=== PATIENT | female | born 1945 | race Caucasian/White ===

== ENCOUNTER → 2023-05-08 12:50 | Outpatient (REF) | payer MEDICARE, OTHER, SELFPAY | LOC: DHCBC/DCA 12:50 | PROVIDERS: ATTENDING PHYSICIAN Internal Medicine Cardiovascular Disease; FAMILY PHYSICIAN Emergency Medicine | DX: R06.00 Dyspnea, unspecified (principal); R94.31 Abnormal electrocardiogram [ECG] [EKG] | CPT/HCPCS: 78452; 93017; A9500; J2785 ==

== ENCOUNTER 2023-05-17 06:15 | Inpatient (IN) | payer MEDICARE, OTHER, SELFPAY ==
[2023-05-12 09:53] VITALS: BMI 18.2
[2023-05-12 10:11] LABS: Hematocrit 35.5 % (37.0-47.0); Hemoglobin 10.9 g/dL (12.0-16.0); Mean Corp Hgb Conc. 30.7 g/dL (33.0-37.0); Mean Corpuscular Hgb 26.1 pg (27.0-31.0); Mean Corpuscular Volume 84.9 fL (81.0-99.0); Mean Platelet Volume 9.7 fL (7.4-10.4); Platelet Count 446 10^3/uL (130-400); Red Blood Cell Count 4.18 10^6/uL (4.20-5.40); Red Cell Dist. Width 14.8 % (11.5-14.5); White Blood Cell Count 10.2 10^3/uL (4.8-10.8)
[2023-05-12 10:19] LABS: INR 1.05; PT 13.5 Sec (11.4-14.6)
[2023-05-12 10:20] LABS: APTT 39.6 Sec (23.4-35.0)
[2023-05-12 10:26] LABS: ALT (SGPT) < 10 U/L (0-35); AST (SGOT) 22 U/L (14-36); Albumin 3.8 g/dl (3.5-5.0); Alkaline Phosphatase 117 U/L (38-126); Blood Urea Nitrogen 11 mg/dl (7-17); Calcium 9.7 mg/dl (8.4-10.2); Carbon Dioxide 27 mmol/L (22-30); Chloride 98 mmol/L (98-107); Estimated Creatinine Clearance 37 ml/min; Glucose 123 mg/dl (70-99); Potassium 4.9 mmol/L (3.5-5.1); Sodium 135 mmol/L (135-145); Total Bilirubin 0.6 mg/dl (0.2-1.3); Total Protein 6.6 g/dl (6.3-8.2); eGFR > 60.00
[2023-05-12 13:38] LABS: Glycohemoglobin (HgbA1c) 6.6 % (4.0-5.6)
[2023-05-17] VITALS (61 sets, daily range): BP systolic 83–147; BP diastolic 37–79; BMI 18.2; BMI 19.5
[2023-05-17] MEDS: ENTEREG 12 MG PO (06:57)
[2023-05-17] MEDS: HEPARIN 5000 UNITS SC (06:57)
[2023-05-17] MEDS: Pyridium 200 MG PO (06:58)
[2023-05-17] MEDS: NORMOSOL-R 1000 IV (06:58)
--- NOTE | 2023-05-17 11:36 | W.IMMPOSTOP ---
Surgical Immed Post Op Note
-
Primary Surgeon: David Guardado MD
Urogynecologist: Norberto Bojorquez MD
Assistants: LUKAS Prieto and ROSEMARY Brown
Pre-op Diagnosis: Pelvic floor prolapse
Post-op Diagnosis: Same, with probable left ureteral stone
Procedure Performed: Robotic suture rectopexy, sacroculpopexy, posterior repair and cystoscopy with left double-J stent (Dr. Medina)
Anesthesia Type: GET
Specimen / Cultures: None
Estimated Blood Loss: 15cc
Complications: None
Operative Findings: Full-thickness rectal prolapse
Vaginal vault prolapse
Rectocele
Left ureteral obstruction
Patient's updated.
[2023-05-17] MEDS: NEO-SYNEPHRINE 250 IV (12:44)
--- NOTE | 2023-05-17 13:32 | HPS.HSE ---
Family Physician
-
Family Physician: Daysi Holloway MD
Chief Complaint
-
Postoperative hypotension
History of Present Illness
78-year-old female came in for elective repair of rectal prolapse, complicated by IntraOp and postop hypotension.
Has received over 4 L of fluids intravenously so far. Currently on Emir-Synephrine infusion in the recovery room. Still intubated.
Discussed case with colorectal surgeon. Required intraoperative urology consultation for left ureteral stenting due to lack of urine output from the left ureter, ureteral stone also noted. Chao catheter placed.
Medical History
Past Medical History
Past Medical History: Reports HTN and Other
Additional Past Medical History:
Rectocele, cystocele
Vaginal vault prolapse
Intermittent asthma
Chronic low back pain
Scoliosis
Depression
GERD
Urinary frequency
PAD
Past Surgical History: Reports Other
Additional Past Surgical History:
Hysterectomy -1984.
Lumbar laminectomy -2006
Social History
Tobacco: Smoker
Alcohol: None
Drug: None
Family History
Family History: Not pertinent
Allergies / Home Medications
Allergies reflects when Allergies were last updated in [facility].
Home Medications with original date entered in [employer] [facility]
Allergy/Medication List:
Allergies
Allergy/AdvReac Type Severity Reaction Status Date / Time
aspirin Allergy Gastiris Unverified 05/17/23 06:29
ibuprofen Allergy Gastritis Unverified 05/17/23 06:29
latex Allergy Itching Verified 05/17/23 06:29
NSAIDS (Non-Steroidal Allergy Gastritis Unverified 05/17/23 06:29
Anti-Inflamma
Penicillins Allergy Unknown Verified 05/17/23 06:29
Home Medications
amlodipine 10 mg-benazepril 20 mg capsule 1 cap PO DAILY 04/25/09
estradiol 0.1 mg/24 hr weekly transdermal patch (Climara) 0.1 mg transdermal FR 04/25/09
esomeprazole magnesium 40 mg capsule,delayed release (Nexium) 40 mg PO DAILY 02/28/11
alprazolam 0.25 mg tablet (Xanax) 0.125 mg PO PRN PRN anxiety 05/11/23
alprazolam 0.25 mg tablet (Xanax) 0.25 mg PO HS 05/11/23
azelastine 205.5 mcg (0.15 %) nasal spray (Astepro Allergy) 2 spray intranasal DAILY 05/11/23
dextroamphetamine-amphetamine 30 mg tablet (Adderall) 30 - 45 mg PO DAILY 05/11/23
fexofenadine 180 mg tablet 180 mg PO DAILY 05/11/23
gabapentin 300 mg capsule 600 mg PO HS 05/11/23
oxycodone 20 mg tablet 20 mg PO QID pain 05/11/23
pseudoephedrine HCl 30 mg tablet (Sudafed) 15 mg PO DAILY 05/11/23
sodium citrate 230 mg chewable tablet (Nauzene Upset Stomach-Nausea) 230 mg PO PRN PRN nausea 05/11/23
Review of Systems
-
Unable to obtain full review of systems at this time due to: Patient Intubation
Physical Exam
Vital Signs
Vital Signs
Temp Pulse Resp BP Pulse Ox
98.0 F 64 17 96/45 100
05/17/23 12:23 05/17/23 13:20 05/17/23 13:20 05/17/23 13:20 05/17/23 13:20
Physical Exam
General: Well Developed, Well Nourished, No Apparent Distress, Comfortable and Intubated
HEENT: NormoCephalic and Anicteric
Respiratory: Clear
Cardiac: S1/S2 and Regular Rhythm
Breast: Deferred by me
GI: Soft, Non Tender and Non Distended
Genito-urinary: Deferred by me
Musculoskeletal: No Clubbing, No Cyanosis and No Edema
Skin: Warm, Dry and Other (Subcutaneous emphysema over chest)
Neuro: Sedated
Hematologic/Lymphatic: No Lymphadenopathy
Psych: Calm
Laboratory Results
-
Laboratory Results
PT 13.5 Sec (11.4-14.6) 05/12/23 09:52
INR 1.05 05/12/23 09:52
APTT 39.6 Sec (23.4-35.0) H 05/12/23 09:52
Total Bilirubin 0.6 mg/dl (0.2-1.3) 05/12/23 09:52
AST 22 U/L (14-36) 05/12/23 09:52
ALT < 10 U/L (0-35) 05/12/23 09:52
Alkaline Phosphatase 117 U/L (38-126) 05/12/23 09:52
Impression/Plan
-
Postop hypotension - unclear etiology thus far. She did take her antihypertensives preoperatively which may be playing a role.
Received over 4 L of intravenous fluids both intra and postoperatively so far. Currently on intravenous Emir-Synephrine drip.
Admit to ICU. Consult patient monitor. Continue vasopressors. Look for other causes of hypotension. Clinically doubt sepsis.
Currently intubated, plan to extubate in PACU according to staff.
Pelvic floor prolapse -underwent robotic repair 05/17/2023. Required left ureteral double-J stenting by urology. Continue Chao catheter.
DM2 -hemoglobin A1c 6.6% on 05/12/2023. Not on diabetes meds. Monitor for now.
Essential hypertension -hold antihypertensives for hypotension.
Mild intermittent asthma -stable.
PAD -stable.
Chronic low back pain/chronic pain syndrome/chronic opiate dependence -she is on oxycodone 20 mg 4 times a day, gabapentin 600 mg at bedtime.
GERD
Major depression
Tobacco dependence
Full code
[2023-05-17 13:50] LABS: Hematocrit 29.8 % (37.0-47.0); Hemoglobin 9.5 g/dL (12.0-16.0); Mean Corp Hgb Conc. 31.9 g/dL (33.0-37.0); Mean Corpuscular Hgb 26.3 pg (27.0-31.0); Mean Corpuscular Volume 82.5 fL (81.0-99.0); Mean Platelet Volume 9.5 fL (7.4-10.4); Platelet Count 434 10^3/uL (130-400); Red Blood Cell Count 3.61 10^6/uL (4.20-5.40); Red Cell Dist. Width 14.3 % (11.5-14.5); White Blood Cell Count 19.3 10^3/uL (4.8-10.8)
[2023-05-17 14:04] LABS: Blood Urea Nitrogen 12 mg/dl (7-17); Calcium 7.5 mg/dl (8.4-10.2); Carbon Dioxide 21 mmol/L (22-30); Chloride 99 mmol/L (98-107); Estimated Creatinine Clearance 34 ml/min; Glucose 193 mg/dl (70-99); Potassium 4.4 mmol/L (3.5-5.1); Sodium 129 mmol/L (135-145); eGFR 57.31
[2023-05-17] MEDS: NSS 1000 IV ×2 (14:04→22:24)
--- NOTE | 2023-05-17 15:30 | PTCARENOTE ---
Addendum entered by Loretta Pandya RN 05/17/23 18:53:
Pt received w/ packing noted in perineum. No drainage noted. Pt also found to have diffuse SQ emphysema/crepitus at time of arrival to ICU- turnk/chest and bilateral upper extremities, per [employer] this is unchanged and MD is aware.
Original Note:
Pt arrived to ICU at 1440 via bed from PACU. Drowsy/lethargic but arousable to name. Oriented to person, place, month/year. Denies c/o pain at present. Pt asleep when undisturbed. Pt received on O2 at 6l/min w/ POx 99%. O2 decreased to 4l/min w/ POx
97%. No respiratory distress. Pt received w/ Neosynephrine infusing at 100mcg/min and NS at 100ml/hr. Chao catheter patent and draining clear orange urine. Physical assessment completed as documented. Pt's significant other in room to see pt-
updated on pt's present condition, plan of care- all questions answered and emotional support provided. Safe environment maintained.
[2023-05-17] MEDS: LEVOPHED 250 IV (16:08)
[2023-05-17] MEDS: TYLENOL PO ×3 (16:11→20:47)
[2023-05-17] MEDS: TORADOL 15 MG IV ×2 (16:11→21:10)
--- NOTE | 2023-05-17 16:16 | CON.INTV ---
Consultation
Consultation Request
Date/Time Consultation Requested: 05/17/2023
Date/Time Consultation Performed: 05/17/2023
Requesting Provider: Dr. San
Performing Provider: Dr. Wilner Conner
Medical History
-
History of Present Illness:
78-year-old female who was admitted electively for repair of rectal prolapse complicated with intraoperative hypotension.
Despite receiving 4 L of crystalloids remained hypotensive. Now requiring Emir-Synephrine in the recovery room.
Patient required intraoperative urology consultation and a stent was placed due to lack of urinary output on the left ureter.
Currently in the critical care unit. Extubated. Somnolent but arousable.
Denies abdominal pain, nausea or vomiting.
Does not appear toxic
Past Medical History
Past Medical History: Other (See assessment and plan section)
Social History
Tobacco: Smoker
Alcohol: None
Drug: None
Family History
Family History: Unable to Obtain
Allergies / Home Medications
Allergies
Allergy/AdvReac Type Severity Reaction Status Date / Time
aspirin Allergy Gastiris Unverified 05/17/23 06:29
ibuprofen Allergy Gastritis Unverified 05/17/23 06:29
latex Allergy Itching Verified 05/17/23 06:29
NSAIDS (Non-Steroidal Allergy Gastritis Unverified 05/17/23 06:29
Anti-Inflamma
Penicillins Allergy Unknown Verified 05/17/23 06:29
Home Medications
�Medication �Instructions �Recorded �Confirmed �Last Taken �Type
amlodipine 10 mg-benazepril 20 mg 1 cap PO DAILY Blood Pressure 04/25/09 05/17/23 05/17/23 04:00 History
capsule
estradiol 0.1 mg/24 hr weekly 0.1 mg transdermal FR Hormonal 04/25/09 05/17/23 05/16/23 History
transdermal patch (Climara) Agent
esomeprazole magnesium 40 mg 40 mg PO DAILY Gastrointestinal 02/28/11 05/11/2303/24 04:00 History
capsule,delayed release (Nexium) Issue
alprazolam 0.25 mg tablet (Xanax) 0.125 mg PO PRN PRN anxiety 05/11/23 05/11/23 Unknown History
alprazolam 0.25 mg tablet (Xanax) 0.25 mg PO HS Mental Health/Anxiety 05/11/23 05/17/23 05/17/23 00:30 History
azelastine 205.5 mcg (0.15 %) 2 spray intranasal DAILY Allergies 05/11/23 05/17/23 05/17/23 06:30 History
nasal spray (Astepro Allergy)
dextroamphetamine-amphetamine 30 30 - 45 mg PO DAILY Neurological 05/11/23 05/11/23 Unknown History
mg tablet (Adderall) Condition
fexofenadine 180 mg tablet 180 mg PO DAILY Allergies 05/11/23 05/17/23 05/16/23 10:00 History
gabapentin 300 mg capsule 600 mg PO HS Pain 05/11/23 05/17/23 05/17/23 00:30 History
oxycodone 20 mg tablet 20 mg PO QID pain 05/11/23 05/11/23 05/17/23 04:00 History
pseudoephedrine HCl 30 mg tablet 15 mg PO DAILY Allergies 05/11/23 05/17/23 05/16/23 10:00 History
(Sudafed)
sodium citrate 230 mg chewable 230 mg PO PRN PRN nausea 05/11/23 05/17/23 05/16/23 10:00 History
tablet (Nauzene Upset
Stomach-Nausea)
Review of Systems
-
Unable to Obtain full review of systems at this time due to: Acuity
Vitals / Labs / Diagnostic Testing
Vital Signs
Temp Pulse Resp BP Pulse Ox
96.4 F L 70 13 105/53 99
05/17/23 15:18 05/17/23 15:00 05/17/23 15:00 05/17/23 15:00 05/17/23 15:29
Lab Data
05/17/23 13:41
05/17/23 13:41
Diagnostic Testing:
Physical Exam
-
HEENT: Normocephalic
Cardiovascular: S1/S2
Respiratory: Clear and Non-Labored Respirations
GI: Soft and Non Distended
Neurology: Other (Somnolent but arousable. Following commands.)
Skin: Warm
General: Respiratory Distress (n)
Assessment
-
78-year-old woman electively admitted for repair of rectocele. Respiratory urology had to get involved to place a double-J stent due to lack of urinary output. Patient was extubated in PACU. Developed hypotension unresponsive to IV fluids.
Currently on vasopressors. Transferred to the ICU for further care.
Postoperative hypotension
Status post Robotic suture rectopexy, sacroculpopexy, posterior repair and cystoscopy with left double-J stent (Dr. Medina) 05/17/2023
Leukocytosis
Postoperative anemia-? Dilutional
Hyponatremia
Conditions present prior admission:
Rectocele, cystocele
Chronic back pain
Scoliosis
Depression
GERD
Peripheral arterial disease
Prior hysterectomy 1984
Lumbar laminectomy 2006
Smoker
Assessment and plan:
Unclear etiology for hypotension, currently no evidence for infection but patient has leukocytosis.
Leukocytosis may be reactive, monitor for fevers
Patient did receive prophylactic antibiotics prior to her procedure. Levaquin/metronidazole
-
Hypotension may be from prolonged anesthesia as well as systemic inflammatory response after nephrolithiasis removal.
-
Monitor renal function and urinary output
Agree with transition to norepinephrine-maintain mean arterial blood pressure 65 mmHg or higher.
Hopefully can wean off Emir-Synephrine
Continue maintenance IV fluids
Patient received at least 4 L of crystalloids. No further IV fluids necessary
Hold antihypertensive-, patient took prior surgery.
-
Smoker: Recent evaluation in my office showed normal pulmonary function testing.
-
Wean off oxygen as able.
-
updated by Dr. Conner 05/17/2023.
-
Critical care statement: A total of 31 minutes of critical care time was provided for this patient today. This includes management of unstable vital signs, evaluation of the patient at bedside, reviewing the patient's pertinent medical records
including radiographs, microbiology, laboratory evaluations and discussion with primary team, critical care nursing, and respiratory therapy.
--- NOTE | 2023-05-17 18:30 | PTCARENOTE ---
Pt remains drowsy but responds more readily to questions. Stating 'I'm hungry' Pt and her informed of currently ordered NPO status. O2 remains at 2l/min via NC- attempted to place pt on RA w/ POx down to 88%. Neosynephrine gtt off- Levophed
gtt as documented. gone home for evening.
--- NOTE | 2023-05-17 21:00 | PTCARENOTE ---
Resumed care of pt this evening. Abdominal Surgical sites C/D/I, approximated and surgical glue present ELIZABETH. Pt currently on levo gtt infusing at 10mcg/min. Pt barr in place draining orange colored urine. VSS.
[2023-05-17] MEDS: DILAUDID 0.5 MG IV (21:11)
[2023-05-18] VITALS (40 sets, daily range): BP systolic 121–164; BP diastolic 51–87; PULSE 101; O2SAT 95; BMI 19.6
[2023-05-18] MEDS: TYLENOL PO ×6 (00:26→19:54)
[2023-05-18 00:36] LABS: Glucose - Point of Care 199 mg/dl (70-99)
[2023-05-18] MEDS: NOVOLOG FLEXPEN-LOW RESISTANCE 1 UNITS SC (01:20)
[2023-05-18] MEDS: DILAUDID 0.5 MG IV ×5 (01:29→19:51)
--- NOTE | 2023-05-18 03:30 | PTCARENOTE ---
Levo gtt turned off per protocol. VSS.
[2023-05-18] MEDS: TORADOL 15 MG IV ×4 (04:26→22:25)
[2023-05-18] MEDS: ZOFRAN 4 MG IV (04:52)
[2023-05-18 04:57] LABS: % Basophils 0.1 % (0-2); % Immature Granulocytes 0.5 % (0-0.5); % Lymphocytes 5.5 % (20.5-51.1); % Monocytes 5.8 % (1.7-9.3); % Neutrophils 88.1 % (42.2-75.2); Absolute Immature Granulocytes 0.1 10^3/uL (0-0.05); Absolute Neutrophils 15.5 10^3/uL (1.4-6.5); Hematocrit 32.9 % (37.0-47.0); Hemoglobin 10.5 g/dL (12.0-16.0); Mean Corp Hgb Conc. 31.9 g/dL (33.0-37.0); Mean Corpuscular Hgb 26.3 pg (27.0-31.0); Mean Corpuscular Volume 82.5 fL (81.0-99.0); Mean Platelet Volume 9.6 fL (7.4-10.4); Nucleated Red Blood Cells % 0 %; Platelet Count 391 10^3/uL (130-400); Red Blood Cell Count 3.99 10^6/uL (4.20-5.40); Red Cell Dist. Width 14.4 % (11.5-14.5); White Blood Cell Count 17.6 10^3/uL (4.8-10.8)
[2023-05-18 05:20] LABS: Blood Urea Nitrogen 15 mg/dl (7-17); Carbon Dioxide 24 mmol/L (22-30); Chloride 102 mmol/L (98-107); Estimated Creatinine Clearance 45 ml/min; Glucose 109 mg/dl (70-99); Potassium 4.1 mmol/L (3.5-5.1); Sodium 131 mmol/L (135-145); eGFR > 60.00
--- NOTE | 2023-05-18 05:30 | PTCARENOTE ---
Pt exhibited N/V. Pt vomited small amount of liquid emesis. IV zofran administered by this RN. IV dilaudid also administered by this RN for pain rated 9 out of 10 by patient.
[2023-05-18] MEDS: NOVOLOG FLEXPEN-LOW RESISTANCE SC ×3 (06:50→18:04)
[2023-05-18] MEDS: PROTONIX IV 40 MG IV (07:54)
[2023-05-18] MEDS: NSS (PRESERVATIVE FREE) 10 ML IV (07:54)
[2023-05-18] MEDS: ENTEREG 12 MG PO ×2 (07:54→19:51)
--- NOTE | 2023-05-18 09:00 | PTCARENOTE ---
Complete assessment done and noted in chart/worklist. Pt seen this am by Dr Guardado and Dr Conner. Pt c/o overall pain, mostily in R uppper abd, and lower back pain. Pain Meds reassessed and orders updated by Dr Conner. Abd tender, 5 inc intact with
surgical glue. Chao cath draining large amts of yellow urine. Pt turned and made comfortable. Chao cath care done. IVF NS d/c'd.
--- NOTE | 2023-05-18 10:37 | W.PN.CRS1 ---
Today's Communication / Plan
-
OOB c PT
remain NPO
lovenox
pain control
Assessment/Plan
-
POD#1 Robotic suture rectopexy, sacroculpopexy, posterior repair and cystoscopy with left double-J stent (Dr. Medina)
1. Vitals normal.
2. WBC 17.6, as expected post op.
3. OOB as tolerated with PT.
4. Start Lovenox, TEDS/SCDS in place for DVT prophylaxis.
5. OR pathology pending.
6. Pressers have been weaned off overnight.
7. Continue barr today, d/c in AM.
8. Double J stent in place, will remain in place for about a month until determined by urology.
9. Remain NPO for now given bloating.
10. Pain control: Tylenol/Toradol standing, Dilaudid PRN.
Subjective Data
Procedure
05/17/2023- Robotic suture rectopexy, sacroculpopexy, posterior repair and cystoscopy with left double-J stent (Dr. Medina)
Subjective Data
Date of Service: May 18, 2023
Patient states she feels bloated. She complains of right sided pain. She vomited overnight.
Objective Data
-
Vital Signs
Temp Pulse Resp BP Pulse Ox
98.2 F 83 17 149/66 92
05/18/23 07:35 05/18/23 07:15 05/18/23 07:15 05/18/23 07:00 05/18/23 07:15
Intake & Output
05/17/23 05/18/23 05/19/23
06:59 06:59 06:59
Intake Total 2794.5 / 2794.5
Output Total 1950 / 1950
Balance 844.5 / 844.5
Intake:
IV fluids (Total) 2794.5 / 2794.5
Levophed 322.5 / 322.5
Neosynephrine 72 / 72
Normosol 800 / 800
Nss 1,000 ml @ 100 mls/hr IV . 1600 / 1600
Q10H EHSAN Rx#:[id number]
Output:
Urine, Barr 1949
Lab Results
05/18/23 04:41
05/18/23 04:41
Physical Exam
-
General: No Acute Distress and AOx3
Abdomen: Soft, Distended (mild) and Tender (by incisions, throughout)
Skin: Warm and Dry
Wound: No Signs of Infection
--- NOTE | 2023-05-18 10:43 | CM ---
CM following re: discharge planning.
Discussed in Rounds, reviewed pt's chart, met with pt and spoke to pt's son Grabiel over the phone [phone].
Pt is a 78 year old female admitted with primary dx of POD #1 Robotic suture rectopexy, sacrocolpopexy, posterior repair and cystoscopy with left double-J stent.
per son Grabiel, pt lives with a boyfriend in a 2[place], 3 steps to enter, has 2 supportive children. Per son, pt uses a walker occasionally, boyfriend help as needed. Pt's son had many questions regarding pt's meds and he was notified that RN and MD
will give him a call. RN and MD are aware.
PT and OT will evaluate the pt to determine a level of care at discharge.
PCP: Daysi Holloway
Pharmacy: [place] [facility]
D/C plan: home with anticipated VN services. Spouse to transport at discharge.
CM will follow with discharge plan updates as hospitalization progresses.
--- NOTE | 2023-05-18 10:47 | W.PN.INTV ---
Today's Communication / Plan
Recommendations
Continue gentle IV fluids
Continue with analgesia: Will need to start low-dose narcotics that she takes at home.
Diet per surgery
Transfer to [facility]
Sign off
Assessment
-
78-year-old woman electively admitted for repair of rectocele. Respiratory urology had to get involved to place a double-J stent due to lack of urinary output. Patient was extubated in PACU. Developed hypotension unresponsive to IV fluids.
Currently on vasopressors. Transferred to the ICU for further care.
Postoperative hypotension
Status post Robotic suture rectopexy, sacroculpopexy, posterior repair and cystoscopy with left double-J stent (Dr. Medina) 05/17/2023
Leukocytosis
Postoperative anemia-? Dilutional
Hyponatremia
Conditions present prior admission:
Rectocele, cystocele
Chronic back pain
Scoliosis
Depression
GERD
Peripheral arterial disease
Prior hysterectomy 1984
Lumbar laminectomy 2006
Smoker
Assessment and plan:
Hypotension have resolved, likely postanesthesia effect. Vasopressors have been discontinued
Patient does not appear toxic.
Hemoglobin is stable
Patient did receive prophylactic antibiotics prior to her procedure. Levaquin/metronidazole
Continue gentle IV fluids while NPO.
-
Hold antihypertensive for now.
-
Main issue is postoperative pain
Patient takes standing narcotics at home.
Discussed with pharmacy, will maintain [id number] low-dose narcotics while NPO.
-
Advance diet per surgery.
Maintain on low rate IV fluids for now.
-
Smoker: Recent evaluation in my office showed normal pulmonary function testing.
-
updated by Dr. Conner 05/17/2023.
-
No additional critical care needs. Will transfer to [facility].
Critical care team will sign off.
Eventual follow-up with Dr. Conner in the outpatient setting as previously scheduled.
Subjective Dataa
Subjective Data
Date of Service:
Date of Service: May 18, 2023
Chief Complaint: Vector Control Assistant Follow Up (Postoperative hypotension)
Subjective:
Continues to report postoperative pain
Denies nausea or vomiting
Denies shortness of breath
Vasopressors have been discontinued
Review of Systems
General: Fever (n)
Cardiopulmonary: Dyspnea (n) and Chest Pain (n)
GI: Abdominal Pain (n) and Nausea (n)
Objective Data
Data Reviewed
Vital Signs / I&O / Oxygen:
Vital Signs
Temp Pulse Resp BP Pulse Ox
98.2 F 83 17 149/66 92
05/18/23 07:35 05/18/23 07:15 05/18/23 07:15 05/18/23 07:00 05/18/23 07:15
Intake and Output
05/17/23 05/18/23 05/19/23
06:59 06:59 06:59
Intake Total 2794.5 / 2794.5
Output Total 1950 / 1950
Balance 844.5 / 844.5
SaO2 92
Nasal Cannula flow liters per 4
minute
Physical Exam
General: Respiratory Distress (n) and Comfortable
HEENT: Normocephalic
Cardiovascular: S1-S2 and Regular Rhythm
Respiratory: Clear and Non-Labored Respirations
GI: Soft and Non Distended
Neurology: Awake and Alert
Skin: Warm
Labs/Micro/Reports
Lab Data
05/18/23 04:41
05/18/23 04:41
[2023-05-18 12:00] LABS: Glucose - Point of Care 104 mg/dl (70-99)
--- NOTE | 2023-05-18 12:55 | W.PN.HOSP.TC ---
Today's Communication/Plan
-
Continue analgesics
Resume antihypertensives
PT/OT
Await bowel function return
Assessment / Plan
Assessment / Plan
Gen-awake, alert, mild distress due to pain
HEENT-NC, AT, anicteric, clear oral mm
Neck-supple
CV-reg, no M, +S1/S2
Lungs-clear B/L
Abd-soft, nondistended, tender
Ext-no edema
Musculoskeletal-no cyanosis, clubbing
Skin-warm and dry
Neuro-grossly non-focal
Psych-calm, cooperative
Postoperative hypotension -resolved. Can transfer out of ICU.
Pelvic floor prolapse -underwent robotic repair 05/17/2023. Required left ureteral double-J stenting by urology. Continue Chao catheter. Resume diet when okay with surgery. Awaiting return of bowel function.
DM2 -hemoglobin A1c 6.6% on 05/12/2023. Not on diabetes meds. Monitor for now. Glucose 109 this morning.
Essential hypertension -blood pressure now elevated. Can resume home meds.
Hyponatremia (POA) - sodium 131 today. Likely due to postoperative pain. Mild fluid restriction.
Normocytic anemia -unknown acuity or etiology. Hemoglobin stable. Will need outpatient follow-up with PCP.
Mild intermittent asthma -stable.
PAD -stable.
Chronic low back pain/chronic pain syndrome/chronic opiate dependence -she is on oxycodone 20 mg 4 times a day, gabapentin 600 mg at bedtime.
GERD
Major depression
Tobacco dependence
Full code
Anticipated Discharge: > 48 hours
Subjective/Interval History
-
Date of Service: May 18, 2023
Patient seen and examined. Complaining of abdominal pain. Working with physical therapy.
Objective Data
-
Labs:
Laboratory Results
05/18/23
04:41
WBC 17.6 H
Hgb 10.5 L
Hct 32.9 L
Plt Count 391
Sodium 131 L
Potassium 4.1
Chloride 102
Carbon Dioxide 24
BUN 15
Creatinine 0.8
Glucose 109 H
Calcium 8.0 L
Vital Signs:
Vital Signs
Temp Pulse Resp BP Pulse Ox
98.7 F 83 17 149/66 92
05/18/23 11:40 05/18/23 07:15 05/18/23 07:15 05/18/23 07:00 05/18/23 07:15
I&O
05/17/23 05/18/23 05/19/23
06:59 06:59 06:59
Intake Total 2794.5 / 2794.5
Output Total 1950 / 1949
Balance 844.5 / 844.5
Review of Systems
-
History Source: Patient
All other systems: Reviewed and negative
--- NOTE | 2023-05-18 13:00 | PTCARENOTE ---
Pt's daughter, Alicja, and son, Grabiel, were called and updated.
[2023-05-18] MEDS: NORVASC 10 MG PO (13:26)
--- NOTE | 2023-05-18 13:42 | PTCARENOTE ---
Pt seen by P/T and now OOB in chair with sl assist and walker. Pt cleared to go to med surg bed when available. O2 weaned down to 2l nc, O2 sast=94%. I/S being done at bedside with encouragement.
--- NOTE | 2023-05-18 16:58 | W.PN.GYN ---
Today's Communication / Plan
-
1. barr to remain in place until pod2
2. Remove vaginal packing
Physician Note
-
Assesment and Plan:
78 yo woman POD 1 s/p robotic rectopexy, sacrocolpopexy, posterior colporrhaphy, perineoplasty, left ureteral stent for presumed kidney stone. Patient admitted overnight to the ICU for hypotension.
1. Postoperative Care
-postoperative recommendtions per Colorectal surgery
2. Vaginal prolapse repair
-remove vaginal packing
-monitor vaginal bleeding
-strict I/Os
Subjective
patient reports back pain and pelvic pain, bloating, passing small amount of flatus, has not ambulated, no significant vaginal bleeding.
Objective:
Intake and Output
05/16/23 05/17/23 05/18/23 05/19/23
06:59 06:59 06:59 06:59
Intake Total 2794.5 / 2894.5 200 / 200
Output Total 1949 / 1949 1500 / 1500
Balance 844.5 / 944.5 -1300 / -1300
Intake:
IV fluids (Total) 2794.5 / 2894.5 200 / 200
Levophed 322.5 / 322.5 0 / 0
Neosynephrine 72 / 72 0 / 0
Normosol 800 / 800
Nss 1,000 ml @ 100 mls/hr IV . 1600 / 1700 200 / 200
Q10H E[facility]AN Rx#:[id number]
Output:
Urine, Barr 1949 / 1949 1500 / 1500
Vital Signs
Temp Pulse Resp BP Pulse Ox
98.3 F 107 23 137/61 94
05/18/23 15:03 05/18/23 16:30 05/18/23 16:30 05/18/23 16:00 05/18/23 16:30
Lab Results
05/18/23 04:41
05/18/23 04:41
exam:
Abdomen: distended, +bowel sounds
Incisions: clean, dry, intact
: minimal spotting on pad
--- NOTE | 2023-05-18 17:03 | PTCARENOTE ---
Pt assisted back to bed to chair with 2 person assist. Pt tolerated OOB to chair well. Pt is passing flatus and just had a small formed brown stool. Dr Guardado updated, and clear liq diet was ordered. I/S done, reaching 750 TV.
[2023-05-18] MEDS: LOVENOX 40 MG SC (17:10)
[2023-05-18 18:12] LABS: Glucose - Point of Care 101 mg/dl (70-99)
[2023-05-18] MEDS: XANAX 0.25 MG PO (22:25)
[2023-05-19] VITALS (17 sets, daily range): BP systolic 118–162; BP diastolic 62–117; PULSE 122; BMI 17.7
[2023-05-19] MEDS: TYLENOL PO ×7 (00:30→23:51)
[2023-05-19] MEDS: DILAUDID 0.5 MG IV ×7 (00:53→23:51)
[2023-05-19] MEDS: NOVOLOG FLEXPEN-LOW RESISTANCE SC ×4 (00:56→23:51)
[2023-05-19 01:04] LABS: Glucose - Point of Care 114 mg/dl (70-99)
[2023-05-19] MEDS: TORADOL 15 MG IV ×4 (04:25→22:15)
[2023-05-19 04:43] LABS: % Basophils 0.2 % (0-2); % Immature Granulocytes 0.6 % (0-0.5); % Lymphocytes 5.6 % (20.5-51.1); % Monocytes 4.9 % (1.7-9.3); % Neutrophils 88.7 % (42.2-75.2); Absolute Basophils 0.1 10^3/uL (0-0.2); Absolute Immature Granulocytes 0.2 10^3/uL (0-0.05); Absolute Lymphocytes 1.4 10^3/uL (1.2-3.4); Absolute Monocytes 1.2 10^3/uL (0.1-0.6); Absolute Neutrophils 21.9 10^3/uL (1.4-6.5); Hematocrit 37.2 % (37.0-47.0); Hemoglobin 12.4 g/dL (12.0-16.0); Mean Corp Hgb Conc. 33.3 g/dL (33.0-37.0); Mean Corpuscular Hgb 26.4 pg (27.0-31.0); Mean Corpuscular Volume 79.1 fL (81.0-99.0); Mean Platelet Volume 9.7 fL (7.4-10.4); Nucleated Red Blood Cells % 0 %; Platelet Count 478 10^3/uL (130-400); Red Cell Dist. Width 14.6 % (11.5-14.5); White Blood Cell Count 24.7 10^3/uL (4.8-10.8)
[2023-05-19 05:28] LABS: ALT (SGPT) 13 U/L (0-35); AST (SGOT) 44 U/L (14-36); Albumin 3.2 g/dl (3.5-5.0); Alkaline Phosphatase 150 U/L (38-126); Blood Urea Nitrogen 18 mg/dl (7-17); Calcium 8.9 mg/dl (8.4-10.2); Carbon Dioxide 25 mmol/L (22-30); Chloride 96 mmol/L (98-107); Estimated Creatinine Clearance 52 ml/min; Glucose 120 mg/dl (70-99); Potassium 3.6 mmol/L (3.5-5.1); Sodium 131 mmol/L (135-145); Total Bilirubin 0.8 mg/dl (0.2-1.3); Total Protein 5.8 g/dl (6.3-8.2); eGFR > 60.00
[2023-05-19] MEDS: KCL 20 MEQ PO (06:34)
--- NOTE | 2023-05-19 07:35 | W.PN.GYN ---
Today's Communication / Plan
-
1. remove barr catheter later today after ambulation
2. send UA
Physician Note
-
Assesment and Plan:
78 yo woman POD 2 s/p robotic rectopexy, sacrocolpopexy, posterior colporrhaphy, perineoplasty, left ureteral stent for presumed kidney stone. Patient currently in ICU, leukocytosis uptrending overnight.
1. Postoperative Care
-postoperative recommendations per Colorectal surgery
2. Vaginal prolapse repair
-removed vaginal packing on POD2
-monitor vaginal bleeding: minimal bleeding
-strict I/Os
-send UA with reflex urine culture
Subjective:
patient reports that her last emesis was yesterday morning, had bowel movement, up to chair yesterday, denies chest pain or shortness of breath, denies fevers/chills.
Objective
Intake and Output
05/17/23 05/18/23 05/19/23 05/20/23
06:59 06:59 06:59 06:59
Intake Total 2794.5 / 2894.5 400 / 400
Output Total 1949 4000 / 4000
Balance 844.5 / 944.5 -3600 / -3600
Intake:
Oral fluids 200 / 200
IV fluids (Total) 2794.5 / 2894.5 200 / 200
Levophed 322.5 / 322.5 0 / 0
Neosynephrine 72 / 72 0 / 0
Normosol 800 / 800
Nss 1,000 ml @ 100 mls/hr IV . 1600 / 1700 200 / 200
Q10H [facility] Rx#:[id number]
Output:
Urine, Barr 1949 4000 / 4000
Vital Signs
Temp Pulse Resp BP Pulse Ox
97.8 F 103 16 156/67 98
05/19/23 07:09 05/19/23 06:00 05/19/23 06:00 05/19/23 06:00 05/19/23 05:45
Lab Results
05/19/23 04:34
05/19/23 04:34
Exam:
Abdomen: soft, nontender
Incisions: intact
: barr catheter in place, packing removed, minimal spotting
[2023-05-19] MEDS: NSS (PRESERVATIVE FREE) 10 ML IV (07:42)
[2023-05-19] MEDS: NORVASC 10 MG PO (07:42)
[2023-05-19] MEDS: PROTONIX IV 40 MG IV (07:42)
[2023-05-19] MEDS: ENTEREG 12 MG PO ×2 (07:44→19:55)
[2023-05-19] MEDS: [UNRECOGNIZED DRUG - OTHER] 0.100000000000000006 MG TRANSDERM (08:06)
[2023-05-19 08:33] LABS: Urine Albumin Trace (Neg - Trace); Urine Bilirubin Negative (Negative); Urine Character Clear (Clear); Urine Color Yellow; Urine Glucose Negative (Negative); Urine Ketone 2+ (Negative); Urine Leukocyte 1+ (Negative); Urine Nitrite Negative (Negative); Urine Occult Blood 4+ (Negative); Urine Urobilinogen Negative (Neg - 1+); Urine pH 6.5 (5.0-9.0)
--- NOTE | 2023-05-19 09:08 | PTCARENOTE ---
assessments per work list. patient reluctant to participate in plan of care. artificial stone setter/urologist in. vaginal packing removed by MD. patient incontinent large soft brown stool. urine specimen sent from barr cath. abdominal stab sites intact. lungs with
crackles scattered throughout. patient tachycardic with frequent pac. tiger text to hospitalist to update. call vick in place
[2023-05-19 09:16] LABS: Urine Mucus Few
[2023-05-19 09:18] LABS: Urine Red Blood Cell >100 /HPF (0-2)
[2023-05-19 09:20] LABS: Urine Bacteria Few (Negative)
--- NOTE | 2023-05-19 11:35 | W.PN.HOSP.TC ---
Addendum entered and electronically signed by Prudencio San DO 05/19/23 13:54:
BMI 17.7, underweight.
Original Note:
Today's Communication/Plan
-
Normal saline IV fluids
Resume benazepril
Assessment / Plan
Assessment / Plan
Gen-awake, alert, mild distress due to pain
HEENT-NC, AT, anicteric, clear oral mm
Neck-supple
CV-reg, no M, +S1/S2
Lungs-clear B/L
Abd-soft, nondistended, tender
Ext-no edema
Musculoskeletal-no cyanosis, clubbing
Skin-warm and dry
Neuro-grossly non-focal
Psych-calm, cooperative
Postoperative hypotension -resolved. Can transfer out of ICU.
Pelvic floor prolapse -underwent robotic repair 05/17/2023. Required left ureteral double-J stenting by urology. Clear liquid diet per surgery.
Chao catheter to come out today.
Leukocytosis -white blood cell count 24.7k today. Afebrile, nontoxic. Clinically doubt infection and I suspect it may be due to hemoconcentration in light of rising hemoglobin as well as negative I's and O's. Her weight is also down. Suspect she
has poor oral intake despite clear liquid diet. Will administer IV normal saline fluids. Recheck CBC in the morning. Discussed with surgical service.
DM2 -hemoglobin A1c 6.6% on 05/12/2023. Not on diabetes meds. Monitor for now. Glucose 109 this morning.
Essential hypertension -stable. Amlodipine resumed. Can resume benazepril as well.
Hyponatremia (POA) - sodium 131 today, stable. Likely due to postoperative pain. Mild fluid restriction.
Normocytic anemia -unknown acuity or etiology. Hemoglobin up to 12.4 today, likely due to hemoconcentration due to poor fluid intake.
Mild intermittent asthma -stable.
PAD -stable.
Chronic low back pain/chronic pain syndrome/chronic opiate dependence -she is on oxycodone 20 mg 4 times a day, gabapentin 600 mg at bedtime.
GERD
Major depression
Tobacco dependence
Full code
PT consult - SNF versus home health, to be determined.
Anticipated Discharge: > 48 hours
Subjective/Interval History
-
Date of Service: May 19, 2023
Patient seen and examined. Sleeping when I walked in but complaining of abdominal pain after I woke her up.
Objective Data
-
Labs:
Laboratory Results
05/19/23
04:34
WBC 24.7 H
Hgb 12.4
Hct 37.2
Plt Count 478 H D
Sodium 131 L
Potassium 3.6
Chloride 96 L
Carbon Dioxide 25
BUN 18 H
Creatinine 0.7
Glucose 120 H
Calcium 8.9
Total Bilirubin 0.8
AST 44 H
ALT 13
Alkaline Phosphatase 150 H
Vital Signs:
Vital Signs
Temp Pulse Resp BP Pulse Ox
97.8 F 105 17 158/89 95
05/19/23 07:09 05/19/23 11:30 05/19/23 11:30 05/19/23 08:00 05/19/23 11:30
I&O
05/18/23 05/19/23 05/20/23
06:59 06:59 06:59
Intake Total 2794.5 / 2894.5 400 / 400 240 / 240
Output Total 1950 / 1950 4000 / 4000 100 / 100
Balance 844.5 / 944.5 -3600 / -3600 140 / 140
Review of Systems
-
History Source: Patient
All other systems: Reviewed and negative
[2023-05-19 11:54] LABS: Glucose - Point of Care 152 mg/dl (70-99)
[2023-05-19] MEDS: NSS 1000 IV (11:55)
[2023-05-19] MEDS: NOVOLOG FLEXPEN-LOW RESISTANCE 1 UNITS SC (11:56)
--- NOTE | 2023-05-19 12:43 | W.PN.CRS1 ---
Today's Communication / Plan
-
wbc workup
continue clears
remove barr when ambulating
Assessment/Plan
-
POD#2 Robotic suture rectopexy, sacroculpopexy, posterior repair and cystoscopy with left double-J stent (Dr. Medina)
1. Tachycardic - in sinus but throwing pvcs ? attempting to go into afib.
2. WBC 24.7, yup from 17.6. CR chest/abdomen, urinalysis, lower extremity dopplers ordered.
3. OOB as tolerated with PT.
4. Lovenox, TEDS/SCDS in place for DVT prophylaxis.
5. OR pathology pending.
6. Plan for barr out later today when ambulation.
7. Vaginal packing removed by urogyn.
8. Double J stent in place, will remain in place for about a month until determined by urology.
9. Continue on clears.
10. Pain control: Tylenol/Toradol standing, Dilaudid PRN.
Subjective Data
Procedure
05/17/2023- Robotic suture rectopexy, sacroculpopexy, posterior repair and cystoscopy with left double-J stent (Dr. Medina)
Subjective Data
Date of Service: May 19, 2023
Patient states she has diarrhea. She denies nausea. She has abdominal pain and feels bloated.
Objective Data
-
Vital Signs
Temp Pulse Resp BP Pulse Ox
97.6 F 105 17 158/89 95
05/19/23 11:35 05/19/23 11:30 05/19/23 11:30 05/19/23 08:00 05/19/23 11:30
Intake & Output
05/18/23 05/19/23 05/20/23
06:59 06:59 06:59
Intake Total 2794.5 / 2894.5 400 / 400 240 / 240
Output Total 1949 4000 / 4000 350 / 350
Balance 844.5 / 944.5 -3600 / -3600 -110 / -110
Intake:
Oral fluids 200 / 200 240 / 240
IV fluids (Total) 2794.5 / 2894.5 200 / 200
Levophed 322.5 / 322.5 0 / 0
Neosynephrine 72 / 72 0 / 0
Normosol 800 / 800
Nss 1,000 ml @ 100 mls/hr IV . 1600 / 1700 200 / 200
Q10H [facility] Rx#:[id number]
Output:
Urine, Barr 1949 4000 / 4000 350 / 350
Lab Results
05/19/23 04:34
05/19/23 04:34
Physical Exam
-
General: No Acute Distress and AOx3
Abdomen: Soft, Distended (slight) and Tender (mild throughout)
Skin: Warm and Dry
Incision: Clear, Dry, Intact
--- NOTE | 2023-05-19 13:26 | PN.CDI ---
CDI
- -
CDI:
Physician Documentation Request
Admit Date: 05/17/23 06:15
Dear Doctor Jaswinder,
Clinical Indicators:
Patient admitted with pelvic floor prolapse; s/p robotic repair 05/16.
On admission:
Height: 102 lbs 15 oz
Weight: 99 lbs
BMI: 18.2
05/18 note/assessment: 'BMI 17.7 underweight range'...Pt unable to clarify what her height is If pt is in fact 5' 1' her BMI would be 18.9 which is in the normal range, though considered underweight for adults >65 years.'
If possible, please provide an associated diagnosis related to the abnormal BMI (< or = to 19.9), such as:
Underweight
BMI is not significant
Other, please specify
Use of terms such as suspected, likely, concern for, or probable (associated with a specific diagnosis that is being evaluated, monitored, or treated as if it exists) are acceptable and can be coded in the inpatient setting, when documented at the
time of discharge.
Thank you,
MAHAD Brunner RN
CDI Specialist
available via tiger text
Please use your independent medical judgment in providing your response.
--- NOTE | 2023-05-19 14:14 | CM ---
CM following re: discharge planning.
Discussed in Rounds, reviewed pt's chart, met with pt. Pt's daughter Alicja and pt's boyfriend Grabiel at bedside.
PT and OT evaluations noted - SNF vs home PT recommended. CM discussed it with pt and her family. home PT preferred and SNF level of care politely declined. A list of [facility] b]vendors provided, [facility] preferred. A referral to VN made.
D/C plan: home with [facility] and family support. Boyfriend to transport at discharge.
CM will follow with discharge plan updates as hospitalization progresses
[2023-05-19] MEDS: DILAUDID 0.25 MG IV (14:41)
--- NOTE | 2023-05-19 15:35 | PTCARENOTE ---
heart rate to 160 when working with PT. back to 90-110 at rest, sinus with pac. hospitalist updated by tiger text. patient for transfer to [address] [place] [address], awaiting call back to give report. family updated
--- NOTE | 2023-05-19 16:22 | PTCARENOTE ---
transfer to [address] [place] [address] with all belongings, report called to Sigrid KAUFMAN
[2023-05-19] MEDS: LOVENOX 30 MG SC (17:38)
[2023-05-19 18:01] LABS: Glucose - Point of Care 146 mg/dl (70-99)
[2023-05-19] MEDS: XANAX 0.25 MG PO (22:15)
[2023-05-19 22:38] LABS: Glucose - Point of Care 126 mg/dl (70-99)
[2023-05-20] MEDS: NSS 1000 IV (00:52)
[2023-05-20] MEDS: DILAUDID 0.5 MG IV ×5 (01:41→15:34)
[2023-05-20 03:00] VITALS: BP 108/80
[2023-05-20] MEDS: TYLENOL PO ×6 (04:00→23:58)
[2023-05-20] MEDS: TORADOL 15 MG IV ×4 (04:03→22:14)
[2023-05-20 06:00] VITALS: BMI 17.0
[2023-05-20 07:10] LABS: % Basophils 0.2 % (0-2); % Eosinophils 0.1 % (0-6); % Immature Granulocytes 0.5 % (0-0.5); % Lymphocytes 9.7 % (20.5-51.1); % Monocytes 6.7 % (1.7-9.3); % Neutrophils 82.8 % (42.2-75.2); Absolute Immature Granulocytes 0.1 10^3/uL (0-0.05); Absolute Lymphocytes 1.8 10^3/uL (1.2-3.4); Absolute Monocytes 1.3 10^3/uL (0.1-0.6); Absolute Neutrophils 15.4 10^3/uL (1.4-6.5); Hematocrit 35.9 % (37.0-47.0); Mean Corp Hgb Conc. 33.4 g/dL (33.0-37.0); Mean Corpuscular Hgb 26.4 pg (27.0-31.0); Mean Corpuscular Volume 79.1 fL (81.0-99.0); Mean Platelet Volume 10.1 fL (7.4-10.4); Nucleated Red Blood Cells % 0 %; Platelet Count 487 10^3/uL (130-400); Red Blood Cell Count 4.54 10^6/uL (4.20-5.40); Red Cell Dist. Width 14.8 % (11.5-14.5); White Blood Cell Count 18.6 10^3/uL (4.8-10.8)
[2023-05-20 07:12] VITALS: BP 148/63
[2023-05-20 07:34] LABS: Glucose - Point of Care 129 mg/dl (70-99)
[2023-05-20 07:36] LABS: ALT (SGPT) 13 U/L (0-35); AST (SGOT) 35 U/L (14-36); Albumin 3.2 g/dl (3.5-5.0); Alkaline Phosphatase 126 U/L (38-126); Blood Urea Nitrogen 18 mg/dl (7-17); Calcium 8.7 mg/dl (8.4-10.2); Carbon Dioxide 26 mmol/L (22-30); Chloride 98 mmol/L (98-107); Estimated Creatinine Clearance 52 ml/min; Glucose 119 mg/dl (70-99); Magnesium 1.7 mg/dl (1.6-2.3); Potassium 3.6 mmol/L (3.5-5.1); Sodium 128 mmol/L (135-145); Total Bilirubin 0.6 mg/dl (0.2-1.3); Total Protein 5.8 g/dl (6.3-8.2); eGFR > 60.00
[2023-05-20 08:31] LABS: TSH 0.65 uIU/ml (0.47-4.68)
[2023-05-20] MEDS: NOVOLOG FLEXPEN-LOW RESISTANCE SC ×4 (08:51→23:56)
[2023-05-20] MEDS: PROTONIX IV 40 MG IV (08:54)
[2023-05-20] MEDS: NSS (PRESERVATIVE FREE) 10 ML IV (08:54)
[2023-05-20] MEDS: ENTEREG 12 MG PO (08:55)
--- NOTE | 2023-05-20 09:29 | W.PN.GS2 ---
Addendum entered and electronically signed by Paco Nicolas MD 05/20/23 10:14:
Patient seen and examined with nurse practitioner. Agree with documented progress note.
Patient's chief complaint is back pain and abdominal discomfort.
Passing flatus, moving bowels. No nausea or vomiting
AF tachycardia 100-120, vital signs otherwise stable
NAD but uncomfortable appearing secondary to her back pain
Abdomen soft nondistended, mild tenderness, no rebound rigidity or guarding
Assessment/plan: POD status post RAL sutured rectopexy, sacrocolpopexy, left ureteral stent for presumed kidney stone
Suspect tachycardia related to pain management
Given GI recovery advance to full liquid diet and resume chronic home narcotics and gabapentin
DC Entereg given GI recovery
Leukocytosis improving
Original Note:
Today's Communication / Plan
-
Advance to FLD
Pain management
Assessment / Plan
-
78 yo female presenting for pelvic floor prolapse
POD #3 Robotic suture rectopexy, sacrocolpopexy, posterior colporrhaphy, perineoplasty and cystoscopy with left ureteral stent for presumed kidney stone
Afebrile, Stable BP. Tachycardia present; likely secondary to uncontrolled pain
No n/v. Passing stools.
Vaginal packing removed by urogyn
Leukocytosis improving. H/H stable.
Hyponatremia present (management as per hospitalist team)
--Advance to FLD
--Resume home oxycodone 20mg QID and 600mg gabapentin at HS. Scheduled tylenol and toradol. PRN IV dilaudid.
--PT eval/OOB increase activity. IS while awake
--D/C barr once ambulatory/ok with urology
--D/C entereg
--C/W lovenox SQ for vte ppx
--Hospitalist team following with us
Subjective Data
-
Date of Service: May 20, 2023
Patient seen and examined at bedside. Denies n/v. Significant back pain overnight, has baseline back pain for which she takes oxycodone chronically which was held immediately post operatively. Abdominal discomfort present but not severe. Passing
semi-formed stools/flatus. Tolerating clears.
Objective Data
-
Intake and Output
05/19/23 05/20/23 05/21/23
06:59 06:59 06:59
Intake Total 400 / 400 2290 / 2290 160 / 160
Output Total 4000 / 4000 1850 / 1850 600 / 600
Balance -3600 / -3600 440 / 440 -440 / -440
Intake:
Oral fluids 200 / 200 1010 / 1010
IV fluids (Total) 200 / 200 1280 / 1280 160 / 160
Levophed 0 / 0
Neosynephrine 0 / 0
Nss 1,000 ml @ 100 mls/hr IV . 200 / 200
Q10H [facility] Rx#:[id number]
Nss 1,000 ml @ 80 mls/hr IV . 320 / 320
[id number] [facility] Rx#:[id number]
Output:
Urine, Barr 4000 / 4000 1850 / 1850 600 / 600
Vital Signs
Temp Pulse Resp BP Pulse Ox
97.7 F 119 16 148/63 95
05/20/23 07:12 05/20/23 07:12 05/20/23 07:12 05/20/23 07:12 05/20/23 07:12
Lab Results
05/20/23 06:28
05/20/23 06:28
Calcium 8.7 mg/dl (8.4-10.2) 05/20/23 06:28
Magnesium 1.7 mg/dl (1.6-2.3) 05/20/23 06:28
Total Bilirubin 0.6 mg/dl (0.2-1.3) 05/20/23 06:28
AST 35 U/L (14-36) 05/20/23 06:28
ALT 13 U/L (0-35) 05/20/23 06:28
Alkaline Phosphatase 126 U/L (38-126) 05/20/23 06:28
Total Protein 5.8 g/dl (6.3-8.2) L 05/20/23 06:28
Albumin 3.2 g/dl (3.5-5.0) L 05/20/23 06:28
Physical Exam
-
Uncomfortable appearing
Ox3
ABD soft, ND, mild incisional tenderness
Incisions well approximated, intact glue, no erythema
Barr with clear, светлана urine
[2023-05-20] MEDS: LOTREL 10 MG/20 MG 1 CAPSULE PO (10:15)
[2023-05-20 11:28] VITALS: BP 140/67
--- NOTE | 2023-05-20 11:32 | W.PN.HOSP.TC ---
Today's Communication/Plan
-
Resume home doses of opiates
DC Chao catheter
Voiding trial
Assessment / Plan
Assessment / Plan
Gen-awake, alert, mild distress due to pain
HEENT-NC, AT, anicteric, clear oral mm
Neck-supple
CV-reg, no M, +S1/S2
Lungs-clear B/L
Abd-soft, nondistended, tender
Ext-no edema
Musculoskeletal-no cyanosis, clubbing
Skin-warm and dry
Neuro-grossly non-focal
Psych-calm, cooperative
Postoperative hypotension -resolved. Can transfer out of ICU.
Pelvic floor prolapse -underwent robotic repair 05/17/2023. Required left ureteral double-J stenting by urology. Advance diet as tolerated. DC Chao catheter, voiding trial. She is ambulating with PT.
Leukocytosis -improving. Afebrile. No signs or symptoms of infection.
Postoperative tachycardia -suspect due to opioid withdrawal syndrome. Will resume home doses of oxycodone 20 mg QID today. Minimize use of IV Dilaudid. Discussed with nursing.
DM2 -hemoglobin A1c 6.6% on 05/12/2023. Not on diabetes meds. Monitor for now. Glucose 109 this morning.
Essential hypertension -stable. Amlodipine resumed. Can resume benazepril as well.
Hyponatremia (POA) - sodium 128 today. Check urine studies. TSH normal. Random cortisol 40. Fluid restriction.
Normocytic anemia -hemoglobin has recovered, 12.0 today.
Mild intermittent asthma -stable.
PAD -stable.
Chronic low back pain/chronic pain syndrome/chronic opiate dependence -she is on oxycodone 20 mg 4 times a day, gabapentin 600 mg at bedtime.
GERD
Major depression
Tobacco dependence
Full code
PT consult - SNF versus home health, to be determined.
Anticipated Discharge: 24 - 48 hours
Subjective/Interval History
-
Date of Service: May 20, 2023
Patient seen and examined. Looks comfortable. No complaints.
Objective Data
-
Labs:
Laboratory Results
05/20/23
06:28
WBC 18.6 H
Hgb 12.0
Hct 35.9 L
Plt Count 487 H
Sodium 128 L
Potassium 3.6
Chloride 98
Carbon Dioxide 26
BUN 18 H
Creatinine 0.6
Glucose 119 H
Calcium 8.7
Total Bilirubin 0.6
AST 35
ALT 13
Alkaline Phosphatase 126
Vital Signs:
Vital Signs
Temp Pulse Resp BP Pulse Ox
97.9 F 89 17 140/67 96
05/20/23 11:28 05/20/23 11:28 05/20/23 11:28 05/20/23 11:28 05/20/23 11:28
I&O
05/19/23 05/20/23 05/21/23
06:59 06:59 06:59
Intake Total 400 / 400 2290 / 2290 160 / 160
Output Total 4000 / 4000 1850 / 1850 600 / 600
Balance -3600 / -3600 440 / 440 -440 / -440
Review of Systems
-
History Source: Patient
All other systems: Reviewed and negative
[2023-05-20] MEDS: ROXICODONE 20 MG PO ×3 (11:53→23:57)
[2023-05-20 12:06] LABS: Glucose - Point of Care 127 mg/dl (70-99)
[2023-05-20 13:38] LABS: Osmolality Urine 431 mOsm/kg (300-900)
[2023-05-20 13:44] LABS: Urine Sodium 163 mmol/L (30-90)
[2023-05-20 15:37] VITALS: BP 138/69
[2023-05-20 17:01] LABS: Glucose - Point of Care 118 mg/dl (70-99)
[2023-05-20] MEDS: LOVENOX 30 MG SC (17:33)
[2023-05-20] MEDS: XANAX 0.125 MG PO (17:34)
--- NOTE | 2023-05-20 18:17 | PTCARENOTE ---
OOB to commode with 1 assist, urinated and had BM. refused PT, refused to walk. eating 30-40% of meals. C/o pain in taiwo in legs
[2023-05-20 19:00] VITALS: BP 136/57
[2023-05-20 21:50] LABS: Glucose - Point of Care 97 mg/dl (70-99)
[2023-05-20] MEDS: NEURONTIN 600 MG PO (22:13)
[2023-05-20] MEDS: XANAX 0.25 MG PO (22:13)
[2023-05-20 23:00] VITALS: BP 130/65
[2023-05-21 03:00] VITALS: BP 169/82
[2023-05-21] MEDS: TORADOL 15 MG IV ×2 (04:17→08:27)
[2023-05-21] MEDS: TYLENOL PO ×2 (04:18→12:23)
[2023-05-21] MEDS: ROXICODONE 20 MG PO ×2 (05:45→12:23)
[2023-05-21 06:00] VITALS: BMI 16.2
[2023-05-21 06:31] LABS: Glucose - Point of Care 109 mg/dl (70-99)
[2023-05-21] MEDS: NOVOLOG FLEXPEN-LOW RESISTANCE SC ×2 (06:33→12:23)
[2023-05-21 07:07] VITALS: BP 108/50
[2023-05-21 07:23] LABS: Glucose - Point of Care 117 mg/dl (70-99)
[2023-05-21 08:15] LABS: % Basophils 0.3 % (0-2); % Eosinophils 1.5 % (0-6); % Immature Granulocytes 0.5 % (0-0.5); % Monocytes 7.5 % (1.7-9.3); % Neutrophils 73.2 % (42.2-75.2); Absolute Eosinophils 0.2 10^3/uL (0-0.7); Absolute Immature Granulocytes 0.1 10^3/uL (0-0.05); Absolute Lymphocytes 2.2 10^3/uL (1.2-3.4); Absolute Neutrophils 9.5 10^3/uL (1.4-6.5); Hematocrit 33.4 % (37.0-47.0); Hemoglobin 10.9 g/dL (12.0-16.0); Mean Corp Hgb Conc. 32.6 g/dL (33.0-37.0); Mean Corpuscular Hgb 26.1 pg (27.0-31.0); Mean Corpuscular Volume 80.1 fL (81.0-99.0); Mean Platelet Volume 9.4 fL (7.4-10.4); Nucleated Red Blood Cells % 0 %; Platelet Count 461 10^3/uL (130-400); Red Blood Cell Count 4.17 10^6/uL (4.20-5.40); Red Cell Dist. Width 14.6 % (11.5-14.5)
[2023-05-21] MEDS: PROTONIX IV 40 MG IV (08:27)
[2023-05-21] MEDS: DILAUDID 0.25 MG IV (08:27)
[2023-05-21] MEDS: NSS (PRESERVATIVE FREE) 10 ML IV (08:27)
[2023-05-21] MEDS: TYLENOL 650 MG PO (08:28)
[2023-05-21 08:31] LABS: Blood Urea Nitrogen 16 mg/dl (7-17); Carbon Dioxide 29 mmol/L (22-30); Chloride 94 mmol/L (98-107); Estimated Creatinine Clearance 33 ml/min; Glucose 108 mg/dl (70-99); Potassium 3.8 mmol/L (3.5-5.1); Sodium 128 mmol/L (135-145); eGFR > 60.00
[2023-05-21] MEDS: LOTREL 10 MG/20 MG PO (08:34)
--- NOTE | 2023-05-21 11:15 | W.PN.GS2 ---
Addendum entered and electronically signed by Paco Nicolas MD 05/21/23 13:15:
Patient seen and examined. She looks and appears much more comfortable today.
Tolerating full liquid diet, passing flatus and had bowel movements.
Postoperative pain and chronic back pain much better controlled.
Patient feeling well enough that she is requesting discharge home.
AF VSS
ABD: Soft, nondistended, minimal incisional tenderness, surgical sites with glue dressings
A/P: 78-year-old female POD #4 status post RAL rectopexy
Regular diet as tolerated
Stable for discharge home with outpatient follow-up with Dr. Guardado and uro-[employer] WORK[employer] service
Original Note:
Today's Communication / Plan
-
Advance diet
Continue to increase mobility
Assessment / Plan
-
78 yo female presenting for pelvic floor prolapse
POD #4 Robotic suture rectopexy, sacrocolpopexy, posterior colporrhaphy, perineoplasty and cystoscopy with left ureteral stent for presumed kidney stone
AFVSS, tachycardia resolved
No n/v. Passing stools.
Vaginal packing removed by urogyn
Leukocytosis improving. H/H stable although mild acute anemia likely secondary to expected operative losses and hemodilution with IVF. No signs of active bleeding.
Hyponatremia present (management as per hospitalist team)
--Advance to LRD
--Continue home opioid regimen with scheduled tylenol/toradol
--PT eval/OOB increase activity. IS while awake
--Barr out, voiding. Will need OP follow up with urology for definitive stone management
--C/W lovenox SQ for vte ppx
--Medical management as per hospitalist team
Subjective Data
-
Date of Service: May 21, 2023
Patient seen and examined at bedside with Dr. Nicolas. Denies n/v. Feeling much better today. Passed several stools with flatus. Voiding well since removal of barr. Pain dramatically improved.
Objective Data
-
Intake and Output
05/20/23 05/21/23 05/22/23
06:59 06:59 06:59
Intake Total 2290 / 2290 1460 / 1460 240 / 240
Output Total 1850 / 1850 1000 / 1000
Balance 440 / 440 460 / 460 240 / 240
Intake:
Oral fluids 1010 / 1010 1140 / 1140 240 / 240
IV fluids (Total) 1280 / 1280 320 / 320
Nss 1,000 ml @ 80 mls/hr IV . 320 / 320
[id number] [facility] Rx#:[id number]
Output:
Urine, Barr 1850 / 1850 1000 / 1000
Other:
Number of approximated SMALL 2 3
amounts of urine
Vital Signs
Temp Pulse Resp BP Pulse Ox
97.6 F 73 16 108/50 100
05/21/23 07:07 05/21/23 07:07 05/21/23 07:07 05/21/23 08:34 05/21/23 07:07
Lab Results
05/21/23 07:47
05/21/23 07:47
Calcium 9.0 mg/dl (8.4-10.2) 05/21/23 07:47
Magnesium 1.7 mg/dl (1.6-2.3) 05/20/23 06:28
Total Bilirubin 0.6 mg/dl (0.2-1.3) 05/20/23 06:28
AST 35 U/L (14-36) 05/20/23 06:28
ALT 13 U/L (0-35) 05/20/23 06:28
Alkaline Phosphatase 126 U/L (38-126) 05/20/23 06:28
Total Protein 5.8 g/dl (6.3-8.2) L 05/20/23 06:28
Albumin 3.2 g/dl (3.5-5.0) L 05/20/23 06:28
Physical Exam
-
NAD, Ox3
ABD soft, ND, mild incisional tenderness
Incisions well approximated, intact glue, no erythema
[2023-05-21 11:23] VITALS: BP 150/66
--- NOTE | 2023-05-21 11:28 | W.PN.HOSP.TC ---
Today's Communication/Plan
-
Advance diet to low residue
Bladder scan
Possible discharge
Assessment / Plan
Assessment / Plan
Gen-awake, alert, mild distress due to pain
HEENT-NC, AT, anicteric, clear oral mm
Neck-supple
CV-reg, no M, +S1/S2
Lungs-clear B/L
Abd-soft, nondistended, tender
Ext-no edema
Musculoskeletal-no cyanosis, clubbing
Skin-warm and dry
Neuro-grossly non-focal
Psych-calm, cooperative
Postoperative hypotension -resolved.
Pelvic floor prolapse -underwent robotic repair 05/17/2023. Required left ureteral double-J stenting by urology. To start low residue diet today. Chao catheter removed yesterday. Check bladder scan today, discussed with nursing. Will need
outpatient follow-up with surgery and urology.
Leukocytosis -improving. Afebrile. No signs or symptoms of infection.
Postoperative tachycardia -suspect due to opioid withdrawal syndrome. Tachycardia resolved with resumption of home dose of oxycodone.
DM2 -hemoglobin A1c 6.6% on 05/12/2023. Not on diabetes meds. Monitor for now. Glucose 109 this morning.
Essential hypertension -stable.
Acute hyponatremia (POA) - sodium 128 today. Urine osmolality 431, urine sodium 163. TSH normal. Random cortisol 40. Fluid restriction.
Normocytic anemia -hemoglobin 10.9 today. Stable compared to admission. Baseline hemoglobin unknown. Outpatient follow-up recommended with PCP.
Mild intermittent asthma -stable.
PAD -stable.
Chronic low back pain/chronic pain syndrome/chronic opiate dependence -she is on oxycodone 20 mg 4 times a day, gabapentin 600 mg at bedtime.
GERD
Major depression
Tobacco dependence
Full code
Dispo -patient not interested in SNF. Will try to discharge home later today with home PT, [facility]. Case management aware. Surgery service okay with discharge if she tolerates low residue diet. Will need outpatient follow-up with colorectal surgery,
urology, PCP.
35 minutes spent in discharge process.
Anticipated Discharge: Today
Subjective/Interval History
-
Date of Service: May 21, 2023
Seen and examined. She wants to go home today. No complaints.
Objective Data
-
Labs:
Laboratory Results
05/21/23
07:47
WBC 13.0 H
Hgb 10.9 L
Hct 33.4 L
Plt Count 461 H
Sodium 128 L
Potassium 3.8
Chloride 94 L
Carbon Dioxide 29
BUN 16
Creatinine 0.9
Glucose 108 H
Calcium 9.0
Vital Signs:
Vital Signs
Temp Pulse Resp BP Pulse Ox
98 F 78 16 150/66 98
05/21/23 11:23 05/21/23 11:23 05/21/23 11:23 05/21/23 11:23 05/21/23 11:23
I&O
05/20/23 05/21/23 05/22/23
06:59 06:59 06:59
Intake Total 2290 / 2290 1460 / 1460 240 / 240
Output Total 1850 / 1850 1000 / 1000
Balance 440 / 440 460 / 460 240 / 240
Review of Systems
-
History Source: Patient
All other systems: Reviewed and negative
--- NOTE | 2023-05-21 11:37 | W.DS.TRANS ---
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
-
Discharge Instructions:
Sleep Apnea Risk Low
Discharge Diagnosis/Procedures Pelvic floor prolapse, robotic suture rectopexy,
sacroculpopexy, posterior repair and cystoscopy
with left double-J stent (Dr. Medina)
Diet Low Residue
Activity No strenuous activity
Additional Activity No lifting over 10lbs (gallon of milk)
Driving Restrictions No driving while using narcotics
Bathing Restrictions OK to Shower
Other Services [facility],PT
Wound Care Allow glue to naturally fall off. Okay to shower
.
Instructions: Low Fiber Diet
Stand-Alone Forms:
Changes to Home Medications: No
Discharge Medications:
DC Medications w/original date entered in [employer]
amlodipine 10 mg-benazepril 20 mg capsule 1 cap PO DAILY Blood Pressure 04/25/09
estradiol 0.1 mg/24 hr weekly transdermal patch (Climara) 0.1 mg transdermal FR Hormonal Agent 04/25/09
esomeprazole magnesium 40 mg capsule,delayed release (Nexium) 40 mg PO DAILY Gastrointestinal Issue 02/28/11
alprazolam 0.25 mg tablet (Xanax) 0.125 mg PO PRN PRN anxiety 05/11/23
alprazolam 0.25 mg tablet (Xanax) 0.25 mg PO HS Mental Health/Anxiety 05/11/23
azelastine 205.5 mcg (0.15 %) nasal spray (Astepro Allergy) 2 spray intranasal DAILY Allergies 05/11/23
dextroamphetamine-amphetamine 30 mg tablet (Adderall) 30 - 45 mg PO DAILY Neurological Condition 05/11/23
fexofenadine 180 mg tablet 180 mg PO DAILY Allergies 05/11/23
gabapentin 300 mg capsule 600 mg PO HS Pain 05/11/23
oxycodone 20 mg tablet 20 mg PO QID pain 05/11/23
sodium citrate 230 mg chewable tablet (Nauzene Upset Stomach-Nausea) 230 mg PO PRN PRN nausea 05/11/23
Home Medication Changes
Pending Results: No
[2023-05-21 11:48] VITALS: BP 135/59; PULSE 65
[2023-05-21 11:55] VITALS: BP 135/59; PULSE 65
[2023-05-21 11:56] LABS: Glucose - Point of Care 107 mg/dl (70-99)
--- NOTE | 2023-05-21 12:10 | CM ---
CM met with pt and Sig other at bedside.
IMM completed. Copy provided and copy placed on chart.
Message sent to [facility] via [facility] pt is discharging home today.
Sig other to transport.
== END 2023-05-21 14:52 | disposition home health service (06) | DRG 330 ==
LOC: 2 SOUTH 06:15
PROVIDERS: Obstetrics & Gynecology; Registered Nurse; Specialist; ADMITTING PHYSICIAN Surgery; ATTENDING PHYSICIAN Hospitalist; FAMILY PHYSICIAN Emergency Medicine; OTHER PHYSICIAN Internal Medicine Critical Care Medicine
PROC: 0DQP4ZZ Repair Rectum, Percutaneous Endoscopic Approach (ICD-10-PCS; 2023-05-17)
PROC: 0T9780Z Drainage of Left Ureter with Drainage Device, Via Natural or Artificial Opening Endoscopic (ICD-10-PCS; 2023-05-17)
PROC: 0JQC0ZZ Repair Pelvic Region Subcutaneous Tissue and Fascia, Open Approach (ICD-10-PCS; 2023-05-17)
PROC: 0HB9XZZ Excision of Perineum Skin, External Approach (ICD-10-PCS; 2023-05-17)
PROC: 8E0W4CZ Robotic Assisted Procedure of Trunk Region, Percutaneous Endoscopic Approach (ICD-10-PCS; 2023-05-17)
PROC: 0USG4ZZ Reposition Vagina, Percutaneous Endoscopic Approach (ICD-10-PCS; 2023-05-17)
DX: K62.3 Rectal prolapse (principal); E87.1 Hypo-osmolality and hyponatremia; F11.20 Opioid dependence, uncomplicated; N20.1 Calculus of ureter; Z68.1 Body mass index [BMI] 19.9 or less, adult; N99.3 Prolapse of vaginal vault after hysterectomy; N13.5 Crossing vessel and stricture of ureter without hydronephrosis; I10 Essential (primary) hypertension; E11.51 Type 2 diabetes mellitus with diabetic peripheral angiopathy without gangrene; J45.20 Mild intermittent asthma, uncomplicated; G89.4 Chronic pain syndrome; N73.6 Female pelvic peritoneal adhesions (postinfective); R63.6 Underweight; M54.50 Low back pain, unspecified; I95.81 Postprocedural hypotension; D64.9 Anemia, unspecified; M41.9 Scoliosis, unspecified; F32.9 Major depressive disorder, single episode, unspecified; D72.829 Elevated white blood cell count, unspecified; K21.9 Gastro-esophageal reflux disease without esophagitis; F17.200 Nicotine dependence, unspecified, uncomplicated; Z88.0 Allergy status to penicillin; Z88.6 Allergy status to analgesic agent; Z91.040 Latex allergy status
CPT/HCPCS: 36415; 71045; 71046; 74019; 80048; 80053; 81003; 81015; 82533; 82962; 83036; 83735; 83935; 84300; 84443; 85025; 85027; 85610; 85730; 86850; 86900; 86901; 87086; 93005; 93970; 97163; 97166; 97530; C1763; C2617

== ENCOUNTER → 2023-05-31 15:07 | Outpatient (REF) | payer MEDICARE, OTHER, SELFPAY | LOC: RAD 15:07 | PROVIDERS: ATTENDING PHYSICIAN Surgery; FAMILY PHYSICIAN Emergency Medicine | DX: M79.89 Other specified soft tissue disorders (principal); R60.0 Localized edema | CPT/HCPCS: 93970 ==

== ENCOUNTER 2023-06-08 15:37 | Inpatient (IN) | payer MEDICARE, OTHER, SELFPAY ==
[2023-06-08] VITALS (14 sets, daily range): BP systolic 88–131; BP diastolic 37–70
--- NOTE | 2023-06-08 12:40 | ED.GENMED ---
History of Present Illness
General
Chief Complaint: Abdominal Pain
Time Seen by Provider: 06/08/23 12:40
History of Present Illness
History of Present Illness:
HPI: Patient came in by ambulance due to abdominal pain. This is described as severe in nature. It is diffuse. She has not had a bowel movement in 3 days. She had a robotic rectopexy done 3 weeks ago. She states she cannot tolerate p.o.
currently.
EXAM:
GENERAL: The patient appears very uncomfortable, borderline hypotensive
HEENT: Very dry oral mucosa
CARDIOVASCULAR: No murmurs, normal heart rate, regular rhythm, No chest wall tenderness
PULMONARY: No respiratory distress, breath sounds are clear and equal
ABDOMEN: Soft with no peritoneal signs, diffuse abdominal tenderness, digital rectal examination shows some clear mucoid discharge but no gross blood
NEUROLOGIC: Excellent strength all extremities, no coordination deficits
PSYCHIATRIC: Appropriate mental status, normal insight and judgement
EXTREMITIES: Nontender, no edema, moves all extremities equally
SKIN: No rash, no lesions
TIME OF INITIAL ENCOUNTER: 12:50 PM
NUMBER AND COMPLEXITY OF PROBLEMS ADDRESSED AT THE ENCOUNTER
� Chronic conditions affecting care: GERD/gastritis, high blood pressure, has had prolapsed rectum/uterus, has had appendectomy, iron deficiency anemia
� Acute Exacerbation and/or Progression of Chronic Illness: This is an acute problem
� Differential Diagnosis includes: Exacerbation of gastritis, bowel obstruction, intra-abdominal abscess, complication
AMOUNT AND/OR COMPLEXITY OF DATA TO BE REVIEWED AND ANALYZED
� I performed an independent evaluation of and my interpretation is:
EKG: Sinus 92, nonspecific ST abnormality, poor R wave progression
CT: CT imaging suggests the possibility of colitis/stercoral colitis
X-rays:
Laboratory Studies: White count 18.4, hemoglobin 10.3, potassium 5.7, bicarb is only 12, creatinine is 3.0, lactic is 6.9, alk phos is 327
Other:
� Review of other/old records: Earlier this month around the time of the procedure, leukocytosis was noted�I reviewed the urine culture which showed no growth
� Clinical information was obtained by an independent historian: EMS gave fentanyl and Zofran prior to arrival
� Prescriptions/Medications Considered but not given:
� Further testing considered but not performed:
RISK OF COMPLICATIONS AND/OR MORBIDITY OR MORTALITY OF PATIENT MANAGEMENT
� Social determinants of health affecting care: Lives at home, came in by ambulance
� Discussion with other providers: Notify Dr. Lockhart of the patient's presentation at 2:35 PM; hospitalist for admission at 2:39 PM.
� Escalation of care including admission/observation vs risk of discharge considered: The patient appears very uncomfortable upon arrival. She appears very dehydrated and was started on IV fluids. Would like to have obtained a
CT with oral and IV contrast however the patient states she cannot tolerate p.o. at this time. Will obtain CT imaging with IV contrast. I initially held off on narcotic analgesia as she was hypotensive upon arrival. Will also check lactic acid
level. The patient remains very uncomfortable on reassessment at 2:30 PM. Will admit to the hospital as she has marked lab abnormalities. Will give empiric antibiotics as well. I have ordered additional fluids given the PAVEL with markedly low
bicarb, elevated lactic, and hyperkalemia for a total of 2 L of fluid
Past History
Past History
ED Past Medical History: HTN and Other (Gastritis)
ED Past Surgical History: Other (Fussion lower back)
Social History
Tobacco: Smoker
Alcohol: None
Personal: Other (Significant other)
Living: with family
Employment: Employed
Phy Exam
Physical Exam
Physical Exam:
See HPI
Course
Orders/Labs/Results
Orders:
Orders
06/08/23 12:38
Electrocardiogram (*1) Urgent
Reason for Study: Abdominal Pain
EKG- Treatment ONCE
06/08/23 12:39
Complete Blood Count/With Diff Urgent
Comprehensive Metabolic Panel Urgent
Lipase Urgent
Comment: ADD ON
06/08/23 12:46
Add On- LAB Urgent
Comments:: lipase
Tests Added?: lipase
06/08/23 12:49
Lactic Acid Urgent
06/08/23 13:32
CT Abd/pel Without Iv Or Oral Urgent
Comment:
Reason For Exam: severe abd pain cannot cee po; high lactic pavel
06/08/23 14:26
Albuterol Nebs [Ventolin Nebules] 2.5 mg INH R NOW STA
Dextrose 50%-Water [Dextrose 50% Syringe] 25 grams IV NOW STA
Insulin Human Regular [Novolin R] 6 units IV NOW STA
Sodium Bicarbonate 50 meq IV NOW STA
Sodium Zirconium Cyclosilicate [Lokelma] 10 gram PO NOW STA
Peak Flow Rate [RESP] Urgent
Quantity: 1
Pre-Bronchodilator: Yes
Post Bronchodilator: Yes
Special Instructions: Pre and Post Peak Flow before and after Bronchodilator
06/08/23 14:30
CefTRIAXone [Rocephin] 1,000 mg IV NOW STA
HYDROmorphone [Dilaudid] 0.5 mg IV NOW STA
MetroNIDAZOLE 500 MG/100 ML [Flagyl 500 mg] 100 ml IV NOW
06/08/23 14:53
0.9% Sodium Chloride 1000 ml [Nss] 1,000 ml IV BOLUS
Abnormal Lab Results
06/08/23 06/08/23 06/08/23
12:39 12:49 14:51
WBC 18.4 H 10^3/uL
(4.8-10.8)
RBC 3.89 L 10^6/uL
(4.20-5.40)
Hgb 10.3 L g/dL
(12.0-16.0)
Hct 33.7 L %
(37.0-47.0)
MCH 26.5 L pg
(27.0-31.0)
MCHC 30.6 L g/dL
(33.0-37.0)
RDW 15.6 H %
(11.5-14.5)
Plt Count 419 H 10^3/uL
(130-400)
MPV 10.5 H fL
(7.4-10.4)
Absolute Neuts (auto) 17.3 H 10^3/uL
(1.4-6.5)
Absolute Lymphs (auto) 0.5 L 10^3/uL
(1.2-3.4)
Neutrophils % 93.5 H %
(42.2-75.2)
Lymphocytes % 2.9 L %
(20.5-51.1)
Sodium 131 L mmol/L
(135-145)
Potassium 5.7 H mmol/L
(3.5-5.1)
Carbon Dioxide 12 L* mmol/L
(22-30)
BUN 50 H mg/dl
(7-17)
Creatinine 3.0 H mg/dL
(0.6-1.0)
Glucose 172 H mg/dl
(70-99)
Lactic Acid 6.9 H* mmol/L
(0.7-2.0)
AST 38 H U/L
(14-36)
Alkaline Phosphatase 327 H U/L
(38-126)
Total Protein 5.6 L g/dl
(6.3-8.2)
Albumin 3.1 L g/dl
(3.5-5.0)
POC Glucose 120 H mg/dl
(70-99)
06/08/23 12:39
06/08/23 12:39
Vital Signs
Initial and Last Documented VS:
Initial Vital Signs
Temp Pulse Resp BP Pulse Ox
96.4 F L 91 20 94/44 96
06/08/23 12:34 06/08/23 12:34 06/08/23 12:34 06/08/23 12:34 06/08/23 12:34
Last Documented Vital Signs
Temp Pulse Resp BP Pulse Ox
96.4 F L 90 19 103/55 94
06/08/23 12:34 06/08/23 14:15 06/08/23 14:03 06/08/23 14:03 06/08/23 14:03
*Critical Care Note
Total Time (30-74mins, 75-104mins- exclusive of procedures): Not Applicable
ED Attending Note
-
Portions of this chart may have been created with voice recognition software.� Occasional wrong word or��sound alike� substitutions may have occurred due to the inherent limitations of voice recognition software.
Discharge Plan
Departure
Patient Disposition: Admit
Date of Disposition: 06/08/23
Time of Disposition: 14:38
Presentation/result/management discussed w/ accepting MD/DO: Hospitalist
Discharge Problem:
Acute kidney injury
Prescriptions:
No Action
estradiol [Climara] 0.1 MG patch weekly
0.1 mg transdermal FR
amlodipine-benazepril 10 MG/20 MG capsule
1 cap PO DAILY
esomeprazole magnesium [Nexium] 40 MG capsule,delayed release(DR/EC)
40 mg PO DAILY
fexofenadine 180 mg Tablet
180 mg PO DAILYPRN PRN (Reason: allergies)
dextroamphetamine-amphetamine [Adderall] 30 mg Tablet
30 mg PO DAILY
alprazolam [Xanax] 0.25 mg Tablet
0.25 mg PO HS
alprazolam [Xanax] 0.25 mg Tablet
0.125 mg PO DAILYPRN PRN (Reason: anxiety)
gabapentin 300 mg Capsule
300 mg PO BID
oxycodone 20 mg Tablet
20 mg PO QID
azelastine [Astepro Allergy] 205.5 mcg (0.15 %) [place],Non-Aerosol
2 spray INTRANASAL DAILY
Referrals:
UNKNOWN - PT DOES,NOT KNOW [Family Provider] -
Interventions
Interventions:
*Risk Screen - Suicide Last Done: 06/08/23 12:34
*General Assessment Last Done: 06/08/23 12:34
*Neglect/Abuse Screening Last Done: 06/08/23 12:34
*ED COVID-19 Vaccine History Last Done: 06/08/23 12:34
KN-Ruitzp-Gmnvmtqoru Assessment Last Done: 06/08/23 12:55
Discharge Date and Time
Print Language: BURKINAN
[2023-06-08 13:01] LABS: % Basophils 0.2 % (0-2); % Eosinophils 0.5 % (0-6); % Immature Granulocytes 0.2 % (0-0.5); % Lymphocytes 2.9 % (20.5-51.1); % Monocytes 2.7 % (1.7-9.3); % Neutrophils 93.5 % (42.2-75.2); Absolute Eosinophils 0.1 10^3/uL (0-0.7); Absolute Lymphocytes 0.5 10^3/uL (1.2-3.4); Absolute Monocytes 0.5 10^3/uL (0.1-0.6); Absolute Neutrophils 17.3 10^3/uL (1.4-6.5); Hematocrit 33.7 % (37.0-47.0); Hemoglobin 10.3 g/dL (12.0-16.0); Mean Corp Hgb Conc. 30.6 g/dL (33.0-37.0); Mean Corpuscular Hgb 26.5 pg (27.0-31.0); Mean Corpuscular Volume 86.6 fL (81.0-99.0); Mean Platelet Volume 10.5 fL (7.4-10.4); Nucleated Red Blood Cells % 0 %; Platelet Count 419 10^3/uL (130-400); Red Blood Cell Count 3.89 10^6/uL (4.20-5.40); Red Cell Dist. Width 15.6 % (11.5-14.5); White Blood Cell Count 18.4 10^3/uL (4.8-10.8)
[2023-06-08 13:31] LABS: ALT (SGPT) 15 U/L (0-35); AST (SGOT) 38 U/L (14-36); Albumin 3.1 g/dl (3.5-5.0); Alkaline Phosphatase 327 U/L (38-126); Blood Urea Nitrogen 50 mg/dl (7-17); Calcium 9.2 mg/dl (8.4-10.2); Carbon Dioxide 12 mmol/L (22-30); Chloride 103 mmol/L (98-107); Glucose 172 mg/dl (70-99); Potassium 5.7 mmol/L (3.5-5.1); Sodium 131 mmol/L (135-145); Total Bilirubin 0.7 mg/dl (0.2-1.3); Total Protein 5.6 g/dl (6.3-8.2); eGFR 15.33
[2023-06-08 13:31] LABS: Lactic Acid 6.9 mmol/L (0.7-2.0)
[2023-06-08 13:44] LABS: Lipase 74 U/L (23-300)
[2023-06-08] MEDS: DILAUDID 0.5 MG IV ×4 (14:41→23:27)
--- NOTE | 2023-06-08 14:42 | CON.CRS ---
Consultation
-
Date/Time Consultation Requested: 06/08/2023, 14:45
Date/Time Consultation Performed: 06/08/2023, 15:15
Requesting Provider: Andrew Hartmann Do
Performing Provider: Grabiel Lockhart MD
Reason for Consultation: stercoral colitis
Medical History
-
Chief Complaint: abdominal pain
History of Present Illness:
78yo female s/p robotic suture rectopexy, sacroculpopexy, posterior repair and cystoscopy with left double-J stent on 05/17/[address] Guardado and Dr. Bojorquez presents and developed opioid withdrawal syndrome during her hospitalization, presents in the
ER via ambulance with 10/10 abdominal pain. She is unable to tolerate any po due to the pain. Her last BM was 3 days ago and was formed. Per her , she has been vomiting bile colored liquid at home for the past two days and has not been
eating. On 06/02/[address] Bojorquez in the office and there was a question of a perineal abscess, and was prescribed Bactrim, which she has been taking. She states she did have a fever earlier this week when she saw Dr. Bojorquez but hasn't had one
since. Prior to these past two days, the patient and her state she had been doing well.
In the ER, her WBC is 18.4. Her temp is 96.5 and she is hypotensive. She is hypokalemic with a potassium of 5.7, hyponatremic with a sodium of 131, lactic acidosis at 6.9, and in PAVEL with a creatinine of 3.0. She has been started on antibiotics. As
I examined her, she began actively vomiting bilious material. CT A/P shows a large amount of stool throughout the colon, with increased amount of stool since examination of June 06, 2023. There is suggestion of colonic wall thickening, particularly
involving the right colon, transverse colon, and splenic flexure. Findings would be suggestive of stercoral colitis. We have been consulted for further surgical opinion.
Past Medical History
Past Medical History: Other (Rectocele, cystocele, Vaginal vault prolapse, Intermittent asthma, Chronic low back pain, Scoliosis, Depressio,n GERD, Urinary frequency, PAD)
Past Surgical History: Other (robotic suture rectopexy, sacroculpopexy, posterior repair and cystoscopy with left double-J stent on 05/17/[address] Guardado and Dr. Bojorquez, Hysterectomy -1984, Lumbar laminectomy -2006)
Social History
Tobacco: Smoker
Alcohol: None
Drug: None
Family History
Family History: Reviewed & Not Pertinent
Allergies / Home Medications
Allergy/AdvReac Type Severity Reaction Status Date / Time
aspirin Allergy Gastiris Unverified 05/17/23 06:29
ibuprofen Allergy Gastritis Unverified 05/17/23 06:29
latex Allergy Itching Verified 05/17/23 06:29
NSAIDS (Non-Steroidal Allergy Gastritis Unverified 05/17/23 06:29
Anti-Inflamma
Penicillins Allergy Unknown Verified 05/17/23 06:29
�Medication �Instructions �Recorded �Confirmed �Type
amlodipine 10 mg-benazepril 20 mg 1 cap PO DAILY Blood Pressure 04/25/09 06/08/23 History
capsule
estradiol 0.1 mg/24 hr weekly 0.1 mg transdermal FR Hormonal 04/25/09 06/08/23 History
transdermal patch (Climara) Agent
esomeprazole magnesium 40 mg 40 mg PO DAILY Gastrointestinal 02/28/11 06/08/23 History
capsule,delayed release (Nexium) Issue
alprazolam 0.25 mg tablet (Xanax) 0.125 mg PO DAILYPRN PRN anxiety 05/11/23 06/08/23 History
alprazolam 0.25 mg tablet (Xanax) 0.25 mg PO HS Mental Health/Anxiety 05/11/23 06/08/23 History
azelastine 205.5 mcg (0.15 %) 2 spray intranasal DAILY Allergies 05/11/23 06/08/23 History
nasal spray (Astepro Allergy)
dextroamphetamine-amphetamine 30 30 mg PO DAILY Neurological 05/11/23 06/08/23 History
mg tablet (Adderall) Condition
fexofenadine 180 mg tablet 180 mg PO DAILYPRN PRN allergies 05/11/23 06/08/23 History
gabapentin 300 mg capsule 300 mg PO BID Pain 05/11/23 06/08/23 History
oxycodone 20 mg tablet 20 mg PO QID pain 05/11/23 06/08/23 History
Review of Systems
-
History Source: Patient
Constitutional: Fever
Abdomen/GI: Abdominal Pain, Vomiting and Constipated
A 10 point review of systems was completed, and was negative except as per HPI.
Physical Exam
Vital Signs
Temp 96.4 F L 06/08/23 12:34
Pulse 90 06/08/23 14:15
Resp Rate 19 06/08/23 14:03
Blood pressure 103/55 06/08/23 14:03
SaO2 94 06/08/23 14:03
06/07/23 06/08/23 06/09/23
06:59 06:59 06:59
Actual Weight 43 kg
Lab Results / Allergies
06/08/23 12:39
06/08/23 12:39
WBC 18.4 10^3/uL (4.8-10.8) H 06/08/23 12:39
Hgb 10.3 g/dL (12.0-16.0) L 06/08/23 12:39
Hct 33.7 % (37.0-47.0) L 06/08/23 12:39
Plt Count 419 10^3/uL (130-400) H 06/08/23 12:39
Abs Immat Gran (auto) 0.0 10^3/uL (0-0.05) 06/08/23 12:39
Neutrophils % 93.5 % (42.2-75.2) H 06/08/23 12:39
Allergy/AdvReac Type Severity Reaction Status Date / Time
aspirin Allergy Gastiris Unverified 05/17/23 06:29
ibuprofen Allergy Gastritis Unverified 05/17/23 06:29
latex Allergy Itching Verified 05/17/23 06:29
NSAIDS (Non-Steroidal Allergy Gastritis Unverified 05/17/23 06:29
Anti-Inflamma
Penicillins Allergy Unknown Verified 05/17/23 06:29
Physical Exam
General: Other (in severe pain)
GI: Tender (diffuse throughout), Distended (severely distended) and Incisions (c/d/i)
Rectal: Other (no stool noted in the rectum, no blood present)
Skin: Warm and Dry
Neuro: AO x 3
Data Reviewed
-
CT Scan: Image Personally Visualized and interpreted, Report Reviewed by me and Discussed with Physician
Medical Tests (Nuc Med, Echo etc): Image Personally Visualized and interpreted, Report Reviewed by me and Discussed with Physician
Old Records: Reviewed
Assessment / Plan
-
Assessment: 78yo female with a recent robotic suture rectopexy, sacroculpopexy, posterior repair and cystoscopy with left double-J stent on 05/17/2023, presents to the ER with diffuse abdominal pain and lack of BM for 3 days. Patient found with
sterocoral colitis on CT and with leukocytosis, lactic acidosis, PAVEL, hyperkalemia and hyponatremia.
Plan:
1. Insertion of NGT now, given vomiting x 2 days and currently in the ER during her exam. Zosyn PRN.
2. Enema 500ml warm tap water x 1 now.
3. Continue IVFs given dehydration.
4. On empiric antibiotics in the ER.
5. Electrolyte correction per primary team.
6. Recommend Lovenox for DVT prophylaxis.
7. Serial lactic acids.
8. Will closely follow.
[2023-06-08] MEDS: ROCEPHIN 1000 MG IV (14:44)
[2023-06-08] MEDS: LOKELMA 10 GRAM PO (14:44)
[2023-06-08] MEDS: FLAGYL 500 MG 100 IV ×2 (14:47→22:30)
[2023-06-08] MEDS: VENTOLIN NEBULES 2.5 MG INH (14:47)
[2023-06-08] MEDS: DEXTROSE 50% SYRINGE 25 GRAMS IV (14:50)
[2023-06-08] MEDS: SODIUM BICARBONATE 50 MEQ IV (14:51)
[2023-06-08 14:52] LABS: Glucose - Point of Care 120 mg/dl (70-99)
[2023-06-08] MEDS: NOVOLIN R 6 UNITS IV (14:52)
[2023-06-08] MEDS: NSS 1000 IV (14:57)
--- NOTE | 2023-06-08 15:38 | HPS.HSE ---
Family Physician
-
Family Physician: NOT KNOW UNKNOWN - PT DOES
Chief Complaint
-
Abdominal Pain
History of Present Illness
Patient is a 78 y/o with a past medical history of hypertension, gastroesophageal reflux disease, tobacco use disorder, chronic obstructive pulmonary disease, chronic pain syndrome, and rectal prolapse/rectocele/vaginal prolapse/urolithiasis with
recent corrective surgery on May 16 who presents for severe, sudden abdominal pain for the past 3-4 days and vomiting since yesterday. She reports that she has been moving her bowels without difficulty since her surgery and her last bowel
movement was yesterday. She admits to sweats and chills but denies fever.
Medical History
Past Medical History
Past Medical History: Reports HTN and Other
Additional Past Medical History:
Pelvic Floor Prolapse s/p Robotic Rectopexy / Sacrocolpopexy
Diabetes Mellitus, Type II
Essential Hypertension
Anxiety / Depression
COPD
GERD
Scolosis
Chronic Pain with Opioid Dependence
Peripheral Arterial Disease
Past Surgical History: Reports Other
Additional Past Surgical History:
Robotic Sacrocolpopexy / Rectopexy / Posterior colporrhaphy with perineoplasty
Hysterectomy
Lumbar Laminectomy
Social History
Tobacco: Smoker
Alcohol: None
Drug: None
Family History
Family History: Not pertinent
Allergies / Home Medications
Allergies reflects when Allergies were last updated in [facility].
Home Medications with original date entered in [facility]
Allergy/Medication List:
Allergies
Allergy/AdvReac Type Severity Reaction Status Date / Time
aspirin Allergy Gastiris Unverified 05/17/23 06:29
ibuprofen Allergy Gastritis Unverified 05/17/23 06:29
latex Allergy Itching Verified 05/17/23 06:29
NSAIDS (Non-Steroidal Allergy Gastritis Unverified 05/17/23 06:29
Anti-Inflamma
Penicillins Allergy Unknown Verified 05/17/23 06:29
Home Medications
amlodipine 10 mg-benazepril 20 mg capsule 1 cap PO DAILY 04/25/09
estradiol 0.1 mg/24 hr weekly transdermal patch (Climara) 0.1 mg transdermal FR 04/25/09
esomeprazole magnesium 40 mg capsule,delayed release (Nexium) 40 mg PO DAILY 02/28/11
alprazolam 0.25 mg tablet (Xanax) 0.125 mg PO PRN PRN anxiety 05/11/23
alprazolam 0.25 mg tablet (Xanax) 0.25 mg PO HS 05/11/23
azelastine 205.5 mcg (0.15 %) nasal spray (Astepro Allergy) 2 spray intranasal DAILY 05/11/23
dextroamphetamine-amphetamine 30 mg tablet (Adderall) 30 - 45 mg PO DAILY 05/11/23
fexofenadine 180 mg tablet 180 mg PO DAILY 05/11/23
gabapentin 300 mg capsule 600 mg PO HS 05/11/23
oxycodone 20 mg tablet 20 mg PO QID pain 05/11/23
pseudoephedrine HCl 30 mg tablet (Sudafed) 15 mg PO DAILY 05/11/23
sodium citrate 230 mg chewable tablet (Nauzene Upset Stomach-Nausea) 230 mg PO PRN PRN nausea 05/11/23
Review of Systems
-
A 12 point ROS was completed and negative except as noted: Yes
Constitutional: Reports Chills; Denies Fever
Respiratory: Denies Cough or Trouble Breathing
Cardiac: Denies Chest Pain or Palpitations
Abdomen/GI: Reports See HPI
Physical Exam
Vital Signs
Vital Signs
Temp Pulse Resp BP Pulse Ox
96.4 F L 94 19 108/37 97
06/08/23 12:34 06/08/23 15:00 06/08/23 14:03 06/08/23 15:00 06/08/23 15:00
Physical Exam
General: Conversant, Appears in Distress and Pain
HEENT: NormoCephalic and Atraumatic
Respiratory: Clear and Non Labored Respirations
Cardiac: S1/S2 and Regular Rhythm
GI: Tender (Moderate throughout), Distended (Particular around lower regions) and Other (Absent bowel sounds)
Musculoskeletal: No Clubbing, No Cyanosis and No Edema
Skin: Warm and Dry
Neuro: Awake, Alert, Oriented and Nonfocal/grossly intact
Laboratory Results
-
06/08/23 12:39
06/08/23 12:39
Laboratory Results
Lactic Acid 6.9 mmol/L (0.7-2.0) H* 06/08/23 12:49
Total Bilirubin 0.7 mg/dl (0.2-1.3) 06/08/23 12:39
AST 38 U/L (14-36) H 06/08/23 12:39
ALT 15 U/L (0-35) 06/08/23 12:39
Alkaline Phosphatase 327 U/L (38-126) H 06/08/23 12:39
Lipase 74 U/L (23-300) 06/08/23 12:39
Data Reviewed
-
Lab Data: Labs Reviewed by me
Impression/Plan
-
Severe Sepsis secondary to Stercoral Colitis
-Consult Colorectal Surgery
-Place NGT and give Enema as per Colorectal
-Continue Rocephin and Flagyl
-Trend Lactic Acid
Acute Kidney Injury with Hyperkalemia and Severe Metabolic Acidosis
-Place Chao from strict Is&Os
-Continue IVFS with bicarb
-Trend Lactic Acid
-Check repeat labs later this evening
Pelvic Floor Prolapse s/p Robotic Rectopexy / Sacrocolpopexy on May 16
-Care as per Colorectal
Diabetes Mellitus, Type II
-HgbA1c 6.6 in April 2023
-Monitor sugars and continue coverage insulin
Essential Hypertension
-Hold meds as BP running on the low side
Anxiety / Depression
-Continue Ativan prn
GERD
-Continue Protonix IV
Chronic Pain with Opioid Dependence
-Continue Dilaudid prn until able to resume oral meds
Peripheral Arterial Disease
-Stable
DVT proph: SC Heparin
Code Status: Full Code
--- NOTE | 2023-06-08 15:56 | W.PN.UPDATE ---
Addendum entered and electronically signed by Rivera Hogue MD 06/08/23 18:25:
Error- pt received approx 2500cc of NS so far on admission.
Pt was blood glucose of 31 on BMP-sample could have delayed in processing. s/p 25g 1amp of D50.
Had more than 750cc of biilary dark green NGT output.
Urine output with dark yellow светлана output.
Original Note:
Update Note
Progress Note Update
I saw and examined the patient.
The SENIOR CLINICAL DATA ANALYST's note was reviewed and I agree with the note.
This is in addition to H&P
Comment:
78-year-old female past medical history of diabetes mellitus, hypertension, anxiety, chronic opioid dependent daily basis, chronic pain syndrome, chronic low back pain who was recently admitted to hospital and underwent robotic assisted sacral
sacrocolpopexy, Posterior colporrhaphy with perineoplasty, cystoscopy and double-J ureteral stent. Patient is coming in with complaint of severe abdominal pain, nausea and vomiting. Patient with recent abscess and also was prescribed Bactrim.
Patient currently in severe amount of pain. Patient was seen by colorectal surgery earlier and will be undergoing NG tube placement.
General in mild acute distress due to pain, cachectic
HEENT neck is supple trach is midline
Cardiac S1-S2 regular rate rhythm
Lungs are clear to auscultation frontal
Abdomen distended, diffuse tenderness
Extremities no edema
Impression
Acute abdominal pain secondary to stercoral colitis
Severe sepsis secondary to stercoral colitis-poa
Acute kidney injury likely secondary to prerenal versus pseudo elevation of creatinine due to recent Bactrim
Lactic acidosis
Mild hyponatremia
Mild hyperkalemia likely secondary to constipation
Severe metabolic acidosis likely secondary nausea and vomiting
Chronic low back pain/chronic opioid dependent daily basis/chronic pain syndrome
Severe anxiety
Primary hypertension
Mood disorder
Suspected ADD
Tobacco abuse
Plan
Patient received 2020 cc of normal saline IV fluid
Start patient on bicarbonate drip
Repeat BMP and lactic acid later today
Status post temporizing measures for mild hyperkalemia
Chao catheter placement and monitor urinary output
Start patient on ceftriaxone and Flagyl
Blood cultures were not checked and patient already received antibiotics. If spikes fever check set of blood cultures
Monitor urinary output
Trend creatinine. Hold AMINAH inhibitor
Avoid hypotension
Ativan as needed
Pain control as needed
Antinausea meds as needed
DVT prophylaxis with heparin
Discussed with spouse at bedside in detail
Total Critical Care Time_ 50 minutes. I was immediately available to the patient and staff. I personally examined, reviewed labs, diagnostic images/reports, interpretations, treatment plans, discussed patient care with other providers and family
or caregivers (if patient is unable to make decisions), entered orders as appropriate and documented the medical record.
[2023-06-08 17:57] LABS: Lactic Acid 3.9 mmol/L (0.7-2.0)
[2023-06-08 18:08] LABS: Blood Urea Nitrogen 57 mg/dl (7-17); Calcium 8.9 mg/dl (8.4-10.2); Carbon Dioxide 15 mmol/L (22-30); Chloride 108 mmol/L (98-107); Glucose 31 mg/dl (70-99); Potassium 4.6 mmol/L (3.5-5.1); Sodium 136 mmol/L (135-145); eGFR 15.97
[2023-06-08] MEDS: DEXTROSE 50% SYRINGE 12.5 GRAMS IV ×5 (18:11→22:05)
[2023-06-08 18:41] LABS: Glucose - Point of Care 130 mg/dl (70-99)
[2023-06-08] MEDS: SODIUM BICARBONATE 1150 MEQ IV ×2 (18:43→22:09)
[2023-06-08 19:21] LABS: Glucose - Point of Care 68 mg/dl (70-99)
[2023-06-08 20:21] LABS: Glucose - Point of Care 87 mg/dl (70-99)
--- NOTE | 2023-06-08 20:31 | TRANSFER ---
Received pt from the ER. On admission her bedside glucose was 87. Placed in her IMU bed and given a CHG bath. Complaining of abd pain upon admission. Pain is rated 8-10/10. Significant Other, Celestino, arrived with her and in the room. Given mouth
care and skin assessment. call vick in reach.
[2023-06-08] MEDS: ZOFRAN 4 MG IV (20:47)
[2023-06-08 21:01] LABS: Glucose - Point of Care 58 mg/dl (70-99)
[2023-06-08 21:29] LABS: Glucose - Point of Care 96 mg/dl (70-99)
[2023-06-08 22:14] LABS: Glucose - Point of Care 62 mg/dl (70-99)
[2023-06-08 22:37] LABS: Glucose - Point of Care 123 mg/dl (70-99)
[2023-06-08 22:57] LABS: Lactic Acid 3.1 mmol/L (0.7-2.0)
--- NOTE | 2023-06-08 23:40 | PTCARENOTE ---
Pt's repeat glucoses were low so she was given 12.5Gms 2 times since her arrival to the floor see MAR and work list. She continues to have pain and GEM TECHNICIAN notified and Dilaudid given with relief but only lasts 90 minutes and then she was complaining of
abd pain 11/22. Medicated with Dilaudid again at 23:47. Her NG tube is draining coffee ground liquid 300cc since her arrival. She vomited around her NG once and irrigated with tap water as ordered. She will moan and lays on her side with her legs
drawn up. Abdomen is flat and tender to touch. Skin is warm and dry. Lactic level was 3.1 and called to PA.
[2023-06-09] VITALS (64 sets, daily range): BP systolic 80–150; BP diastolic 42–80; BMI 18.3
[2023-06-09] MEDS: ATIVAN 0.5 MG IV (00:02)
[2023-06-09 00:16] LABS: Glucose - Point of Care 100 mg/dl (70-99)
[2023-06-09 03:09] LABS: Glucose - Point of Care 114 mg/dl (70-99)
[2023-06-09] MEDS: DILAUDID 0.5 MG IV ×2 (03:14→23:28)
[2023-06-09 03:22] LABS: % Basophils 0.5 % (0-2); % Eosinophils 0.3 % (0-6); % Immature Granulocytes 0.2 % (0-0.5); % Monocytes 5.4 % (1.7-9.3); % Neutrophils 85.6 % (42.2-75.2); Absolute Lymphocytes 0.7 10^3/uL (1.2-3.4); Absolute Monocytes 0.5 10^3/uL (0.1-0.6); Absolute Neutrophils 7.5 10^3/uL (1.4-6.5); Hematocrit 31.1 % (37.0-47.0); Hemoglobin 10.5 g/dL (12.0-16.0); Mean Corp Hgb Conc. 33.8 g/dL (33.0-37.0); Mean Corpuscular Hgb 26.2 pg (27.0-31.0); Mean Corpuscular Volume 77.6 fL (81.0-99.0); Nucleated Red Blood Cells % 0 %; Platelet Count 375 10^3/uL (130-400); Red Blood Cell Count 4.01 10^6/uL (4.20-5.40); Red Cell Dist. Width 15.6 % (11.5-14.5); White Blood Cell Count 8.7 10^3/uL (4.8-10.8)
[2023-06-09 03:45] LABS: Lactic Acid 2.6 mmol/L (0.7-2.0)
--- NOTE | 2023-06-09 04:51 | PTCARENOTE ---
Pt had a large brown/oramge stool, soft and some liquid incontinent and Heme positive. NG drained 55o cc of brown/maroon liquid. Lactic resulted at 2.6, called to CHAR BELT OPERATOR.Hgb 10. Pt is in sinus tachycardia and is tachypneic at times
[2023-06-09 05:41] LABS: Blood Urea Nitrogen 71 mg/dl (7-17); Calcium 8.6 mg/dl (8.4-10.2); Carbon Dioxide 26 mmol/L (22-30); Chloride 97 mmol/L (98-107); Estimated Creatinine Clearance 11 ml/min; Glucose 107 mg/dl (70-99); Magnesium 2.3 mg/dl (1.6-2.3); Potassium 6.6 mmol/L (3.5-5.1); Sodium 134 mmol/L (135-145); eGFR 15.33
[2023-06-09] MEDS: FLAGYL 500 MG 100 IV ×2 (06:14→13:49)
[2023-06-09] MEDS: DEXTROSE 50% SYRINGE 25 GRAMS IV ×2 (06:45→13:43)
[2023-06-09] MEDS: NOVOLIN R 0.0500000000000000028 UNITS IV ×2 (06:45→13:42)
--- NOTE | 2023-06-09 07:00 | PTCARENOTE ---
Cannot verify VS captured from prior shift.
[2023-06-09 07:35] LABS: Glucose - Point of Care 216 mg/dl (70-99)
[2023-06-09] MEDS: SODIUM BICARBONATE 1150 MEQ IV (07:42)
[2023-06-09 08:00] LABS: Lactic Acid 4.6 mmol/L (0.7-2.0)
--- NOTE | 2023-06-09 08:01 | PTCARENOTE ---
Pt received from [facility]. Upon assessment, pt tachycardic in the 140's, RR in the high 20-30's, moaning and restless. NGT draining coffee ground emesis. Incontinent of stool, jenni care and barr care completed. Critical lactic of 4.6, Dr. Hogue
notified via TT. Advised to hold Kayexalate enema at this time.
[2023-06-09] MEDS: NICODERM TRANSDERMAL 14 MG TRANSDERM (08:20)
[2023-06-09] MEDS: PROTONIX IV 40 MG IV (08:21)
--- NOTE | 2023-06-09 08:29 | PTCARENOTE ---
Pt with labile blood sugars at this time. D/w Dr. Hogue via TT, advised to hold Novolog at this time.
[2023-06-09 09:41] LABS: Glucose - Point of Care 163 mg/dl (70-99)
--- NOTE | 2023-06-09 09:57 | VNURNOTE ---
Patient is current with [facility] since 05/22 with SN/PT/OT will monitor progress and plan at discharge.
--- NOTE | 2023-06-09 10:39 | W.PN.CRS1 ---
Today's Communication / Plan
-
continue ngt
electrolyte replacement
eventual gastrogafin enema
medical management
Assessment/Plan
-
Assessment: 78yo female with a recent robotic suture rectopexy, sacroculpopexy, posterior repair and cystoscopy with left double-J stent on 05/17/2023, presents to the ER with diffuse abdominal pain and lack of BM for 3 days. Patient found with
sterocoral colitis on CT and with leukocytosis, lactic acidosis, PAVEL, hyperkalemia and hyponatremia.
Vitals: tachycardic 115's, tmax 1005. Hypotensive to normotensive.
Labs: WBC improved, now 8.7. Creatinine still elevated 3.0 (2.9). Potassium 6.6 from 4.6.
Plan:
1. NGT output 1400ml since insertion, continue.
2. Per RN, had multiple large BMs since the enema, and abdomen much softer and less distended.
3. Continue IVFs per primary team.
4. Nephrology has been consulted.
5. Given amount of stool, ideally would like a Gastrografin enema but given her lethargy, will hold off for now.
4. On empiric antibiotics.
5. Electrolyte correction per primary team.
6. Recommend Lovenox for DVT prophylaxis.
7. Serial lactic acids.
8. She is critically ill. I updated her significant other Grabiel. There is no role for surgery at this time.
9. Of note, since rounding on the patient and writing this progress note, I was informed by nursing that the patient pulled out her NGT. I will replace. Also, she is now requiring levophed.
Subjective Data
Subjective Data
Date of Service: June 09, 2023
Patient is sleepy, when asked if she has less pain today, she nodes her head yes. She is not verbalizing more than that.
Objective Data
-
Vital Signs
Temp Pulse Resp BP Pulse Ox
100.9 F H 116 27 101/56 95
06/09/23 07:23 06/09/23 08:15 06/09/23 08:15 06/09/23 08:00 06/09/23 08:32
Intake & Output
06/08/23 06/09/23 06/10/23
06:59 06:59 06:59
Intake Total 1540 / 1540
Output Total 1775 / 1775
Balance -235 / -235
Intake:
IV fluids (Total) 1250 / 1250
IV piggybacks 200 / 200
Amount instilled into GI Tube ( 90 / 90
Total)
[place] Sump 90 / 90
Output:
Emesis 50 / 50
Gastrointestinal tube output ( 1400 / 1400
Total)
[place] Sump 650 / 650
Urine, Chao 325 / 325
Lab Results
06/09/23 03:10
Physical Exam
-
General: Other (lethargic)
Abdomen: Soft, Distended (mild (improved)) and Tender (mild to moderate (improved))
Skin: Warm and Dry
Incision: Clear, Dry, Intact
--- NOTE | 2023-06-09 10:43 | W.PN.HOSP.TC ---
Addendum entered and electronically signed by Rivera Hogue MD 06/09/23 16:35:
Called son back but no response. Called daughter explained to her hospital course so far.
Addendum entered and electronically signed by Rivera Hogue MD 06/09/23 16:23:
Called son to update per request. No response. Left voicemail.
Addendum entered and electronically signed by Rivera Hogue MD 06/09/23 14:58:
Per RN, Pt max on Levophed in IMU at 8 units and per the protocol will need to be transferred to ICU. Shirt Ironer consulted. Awaiting nephro evaluation. Continue with Levophed and IV antibiotics.
Original Note:
Today's Communication/Plan
-
Levophed
picc line
repaet labs
nephro recs
IV abx
NGT
Assessment / Plan
Assessment / Plan
Severe Sepsis secondary to Stercoral Colitis-poa
Lactic acidosis
Shock likely sepsis vs. hypovolemia
-removed NGT with plan to reinsert. Restraints added. Spouse understands need for restraints.
-Continue Rocephin and Flagyl
-Trend Lactic Acid
-PICC line ordered
-CT abd/pelvis with stomach distention. s/p NGT placement and 1400cc output so far.
-Plan to start levophed. MAP >65.
Acute Kidney Injury likely multifactorial pre-renal volume depletion while on ACEI, recent bactrim usage, ATN?
-Place Barr from strict Is&Os
-Continue IVFS with bicarb
-Trend Lactic Acid
-monitor urinary output
-Will defer further IVF to nephro.
-Repeat Labs
-No hydro seen on CT scan
-Nephro consulted.
Hyperkalemia
-plan for enema pending BP stabilization
-s/p temporization measures
-on bicarb gtt for now
-dose of calcium gluconate now
-repeat labs pending
-EKG with ?peaked T wave in V3. No P wave widening or flattening noted. No MA prolongation.
Severe Metabolic acidosis
-Resolved.
-Bicarb improved.
Pelvic Floor Prolapse s/p Robotic Rectopexy / Sacrocolpopexy on May 16
-Care as per Colorectal
Diabetes Mellitus, Type II
-HgbA1c 6.6 in April 2023
-Monitor sugars and continue coverage insulin
Essential Hypertension
-Hold meds as BP running on the low side
Anxiety / Depression
-Continue Ativan prn
GERD
-Continue Protonix IV
Chronic Pain with Opioid Dependence
-Continue Dilaudid prn until able to resume oral meds
-monitor closely.may require IV standing pain meds. Risk of opioid withdrawal
Peripheral Arterial Disease
-Stable
DVT proph: SC Heparin
Code Status: Full Code
Critiically ill
Total Critical Care Time 60 minutes. I was immediately available to the patient and staff. I personally examined, reviewed labs, diagnostic images/reports, interpretations, treatment plans, discussed patient care with other providers and family
or caregivers (if patient is unable to make decisions), entered orders as appropriate and documented the medical record.
d/w with spouse at bedside in details.
Anticipated Discharge: > 48 hours
Subjective/Interval History
-
Date of Service: June 09, 2023
Removed NGT earlier today
spiked fever
had BM overnight
remains tachycardiac
barr with dark светлана urine color
Objective Data
-
Labs:
Laboratory Results
06/09/23 06/09/23 06/09/23
03:10 04:38 10:35
WBC 8.7
Hgb 10.5 L
Hct 31.1 L
Plt Count 375
Sodium Cancelled 134 L Pending
Potassium Cancelled 6.6 H* D Pending
Chloride Cancelled 97 L Pending
Carbon Dioxide Cancelled 26 Pending
BUN Cancelled 71 H Pending
Creatinine Cancelled 3.0 H Pending
Glucose Cancelled 107 H Pending
Calcium Cancelled 8.6 Pending
Vital Signs:
Vital Signs
Temp Pulse Resp BP Pulse Ox
100.9 F H 116 27 101/56 95
06/09/23 07:23 06/09/23 08:15 06/09/23 08:15 06/09/23 08:00 06/09/23 08:32
I&O
06/08/23 06/09/23 06/10/23
06:59 06:59 06:59
Intake Total 1540 / 1540
Output Total 1775 / 1775
Balance -235 / -235
Physical Exam
-
General: Appears Chronically Ill and Cachectic
HEENT: Normocephalic, Atraumatic and Moist Mucous Membranes
Respiratory: Decreased Breath Sounds
Cardiac: Regular Rhythm, S1/S2 and Tachycardic; Negative Murmur, Rub or Gallop
GI: Soft, Normal Bowel Sounds, Tender and Distended (mild); Negative Organomegaly
Rectal: Deferred by Provider
Genito-urinary: Barr (dark светлана color )
Musculoskeletal: No Clubbing, No Cyanosis and No Edema
Skin: Negative Rash
Neuro: Awake and Nonfocal/Grossly Intact
[2023-06-09] MEDS: LEVOPHED 250 IV ×2 (11:00→19:31)
[2023-06-09 11:03] LABS: Lactic Acid 4.1 mmol/L (0.7-2.0)
[2023-06-09] MEDS: OFIRMEV 100 IV (11:05)
[2023-06-09 11:34] LABS: Glucose - Point of Care 147 mg/dl (70-99)
[2023-06-09] MEDS: CALCIUM GLUCONATE 100 IV (11:38)
[2023-06-09 11:44] LABS: Blood Urea Nitrogen 78 mg/dl (7-17); Carbon Dioxide 24 mmol/L (22-30); Chloride 94 mmol/L (98-107); Estimated Creatinine Clearance 10 ml/min; Glucose 147 mg/dl (70-99); Potassium 6.1 mmol/L (3.5-5.1); Sodium 131 mmol/L (135-145); eGFR 14.74
--- NOTE | 2023-06-09 11:56 | PTCARENOTE ---
Pt found to have pulled NGT out. [place] CRANE and Dr. Hogue notified. Replaced with help from INCIDENT RESPONSE ANALYST's. Verified placement by auscultation. Initial output of approx 100ml. B/L soft wrist restraints placed for safety-see intervention. Blood
cultures drawn and sent. Levo hung to keep MAP over 65. Critical labs resulted, Dr. Hogue notified via TT. Family updated on plan of care.
[2023-06-09] MEDS: STERILE WATER FOR INJECTION 10 ML IV ×2 (13:47→17:45)
[2023-06-09] MEDS: ROCEPHIN 1000 MG IV (13:47)
[2023-06-09 13:52] LABS: Glucose - Point of Care 176 mg/dl (70-99)
--- NOTE | 2023-06-09 14:11 | CON.ID ---
Consultation
-
Date/Time Consultation Requested: June 09, 2023 1141
Date/Time Consultation Performed: June 09, 2023 1410
Requesting Provider: Dr. Rivera Hogue
Performing Provider: Dr. Yumiko South
Reason for Consultation: Sepsis
Chief Complaint / Past History
Chief Complaint
Abdominal pain
History of Present Illness
History obtained from review of medical records as well as from her daughter at bedside since patient is currently extremely lethargic. She is a 78-year-old female with diabetes mellitus, COPD, chronic pain, pelvic organ/rectal prolapse status post
robotic rectopexy, sacrocolpopexy with finding of left obstructive uropathy requiring cystoscopy with left stent placement and stone manipulation on May 17, 2023. Postop she had hypotension and opiate withdrawal syndrome. Patient was discharged
to home on May 20. She was doing well. She had follow-up with colorectal and urogynecologist. On June 01, she was started on Bactrim for possible perineal infection. She then develop nausea and vomiting for 4 days followed by acute onset of
severe abdominal pain. She came to the ER right away on June 07. Her temperature was 96.4. White count 18.4. Patient noted to be in PAVEL, hyperkalemic, lactic acid 6.9 that is persistently elevated. CT of the abdomen pelvis shows large amount of
stool throughout the colon with colonic wall thickening particularly on the right transverse colon and splenic flexure. NG tube was placed, which she pulled out once. Her BP dropped today and now on Levophed. Sanjay a temperature 100.9 this am. Per
daughter, no fever at home. She had normal bowel movements at home. No ill contacts.
Past History
Additional Past Medical History:
COPD
Diabetes mellitus type 2
Hypertension
GERD
anxiety/depression
PAD
Chronic pain opioid dependence
ADD
Lumbar laminectomy
Pelvic organs/rectal prolapse status post robotic suture rectopexy, sacrocolpopexy, posterior repair and cystoscopy with left double-J stent, stone manipulation 05/17/23
Allergy History:
aspirin Allergy (Verified 06/08/23 17:58)
Gastiris
ibuprofen Allergy (Verified 06/08/23 17:58)
Gastritis
latex Allergy (Verified 05/17/23 06:29)
Itching
NSAIDS (Non-Steroidal Anti-Inflamma Allergy (Verified 06/08/23 17:58)
Gastritis
Penicillins Allergy (Verified 05/17/23 06:29)
Unknown
Medications Reviewed: Yes
Current Antibiotics:
ceftriaxone
metronidazole
Social History
Tobacco: Smoker
Alcohol: None
Drug: None
Personal:
Family History
Family History: Not Pertinent
Review of Systems
Review of Systems
Unable to obtain due to extreme lethargy.
Vital Signs
Temp Pulse Resp BP Pulse Ox
98.9 F 108 25 121/55 97
06/09/23 11:55 06/09/23 13:45 06/09/23 13:45 06/09/23 13:45 06/09/23 13:45
Selected Entries
06/09/23
07:23
Temp 100.9 F H
Physical Exam
Physical Exam
Constitutional: Acutely Ill and Cachetic
Head: Other (NGT dark brown bile)
Eyes: Sclera Anicteric
Cardiovascular: Regular Rate and S1/S2
Pulmonary: Clear
Gastrointestinal: Tender (Patient grimaced/finched with palpation of abdomen) and Decreased Bowel Sounds
Genito-Urinary: Chao (dark urine); Negative CVA Tenderness
Extremities: Negative Edema
Neurological: Other (lethargic)
Lines: PICC
Lab / Diagnostic Study Results
06/09/23 03:10
06/09/23 10:35
Abs Immat Gran (auto) 0.0 10^3/uL (0-0.05) 06/09/23 03:10
Absolute Neuts (auto) 7.5 10^3/uL (1.4-6.5) H 06/09/23 03:10
Absolute Lymphs (auto) 0.7 10^3/uL (1.2-3.4) L 06/09/23 03:10
Absolute Monos (auto) 0.5 10^3/uL (0.1-0.6) 06/09/23 03:10
Absolute Basos (auto) 0.0 10^3/uL (0-0.2) 06/09/23 03:10
Immature Gran % 0.2 % (0-0.5) 06/09/23 03:10
Neutrophils % 85.6 % (42.2-75.2) H 06/09/23 03:10
Lymphocytes % 8.0 % (20.5-51.1) L 06/09/23 03:10
Monocytes % 5.4 % (1.7-9.3) 06/09/23 03:10
Eosinophils % 0.3 % (0-6) 06/09/23 03:10
Basophils % 0.5 % (0-2) 06/09/23 03:10
Lactic Acid 4.1 mmol/L (0.7-2.0) H* 06/09/23 10:35
Microbiology Results
Micro:
06/09/23 11:48 Blood Culture - Pending
Blood/Venous
06/09/23 10:35 Blood Culture - Pending
Blood/Venous
06/08/23 CT a/P: Large amount of stool throughout the colon, with increased amount of stool since examination of June 06, 2023. There is suggestion of colonic wall thickening, particularly involving the right colon, transverse colon, and splenic
flexure. Findings would be suggestive of stercoral colitis. No evidence for free intraperitoneal air. Distention of the stomach with fluid. Left ureteral stent is present
Assessment / Plan
# Severe sepsis/shock.
# Probable Intraabdominal source of sepsis
# PAVEL
# metabolic acidosis, lactic acidosis continues to trend up
# Recent status post robotic suture rectopexy, sacrocolpopexy, posterior repair and cystoscopy with left double-J stent, stone manipulation 05/17/23
# PCN allergy - unknown reaction
-?bacterial gut translocation from severe constipation/stercoral colitis
- Await blood cultures
- Broaden antibiotics to meropenem and Vancomycin for now.
- DC ceftriaxone and metronidazole.
- Follow temps/vitals.
--- NOTE | 2023-06-09 14:14 | VATNOTE ---
Report from CXR shows tip of PICC line at the [place]. Called IMU and notified UC that the PICC is OK to use--will communicate same to PCN.
[2023-06-09 15:15] LABS: Lactic Acid 5.4 mmol/L (0.7-2.0)
--- NOTE | 2023-06-09 15:23 | W.PN.GYN ---
Today's Communication / Plan
-
urine culture
Physician Note
-
Assessment and Plan:
78 year old woman admitted for sepsis secondary to stercoral colitis and s/p rectopexy, sacrocolpopexy and left ureteral stent placement on 05/17/2023. Patient is currently being transferred to the MICU.
Genitourinary System
-recommend urine culture
-left ureteral stent in place: no evidence of hydronephrosis on CT scan, stent in correct location
-No surgical intervention recommended at this time
-Continue care per primary team
-Will continue to follow
Subjective:
patient is not verbal, discussion with patient's daughter at bedside, NG tube in place
Objective:
Intake and Output
06/07/23 06/08/23 06/09/23 06/10/23
06:59 06:59 06:59 06:59
Intake Total 1540 / 1540
Output Total 1775 / 1775
Balance -235 / -235
Intake:
IV fluids (Total) 1250 / 1250
IV piggybacks 200 / 200
Amount instilled into GI Tube ( 90 / 90
Total)
[place] Sump 90 / 90
Output:
Emesis 50 / 50
Gastrointestinal tube output ( 1400 / 1400
Total)
[place] Sump 650 / 650
Urine, Chao 325 / 325
Vital Signs
Temp Pulse Resp BP Pulse Ox
99.1 F 109 22 115/54 97
06/09/23 15:26 06/09/23 15:15 06/09/23 15:15 06/09/23 15:15 06/09/23 15:15
Lab Results
06/09/23 03:10
--- NOTE | 2023-06-09 15:26 | CON.INTV ---
Consultation
Consultation Request
Date/Time Consultation Requested: 06/09/2023 - 1453
Date/Time Consultation Performed: 06/09/2023 - 1520
Requesting Provider: Dr. Hogue
Performing Provider: Dr. Villa
Reason for Consultation: Septic shock
Medical History
-
Chief Complaint: Abdominal pain
History of Present Illness:
78-year-old active tobacco smoking female with a past medical history of hypertension, GERD, moderate COPD, reported history of asthma, seasonal allergies and osteoarthritis with a recent hospitalization from 05/1608/2023ue to pelvic floor
prolapse with an obstructive left ureteral stone s/p robotic suture rectopexy, sacrocolpopexy, posterior repair, perineoplasty, cystoscopy with double J-left ureteral stenting on 05/17/[address] Guardado (double-J stent by Dr. Medina).
Postprocedure patient was hypotensive requiring ICU stay and patient was treated for opioid withdrawal. She also had postoperative hyponatremia. Patient improved and was discharged to home with PT and VNA. SNF was refused at that time.
Postoperatively she saw urogynecology in the office on 06/02/[address] Bojorquez. There was concern for perennial cellulitis with perineal soreness and Bactrim DS 1 tab BID x 5days was Rx, and patient also recommended to use sitz bath with warm
compresses.
Patient now comes with abdominal pain that started 3-4 days [employer], it is 10 out of 10 on pain scale and EMS gave the patient fentanyl 50mcg x1, Zofran 4 mg as well as a 0.5L NS 0.9% bolus. She also has nausea/vomiting x 1 day [employer] a/w abd bloating.
In the ER patient was hypothermic to 96.4 �F, hypotensive to 94/44, HR: 91, RR: 20 and saturating 96% on room air. Initial labs showed leukocytosis 18.4, anemia 10.3, thrombocytosis to 419, hyponatremia 131, metabolic acidosis with a serum
bicarbonate of 12, acute kidney injury to 3, lactic acidosis 6.9, and a CT abdomen/pelvis showed large amount of stool in the colon with colonic wall thickening suggestive of stercoral colitis. She was given antibiotics in the ER with ceftriaxone,
Flagyl, as well as sodium bicarb, Lokelma, regular insulin with D50 and albuterol, pain medications with Dilaudid and also given 1 L NS 0.9%. Patient was admitted to the IMU for further management with bicarb gtt, and continued on Abx with
rocephin/IV vanco. On 06/08, unfortunately her blood pressure continued to be low with SBP in 80s requiring vasopressors with Levophed. Due to increasing vasopressor requirements, patient was transferred to the ICU for further care, and critical
care services consulted for additional management/recommendations.
When I saw the patient, she was in bed, on 2 L/min nasal cannula breathing comfortably in no acute distress. , Grabiel, and daughter, Kendal, at bedside -all questions were answered. Patient asking for something to drink. She feels better
currently, and denies chest pain, shortness breath, fevers or chills. cutter machine tender in her abdomen.
Of note, patient had recently seen us at [facility] office with Dr. Conner on 05/04/2023. Patient was seen for preop risk stratification. She has moderate COPD with active tobacco use and was considered low risk from pulmonary perspective. She was
asymptomatic respiratory rodriguez and no long-acting bronchodilators were recommended at the time due to a lack of significant respiratory symptoms. As needed albuterol rest recommended. She continued to smoke 1 cigarette a day. Full PFTs were
performed on 05/04/2023 showing moderate COPD with a positive, nonsignificant bronchodilator response. There was no evidence of hyperinflation or air trapping, and there was a moderately reduced gas exchange capacity with DLco of 53% predicted.
PMHx: Moderate COPD, hypertension, chronic LBP, scoliosis, depression, reported history of asthma, history of rectal prolapse, GERD, gastric ulcer, osteoporosis, osteoarthritis, seasonal allergies
PSHx: Partial hysterectomy (2010), lumbar laminectomy (2006)
Past Medical History
Past Medical History: Other (Above as per HPI)
Past Surgical History: Other (Above as per HPI)
Social History
Tobacco: Smoker (Currently smokes 1 cigarette a day, with a history of 0.5 PPD x 60 years)
Alcohol: None
Drug: None
Family History
Family History: CAD (Mother), Diabetes (Mother), Hypertension (Mother) and Other (Mother & paternal grandmother: CHF)
Allergies / Home Medications
Allergies
Allergy/AdvReac Type Severity Reaction Status Date / Time
aspirin Allergy Gastiris Verified 06/08/23 17:58
ibuprofen Allergy Gastritis Verified 06/08/23 17:58
latex Allergy Itching Verified 05/17/23 06:29
NSAIDS (Non-Steroidal Allergy Gastritis Verified 06/08/23 17:58
Anti-Inflamma
Penicillins Allergy Unknown Verified 05/17/23 06:29
Home Medications
�Medication �Instructions �Recorded �Confirmed �Last Taken �Type
amlodipine 10 mg-benazepril 20 mg 1 cap PO DAILY Blood Pressure 04/25/09 06/08/23 06/07/23 History
capsule
estradiol 0.1 mg/24 hr weekly 0.1 mg transdermal FR Hormonal 04/25/09 06/08/23 06/02/23 History
transdermal patch (Climara) Agent
esomeprazole magnesium 40 mg 40 mg PO DAILY Gastrointestinal 02/28/11 06/08/23 05/17/23 04:00 History
capsule,delayed release (Nexium) Issue
alprazolam 0.25 mg tablet (Xanax) 0.125 mg PO DAILYPRN PRN anxiety 05/11/23 06/08/23 Unknown History
alprazolam 0.25 mg tablet (Xanax) 0.25 mg PO HS Mental Health/Anxiety 05/11/23 06/08/23 06/07/23 History
azelastine 205.5 mcg (0.15 %) 2 spray intranasal DAILY Allergies 05/11/23 06/08/23 05/17/23 06:30 History
nasal spray (Astepro Allergy)
dextroamphetamine-amphetamine 30 30 mg PO DAILY Neurological 05/11/23 06/08/23 Unknown History
mg tablet (Adderall) Condition
fexofenadine 180 mg tablet 180 mg PO DAILYPRN PRN allergies 05/11/23 06/08/23 05/16/23 10:00 History
gabapentin 300 mg capsule 300 mg PO BID Pain 05/11/23 06/08/23 06/07/23 History
oxycodone 20 mg tablet 20 mg PO QID pain 05/11/23 06/08/23 06/08/23 History
Review of Systems
-
History Source: Patient
All other systems: Negative unless noted
Vitals / Labs / Diagnostic Testing
Vital Signs
Temp Pulse Resp BP Pulse Ox
99.2 F 106 21 114/52 98
06/09/23 16:00 06/09/23 16:45 06/09/23 16:45 06/09/23 16:45 06/09/23 16:45
Lab Data
06/09/23 03:10
Laboratory Results
06/09/23
15:59
PT 17.8 H
INR 1.48
APTT 43.9 H
Diagnostic Testing:
Physical Exam
-
HEENT: Normocephalic and Anicteric
Cardiovascular: S1/S2 and Peripheral Edema (negative)
Respiratory: Wheeze (negative), Rales (bibasilar), Rhonchi (negative), Accessory Resp Muscle Use (negative) and Other (Reduced breath sounds bilaterally)
GI: Soft, Tender (periumbillical TTP) and Other (Hypoactive BS)
Neurology: Awake and Alert
Skin: Warm and Dry
General: Comfortable and Chills (negative)
Assessment
-
Assessment: 78-year-old active tobacco smoking female with a PMHx of hypertension, GERD, moderate COPD, reported history of asthma, seasonal allergies and osteoarthritis with a recent hospitalization from 05/1608/2023ue to pelvic floor prolapse
with an obstructive left ureteral stone s/p robotic suture rectopexy, sacrocolpopexy, posterior repair, perineoplasty, cystoscopy with double J-left ureteral stenting on 05/17/[address] Guardado (double-J stent by Dr. Medina). Patient now comes
with abdominal pain x 3-4 days [employer], and nausea/vomiting with abd bloating x1 day. Patient hypothermic and hypotensive in the ER with multiple electrolyte derangements including metabolic acidosis, acute kidney injury, hyponatremia, leukocytosis and
lactic acidosis with CT A/P showing stercoral colitis. Patient started on antibiotics, given sodium bicarb and IV fluids and admitted to the IMU where her blood pressure unfortunately declined requiring vasopressors. Patient now transferred to the
ICU for further care and critical care services consulted for additional management/recommendations.
Chronic conditions [employer]: Moderate COPD, hypertension, chronic LBP, scoliosis, depression, reported history of asthma, history of rectal prolapse, GERD, gastric ulcer, osteoporosis, osteoarthritis, seasonal allergies
Impression:
#Shock - suspect due to sepsis from stercoral colitis with translocation of bacteria in setting of hypovolemia with reduced PO intake and nausea/vomiting
#Lactic acidosis - due to shock state as above
#Acute kidney injury (Cr baseline 0.9) - likely due to shock state as above in setting of outpatient bactrim use
#Acute respiratory failure with hypoxia on supplemental oxygen
#Hypochloremic, hyponatremia
#Hyperglycemia
#Stercoral colitis involving the right colon, transverse colon and splenic flexure
#Active tobacco use disorder
Plan:
- Continue broad spectrum Abx with meropenem + IV vanco; ID on board
- Given her low urine Na and low serum Na and low serum Cl, appears she is still hypovolemic. Will give another 1-2 L bolus of NS 0.9% and cautiously continue with maintenance IVF as well
- Follow up blood Cx and urine Cx (collected 06/09/2023)
- Continue with Levophed and wean as tolerated to maintain MAP>65
- If unable to wean down on levophed with requirements heading above 10, then will start vasopressin and consider stress dose steroids
- Trend lactate level until <2mmol/L
- Titrate supplemental O2 flow rate to maintain SpO2 >88-94%
- prn nebulized bronchodilators
- Nicotine patch
- Incentive spirometer
- Renally dose all meds/Abx
- Trend UOP and sCr, [K]
- Replete electrolytes with K>4, Mg>2
- Maintain euglycemia with goal BG 140-180 with ISS; she may need basal insulin if BG remains >180
- Keep NPO for now with NGT to LIWS
- Transfuse if needed to keep Hb>7g/dL, plt>20k
- DVT ppx
Critical care statement: A total of 40 minutes of critical care time was provided for this patient today. This includes management of unstable vital signs, evaluation of the patient at bedside, reviewing the patient's pertinent medical records
including radiographs, microbiology, laboratory evaluations, and discussion with primary team, consultants, pharmacy, nutrition, physical therapy, case management, charge nurse, critical care nursing, and respiratory therapy.
Data:
CT Abd/Pelvis 06-08-2023:
Large amount of stool throughout the colon, with increased amount of stool since examination of June 06, 2023. There is suggestion of colonic wall thickening, particularly involving the right colon, transverse colon, and splenic flexure. Findings
would be suggestive of stercoral colitis.
No evidence for free intraperitoneal air.
Distention of the stomach with fluid. Limited evaluation of small bowel loops.
Small calcification in the anterior aspect of the right upper quadrant, which is likely related to a calcified gallstone within a contracted gallbladder.
Left ureteral stent is present. Calcifications within both kidneys, likely mainly due to nephroliths, although there may also be dystrophic parenchymal calcifications.
Bony degenerative changes
CXR 06-09-2023:
1. New right upper extremity PICC line in place with the catheter tip projecting over the cavoatrial junction.
2. Nasogastric tube in place terminating in the stomach.
3. Severe calcific atherosclerotic plaque in the thoracic aorta and coronary arteries.
4. Mild subpleural scarring and subsegmental atelectasis in the left lower lobe.
Outpatient [facility] data:
PFT � 05/04/2023
FEV1/FVC: 51, improvement to 52 with BD
FEV1: Post-BD of 1.47L/87%
FVC: Post-BD of 2.84 L / 124%
Bronchodilator was used and there was a positive/nonsignificant response
Levels were normal
Moderate�severe gas exchange capacity defect with DLco 53% predicted (DLco/VA: 55%)
--- NOTE | 2023-06-09 15:39 | W.PN.UPDATE ---
Update Note
Progress Note Update
I saw her a couple of hours ago just after the PICC line was inserted. She is arousable and states her pain is better.
BP stable on levophed, slightly tachycardic. Her urine output is low.
Her abdomen is less distended and soft, with moderate tenderness on the left.
There is a very large amount of stool in the bed prohibiting an exam of her rectum and perineum at present.
WBC now normal but her renal failure is about the same and nephrology is consulted.
Will hold off on the gastrograffin enema as there does not appear to be an obstruction.
Still not entirely sure what is the primary source of her illness. No plans for surgery at this time.
I updated her significant other and her daughter at the bedside, all questions answered.
--- NOTE | 2023-06-09 15:42 | PTCARENOTE ---
Pt now requiring 8mcg of levo to keep map above 65. Orders to transfer to ICU received. Pt's daughter updated on plan of care. Report to receiving RN. Transferred to [id number].
[2023-06-09 16:19] LABS: Blood Urea Nitrogen 74 mg/dl (7-17); Carbon Dioxide 37 mmol/L (22-30); Chloride 85 mmol/L (98-107); Estimated Creatinine Clearance 11 ml/min; Glucose 359 mg/dl (70-99); Potassium 4.7 mmol/L (3.5-5.1); Sodium 128 mmol/L (135-145); eGFR 15.33
[2023-06-09 16:20] LABS: INR 1.48; PT 17.8 Sec (11.4-14.6)
--- NOTE | 2023-06-09 16:20 | PTCARENOTE ---
Pt received via bed into [id number] at 1530 as transfer from IMU after report received. Pt lethargic upon arrival, opens eyes to persistent calling of her name. Followed commands to move all extremities. Oriented to person and that she is in a
hospital. Drifts off to sleep mid-answer to questions. Pt found to have been incontinent of large amount of loose brown foul smelling BM. Extensive jenni--care provided. Chao catheter patent and draining светлана urine w/ sediment. NGT to LCWS with
dark brown drainage w/ coffee ground like material. Pt received on Levophed gtt @ 8mcg/min at time of arrival. Titrating to maintain MAP >65 per order. HCO3 infusing @ ordered 125ml/hr. Pt trialed on RA w/ POx 90-91%. O2 replaced at 2l/min w/ POx
improved to 98%. No respiratory distress noted. Pt's and daughter present- updated on pt's present condition and plan of care, all questions answered. Comfort care provided to pt. Dr Catalan in room at 1615 to see pt and speak w/ family present
in room. New orders received.
--- NOTE | 2023-06-09 16:20 | CM ---
Patient with Hx recent Pelvic Floor Prolapse s/p Robotic Rectopexy / Sacrocolpopexy with Dx Severe Sepsis secondary to Stercoral Colitis, PAVEL. O2 2L. NPO. Receiving IVF w/ Bicarb, IV Abx, Dilaudid IV prn. Patient receiving Levophed 8mcg -
transferred from IMU to ICU due to protocol.
Met with patient and daughter Kendal. Patient sleeping throughout assessment.
The patient resides with her SO Grabiel Burks in a 2 story house with 3 PABLO.
The patient was independent in ADLs and ambulation using her SPC after d/c from last hospital stay.
She became unwell and had been lying on the couch for the past 1 1/2 days.
The SO works in [place] during the week. Patient called him when she became unwell and he came home and sent patient to hospital.
DME - SPC, RW
VN - current with [facility]
No prior SNF
CM following for d/c needs.
Plan TBD.
[2023-06-09 16:21] LABS: APTT 43.9 Sec (23.4-35.0)
--- NOTE | 2023-06-09 16:37 | W.CON.NEPH ---
Consultation
-
Date/Time Consultation Requested: June 09, 2023 10 AM
Date/Time Consultation Performed: June 09, 2023 4 PM
Requesting Provider: Dr. Hogue
Performing Provider: Dr. Catalan
Reason for Consultation: Acute kidney injury, hyperkalemia, hypotension
Medical History
-
Chief Complaint: Acute kidney injury
History of Present Illness:
This is a 78-year-old female who has had recent urogynecologic surgery on May 17, 2023 who underwent rectopexy sacrocolpopexy and posterior repair and cystoscopy with left ureteral stent. Her hospitalization at that time was complicated by opioid
withdrawal. After discharge she was seen by urology on the of this month and there is a concern for perineal abscess and she was given a 5-day course of double strength Bactrim twice daily. She then developed worsening abdominal pain now 10
out of 10 had come to the emergency room for that. She was noted to have an elevated white count and severe hypotension she then developed significant hyperkalemia. She is also noted to have acute kidney injury with a creatinine of 3.0 up from a
baseline of 0.9 she then had some vomiting. Today she was sent to the ICU for pressors given persistent hypotension. She is currently critically ill.
Past Medical History
Rectocele, cystocele, vaginal vault prolapse, asthma, scoliosis, depression, GERD, arterial disease, rectopexy, sacrocolpopexy, posterior repair with cystoscopy, left ureteral stent, hysterectomy, lumbar laminectomy
Social History
Tobacco: Smoker
Alcohol: None
Family History
No CKD
Allergies / Home Medications
Allergy/AdvReac Type Severity Reaction Status Date / Time
aspirin Allergy Gastiris Verified 06/08/23 17:58
ibuprofen Allergy Gastritis Verified 06/08/23 17:58
latex Allergy Itching Verified 05/17/23 06:29
NSAIDS (Non-Steroidal Allergy Gastritis Verified 06/08/23 17:58
Anti-Inflamma
Penicillins Allergy Unknown Verified 05/17/23 06:29
�Medication �Instructions �Recorded �Confirmed �Type
amlodipine 10 mg-benazepril 20 mg 1 cap PO DAILY Blood Pressure 04/25/09 06/08/23 History
capsule
estradiol 0.1 mg/24 hr weekly 0.1 mg transdermal FR Hormonal 04/25/09 06/08/23 History
transdermal patch (Climara) Agent
esomeprazole magnesium 40 mg 40 mg PO DAILY Gastrointestinal 02/28/11 06/08/23 History
capsule,delayed release (Nexium) Issue
alprazolam 0.25 mg tablet (Xanax) 0.125 mg PO DAILYPRN PRN anxiety 05/11/23 06/08/23 History
alprazolam 0.25 mg tablet (Xanax) 0.25 mg PO HS Mental Health/Anxiety 05/11/23 06/08/23 History
azelastine 205.5 mcg (0.15 %) 2 spray intranasal DAILY Allergies 05/11/23 06/08/23 History
nasal spray (Astepro Allergy)
dextroamphetamine-amphetamine 30 30 mg PO DAILY Neurological 05/11/23 06/08/23 History
mg tablet (Adderall) Condition
fexofenadine 180 mg tablet 180 mg PO DAILYPRN PRN allergies 05/11/23 06/08/23 History
gabapentin 300 mg capsule 300 mg PO BID Pain 05/11/23 06/08/23 History
oxycodone 20 mg tablet 20 mg PO QID pain 05/11/23 06/08/23 History
Review of Systems
-
Unable to obtain given the patient's lethargy.
Physical Exam
Vital Signs
Vital Signs
Temp Pulse Resp BP Pulse Ox
99.1 F 109 23 108/55 97
06/09/23 15:26 06/09/23 15:31 06/09/23 15:31 06/09/23 15:30 06/09/23 15:31
Lab Results
WBC 8.7 10^3/uL (4.8-10.8) 06/09/23 03:10
RBC 4.01 10^6/uL (4.20-5.40) L 06/09/23 03:10
Hgb 10.5 g/dL (12.0-16.0) L 06/09/23 03:10
Hct 31.1 % (37.0-47.0) L 06/09/23 03:10
Plt Count 375 10^3/uL (130-400) 06/09/23 03:10
eGFR 15.33 06/09/23 15:59
Albumin 3.1 g/dl (3.5-5.0) L 06/08/23 12:39
Physical Exam
Patient is lethargic and in no distress. Mood and affect could not be assessed, insight and judgment could not be assessed. Pupils are equal round and reactive to light, extraocular movements are intact, sclera were anicteric. Hearing was normal,
ears and nose are intact. Neck was supple with trachea midline and no thyromegaly. Heart was regular rate and rhythm without rubs. Lower extremities without edema. Lungs were clear to auscultation bilaterally and with normal excursion. Abdomen was
soft, nontender, with normal active bowel sounds, and no hepatosplenomegaly. Skin was without rash and with normal turgor.
Data Reviewed
-
Radiology: Image Personally Visualized and interpreted (Chest x-ray on June 09, 2023 shows no acute disease)
CT Scan: Report Reviewed by me (CT abdomen and pelvis without contrast on June 08, 2023 shows stool throughout colon, stercoral colitis, left ureteral stent, left-sided kidney stones)
Medical Tests (Nuc Med, Echo etc): Image Personally Visualized and interpreted (EKG on 06/09/2023 by my reading shows sinus tachycardia)
Labs: Labs Reviewed by me (Sodium 131, potassium 6.1, bicarbonate 24, UN 78, creatinine 3.1, lactic acid 5.4, AST 38, ALT 15, hemoglobin 10.5)
Old Records: Reviewed (Creatinine 0.9, potassium 3.8, sodium 128)
Assessment/Plan
-
Assessment:
Hyperkalemia
Acute kidney injury
Hypotension
Sepsis
Recent urogynecologic surgery
Left ureteral stent
Metabolic alkalosis
Diabetes mellitus type 2
Stercoral colitis
Chronic pain
Plan:
I discussed with the and daughter at length regarding her renal issues.
Acute kidney injury is potentiated by hypotension, sepsis, Bactrim, AMINAH inhibitor
Keep mean arterial pressure greater than 65, closer to 70 if lactic acid continues to rise.
Follow basic metabolic panel
Follow liver function testing for development of shock liver
Check urine studies
Follow lactic acid level
Switch to saline IV fluids
I also discussed with the and daughter at length regarding the possibility of dialysis they understand.
Critical care time spent 40 minutes
[2023-06-09] MEDS: NSS 1000 IV ×3 (17:10→22:49)
[2023-06-09] MEDS: SODIUM BICARBONATE IV (17:27)
[2023-06-09] MEDS: MERREM 500 MG IV (17:45)
[2023-06-09] MEDS: VANCOCIN 275 MG IV (17:49)
--- NOTE | 2023-06-09 18:02 | PHA.VAN.IN ---
Assessment
- Assessment
Renal Function: Appears elevated from baseline (0.7 - 0.9)
Maximum Temperature: 100.9 F oral 06/09/23 0723
Minimum Temperature: 96.4 F rectal 06/08/23 1234
Concomitant Antimicrobials: meropenem
Plan
- Plan
Initial / Loading Dose: vanc 1250mg
Maintenance Regimen: dosing by level
Monitoring: random level 06/09 06
Pharmacokinetics Vancomycin I
- -
Patient Age: 78
Patient Sex: Female
Vancomycin Day #: 1
Indication: Gi / Intra-Abdominal
Requesting Provider: Dr. South
Pertinent Antimicrobial Allergies:
penicillin - unknown
Height / Weight:
Height 5 ft 1 in
Actual Weight 44 kg
- Vital Signs / Lab Results
Temp Pulse Resp BP Pulse Ox
99.2 F 106 21 114/52 98
06/09/23 16:00 06/09/23 16:45 06/09/23 16:45 06/09/23 16:45 06/09/23 16:45
Lab Results - Hematology
06/08/23 06/09/23
12:39 03:10
WBC 18.4 H 8.7
Lab Results - Chemistry
06/08/23 06/08/23 06/09/23
12:39 17:35 03:10
BUN 50 H 57 H Cancelled
Creatinine 3.0 H 2.9 H Cancelled
Estimated Creat Clear Cancelled
Albumin 3.1 L
06/09/23 06/09/23 06/09/23
04:38 10:35 15:59
BUN 71 H 78 H 74 H
Creatinine 3.0 H 3.1 H 3.0 H
Estimated Creat Clear 11 10 11
Albumin
06/08/23 06/08/23 06/08/23
12:49 17:35 22:41
Lactic Acid 6.9 H* 3.9 H 3.1 H
06/09/23 06/09/23 06/09/23
03:10 07:32 10:35
Lactic Acid 2.6 H 4.6 H* 4.1 H*
06/09/23
14:41
Lactic Acid 5.4 H*
[2023-06-09 18:22] LABS: Urine Sodium 17 mmol/L (30-90)
[2023-06-09 19:08] LABS: ALT (SGPT) 52 U/L (0-35); AST (SGOT) 190 U/L (14-36); Albumin 2.3 g/dl (3.5-5.0); Alkaline Phosphatase 698 U/L (38-126); Blood Urea Nitrogen 76 mg/dl (7-17); Calcium 7.3 mg/dl (8.4-10.2); Carbon Dioxide 29 mmol/L (22-30); Chloride 89 mmol/L (98-107); Direct Bilirubin 0.6 mg/dl (0.0-0.4); Estimated Creatinine Clearance 10 ml/min; Glucose 249 mg/dl (70-99); Potassium 5.2 mmol/L (3.5-5.1); Sodium 125 mmol/L (135-145); Total Bilirubin 0.6 mg/dl (0.2-1.3); Total Protein 4.5 g/dl (6.3-8.2); eGFR 14.19
[2023-06-09 19:10] LABS: Lactic Acid 4.1 mmol/L (0.7-2.0)
[2023-06-09 19:30] LABS: Glucose - Point of Care 179 mg/dl (70-99)
[2023-06-09] MEDS: FLEXBUMIN 100 IV ×2 (19:49→22:50)
[2023-06-09] MEDS: LEVOPHED 258 MG IV (19:56)
[2023-06-09] MEDS: NOVOLOG FLEXPEN-LOW RESISTANCE 1 UNITS SC (20:12)
[2023-06-09 20:39] LABS: Cortisol, Random 90.4 ug/dl
[2023-06-09] MEDS: LANTUS 0.0500000000000000028 UNITS SC (21:12)
[2023-06-09] MEDS: PITRESSIN 100 IV (21:13)
--- NOTE | 2023-06-09 21:17 | PTCARENOTE ---
received patient from previous shift. family at bedside, updated on condition. pt opens eyes mumbles but difficult to understand. reviewed lab results. assessed as documented. fluid bolus hung per orderers. albumin infusing. accu check completed
1unit given per sliding scale. NG to low cont. suction, coffee ground output. pt incontinent of loose brown stool.
[2023-06-09 21:45] LABS: Lactic Acid 3.5 mmol/L (0.7-2.0)
[2023-06-09 21:51] LABS: Blood Urea Nitrogen 75 mg/dl (7-17); Calcium 7.3 mg/dl (8.4-10.2); Carbon Dioxide 29 mmol/L (22-30); Chloride 95 mmol/L (98-107); Estimated Creatinine Clearance 10 ml/min; Glucose 126 mg/dl (70-99); Sodium 131 mmol/L (135-145); eGFR 14.19
[2023-06-09 23:06] LABS: Urine Albumin Trace (Neg - Trace); Urine Bilirubin 2+ (Negative); Urine Character Slightly Cloudy (Clear); Urine Color Amber; Urine Glucose Negative (Negative); Urine Ketone Trace (Negative); Urine Leukocyte Trace (Negative); Urine Nitrite Positive (Negative); Urine Occult Blood 2+ (Negative); Urine Urobilinogen 2+ (Neg - 1+)
[2023-06-09] MEDS: NOVOLOG FLEXPEN-LOW RESISTANCE SC (23:09)
[2023-06-09 23:14] LABS: Urine Amorphous Seen
[2023-06-09 23:15] LABS: Urine Bacteria Moderate (Negative); Urine Red Blood Cell 16-20 /HPF (0-2)
[2023-06-09 23:20] LABS: Glucose - Point of Care 121 mg/dl (70-99)
[2023-06-10] VITALS (98 sets, daily range): BP systolic 88–144; BP diastolic 40–89; BMI 19.5
--- NOTE | 2023-06-10 02:20 | PTCARENOTE ---
while in the room with the patient she was attempting to pull her NG tube out while in bilateral wrist restraints. mittens applied. titrating levo, vaso added earlier in the shift.
[2023-06-10] MEDS: CALCIUM CHLORIDE 10% SYRINGE 60 MG IV (02:40)
[2023-06-10 04:38] LABS: Hematocrit 25.5 % (37.0-47.0); Hemoglobin 8.4 g/dL (12.0-16.0); Mean Corp Hgb Conc. 32.9 g/dL (33.0-37.0); Mean Corpuscular Hgb 26.1 pg (27.0-31.0); Mean Corpuscular Volume 79.2 fL (81.0-99.0); Mean Platelet Volume 10.8 fL (7.4-10.4); Platelet Count 229 10^3/uL (130-400); Red Blood Cell Count 3.22 10^6/uL (4.20-5.40); Red Cell Dist. Width 15.7 % (11.5-14.5); White Blood Cell Count 8.1 10^3/uL (4.8-10.8)
[2023-06-10 04:50] LABS: Lactic Acid 1.2 mmol/L (0.7-2.0)
[2023-06-10 04:54] LABS: Vancomycin Random 14.9 ug/ml
[2023-06-10] MEDS: FLEXBUMIN 100 IV (04:54)
[2023-06-10] MEDS: STERILE WATER FOR INJECTION 10 ML IV ×2 (05:05→17:47)
[2023-06-10] MEDS: MERREM 500 MG IV ×2 (05:05→17:47)
[2023-06-10 05:10] LABS: ALT (SGPT) 42 U/L (0-35); AST (SGOT) 135 U/L (14-36); Albumin 2.8 g/dl (3.5-5.0); Alkaline Phosphatase 525 U/L (38-126); Blood Urea Nitrogen 74 mg/dl (7-17); Calcium 8.2 mg/dl (8.4-10.2); Carbon Dioxide 27 mmol/L (22-30); Chloride 100 mmol/L (98-107); Direct Bilirubin 0.6 mg/dl (0.0-0.4); Estimated Creatinine Clearance 12 ml/min; Glucose 141 mg/dl (70-99); Magnesium 2.1 mg/dl (1.6-2.3); Phosphorus 6.7 mg/dl (2.5-4.5); Potassium 4.6 mmol/L (3.5-5.1); Sodium 134 mmol/L (135-145); Total Bilirubin 0.6 mg/dl (0.2-1.3); Total Protein 4.8 g/dl (6.3-8.2); eGFR 15.97
[2023-06-10 05:13] LABS: Absolute Neutrophils -Man Diff 6.1 10^3/uL (1.4-6.5); Band Neutrophils 25 % (0-3); Lymphocytes 21 % (20-51); Monocytes 3 % (2-9); Segmented Neutrophils 51 % (42-75)
[2023-06-10 05:14] LABS: Normal RBC Morphology No; Platelets Checked Yes; Poikilocytosis Moderate; Polychromasia Slight
[2023-06-10 05:15] LABS: Burr Cells Moderate; Ovalocytes Slight; Tear Drop Red Blood Cells Slight; Total Cells Counted 100
[2023-06-10] MEDS: NOVOLOG FLEXPEN-LOW RESISTANCE SC ×2 (05:17→12:08)
[2023-06-10 05:21] LABS: Glucose - Point of Care 145 mg/dl (70-99)
[2023-06-10 05:24] LABS: Procalcitonin 44.75 ng/ml (0.0-0.25)
[2023-06-10] MEDS: PITRESSIN 100 IV ×2 (07:24→17:47)
[2023-06-10] MEDS: NSS (PRESERVATIVE FREE) 10 ML IV (07:27)
[2023-06-10] MEDS: PROTONIX IV 40 MG IV (07:27)
[2023-06-10] MEDS: NICODERM TRANSDERMAL 14 MG TRANSDERM (07:27)
--- NOTE | 2023-06-10 08:13 | W.PN.INTV ---
Today's Communication / Plan
Recommendations
Wean off vasopressin
MAP>65
NGT clamping trial --> if tolerates then will try clear liquids for dinner
SpO2 goal >88-94%
Pain control
PT/OT when safe for her to get up OOB
Assessment
-
Assessment: 78-year-old active tobacco smoking female with a PMHx of hypertension, GERD, moderate COPD, reported history of asthma, seasonal allergies and osteoarthritis with a recent hospitalization from 05/16 � 05/21/2023 due to pelvic floor prolapse
with an obstructive left ureteral stone s/p robotic suture rectopexy, sacrocolpopexy, posterior repair, perineoplasty, cystoscopy with double J-left ureteral stenting on 05/17/[address] Guardado (double-J stent by Dr. Medina). Patient now comes
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 Patient hypothermic and hypotensive in the ER with multiple electrolyte derangements including metabolic acidosis, acute kidney injury, hyponatremia, leukocytosis and
lactic acidosis with CT A/P showing stercoral colitis. Patient started on antibiotics, given sodium bicarb and IV fluids and admitted to the IMU where her blood pressure unfortunately declined requiring vasopressors. Patient now transferred to the
ICU for further care and critical care services consulted for additional management/recommendations.
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
Impression:
#Shock - suspect due to sepsis from stercoral colitis with translocation of bacteria in setting of hypovolemia with reduced PO intake and nausea/vomiting
#Lactic acidosis (resolved) - was due to shock state as above
#Acute kidney injury (Cr baseline 0.9) - likely due to shock state as above in setting of outpatient bactrim use
#Acute respiratory failure with hypoxia on supplemental oxygen
#Hypochloremic, hyponatremia
#Hyperglycemia
#Stercoral colitis involving the right colon, transverse colon and splenic flexure
#Active tobacco use disorder
Plan:
- Continue broad spectrum Abx with meropenem + IV vanco; ID on board
- Given her low urine Na and low serum Na and low serum Cl, appears she is still hypovolemic. Cautiously continue with maintenance IVF with NS 0.9%
- Follow up blood Cx and urine Cx (collected 06/09/2023)
- Continue with vasopressin and wean as tolerated to maintain MAP>65
- Random cortisol level is 90.4 --> no need for stress dose steroidsa at this time
- Titrate supplemental O2 flow rate to maintain SpO2 >88-94%
- prn nebulized bronchodilators
- Nicotine patch
- Incentive spirometer
- Renally dose all meds/Abx
- Trend UOP and sCr, [K]
- Replete electrolytes with K>4, Mg>2
- Maintain euglycemia with goal BG 140-180 with ISS and latnus 5 units HS
- Keep NPO for now while we do clamping trial of NGT --> if patient tolerates clamping trial after 6-8 hours, then will try to give clears for dinner
- Transfuse if needed to keep Hb>7g/dL, plt>20k
- DVT ppx
Critical care statement: A total of 43 minutes of critical care time was provided for this patient today. This includes management of unstable vital signs, evaluation of the patient at bedside, reviewing the patient's pertinent medical records
including radiographs, microbiology, laboratory evaluations, and discussion with primary team, consultants, pharmacy, nutrition, physical therapy, case management, charge nurse, critical care nursing, and respiratory therapy.
Data:
CT Abd/Pelvis 06-08-2023:
Large amount of stool throughout the colon, with increased amount of stool since examination of June 06, 2023. There is suggestion of colonic wall thickening, particularly involving the right colon, transverse colon, and splenic flexure. Findings
would be suggestive of stercoral colitis.
No evidence for free intraperitoneal air.
Distention of the stomach with fluid. Limited evaluation of small bowel loops.
Small calcification in the anterior aspect of the right upper quadrant, which is likely related to a calcified gallstone within a contracted gallbladder.
Left ureteral stent is present. Calcifications within both kidneys, likely mainly due to nephroliths, although there may also be dystrophic parenchymal calcifications.
Bony degenerative changes
CXR 06-09-2023:
1. New right upper extremity PICC line in place with the catheter tip projecting over the cavoatrial junction.
2. Nasogastric tube in place terminating in the stomach.
3. Severe calcific atherosclerotic plaque in the thoracic aorta and coronary arteries.
4. Mild subpleural scarring and subsegmental atelectasis in the left lower lobe.
Outpatient [facility] data:
PFT � 05/04/2023
FEV1/FVC: 51, improvement to 52 with BD
FEV1: Post-BD of 1.47L/87%
FVC: Post-BD of 2.84 L / 124%
Bronchodilator was used and there was a positive/nonsignificant response
Levels were normal
Moderate�severe gas exchange capacity defect with DLco 53% predicted (DLco/VA: 55%)
Subjective Dataa
Subjective Data
Date of Service:
Date of Service: June 10, 2023
Chief Complaint: Supervisor Hardboard Follow Up
Subjective:
Patient seen this morning. and daughter at bedside. All questions were answered. NG tube is clamped and the patient is thirsty and very hungry. Patient looks better today and is more awake/alert. She was weaned off of Levophed overnight
and current remains on vasopressin at 0.03 units/min. Current BP: 110/78, HR: 109, and saturating 96% on 2 L/min nasal cannula. Patient denies shortness of breath, chest pain, nausea, fevers or chills; she still has some abdominal pain.
Review of Systems
General: Other (Negative unless mentioned above)
Objective Data
Data Reviewed
Vital Signs / I&O / Oxygen:
Vital Signs
Temp Pulse Resp BP Pulse Ox
99.4 F 108 17 119/65 99
06/10/23 05:02 06/10/23 10:15 06/10/23 10:15 06/10/23 10:15 06/10/23 08:30
Intake and Output
06/09/23 06/10/23 06/11/23
06:59 06:59 06:59
Intake Total 1540 / 1540 3121.7 / 3230.7 436 / 436
Output Total 1775 / 1775 430 / 430 400 / 400
Balance -235 / -235 2691.7 / 2800.7 36 / 36
SaO2 99
Nasal Cannula flow liters per 2
minute
Physical Exam
General: Respiratory Distress (negative) and Comfortable
HEENT: Normocephalic and Anicteric
Cardiovascular: S1-S2, Peripheral Edema (negative) and Other (Tachycardic)
Respiratory: Wheeze (negative), Crackles (Bibasilar), Rhonchi (negative) and Non-Labored Respirations
GI: Soft, Non Distended, Tender (Mild TTP in jenni-umbillical region) and NG Tube
Neurology: Awake and Alert
Skin: Warm and Dry
Labs/Micro/Reports
Lab Data
06/10/23 04:25
06/10/23 04:25
Laboratory Results
06/09/23
15:59
PT 17.8 H
INR 1.48
APTT 43.9 H
--- NOTE | 2023-06-10 08:14 | W.PN.NEPH.PH ---
Today's Communication / Plan
-
IVF
Assessment/Plan
-
Assessment:
Hyperkalemia
Acute kidney injury
Hypotension
Sepsis
Recent urogynecologic surgery
Left ureteral stent
Metabolic alkalosis
Diabetes mellitus type 2
Stercoral colitis
Chronic pain
Plan:
-maintain MAP > 65, wean pressors as allowed
-continue NSS IVF
-follow LFTs
-await culture results
-continue empiric abx
-follow vanco levels
-d/w
-critical care time 31 minutes
-
-
Date of Service: June 10, 2023
CC / HPI / ROS
-
Chief Complaint:
PAVEL
History of Present Illness:
critically ill in ICU
on pressors for hypotension
on supplemental O2
PAVEL/Cr down to 2.9
K normal now
Review of Systems:
nonoliguric
no CP/SOB
Labs
-
Labs:
WBC 8.1 10^3/uL (4.8-10.8) 06/10/23 04:25
RBC 3.22 10^6/uL (4.20-5.40) L 06/10/23 04:25
Hgb 8.4 g/dL (12.0-16.0) L 06/10/23 04:25
Hct 25.5 % (37.0-47.0) L 06/10/23 04:25
Plt Count 229 10^3/uL (130-400) D 06/10/23 04:25
Sodium 134 mmol/L (135-145) L 06/10/23 04:25
Potassium 4.6 mmol/L (3.5-5.1) 06/10/23 04:25
Chloride 100 mmol/L (98-107) 06/10/23 04:25
Carbon Dioxide 27 mmol/L (22-30) 06/10/23 04:25
BUN 74 mg/dl (7-17) H 06/10/23 04:25
Creatinine 2.9 mg/dL (0.6-1.0) H 06/10/23 04:25
eGFR 15.97 06/10/23 04:25
Glucose 141 mg/dl (70-99) H 06/10/23 04:25
Calcium 8.2 mg/dl (8.4-10.2) L 06/10/23 04:25
Phosphorus 6.7 mg/dl (2.5-4.5) H 06/10/23 04:25
Albumin 2.8 g/dl (3.5-5.0) L 06/10/23 04:25
Physical Exam
-
Vital Signs:
Vital Signs
Temp Pulse Resp BP Pulse Ox
99.4 F 108 17 107/57 98
06/10/23 05:02 06/10/23 06:30 06/10/23 06:30 06/10/23 06:30 06/10/23 06:30
Cardiovascular:: Regular rate and rhythm
Respiratory:: Bilateral: Coarse
Lung Excursion:: Normal
Abdomen:: Nontender and Soft
Bowel Sounds:: Normal
Extremity Edema:: None: Bilateral:
--- NOTE | 2023-06-10 08:30 | PTCARENOTE ---
Received pt @ change of shift. Drowsy, awakens to verbal stimuli, oriented x2; required reorientation to time. C/O severe pain in back, medicated w prn- see MAR and repositioned. SR/ST/afib on monitor. SpO2 96% on 2LNC. Auscultated dim/coarse
breath sounds throughout. Hypoactive BS, and round/tender. L nare NGT to cont wall suction w small amt of brown output. Inc of mx loose brown stools. Nothing per rectum per colorectal orders. Chao in place draining светлана/sediment urine. Full CHG
and jenni care given. R DL PICC w IVF and vaso gtt- see flow sheet. Family @ bedside, updated on plan of care. Pt.'s restraints removed, instructed on not pulling @ lines; verbalized understanding. Instructed on how to report care concerns and
call vick in reach; bed alarm active.
[2023-06-10] MEDS: DILAUDID 0.5 MG IV (08:35)
[2023-06-10] MEDS: NSS 1000 IV (09:09)
--- NOTE | 2023-06-10 10:05 | W.PN.ID1 ---
Date of Service
Date of Service: June 10, 2023
Today's Communication
Continue meropenem/Vancomycin for now.
Assessment / Plan
# Severe sepsis/shock, weaning pressor
# Probable Intraabdominal source of sepsis
# PAVEL improving
# metabolic acidosis, lactic acidosis resolved
# Recent status post robotic suture rectopexy, sacrocolpopexy, posterior repair and cystoscopy with left double-J stent, stone manipulation 05/17/23
-?bacterial gut translocation from severe constipation/stercoral colitis (resolving)
- Await blood cultures
- Continue meropenem and Vancomycin for now.
- Follow temps/vitals.
#Additional Past Medical History:
COPD
Diabetes mellitus type 2
Hypertension
GERD
anxiety/depression
PAD
Chronic pain opioid dependence
ADD
Lumbar laminectomy
Pelvic organs/rectal prolapse status post robotic suture rectopexy, sacrocolpopexy, posterior repair and cystoscopy with left double-J stent, stone manipulation 05/17/23
Chief Complaint
-: Clinical Sepsis
Subjective / Review of Systems
Daughter and at bedside.
Patient now alert. Nausea and Abdominal pain resolving.
Vital Signs / Physical Exam
Vital Signs
Vital Signs
Temp Pulse Resp BP Pulse Ox
99.4 F 108 17 107/57 98
06/10/23 05:02 06/10/23 06:30 06/10/23 06:30 06/10/23 06:30 06/10/23 06:30
Physical Exam
Constitutional: No Acute Distress and Comfortable
Cardiovascular: Regular Rate and S1/S2
Pulmonary: Clear
Gastrointestinal: Soft, Non Tender and Non Distended
Genito-Urinary: Chao and Clear Urine; Negative CVA Tenderness
Extremities: Negative Edema
Neurological: AO x 3
Lines: PICC (RUE intact)
Objective Data
Lab Data
Lab Results
06/10/23 04:25
06/10/23 04:25
PT 17.8 Sec (11.4-14.6) H 06/09/23 15:59
INR 1.48 06/09/23 15:59
APTT 43.9 Sec (23.4-35.0) H 06/09/23 15:59
Estimated Creat Clear 12 ml/min 06/10/23 04:25
Lactic Acid 1.2 mmol/L (0.7-2.0) 06/10/23 04:25
Total Bilirubin 0.6 mg/dl (0.2-1.3) 06/10/23 04:25
AST 135 U/L (14-36) H 06/10/23 04:25
ALT 42 U/L (0-35) H 06/10/23 04:25
Alkaline Phosphatase 525 U/L (38-126) H 06/10/23 04:25
Most recent labs reviewed.
Micro Results:
06/09/23 14:41 Urine Culture - Pending
Urine
06/09/23 11:48 Blood Culture - Pending
Blood/Venous
06/09/23 10:35 Blood Culture - Pending
Blood/Venous
06/08/23 CT a/P: Large amount of stool throughout the colon, with increased amount of stool since examination of June 06, 2023. There is suggestion of colonic wall thickening, particularly involving the right colon, transverse colon, and splenic
flexure. Findings would be suggestive of stercoral colitis. No evidence for free intraperitoneal air. Distention of the stomach with fluid. Left ureteral stent is present
--- NOTE | 2023-06-10 10:23 | PHA.VAN.FU ---
Vancomycin Assessment / Plan
- Assessment
Renal Function: Stable
WBC's are: Stable
In the past 24 hrs, patient has been: Afebrile
Concomitant Antimicrobials: Meropenem
- Assessment - Therapeutic Drug Monitoring
Random Level: R = 14.9 ~ 10.5hrs post Vanc 1250mg dose
- Dosing Plan
Continue: Dose by level
Dosing by Level: Hold off on dosing today
- Monitoring Plan
Random Level: 06/10 AM
- Follow Up
Pharmacy will continue to follow.
Vancomycin Follow UP
- -
Patient Age: 78
Patient Sex: Female
Vancomycin Day #: 2
Indication: Gi / Intra-Abdominal
Requesting Provider: Dr. South
Pertinent Antimicrobial Allergies:
penicillin - unknown
Height / Weight:
Height 5 ft 1 in
Actual Weight 46.8 kg
- Vital Signs / Lab Results
Temp Pulse Resp BP Pulse Ox
99.4 F 108 17 119/65 99
06/10/23 05:02 06/10/23 10:15 06/10/23 10:15 06/10/23 10:15 06/10/23 08:30
Lab Results - Hematology
06/08/23 06/09/23 06/10/23
12:39 03:10 04:25
WBC 18.4 H 8.7 8.1
Band Neutrophils 25 H
Lab Results - Chemistry
06/08/23 06/08/23 06/09/23
12:39 17:35 03:10
BUN 50 H 57 H Cancelled
Creatinine 3.0 H 2.9 H Cancelled
Estimated Creat Clear Cancelled
Albumin 3.1 L
06/09/23 06/09/23 06/09/23
04:38 10:35 15:59
BUN 71 H 78 H 74 H
Creatinine 3.0 H 3.1 H 3.0 H
Estimated Creat Clear 11 10 11
Albumin
06/09/23 06/09/23 06/10/23
18:35 21:26 04:25
BUN 76 H 75 H 74 H
Creatinine 3.2 H 3.2 H 2.9 H
Estimated Creat Clear 10 10 12
Albumin 2.3 L 2.8 L
06/08/23 06/08/23 06/08/23
12:49 17:35 22:41
Lactic Acid 6.9 H* 3.9 H 3.1 H
06/09/23 06/09/23 06/09/23
03:10 07:32 10:35
Lactic Acid 2.6 H 4.6 H* 4.1 H*
06/09/23 06/09/23 06/09/23
14:41 18:35 21:26
Lactic Acid 5.4 H* 4.1 H* 3.5 H
06/10/23
04:25
Lactic Acid 1.2
Lab Results - Urine
06/09/23
23:00
Urine Nitrite Positive A
Ur Leukocyte Esterase Trace A
Urine WBC 11-15 A
Ur Squamous Epith Cells 3-5
Urine Bacteria Moderate A
Therapeutic Drug Monitoring
Random Vancomycin 14.9 ug/ml 06/10/23 04:25
--- NOTE | 2023-06-10 10:26 | CONS.URO ---
Consultation
-
Date/Time Consultation Performed: 06/10/23 110
Requesting Provider: stephanie
Performing Provider: mickie
Medical History
History of Present Illness
78 year old woman admitted for sepsis secondary to stercoral colitis and s/p rectopexy, sacrocolpopexy and left ureteral stent placement on 05/17/2023
Past Medical History
Past Medical History: Other (Pelvic Floor Prolapse s/p Robotic Rectopexy / Sacrocolpopexy Diabetes Mellitus, Type II Essential Hypertension Anxiety / Depression COPD GERD Scolosis Chronic Pain with Opioid Dependence Peripheral Arterial Disease)
Family History
Family History: Reviewed & Not Pertinent
Allergies/Home Medications
Allergies
Allergy/AdvReac Type Severity Reaction Status Date / Time
aspirin Allergy Gastiris Verified 06/08/23 17:58
ibuprofen Allergy Gastritis Verified 06/08/23 17:58
latex Allergy Itching Verified 05/17/23 06:29
NSAIDS (Non-Steroidal Allergy Gastritis Verified 06/08/23 17:58
Anti-Inflamma
Penicillins Allergy Unknown Verified 06/10/23 10:07
(age 11)
Home Medications
�Medication �Instructions �Recorded �Confirmed �Type
amlodipine 10 mg-benazepril 20 mg 1 cap PO DAILY Blood Pressure 04/25/09 06/08/23 History
capsule
estradiol 0.1 mg/24 hr weekly 0.1 mg transdermal FR Hormonal 04/25/09 06/08/23 History
transdermal patch (Climara) Agent
esomeprazole magnesium 40 mg 40 mg PO DAILY Gastrointestinal 02/28/11 06/08/23 History
capsule,delayed release (Nexium) Issue
alprazolam 0.25 mg tablet (Xanax) 0.125 mg PO DAILYPRN PRN anxiety 05/11/23 06/08/23 History
alprazolam 0.25 mg tablet (Xanax) 0.25 mg PO HS Mental Health/Anxiety 05/11/23 06/08/23 History
azelastine 205.5 mcg (0.15 %) 2 spray intranasal DAILY Allergies 05/11/23 06/08/23 History
nasal spray (Astepro Allergy)
dextroamphetamine-amphetamine 30 30 mg PO DAILY Neurological 05/11/23 06/08/23 History
mg tablet (Adderall) Condition
fexofenadine 180 mg tablet 180 mg PO DAILYPRN PRN allergies 05/11/23 06/08/23 History
gabapentin 300 mg capsule 300 mg PO BID Pain 05/11/23 06/08/23 History
oxycodone 20 mg tablet 20 mg PO QID pain 05/11/23 06/08/23 History
Physical Exam
Vital Signs
Vital Signs
Temp Pulse Resp BP Pulse Ox
99.4 F 108 17 119/65 99
06/10/23 05:02 06/10/23 10:15 06/10/23 10:15 06/10/23 10:15 06/10/23 08:30
Lab / Testing Results
Laboratory Results
06/10/23 04:25
06/10/23 04:25
Physical Exam
elderly female
ngt in place
awake
calm
belly -- soft but palpable stool
Assessment / Plan
-
profound constipation with stercoral colitis
left ureteral stent -- properly positioned
left renal stones
UA: abnormal [always the case with ureteral stent in place]; possible UTI, but this would NOT be the primary etiology of her current condition
Rec:
address profound constipation
await urine cx
Data Reviewed
-
CT Scan: Image personally visualized and interpreted
Lab Data: Labs Reviewed
Old Records: Reviewed
--- NOTE | 2023-06-10 10:51 | W.PN.CRS1 ---
Addendum entered and electronically signed by Grabiel Lockhart MD 06/10/23 13:28:
I saw and examined the patient.
The PA's note was reviewed and I agree with the note.
Comment:
Patient improved overnight, weaned off pressors. Pain has improved. Denies N/V, continues to have BMs.
AF, HR 100-110, normotensive, UOP 430, ABD soft/ND/mildly diffusely tender, improved from yesterday, no R/G
WBC 8.1, Hb 8.4 from 10.5, lactate 1.2, Cr 2.9 from 3.2, T. bili 0.6
� Continue n.p.o. with IVF resuscitation
�Will do NGT clamp trial; if less than 150 s/p 6 hours, okay to remove, but maintain on sips only
� Continue pain control
� Continue IV antibiotics; appreciate ID
�Evidence of colon thickening in setting of severe constipation, concerning for stercoral colitis; unusual to have profound sepsis due to stercoral colitis without perforation, but possible
�Continue aggressive bowel regiment, stercoral colitis improves with decompression of stool
�UA positive, F/U urine culture; possible etiology is urosepsis
�Appreciate urology regarding ureteral stent
�Follow-up blood culture
� Okay for DVT PPx from colorectal standpoint
� Continue Chao, strict I/os; appreciate nephro
� Okay for OOB, encourage I-S
� Appreciate sea kayaking guide and hospitalist
Original Note:
Today's Communication / Plan
-
Clamp trial of NGT
Assessment/Plan
-
Assessment: 78yo female with a recent robotic suture rectopexy, sacroculpopexy, posterior repair and cystoscopy with left double-J stent on 05/17/2023, presented to the ER with diffuse abdominal pain and lack of BM for 3 days. Patient found with
stercoral colitis on CT and with leukocytosis, lactic acidosis, PAVEL, hyperkalemia and hyponatremia. UA + with cx pending
Vitals: tachycardic 100's, low grade temps. Pressors being weaned. Off Levophed but on vasopressin
Labs improving overall
Acute anemia present, hemoglobin decreased today without evidence of active bleeding: suspect secondary to volume resuscitation
Cr slowly trending down. Lactic acid elevated on admission but now normal
Plan:
1. NGT outputs minimal with +bm's/flatus. Plan clamp trial today and remove if residual <150. Sips of clears thereafter
2. Multiple BM's overnight. Given recent surgery, avoid rectal tubes/instrumentation
3. IVFs/electrolyte management per Nephrology/primary team.
4. Given returning bowel function, hold on Gastrografin enema
5. ID following on antibiotics, suspect UTI given UA findings, cx pending. Urology following.
6. Lovenox for DVT prophylaxis once h/h stable. SCD's while in bed
7. Multimodal analgesics, resume home med regimen once tolerating PO (opioid dependent)
Subjective Data
Subjective Data
Date of Service: June 10, 2023
Patient seen and examined at bedside with Dr. Lockhart. Significant other present during exam, questions addressed. Patient notes discomfort from NGT. Denies N/V. Passing multiple stools. Denies significant pain to abdomen but with tenderness on exam.
Objective Data
-
Vital Signs
Temp Pulse Resp BP Pulse Ox
99.4 F 108 17 119/65 99
06/10/23 05:02 06/10/23 10:15 06/10/23 10:15 06/10/23 10:15 06/10/23 08:30
Intake & Output
06/09/23 06/10/23 06/11/23
06:59 06:59 06:59
Intake Total 1540 / 1540 3121.7 / 3230.7 436 / 436
Output Total 1775 / 1775 430 / 430 400 / 400
Balance -235 / -235 2691.7 / 2800.7 36 / 36
Intake:
IV fluids (Total) 1250 / 1250 1921.7 / 2030.7 436 / 436
D5w 1,000 ml @ 125 mls/hr IV . 250 / 250
Q9H12M EHSAN with Sodium
Bicarbonate 150 Meq Rx#:
[id number]
Levophed 281.7 / 281.7
Nss 1,000 ml @ 100 mls/hr IV . 1300 / 1400 400 / 400
Q10H EHSAN Rx#:[id number]
Vasopressin 90 / 99 36 / 36
IV piggybacks 200 / 200 1200 / 1200
Amount instilled into GI Tube (
Total)
[place] Sump 90 / 90
Output:
Emesis 50 / 50
Gastrointestinal tube output ( 1400 / 1400
Total)
[place] Sump 650 / 650
Urine, Chao 325 / 325 430 / 430 400 / 400
Lab Results
06/10/23 04:25
06/10/23 04:25
Physical Exam
-
General: No Acute Distress
Abdomen: Soft, Distended (mild (improved)) and Tender (mild to moderate (improved))
Skin: Warm and Dry
Incision: Clear, Dry, Intact
--- NOTE | 2023-06-10 12:05 | W.PN.HOSP.TC ---
Today's Communication/Plan
-
Continue with IV fluids
Monitor stool output
Continue with broad spectrum antibiotics
Once diet restarted can restart home pain meds
Assessment / Plan
Assessment / Plan
Septic shock likely secondary to stercoral colitis/abdominal source
Lactic acidosis
-NG tube weaning trial today.
-Having loose bowel movements. ID consulted.
-Lactic acidosis resolved.
-PICC line ordered
-CT abd/pelvis with stomach distention. s/p NGT placement
-Started on Levophed and vasopressin
-Antibiotics broadened to Vanco and meropenem per ID. Pro-Dylan significantly elevated 44. Creatinine elevated noted.
-Await culture data to finalize
-Appreciate ID, neurology specialist, urology and colorectal surgery recs
Acute Kidney Injury likely multifactorial pre-renal volume depletion while on ACEI, recent bactrim usage, ATN?
-Place Chao from strict Is&Os
-Continue IVFS with bicarb
-Trend Lactic Acid
-monitor urinary output
-Will defer further IVF to nephro.
-Repeat Labs
-No hydro seen on CT scan
-Nephro consulted.
Hyperkalemia
-plan for enema pending BP stabilization
-s/p temporization measures
-Status post bicarb drip. Potassium stabilized.
Severe Metabolic acidosis
-Resolved.
-Bicarb improved.
Pelvic Floor Prolapse s/p Robotic Rectopexy / Sacrocolpopexy on May 16
-Care as per Colorectal
Diabetes Mellitus, Type II
-HgbA1c 6.6 in April 2023
-Monitor sugars and continue coverage insulin
Essential Hypertension
-Hold meds as BP running on the low side
Anxiety / Depression
-Continue Ativan prn
GERD
-Continue Protonix IV
Chronic Pain with Opioid Dependence
-Continue Dilaudid prn until able to resume oral meds
-monitor closely.may require IV standing pain meds. Risk of opioid withdrawal
Tobacco abuse
-Continue with nicotine patch
Peripheral Arterial Disease
-Stable
DVT proph: SC Heparin
Code Status: Full Code
Total Critical Care Time 38 minutes. I was immediately available to the patient and staff. I personally examined, reviewed labs, diagnostic images/reports, interpretations, treatment plans, discussed patient care with other providers and family
or caregivers (if patient is unable to make decisions), entered orders as appropriate and documented the medical record.
Anticipated Discharge: > 48 hours
Subjective/Interval History
-
Date of Service: June 10, 2023
Patient more awake and alert
States of mild abdominal pain
Having loose bowel movements
Remains on pressors
Objective Data
-
Labs:
Laboratory Results
06/10/23
04:25
WBC 8.1
Hgb 8.4 L
Hct 25.5 L
Plt Count 229 D
Sodium 134 L
Potassium 4.6
Chloride 100
Carbon Dioxide 27
BUN 74 H
Creatinine 2.9 H
Glucose 141 H
Calcium 8.2 L
Total Bilirubin 0.6
AST 135 H
ALT 42 H
Alkaline Phosphatase 525 H
Vital Signs:
Vital Signs
Temp Pulse Resp BP Pulse Ox
97.6 F 110 21 110/78 96
06/10/23 11:44 06/10/23 11:00 06/10/23 11:00 06/10/23 11:00 06/10/23 11:08
I&O
06/09/23 06/10/23 06/11/23
06:59 06:59 06:59
Intake Total 1540 / 1540 3121.7 / 3230.7 545 / 545
Output Total 1775 / 1775 430 / 430 400 / 400
Balance -235 / -235 2691.7 / 2800.7 145 / 145
Physical Exam
-
General: Appears Chronically Ill and Cachectic
HEENT: Normocephalic, Atraumatic and Moist Mucous Membranes
Respiratory: Decreased Breath Sounds
Cardiac: Regular Rhythm, S1/S2 and Tachycardic; Negative Murmur, Rub or Gallop
GI: Soft, Normal Bowel Sounds, Tender and Distended (improved from yesterday ); Negative Organomegaly
Rectal: Deferred by Provider
Genito-urinary: Chao (dark светлана color )
Musculoskeletal: No Clubbing, No Cyanosis and No Edema
Skin: Negative Rash
Neuro: Awake and Nonfocal/Grossly Intact
Psych: Calm
--- NOTE | 2023-06-10 12:14 | PTCARENOTE ---
NGT clamping trial initiated @ 0930 per orders. No n/v/abd pain. Continued loose stools, cleaned and repositioned per protocol. Call nava vazquez in reach.
[2023-06-10 12:18] LABS: Glucose - Point of Care 117 mg/dl (70-99)
[2023-06-10] MEDS: DILAUDID 1 MG IV ×3 (13:36→20:03)
--- NOTE | 2023-06-10 16:44 | W.PN.UPDATE ---
Update Note
Progress Note Update
Clamp trial well tolerated with only 75mL out; recommend removing and leaving patient on sips
-If the NGT is not removed, place back to low continuous suction; leaving the NGT clamped and/or starting a diet with the NGT in place will increase the risk of aspiration
[2023-06-10] MEDS: CORDARONE 518 MG IV (16:54)
[2023-06-10] MEDS: NOVOLOG FLEXPEN-LOW RESISTANCE 1 UNITS SC (17:47)
[2023-06-10 17:57] LABS: Glucose - Point of Care 151 mg/dl (70-99)
--- NOTE | 2023-06-10 18:31 | PTCARENOTE ---
S/P 6H initiation of NGT clamping trial, reconnected to suction for 15 min. 75mL output s/p 15 min. Colorectal surg/loss prevention investigator aware. NGT removed per orders. Advanced to NPO ex meds/sips/chips. Tolerating ice chips. No n/v/abd pain noted. Pt. w
frequent bursts of uncontrolled afib w HR up to 150's, self resolving into 100-110's. BP remains stable on pressor. Training And Development Officer made aware of frequency of bursts. Further orders received and amio gtt initiated per orders- see APR. Pt. remains w
freq loose brown BMs; frequent jenni care given; repositioned per protocol. Call vick in reach.
[2023-06-10] MEDS: COLACE 100 MG PO (19:22)
--- NOTE | 2023-06-10 19:46 | PTCARENOTE ---
report received, assessments per work list. patient oriented X3, c/o continued discomfort 'right ribs' post dilaudid administration. reviewed plan of care, ordered q 2hours prn, patient verbalizes understanding. repositioned for comfort. monitor
afib with pvc's. amiodarone and vasopressin infusing via right picc as ordered. lungs with coarse breath sounds bilaterally. no cough. abdomen distended, round and tender. hypoactive bowel sounds. incontinent large amount pasty brown stool. care
provided. refusing oral and denture care. knee high scd applied. call vick in reach
[2023-06-10] MEDS: LANTUS 0.0500000000000000028 UNITS SC (21:58)
[2023-06-10 22:09] LABS: Glucose - Point of Care 141 mg/dl (70-99)
[2023-06-10] MEDS: NSS (PRESERVATIVE FREE) 0.25 ML IV (22:13)
[2023-06-10] MEDS: ATIVAN 0.5 MG IV (22:13)
--- NOTE | 2023-06-10 22:23 | PTCARENOTE ---
patient anxious, crying. 'I want to go home'. requesting Ativan. patient repositioned. pm care given. medicated with Ativan per prn order. patient now in NSR with pac's. rates 90-110
[2023-06-11] VITALS (39 sets, daily range): BP systolic 103–148; BP diastolic 49–86; PULSE 96–100; O2SAT 96–97; BMI 19.0
[2023-06-11 00:01] LABS: Glucose - Point of Care 136 mg/dl (70-99)
--- NOTE | 2023-06-11 00:07 | PTCARENOTE ---
reassessed. map's 90 with current vasopressin. Dietary Supervisor REFINERY OPERATOR HELPER CRUDE UNIT updated, orders received. vasopressin per work list. patient sleeping unless disturbed, repositioned
[2023-06-11] MEDS: NOVOLOG FLEXPEN-LOW RESISTANCE SC ×3 (00:44→11:00)
[2023-06-11] MEDS: NSS IV (00:45)
--- NOTE | 2023-06-11 03:04 | PTCARENOTE ---
vasopressin off@0200 per assessor MATERIAL CARRIER. MAP's >65. labs sent.
[2023-06-11 03:06] LABS: Hematocrit 24.6 % (37.0-47.0); Hemoglobin 8.1 g/dL (12.0-16.0); Mean Corp Hgb Conc. 32.9 g/dL (33.0-37.0); Mean Corpuscular Hgb 25.9 pg (27.0-31.0); Mean Corpuscular Volume 78.6 fL (81.0-99.0); Mean Platelet Volume 10.6 fL (7.4-10.4); Nucleated Red Blood Cells % 0 %; Platelet Count 179 10^3/uL (130-400); Red Blood Cell Count 3.13 10^6/uL (4.20-5.40); Red Cell Dist. Width 15.9 % (11.5-14.5); White Blood Cell Count 8.8 10^3/uL (4.8-10.8)
[2023-06-11 03:32] LABS: ALT (SGPT) 32 U/L (0-35); AST (SGOT) 97 U/L (14-36); Albumin 2.6 g/dl (3.5-5.0); Alkaline Phosphatase 380 U/L (38-126); Blood Urea Nitrogen 65 mg/dl (7-17); Calcium 7.7 mg/dl (8.4-10.2); Carbon Dioxide 25 mmol/L (22-30); Chloride 108 mmol/L (98-107); Direct Bilirubin 0.5 mg/dl (0.0-0.4); Estimated Creatinine Clearance 16 ml/min; Glucose 116 mg/dl (70-99); Magnesium 2.1 mg/dl (1.6-2.3); Phosphorus 4.7 mg/dl (2.5-4.5); Potassium 3.4 mmol/L (3.5-5.1); Sodium 138 mmol/L (135-145); Total Bilirubin 0.5 mg/dl (0.2-1.3); Total Protein 4.5 g/dl (6.3-8.2); eGFR 23.53
[2023-06-11 03:40] LABS: Vancomycin Random 8.8 ug/ml
[2023-06-11 03:48] LABS: Segmented Neutrophils 72 % (42-75)
[2023-06-11 03:49] LABS: Absolute Neutrophils -Man Diff 7.3 10^3/uL (1.4-6.5); Band Neutrophils 12 % (0-3)
[2023-06-11 03:50] LABS: Atypical Lymphocytes 1 %; Lymphocytes 12 % (20-51); Monocytes 3 % (2-9); Normal RBC Morphology No; Platelets Checked Yes
[2023-06-11 03:51] LABS: Anisocytosis 1+
[2023-06-11 03:52] LABS: Target Cells Slight
[2023-06-11 03:53] LABS: Acanthocytes Slight; Burr Cells Slight; Ovalocytes Slight; Total Cells Counted 100
[2023-06-11] MEDS: KCL 50 IV (04:00)
[2023-06-11] MEDS: NSS 1000 IV ×3 (04:02→23:51)
--- NOTE | 2023-06-11 04:06 | PTCARENOTE ---
patient reassessed. confused briefly, able to reorient easily. complete care given. labs resulted, orders received. patient room air pulse oximeter 89. oxygen resumed@1 liter nasal cannula. remains nsr with pac's. short burst afib noted, self
limited. amiodarone @0.5 per orders. bed alarm maintained for patient safety, call vick in hand
[2023-06-11] MEDS: STERILE WATER FOR INJECTION 10 ML IV ×2 (05:59→11:23)
[2023-06-11] MEDS: MERREM 500 MG IV (05:59)
[2023-06-11 06:04] LABS: Glucose - Point of Care 101 mg/dl (70-99)
--- NOTE | 2023-06-11 07:27 | W.PN.URO.CBU ---
Today's Communication / Plan
-
defer to CRS for management of GI tract
Assessment / Plan
-
stable from a standpoint
Diagnosis
-
Date of Service: June 11, 2023
-
Patient Diagnosis:
profound constipation with stercoral colitis
left ureteral stent -- properly positioned
left renal stones
UA: abnormal [always the case with ureteral stent in place]
NO UTI
Subjective
-
'better'
Objective
-
Vital Signs
Temp Pulse Resp BP Pulse Ox
98.2 F 93 16 103/56 96
06/11/23 03:06 06/11/23 06:15 06/11/23 06:15 06/11/23 06:00 06/11/23 06:15
Intake and Output
06/10/23 06/11/23 06/12/23
06:59 06:59 06:59
Intake Total 3121.7 / 3230.7 3147.0 / 3147.0
Output Total 430 / 430 1625 / 1625
Balance 2691.7 / 2800.7 1522.0 / 1522.0
Intake:
Oral fluids 170 / 170
IV fluids (Total) 1921.7 / 2030.7 2897.0 / 2897.0
Amio 350.0 / 350.0
D5w 1,000 ml @ 125 mls/hr IV . 250 / 250
Q9H12M EHSAN with Sodium
Bicarbonate 150 Meq Rx#:
[id number]
Levophed 281.7 / 281.7
Nss 1,000 ml @ 100 mls/hr IV . 1300 / 1400 2400 / 2400
Q10H EHSAN Rx#:[id number]
Vasopressin 90 / 99 147 / 147
IV piggybacks 1200 / 1200 50 / 50
Amount instilled into GI Tube (
Total)
[place] Sump
Output:
Gastrointestinal tube output (
Total)
[place] Sump
Urine, Chao 430 / 430 1550 / 1550
Other:
Number of unmeasured liquid
stools
Rectum 2
Laboratory Results
06/11/23 02:53
06/11/23 02:53
urine cx: no growth
Physical Exam
-
General - no acute distress
thin, cachectic
--- NOTE | 2023-06-11 07:45 | PTCARENOTE ---
Received pt @ change of shift. Pt. drowsy, awakens to verbal stim; oriented x3; anx/forgetful. SR/sinus arrhythmia w PVC on monitor. SpO2 94% on 1LNC. Auscultated coarse breath sounds bilaterally. Hypoactive BS, abd round/distended/tender. NGT
d/c'd yesterday. Tolerating sips/chips/meds; denies n/v/abd pain. Inc of BM; frequency of BMs slowing. Chao in place draining светлана urine. Pt. repositioned per protocol. R DL PICC in place w IVF and amio gtt- see flow sheet. Pt. instructed on
how to report care concerns and call vick in reach.
[2023-06-11] MEDS: NSS (PRESERVATIVE FREE) 10 ML IV (07:49)
[2023-06-11] MEDS: NICODERM TRANSDERMAL 14 MG TRANSDERM (07:49)
[2023-06-11] MEDS: COLACE 100 MG PO ×2 (07:49→19:15)
[2023-06-11] MEDS: PROTONIX IV 40 MG IV (07:50)
[2023-06-11] MEDS: DILAUDID 1 MG IV ×4 (08:08→20:54)
--- NOTE | 2023-06-11 08:09 | PHA.VAN.FU ---
Vancomycin Assessment / Plan
- Assessment
Renal Function: SCR Decreasing (3.2 to 2.9 to 2.1)
WBC's are: Stable
In the past 24 hrs, patient has been: Afebrile
Concomitant Antimicrobials: Meropenem
- Assessment - Therapeutic Drug Monitoring
Random Level: R = 8.8. Last Vanc dose 1250mg 06/08 at 1749
- Dosing Plan
Continue: Dose by level
Dosing by Level: Re-dose today (Vanc 500mg--11mg/kg)
- Monitoring Plan
Random Level: 06/11 AM
- Follow Up
Pharmacy will continue to follow.
Vancomycin Follow UP
- -
Patient Age: 78
Patient Sex: Female
Vancomycin Day #: 3
Indication: Gi / Intra-Abdominal
Requesting Provider: Dr. South
Pertinent Antimicrobial Allergies:
penicillin - unknown
Height / Weight:
Height 5 ft 1 in
Actual Weight 45.6 kg
- Vital Signs / Lab Results
Temp Pulse Resp BP Pulse Ox
98.3 F 93 16 103/56 96
06/11/23 07:42 06/11/23 06:15 06/11/23 06:15 06/11/23 06:00 06/11/23 06:15
Lab Results - Hematology
06/08/23 06/09/23 06/10/23
12:39 03:10 04:25
WBC 18.4 H 8.7 8.1
Band Neutrophils 25 H
06/11/23
02:53
WBC 8.8
Band Neutrophils 12 H D
Lab Results - Chemistry
06/08/23 06/08/23 06/09/23
12:39 17:35 03:10
BUN 50 H 57 H Cancelled
Creatinine 3.0 H 2.9 H Cancelled
Estimated Creat Clear Cancelled
Albumin 3.1 L
06/09/23 06/09/23 06/09/23
04:38 10:35 15:59
BUN 71 H 78 H 74 H
Creatinine 3.0 H 3.1 H 3.0 H
Estimated Creat Clear 11 10 11
Albumin
06/09/23 06/09/23 06/10/23
18:35 21:26 04:25
BUN 76 H 75 H 74 H
Creatinine 3.2 H 3.2 H 2.9 H
Estimated Creat Clear 10 10 12
Albumin 2.3 L 2.8 L
06/11/23
02:53
BUN 65 H
Creatinine 2.1 H
Estimated Creat Clear 16
Albumin 2.6 L
06/08/23 06/08/23 06/08/23
12:49 17:35 22:41
Lactic Acid 6.9 H* 3.9 H 3.1 H
06/09/23 06/09/23 06/09/23
03:10 07:32 10:35
Lactic Acid 2.6 H 4.6 H* 4.1 H*
06/09/23 06/09/23 06/09/23
14:41 18:35 21:26
Lactic Acid 5.4 H* 4.1 H* 3.5 H
06/10/23
04:25
Lactic Acid 1.2
Microbiology Results
06/09/23 14:41 Urine Culture - Preliminary
Urine NO GROWTH
06/09/23 11:48 Blood Culture - Preliminary
Blood/Venous No Growth in 24 hours- Final report to follow
06/09/23 10:35 Blood Culture - Preliminary
Blood/Venous No Growth in 24 hours- Final report to follow
Therapeutic Drug Monitoring
Random Vancomycin 8.8 ug/ml 06/11/23 02:53
--- NOTE | 2023-06-11 08:13 | W.PN.INTV ---
Today's Communication / Plan
Recommendations
MAP>65
Start clear liquid diet --> ADAT
SpO2 goal >88-94%
Pain control
PT/OT
Continue amiodarone (started on 06/09 due to rapid a-fib); recommend cardiology consult
Slowly resume PO anti-hypertensives
Downgrade out of ICU to IMU. Gambling Dealer/Pulmonary service will now sign off. Please reconsult if there are any additional questions/concerns, or if patient's respiratory status deteriorates.
Assessment
-
Assessment: 78-year-old active tobacco smoking female with a PMHx of hypertension, GERD, moderate COPD, reported history of asthma, seasonal allergies and osteoarthritis with a recent hospitalization from 05/1608/2023ue to pelvic floor prolapse
with an obstructive left ureteral stone s/p robotic suture rectopexy, sacrocolpopexy, posterior repair, perineoplasty, cystoscopy with double J-left ureteral stenting on 05/17/[address] Guardado (double-J stent by Dr. Medina). Patient now comes
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 Patient hypothermic and hypotensive in the ER with multiple electrolyte derangements including metabolic acidosis, acute kidney injury, hyponatremia, leukocytosis and
lactic acidosis with CT A/P showing stercoral colitis. Patient started on antibiotics, given sodium bicarb and IV fluids and admitted to the IMU where her blood pressure unfortunately declined requiring vasopressors. Patient now transferred to the
ICU for further care and critical care services consulted for additional management/recommendations.
Chronic conditions STACKER AND SORTER OPERATOR: Moderate COPD, hypertension, chronic LBP, scoliosis, depression, reported history of asthma, history of rectal prolapse, GERD, gastric ulcer, osteoporosis, osteoarthritis, seasonal allergies
Impression:
#Shock (resolved) - suspect due to sepsis from stercoral colitis with translocation of bacteria in setting of hypovolemia with reduced PO intake and nausea/vomiting
#Lactic acidosis (resolved) - was due to shock state as above
#Acute kidney injury (Cr baseline 0.9) - improving - due to shock state as above in setting of outpatient bactrim use
#Acute respiratory failure with hypoxia on supplemental oxygen - improving
#Hypochloremic, hyponatremia - resolved
#Hyperglycemia
#new-Onset A-fib with RVR on 06/09 now on amiodarone gtt
#Stercoral colitis involving the right colon, transverse colon and splenic flexure
#Active tobacco use disorder
Plan:
- Continue Abx - changed from meropenem + IV vanco to rocephin; ID on board
- Given her low urine Na and low serum Na and low serum Cl, appears she is still hypovolemic. Cautiously continue with maintenance IVF with NS 0.9%
- Follow up blood Cx and urine Cx (collected 06/09/2023) - NGTD
- Maintain MAP>65
- Random cortisol level is 90.4 --> no need for stress dose steroids at this time
- Titrate supplemental O2 flow rate to maintain SpO2 >88-94%
- prn nebulized bronchodilators
- Nicotine patch
- Incentive spirometer
- Rate control with goal HR<110bpm; continue amiodarone gtt and consult cardiology
- She appears to be in NSR this AM but with frequent PACs
- Renally dose all meds/Abx
- Trend UOP and sCr, [K]
- Nephrology consulted --> recs appreciated
- Replete electrolytes with K>4, Mg>2
- Maintain euglycemia with goal BG 140-180 with ISS and latnus 5 units HS
- NGT removed as of 06/09 --> start clear liquid diet and ADAT
- Transfuse if needed to keep Hb>7g/dL, plt>20k
- DVT ppx
I updated the patient's and answered all of his questions to his satisfaction.
Dispo: Downgrade out of ICU to IMU. Gambling Dealer/Pulmonary service will now sign off. Thank you for allowing us to be involved in the care of this patient. Please reconsult if there are any additional questions/concerns, or if patient's
respiratory status deteriorates. I will arrange for follow up with [facility] with Dr. Conner given she followed with him with last o/v on 05/04/2023.
Total time spent today was 55 minutes for this encounter. Time includes reviewing laboratory test/imaging results, reviewing pertinent medical records, obtaining and reviewing medical history, performing an appropriate exam, ordering medications,
tests and procedures. Time also includes documentation of this encounter, coordinating patient care and communicating with other healthcare professionals. Total time does not include separately billed tests performed on this date of service.
Data:
CT Abd/Pelvis 06-08-2023:
Large amount of stool throughout the colon, with increased amount of stool since examination of June 06, 2023. There is suggestion of colonic wall thickening, particularly involving the right colon, transverse colon, and splenic flexure. Findings
would be suggestive of stercoral colitis.
No evidence for free intraperitoneal air.
Distention of the stomach with fluid. Limited evaluation of small bowel loops.
Small calcification in the anterior aspect of the right upper quadrant, which is likely related to a calcified gallstone within a contracted gallbladder.
Left ureteral stent is present. Calcifications within both kidneys, likely mainly due to nephroliths, although there may also be dystrophic parenchymal calcifications.
Bony degenerative changes
CXR 06-09-2023:
1. New right upper extremity PICC line in place with the catheter tip projecting over the cavoatrial junction.
2. Nasogastric tube in place terminating in the stomach.
3. Severe calcific atherosclerotic plaque in the thoracic aorta and coronary arteries.
4. Mild subpleural scarring and subsegmental atelectasis in the left lower lobe.
Outpatient [facility] data:
PFT � 05/04/2023
FEV1/FVC: 51, improvement to 52 with BD
FEV1: Post-BD of 1.47L/87%
FVC: Post-BD of 2.84 L / 124%
Bronchodilator was used and there was a positive/nonsignificant response
Levels were normal
Moderate�severe gas exchange capacity defect with DLco 53% predicted (DLco/VA: 55%)
Subjective Dataa
Subjective Data
Date of Service:
Date of Service: June 11, 2023
Chief Complaint: Gambling Dealer Follow Up
Subjective:
Patient seen today. Remains on amiodarone at 0.5mg/min. She is sitting in chair no acute distress. Awake, alert answering questions appropriately. Heart rate 98, saturating 98% on 1 L/min nasal cannula, and BP 138/67. Weaned off of vasopressin
gtt overnight. Patient denies chest pain, shortness of breath, nausea, fevers or chills.
Review of Systems
General: Other (Negative unless mentioned above)
Objective Data
Data Reviewed
Vital Signs / I&O / Oxygen:
Vital Signs
Temp Pulse Resp BP Pulse Ox
97.9 F 94 16 132/72 95
06/11/23 11:01 06/11/23 15:00 06/11/23 15:00 06/11/23 15:00 06/11/23 15:00
Intake and Output
06/10/23 06/11/23 06/12/23
06:59 06:59 06:59
Intake Total 3121.7 / 3230.7 3147.0 / 3263.7 1170.3 / 1170.3
Output Total 430 / 430 1625 / 1675 275 / 275
Balance 2691.7 / 2800.7 1522.0 / 1588.7 895.3 / 895.3
SaO2 95
Nasal Cannula flow liters per 1
minute
Physical Exam
General: Respiratory Distress (negative) and Comfortable
HEENT: Normocephalic and Anicteric
Cardiovascular: S1-S2, Peripheral Edema (negative) and Other (normal rate)
Respiratory: Wheeze (negative), Crackles (Bibasilar), Rhonchi (negative) and Non-Labored Respirations
GI: Soft, Non Distended and Tender (Mild TTP in jenni-umbillical region)
Neurology: Awake and Alert
Skin: Warm and Dry
Labs/Micro/Reports
Lab Data
06/11/23 02:53
06/11/23 02:53
Microbiology
06/09/23 11:48 Blood/Venous Blood Culture - Preliminary
No Growth in 48 hours- Final report to follow
06/09/23 10:35 Blood/Venous Blood Culture - Preliminary
No Growth in 48 hours- Final report to follow
06/09/23 14:41 Urine Urine Culture - Final
NO GROWTH
--- NOTE | 2023-06-11 09:24 | W.PN.NEPH.PH ---
Today's Communication / Plan
-
IVF
Assessment/Plan
-
Assessment:
Hyperkalemia
Acute kidney injury
Hypotension
Sepsis
Recent urogynecologic surgery
Left ureteral stent
Metabolic alkalosis
Diabetes mellitus type 2
Stercoral colitis
Chronic pain
Plan:
-continue NSS IVF today, can likely dc tomorrow
-follow LFTs
-cxs NTD
-continue empiric abx
-d/w
-critical care time 31 minutes
-
-
Date of Service: June 11, 2023
CC / HPI / ROS
-
Chief Complaint:
PAVEL
History of Present Illness:
critically ill in ICU
off pressors overnight
on supplemental O2
PAVEL/Cr down to 2.2
K now low 3.4
LFTs improving
on abx for sepsis
Review of Systems:
nonoliguric, urine passenger agent
no CP/SOB
Labs
-
Labs:
WBC 8.8 10^3/uL (4.8-10.8) 06/11/23 02:53
RBC 3.13 10^6/uL (4.20-5.40) L 06/11/23 02:53
Hgb 8.1 g/dL (12.0-16.0) L 06/11/23 02:53
Hct 24.6 % (37.0-47.0) L 06/11/23 02:53
Plt Count 179 10^3/uL (130-400) D 06/11/23 02:53
Sodium 138 mmol/L (135-145) 06/11/23 02:53
Potassium 3.4 mmol/L (3.5-5.1) L D 06/11/23 02:53
Chloride 108 mmol/L (98-107) H 06/11/23 02:53
Carbon Dioxide 25 mmol/L (22-30) 06/11/23 02:53
BUN 65 mg/dl (7-17) H 06/11/23 02:53
Creatinine 2.1 mg/dL (0.6-1.0) H 06/11/23 02:53
eGFR 23.53 06/11/23 02:53
Glucose 116 mg/dl (70-99) H 06/11/23 02:53
Calcium 7.7 mg/dl (8.4-10.2) L 06/11/23 02:53
Phosphorus 4.7 mg/dl (2.5-4.5) H 06/11/23 02:53
Albumin 2.6 g/dl (3.5-5.0) L 06/11/23 02:53
Physical Exam
-
Vital Signs:
Vital Signs
Temp Pulse Resp BP Pulse Ox
98.3 F 93 16 103/56 94
06/11/23 07:42 06/11/23 06:15 06/11/23 06:15 06/11/23 06:00 06/11/23 08:14
Cardiovascular:: Regular rate and rhythm
Respiratory:: Bilateral: Coarse
Lung Excursion:: Normal
Abdomen:: Nontender and Soft
Bowel Sounds:: Normal
Extremity Edema:: None: Bilateral:
--- NOTE | 2023-06-11 10:10 | W.PN.CRS1 ---
Today's Communication / Plan
-
Ok for clears; if N/V, make NPO
Cont colace BID and miralax PRN
Assessment/Plan
-
78yo female with a recent robotic suture rectopexy, sacroculpopexy, posterior repair and cystoscopy with left double-J stent on 05/17/2023, presented to the ER with diffuse abdominal pain and lack of BM for 3 days. Patient found with stercoral colitis
on CT and with leukocytosis, lactic acidosis, PAVEL, hyperkalemia and hyponatremia. UA +, but culture negative; now off levo and UOP/Cr improving
AF, HR 90-100, normotensive, UOP 1.5L,
WBC 8.8, Hb 8.1 from 8.4, lactate 1.2, Cr 2.1 from 2.9
� Ok to advance to clears, low threshold to back down if N/V
� Continue pain control
� Continue IV antibiotics; appreciate ID
�Evidence of colon thickening in setting of severe constipation, concerning for stercoral colitis; unusual to have profound sepsis due to stercoral colitis without perforation, but possible
�Continue bowel regiment colace BID and miralax PRN; stercoral colitis improves with decompression of stool
�UA positive, urine culture; urosepsis less likely; appreciate urology
�Follow-up blood culture
� Okay for DVT PPx from colorectal standpoint
� Continue Chao per primary, strict I/os; appreciate nephro
� Okay for OOB, encourage I-S
� Appreciate lion hunter and hospitalist
Subjective Data
Subjective Data
Date of Service: June 11, 2023
No overnight events. NGT removed yesterday.
Pain significantly improved, controlled with medication
Denies nausea/vomiting. Tolerating sips.
+flatus +BMs (had multiple BMs since yesterday) + Chao
Pt is not OOB yet.
Objective Data
-
Vital Signs
Temp Pulse Resp BP Pulse Ox
98.3 F 98 20 131/49 96
06/11/23 07:42 06/11/23 09:30 06/11/23 09:30 06/11/23 09:29 06/11/23 09:30
Intake & Output
06/10/23 06/11/23 06/12/23
06:59 06:59 06:59
Intake Total 3121.7 / 3230.7 3147.0 / 3263.7 353.4 / 353.4
Output Total 430 / 430 1625 / 1675 100 / 100
Balance 2691.7 / 2800.7 1522.0 / 1588.7 253.4 / 253.4
Intake:
Oral fluids 170 / 170 120 / 120
IV fluids (Total) 1921.7 / 2030.7 2897.0 / 3013.7 233.4 / 233.4
Amio 350.0 / 366.7 33.4 / 33.4
D5w 1,000 ml @ 125 mls/hr IV . 250 / 250
Q9H12M EHSAN with Sodium
Bicarbonate 150 Meq Rx#:
[id number]
Levophed 281.7 / 281.7
Nss 1,000 ml @ 100 mls/hr IV . 1300 / 1400 2400 / 2500 200 / 200
Q10H EHSAN Rx#:[id number]
Vasopressin 90 / 99 147 / 147
IV piggybacks 1200 / 1200 50 / 50
Amount instilled into GI Tube ( 30 / 30
Total)
[place] Sump 30 / 30
Output:
Gastrointestinal tube output ( 75 / 75
Total)
[place] Sump 75 / 75
Urine, Chao 430 / 430 1550 / 1600 100 / 100
Other:
Number of unmeasured liquid
stools
Rectum 2
Lab Results
06/11/23 02:53
06/11/23 02:53
Physical Exam
-
General: No Acute Distress and AOx3
HEENT: Grossly Normal
Abdomen: Soft, Distended (Mildly distended), Non Tender (Minimally tender, significantly improved), No Guarding and No Rebound
Skin: Warm and Dry
--- NOTE | 2023-06-11 10:11 | W.PN.ID1 ---
Date of Service
Date of Service: June 11, 2023
Today's Communication
Narrow abx's to ceftriaxone.
Assessment / Plan
# Severe sepsis/shock, weaning off pressor
# Severe constipation/stercoral colitis - resolving
# PAVEL improving
#lactic acidosis resolved
# Recent status post robotic suture rectopexy, sacrocolpopexy, posterior repair and cystoscopy with left double-J stent, stone manipulation 05/17/23
- blood cx's neg to date.
- Ucx neg.
-CXR neg
- Narrow Vanco/meropenem to ceftriaxone 1g IV q24h
#Additional Past Medical History:
COPD
Diabetes mellitus type 2
Hypertension
GERD
anxiety/depression
PAD
Chronic pain opioid dependence
ADD
Lumbar laminectomy
Pelvic organs/rectal prolapse status post robotic suture rectopexy, sacrocolpopexy, posterior repair and cystoscopy with left double-J stent, stone manipulation 05/17/23
Chief Complaint
-: Clinical Sepsis
Subjective / Review of Systems
at bedside.
Patient continues to improve.
Vital Signs / Physical Exam
Vital Signs
Vital Signs
Temp Pulse Resp BP Pulse Ox
98.3 F 98 20 131/49 96
06/11/23 07:42 06/11/23 09:30 06/11/23 09:30 06/11/23 09:29 06/11/23 09:30
Physical Exam
Constitutional: Comfortable
Cardiovascular: Regular Rate and S1/S2
Pulmonary: Clear (anteriorly)
Gastrointestinal: Soft, Tender (mild) and Non Distended
Extremities: Negative Edema
Objective Data
Lab Data
Lab Results
06/11/23 02:53
06/11/23 02:53
PT 17.8 Sec (11.4-14.6) H 06/09/23 15:59
INR 1.48 06/09/23 15:59
APTT 43.9 Sec (23.4-35.0) H 06/09/23 15:59
Estimated Creat Clear 16 ml/min 06/11/23 02:53
Lactic Acid 1.2 mmol/L (0.7-2.0) 06/10/23 04:25
Total Bilirubin 0.5 mg/dl (0.2-1.3) 06/11/23 02:53
AST 97 U/L (14-36) H 06/11/23 02:53
ALT 32 U/L (0-35) 06/11/23 02:53
Alkaline Phosphatase 380 U/L (38-126) H 06/11/23 02:53
Most recent labs reviewed.
Micro Results:
06/09/23 14:41 Urine Culture - Preliminary
Urine NO GROWTH
06/09/23 11:48 Blood Culture - Preliminary
Blood/Venous No Growth in 24 hours- Final report to follow
06/09/23 10:35 Blood Culture - Preliminary
Blood/Venous No Growth in 24 hours- Final report to follow
06/08/23 CT a/P: Large amount of stool throughout the colon, with increased amount of stool since examination of June 06, 2023. There is suggestion of colonic wall thickening, particularly involving the right colon, transverse colon, and splenic
flexure. Findings would be suggestive of stercoral colitis. No evidence for free intraperitoneal air. Distention of the stomach with fluid. Left ureteral stent is present
--- NOTE | 2023-06-11 10:56 | W.PN.HOSP.TC ---
Addendum entered and electronically signed by Rivera Hogue MD 06/14/23 11:51:
Metabolic encephalopathy multifactorial
Original Note:
Today's Communication/Plan
-
Clear liquid diet started
Restart Zyrtec
IV antibiotics per ID
Continue with IV amiodarone
Cardiology evaluation
Echo in the morning
Assessment / Plan
Assessment / Plan
Septic shock likely secondary to stercoral colitis/abdominal source
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
Lactic acidosis
-s/p NGT removal.
-Having loose bowel movements.
-Lactic acidosis resolved.
-PICC line ordered
-CT abd/pelvis with stomach distention. s/p NGT placement
-Started on Levophed and vasopressin. Off pressors as of 06/09.
-Antibiotics broadened to Vanco and meropenem per ID. Pro-Dylan significantly elevated 44. Creatinine elevated noted.
-Antibiotic further narrowed down to ceftriaxone. Vanco and meropenem discontinued per ID.
-Started on clear liquid diet per surgery.
-Await culture data to finalize
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
Acute Kidney Injury likely multifactorial pre-renal volume depletion while on ACEI, recent bactrim usage, ATN?
-Place Chao from strict Is&Os
-Continue IVFS
-Trend Lactic Acid
-monitor urinary output
-Will defer further IVF to nephro.
-Repeat Labs
-No hydro seen on CT scan
-Creatinine improved and with increasing urinary output
-Nephro consulted.
New onset of Afib with RVR on 06/09
-started on Amiodarone IV
-Elevated TRR5XG2 Score
-ECHO in am
-Cards eval
Hyperkalemia
-plan for enema pending BP stabilization
-s/p temporization measures
-Status post bicarb drip. Potassium stabilized.
Severe Metabolic acidosis
-Resolved.
-Bicarb improved.
Pelvic Floor Prolapse s/p Robotic Rectopexy / Sacrocolpopexy on May 16
-Care as per Colorectal
Diabetes Mellitus, Type II
-HgbA1c 6.6 in April 2023
-Monitor sugars and continue coverage insulin
Essential Hypertension
-Hold meds as BP running on the low side
Anxiety / Depression
-Continue Ativan prn
GERD
-Continue Protonix IV
Chronic Pain with Opioid Dependence
-Continue Dilaudid prn until able to resume oral meds and tolerating appropriate diet
-monitor closely.may require IV standing pain meds. Risk of opioid withdrawal
-Recommended to patient and spouse to start aggressive bowel regimen at home.
ADHD-hold off on restarting Adderall in the setting of new onset of A-fib
Severe anxiety-restart Xanax
Tobacco abuse
-Continue with nicotine patch
Peripheral Arterial Disease
-Stable
Hypokalemia-replete/monitor
DVT proph: SC Heparin
Code Status: Full Code
d/w with spouse at bedside in details.
Anticipated Discharge: > 48 hours
Subjective/Interval History
-
Date of Service: June 11, 2023
NGT removed
sitting in chair
feeling better
went into afib yesterday
on oxygen
Objective Data
-
Labs:
Laboratory Results
06/11/23
02:53
WBC 8.8
Hgb 8.1 L
Hct 24.6 L
Plt Count 179 D
Sodium 138
Potassium 3.4 L D
Chloride 108 H
Carbon Dioxide 25
BUN 65 H
Creatinine 2.1 H
Glucose 116 H
Calcium 7.7 L
Total Bilirubin 0.5
AST 97 H
ALT 32
Alkaline Phosphatase 380 H
Vital Signs:
Vital Signs
Temp Pulse Resp BP Pulse Ox
98.3 F 98 20 131/49 96
06/11/23 07:42 06/11/23 09:30 06/11/23 09:30 06/11/23 09:29 06/11/23 09:30
I&O
06/10/23 06/11/23 06/12/23
06:59 06:59 06:59
Intake Total 3121.7 / 3230.7 3147.0 / 3263.7 353.4 / 353.4
Output Total 430 / 430 1625 / 1675 100 / 100
Balance 2691.7 / 2800.7 1522.0 / 1588.7 253.4 / 253.4
Physical Exam
-
General: Appears Chronically Ill and Cachectic
HEENT: Normocephalic, Atraumatic and Moist Mucous Membranes
Cardiac: S1/S2 and Tachycardic; Negative Murmur, Rub or Gallop
GI: Soft, Normal Bowel Sounds, Tender and Distended (improved from last 48h); Negative Organomegaly
Rectal: Deferred by Provider
Genito-urinary: Chao (dark светлана color )
Musculoskeletal: No Clubbing, No Cyanosis and No Edema
Skin: Negative Rash
Neuro: Awake, AO x 3, No Motor Deficits and Nonfocal/Grossly Intact
Psych: Calm
Data Reviewed
-
Total Time Spent with Patient (in minutes): 58
[2023-06-11 11:09] LABS: Glucose - Point of Care 103 mg/dl (70-99)
[2023-06-11] MEDS: ROCEPHIN 1000 MG IV (11:23)
--- NOTE | 2023-06-11 15:14 | PTCARENOTE ---
PT/OT assisted pt into chair w RW. Tolerating chair position x 6H, remains in chair. Diet advanced per surgery, tolerating clear liquid diet, poor appetite. Call vick remains w in reach.
[2023-06-11] MEDS: STERILE WATER FOR INJECTION IV (15:24)
[2023-06-11] MEDS: CORDARONE 518 MG IV (15:44)
--- NOTE | 2023-06-11 15:45 | CON.CAR ---
Consultation
Consultation Request
Date/Time Consultation Requested: 06/11/2023
Date/Time Consultation Performed: 06/11/2023
Reason for Consultation: Atrial fibrillation and tachycardia
Medical History
-
Chief Complaint: Septic shock
History of Present Illness:
78-year-old female who has had recent urogynecologic surgery on May 17, 2023 who underwent rectopexy sacrocolpopexy and posterior repair and cystoscopy with left ureteral stent. Her hospitalization at that time was complicated by opioid
withdrawal. After discharge she was seen by urology on the of this month and there is a concern for perineal abscess and she was given a 5-day course of double strength Bactrim twice daily. She then developed worsening abdominal pain - 10 out
of 10 had come to the emergency room for that. She was noted to have an elevated white count and severe hypotension she then developed significant hyperkalemia. She is also noted to have acute kidney injury with a creatinine of 3.0 up from a
baseline of 0.9 she then had some vomiting. Today she was sent to the ICU for pressors given persistent hypotension. She is currently critically ill.
Patient was started on antibiotics for septic shock. Patient's pressures are weaned off. PAVEL is improving. She started responding to the treatment. However, she developed atrial fibrillation with rapid ventricle response. She was started on
amiodarone drip. With amiodarone drip patient did come out of A-fib into normal sinus rhythm. Currently the patient and her , this is the first time she has gone into atrial fibrillation.
Patient's [id number] score is elevated 6(age, gender, hypertension, diabetes, peripheral vascular disease)
Past Medical History
Past Medical History: Arrhythmias (New onset atrial fibrillation. Currently in sinus rhythm with frequent PACs.), COPD and Other (Moderate COPD, hypertension, chronic LBP, scoliosis, depression, reported history of asthma, history of rectal
prolapse, GERD, gastric ulcer, osteoporosis, osteoarthritis, seasonal allergies)
Social History
Tobacco: Smoker (30-40 pack year smoking history-current smoker for 60 years)
Alcohol: None
Drug: None
Personal:
Living: With Family
Family History
Family History: Reviewed & Not Pertinent
Allergies / Home Medications
Allergy/AdvReac Type Severity Reaction Status Date / Time
aspirin Allergy Gastiris Verified 06/08/23 17:58
ibuprofen Allergy Gastritis Verified 06/08/23 17:58
latex Allergy Itching Verified 05/17/23 06:29
NSAIDS (Non-Steroidal Allergy Gastritis Verified 06/08/23 17:58
Anti-Inflamma
Penicillins Allergy Unknown Verified 06/10/23 10:07
(age 11)
�Medication �Instructions �Recorded �Confirmed �Type
amlodipine 10 mg-benazepril 20 mg 1 cap PO DAILY Blood Pressure 04/25/09 06/08/23 History
capsule
estradiol 0.1 mg/24 hr weekly 0.1 mg transdermal FR Hormonal 04/25/09 06/08/23 History
transdermal patch ([place]ara) Agent
esomeprazole magnesium 40 mg 40 mg PO DAILY Gastrointestinal 02/28/11 06/08/23 History
capsule,delayed release (Nexium) Issue
alprazolam 0.25 mg tablet (Xanax) 0.125 mg PO DAILYPRN PRN anxiety 05/11/23 06/08/23 History
alprazolam 0.25 mg tablet (Xanax) 0.25 mg PO HS Mental Health/Anxiety 05/11/23 06/08/23 History
azelastine 205.5 mcg (0.15 %) 2 spray intranasal DAILY Allergies 05/11/23 06/08/23 History
nasal spray (Astepro Allergy)
dextroamphetamine-amphetamine 30 30 mg PO DAILY Neurological 05/11/23 06/08/23 History
mg tablet (Adderall) Condition
fexofenadine 180 mg tablet 180 mg PO DAILYPRN PRN allergies 05/11/23 06/08/23 History
gabapentin 300 mg capsule 300 mg PO BID Pain 05/11/23 06/08/23 History
oxycodone 20 mg tablet 20 mg PO QID pain 05/11/23 06/08/23 History
Review of Systems
-
History Source: Patient and Family
All other systems: Negative unless noted
Physical Exam
Vital Signs
Temp Pulse Resp BP Pulse Ox
97.9 F 94 16 132/72 95
06/11/23 11:01 06/11/23 15:00 06/11/23 15:00 06/11/23 15:00 06/11/23 15:00
Lab Results
06/11/23 02:53
06/11/23 02:53
Physical Exam
General: Well Developed and Well Nourished
HEENT: Normocephalic, Anicteric and Moist Mucous Membranes
Respiratory: Clear and Non Labored Respirations
Cardiac: Irregular Rhythm and Murmur
GI: Soft and Tender
Musculoskeletal: No Clubbing and No Cyanosis
Skin: Warm and Dry
Neuro: Sedated
Impression / Plan
-
78-year-old woman with history of hypertension, COPD, diabetes mellitus, peripheral artery disease, asthma, with recent pelvic floor surgery for obstructive left ureteral stone and robotic s/p robotic suture rectopexy, sacrocolpopexy, posterior
repair, perineoplasty, cystoscopy with double J-left ureteral stenting on 05/17/[address] Guardado (double-J stent by Dr. Medina) who has developed sepsis. And is noted to have atrial fibrillation with rapid ventricle response while recovering
from her sepsis.
Atrial fibrillation
-Patient is A-fib is likely induced secondary to her recent inflammatory response.
-Patient did not have any A-fib while recovering from her surgery last month.
-Current A-fib likely can still be considered as postop A-fib. However, her telemetry clearly shows very frequent PACs making her rhythm almost irregular.
-PACs are likely left atrial in origin may be coming from the pulmonary veins. This is more consistent with high risk precursor of atrial fibrillation.
-She most likely has paroxysmal atrial fibrillation. Informed response just was able to push her out into an A-fib.
-Regardless, we will treat her as possible postop A-fib. Will start her on amiodarone currently on drip.
-Switch IV amiodarone to p.o. 400 mg twice a day after 24 hours of IV loading.
-Given patient is postop and high risk for bleeding, can avoid starting anticoagulation therapy.
-If there is another episode of atrial fibrillation noted, we will consider adding Eliquis 2.5 mg twice a day due to her age, renal function and weight.
-Echo in the morning
Data Reviewed
-
EKG: Tracing Personally Visualized and interpreted
Radiology: Report Reviewed by me
Labs: Labs Reviewed by me, Discussed with Physician and Discussed with Nurse
Old Records: Reviewed
Critical Care Time (in minutes): 45
[2023-06-11 17:32] LABS: Glucose - Point of Care 193 mg/dl (70-99)
[2023-06-11] MEDS: NOVOLOG FLEXPEN-LOW RESISTANCE 1 UNITS SC (17:56)
[2023-06-11] MEDS: PACERONE 400 MG PO (19:15)
--- NOTE | 2023-06-11 19:48 | PTCARENOTE ---
Addendum entered by Dawna Torres RN 06/11/23 20:09:
patient sleeping, pulse [id number]. placed on 1 liter nasal cannula
Original Note:
report received, assessments per work list. patient orientedX2, drowsy but easily arousable. 'you people are making me sick'. monitor sinus tachycardia. amiodarone d/c per orders. po dose administered. difficulty obtaining pulse oximeter reading.
hands cold. warm blankets applied. hand held pox reading 94 on room air. lungs with coarse breath sounds bilaterally. coughing noted with oral intake of liquids, difficulty swallowing oral medications.. abdomen distended. firm. hypoactive bowel
sounds. incontinent small amount soft dark brown stool. barr draining tea colored urine. right picc in place, good blood returns. refusing oral care, refusing hair care. repositioned. call vick in reach
[2023-06-11] MEDS: XANAX 0.25 MG PO (20:50)
[2023-06-11] MEDS: LANTUS 0.0500000000000000028 UNITS SC (21:18)
--- NOTE | 2023-06-11 21:22 | PTCARENOTE ---
patient refusing dose miralax. reviewed rationale and attempted education, patient stated 'these doctors don't know what they are doing'. anxious, c/o pain. medicated with scheduled xanax and prn dilaudid. pm care provided
[2023-06-11 21:28] LABS: Glucose - Point of Care 249 mg/dl (70-99)
[2023-06-12] VITALS (15 sets, daily range): BP systolic 118–163; BP diastolic 54–80; PULSE 99; O2SAT 99
--- NOTE | 2023-06-12 00:17 | PTCARENOTE ---
patient with multiple large liquid stools. fecal incontinence bag applied.
[2023-06-12] MEDS: STERILE WATER FOR INJECTION IV ×2 (00:21→16:54)
[2023-06-12] MEDS: DILAUDID 1 MG IV ×7 (00:22→22:37)
[2023-06-12 03:26] LABS: % Basophils 0.7 % (0-2); % Eosinophils 0.3 % (0-6); % Immature Granulocytes 0.5 % (0-0.5); % Monocytes 7.1 % (1.7-9.3); % Neutrophils 80.4 % (42.2-75.2); Absolute Basophils 0.1 10^3/uL (0-0.2); Absolute Immature Granulocytes 0.1 10^3/uL (0-0.05); Absolute Lymphocytes 1.2 10^3/uL (1.2-3.4); Absolute Monocytes 0.8 10^3/uL (0.1-0.6); Absolute Neutrophils 8.9 10^3/uL (1.4-6.5); Hematocrit 27.3 % (37.0-47.0); Hemoglobin 8.8 g/dL (12.0-16.0); Mean Corp Hgb Conc. 32.2 g/dL (33.0-37.0); Mean Corpuscular Hgb 25.7 pg (27.0-31.0); Mean Corpuscular Volume 79.8 fL (81.0-99.0); Mean Platelet Volume 10.8 fL (7.4-10.4); Nucleated Red Blood Cells % 0.2 %; Platelet Count 158 10^3/uL (130-400); Red Blood Cell Count 3.42 10^6/uL (4.20-5.40); White Blood Cell Count 11.1 10^3/uL (4.8-10.8)
[2023-06-12 03:44] LABS: Blood Urea Nitrogen 58 mg/dl (7-17); Carbon Dioxide 24 mmol/L (22-30); Chloride 110 mmol/L (98-107); Estimated Creatinine Clearance 18 ml/min; Glucose 134 mg/dl (70-99); Iron 38 ug/dl (37-170); Phosphorus 3.1 mg/dl (2.5-4.5); Potassium 3.7 mmol/L (3.5-5.1); Sodium 137 mmol/L (135-145); eGFR 26.53
--- NOTE | 2023-06-12 03:50 | PTCARENOTE ---
patient with increased pac. pvc. am labs sent. fecal incontinence bag with small leakage, reinforced. complete care given. c/o 11/22 pain. medicated with dilaudid per prn order. patient states her pain 'is always a 10 at home'. pulse oximeter 88-90.
increased to 4 liters nasal cannula
[2023-06-12 03:53] LABS: Percent Saturation 18 % (20-50); Total Iron Binding Capacity 202 ug/dl (265-497)
[2023-06-12 04:18] LABS: Ferritin 52.9 ng/ml (11.1-264.0)
[2023-06-12 04:49] LABS: Folate 6.3 ng/ml (2.76-20); Vitamin B12 921 pg/ml (239-931)
--- NOTE | 2023-06-12 05:36 | PTCARENOTE ---
fecal bag leaking in spite of reinforcement. large amounts liquid stool. bag removed, care provided, patient repositioned.
[2023-06-12] MEDS: NOVOLOG FLEXPEN-LOW RESISTANCE SC ×2 (07:48→16:54)
[2023-06-12] MEDS: NICODERM TRANSDERMAL 14 MG TRANSDERM (07:49)
[2023-06-12] MEDS: COLACE 100 MG PO ×2 (07:49→22:35)
[2023-06-12] MEDS: PACERONE 400 MG PO ×2 (07:49→22:35)
[2023-06-12] MEDS: PROTONIX 40 MG PO (07:49)
[2023-06-12 07:56] LABS: Glucose - Point of Care 129 mg/dl (70-99)
--- NOTE | 2023-06-12 08:48 | W.PN.GYN ---
Today's Communication / Plan
-
continue care per primary team
Exam of her perineum was normal: no sign of wound or perineal infection
Physician Note
-
Assessment and Plan:
78 year old woman admitted for sepsis secondary to stercoral colitis and s/p rectopexy, sacrocolpopexy and left ureteral stent placement on 05/17/2023. Patient is currently being managed in the MICU.
Genitourinary System
-Perineal exam: NO evidence of perineal or wound infection
-Urine culture: no growh
-left ureteral stent in place: no evidence of hydronephrosis on CT scan, stent in correct location
-No surgical intervention recommended at this time
-Continue care per primary team
-Will continue to follow
Subjective:
patient reports no acute pain, she continues to pass soft stool
Objective:
Intake and Output
06/10/23 06/11/23 06/12/23 06/13/23
06:59 06:59 06:59 06:59
Intake Total 3121.7 / 3230.7 3147.0 / 3263.7 3077.1 / 3177.1 680 / 680
Output Total 430 / 430 1625 / 1675 775 / 775
Balance 2691.7 / 2800.7 1522.0 / 1588.7 2302.1 / 2402.1 680 / 680
Intake:
Oral fluids 170 / 170 460 / 460 480 / 480
IV fluids (Total) 1921.7 / 2030.7 2897.0 / 3013.7 2617.1 / 2717.1 200 / 200
Amio 350.0 / 366.7 217.1 / 217.1
D5w 1,000 ml @ 125 mls/hr IV . 250 / 250
Q9H12M EHSAN with Sodium
Bicarbonate 150 Meq Rx#:
[id number]
Levophed 281.7 / 281.7
Nss 1,000 ml @ 100 mls/hr IV . 1300 / 1400 2400 / 2500 2400 / 2500 200 / 200
Q10H EHSAN Rx#:[id number]
Vasopressin 90 / 99 147 / 147
IV piggybacks 1200 / 1200 50 / 50
Amount instilled into GI Tube (
Total)
[place] Sump / 30
Output:
Liquid stool amount 200 / 200
Rectum 200 / 200
Gastrointestinal tube output ( 75 / 75
Total)
[place] Sump 75 / 75
Urine, Chao 430 / 430 1550 / 1600 575 / 575
Other:
Number of unmeasured liquid
stools
Rectum 2 2
Vital Signs
Temp Pulse Resp BP Pulse Ox
99.2 F 105 20 129/54 97
06/12/23 07:05 06/12/23 06:30 06/12/23 06:30 06/12/23 06:00 06/12/23 08:00
Lab Results
06/12/23 03:05
06/12/23 03:05
Exam:
: perineum intact, no erythema, nontender, no fluctuance, no discharge, incision well healed
--- NOTE | 2023-06-12 09:00 | PTCARENOTE ---
Received pt awake and alert.Speech is appropriate.+ALBRECHT.c/o 10/10 whole body pain.Medicated with Dilaudid.A Fib noted.Right DL PICC intact with IVF.O2 2l NC.POX 97%Coarse breath sounds throughout with decreased breath sounds bibasilar.Appetite
fair.Incontinent of small amount liquid brown stool.Chao draining светлана urine.Plan of care discussed.Pt is agreeable to get oob to chair at 1000.
--- NOTE | 2023-06-12 09:19 | W.PN.CRS1 ---
Today's Communication / Plan
-
advance diet to regular
continue colace/miralax
Assessment/Plan
-
78yo female with a recent robotic suture rectopexy, sacroculpopexy, posterior repair and cystoscopy with left double-J stent on 05/17/2023, presented to the ER with diffuse abdominal pain and lack of BM for 3 days. Patient found with stercoral colitis
on CT and with leukocytosis, lactic acidosis, PAVEL, hyperkalemia and hyponatremia. UA +, but culture negative; now off levo and UOP/Cr improving
Plan:
1. Advance diet to regular.
2. Continue pain control.
3. Continue IV antibiotics per ID.
4. On colace BID and Miralax PRN (patient refused this morning). Educated patient on need to take Miralax.
5. OOB with PT.
6. Per Dr. Bojorquez, no evidence of perineal wound infection.
7. Okay for DVT prophylaxis from our standpoint.
8. Dispo: skilled rehab.
Subjective Data
Subjective Data
Date of Service: June 12, 2023
Patient states she has 'whole body pain' that she describes as soreness. She states she is hungry. She had 10-12 liquid bowel movements yesterday. She denies nausea or vomiting.
Objective Data
-
Vital Signs
Temp Pulse Resp BP Pulse Ox
99.2 F 107 25 141/56 98
06/12/23 07:05 06/12/23 08:30 06/12/23 08:30 06/12/23 08:00 06/12/23 08:30
Intake & Output
06/11/23 06/12/23 06/13/23
06:59 06:59 06:59
Intake Total 3147.0 / 3263.7 3077.1 / 3177.1 680 / 680
Output Total 1625 / 1675 775 / 775
Balance 1522.0 / 1588.7 2302.1 / 2402.1 680 / 680
Intake:
Oral fluids 170 / 170 460 / 460 480 / 480
IV fluids (Total) 2897.0 / 3013.7 2617.1 / 2717.1 200 / 200
Amio 350.0 / 366.7 217.1 / 217.1
Nss 1,000 ml @ 100 mls/hr IV . 2400 / 2500 2400 / 2500 200 / 200
Q10H EHSAN Rx#:[id number]
Vasopressin 147 / 147
IV piggybacks 50 / 50
Amount instilled into GI Tube ( 30 / 30
Total)
[place] Sump 30 / 30
Output:
Liquid stool amount 200 / 200
Rectum 200 / 200
Gastrointestinal tube output ( 75 / 75
Total)
[place] Sump 75 / 75
Urine, Chao 1550 / 1600 575 / 575
Other:
Number of unmeasured liquid
stools
Rectum 2 2
Lab Results
06/12/23 03:05
06/12/23 03:05
Physical Exam
-
General: No Acute Distress and AOx3
Abdomen: Soft, Non Distended and Non Tender
Skin: Warm and Dry
Incision: Clear, Dry, Intact
--- NOTE | 2023-06-12 09:24 | W.PN.CD ---
Today's Communication / Plan
-
I would recommned Eliquis 2.5mg when ok with surgical and medical teams
amiodarone po bid
Impression / Plan
-
78-year-old woman with history of hypertension, COPD, diabetes mellitus, peripheral artery disease, asthma, with recent pelvic floor surgery for obstructive left ureteral stone and robotic s/p robotic suture rectopexy, sacrocolpopexy, posterior
repair, perineoplasty, cystoscopy with double J-left ureteral stenting on 05/17/[address] Guardado (double-J stent by Dr. Medina) who has developed sepsis. And is noted to have atrial fibrillation with rapid ventricle response while recovering
from her sepsis.
Atrial fibrillation
-currently in sinus, at times some irregular triplets
-Switch IV amiodarone to p.o. 400 mg twice a day --for 2 weeks then daily
C2V is a 6(age,gender,htn, pad, DM) will recommend Eliquis 2.5 mg twice a day due to her renal function and weight.
-CM c/s to rodriguez
-Echo in the morning
Septic shock:
improving
HTN: chronic, typically amlopdipine-benzopril
-resume when able
PAD:
-chronic, ?no statin, revisit as an outpatient
DM
Physical Exam
Vital Signs/Labs
Vital Signs
Temp Pulse Resp BP Pulse Ox
99.2 F 107 25 141/56 98
06/12/23 07:05 06/12/23 08:30 06/12/23 08:30 06/12/23 08:00 06/12/23 08:30
06/11/23 06/12/23 06/13/23
06:59 06:59 06:59
Actual Weight 45.6 kg 48.1 kg
06/12/23 03:05
06/12/23 03:05
PT 17.8 Sec (11.4-14.6) H 06/09/23 15:59
INR 1.48 06/09/23 15:59
APTT 43.9 Sec (23.4-35.0) H 06/09/23 15:59
Magnesium 2.0 mg/dl (1.6-2.3) 06/12/23 03:05
Physical Exam
Constitutional: No acute distress
Cardiovascular: Rhythm & rate is regular, Pedal edema is absent and JVD pressure is normal
Respiratory: Respiratory effort normal, Lungs clear to auscul., Wheeze Absent and Crackles Absent
Neuro/Psych: AO x 3
Data Reviewed
-
Date of Service: June 12, 2023
EKG: Other (tele nsr with pacs, at times irregular couplets)
--- NOTE | 2023-06-12 10:43 | W.PN.NEPH.PH ---
Today's Communication / Plan
-
prn IVF
Assessment/Plan
-
Assessment:
Hyperkalemia
Acute kidney injury
Hypotension
Sepsis
Recent urogynecologic surgery
Left ureteral stent
Metabolic alkalosis
Diabetes mellitus type 2
Stercoral colitis
Chronic pain
Plan:
PAVEL-cr improving to 1.9, barely non oliguric
may consider d/c barr if cr cont to improve
based on intake , prn IVF NS
BP stable with out meds
follow LFTs
abx per primary
afib per cards, echo pending, on Amio
d/w nursing
-
-
Date of Service: June 12, 2023
CC / HPI / ROS
-
Chief Complaint:
PAVEL
History of Present Illness:
BP stable
on supplemental O2
PAVEL/Cr down to 1.9
K now low 3.7
LFTs improving as of 06/10
on abx for sepsis
Review of Systems:
no reported pain, urine is dark
no fever, non oliguric with barr
loose BMs per nursing
Labs
-
Labs:
WBC 11.1 10^3/uL (4.8-10.8) H 06/12/23 03:05
RBC 3.42 10^6/uL (4.20-5.40) L 06/12/23 03:05
Hgb 8.8 g/dL (12.0-16.0) L 06/12/23 03:05
Hct 27.3 % (37.0-47.0) L 06/12/23 03:05
Plt Count 158 10^3/uL (130-400) 06/12/23 03:05
Sodium 137 mmol/L (135-145) 06/12/23 03:05
Potassium 3.7 mmol/L (3.5-5.1) 06/12/23 03:05
Chloride 110 mmol/L (98-107) H 06/12/23 03:05
Carbon Dioxide 24 mmol/L (22-30) 06/12/23 03:05
BUN 58 mg/dl (7-17) H 06/12/23 03:05
Creatinine 1.9 mg/dL (0.6-1.0) H 06/12/23 03:05
eGFR 26.53 06/12/23 03:05
Glucose 134 mg/dl (70-99) H 06/12/23 03:05
Calcium 8.0 mg/dl (8.4-10.2) L 06/12/23 03:05
Phosphorus 3.1 mg/dl (2.5-4.5) 06/12/23 03:05
Albumin 2.6 g/dl (3.5-5.0) L 06/11/23 02:53
Physical Exam
-
Vital Signs:
Vital Signs
Temp Pulse Resp BP Pulse Ox
99.2 F 107 25 141/56 98
06/12/23 07:05 06/12/23 08:30 06/12/23 08:30 06/12/23 08:00 06/12/23 08:30
Cardiovascular:: Regular rate and rhythm
Respiratory:: Bilateral: CTA (anteriorly)
Lung Excursion:: Normal
Abdomen:: Nontender and Soft
Extremity Edema:: None: Bilateral:
Barr Catheter: Yes
--- NOTE | 2023-06-12 10:53 | CM ---
CM following re: discharge planning.
Reviewed pt's chart, met with pt and pt's SO Grabiel at bedside.
CM consult to check the rodriguez for Eliquis 2.5 mg noted. Per [facility] pharmacist, pt has deductible $311.69 and 1st month the cost of Eliquis 2.5 mg BID will cost whole deductible and after that $70.00 per month. CM discussed it with pt and her SO and
they expressed their agreement and stated it will be affordable. Free 30 day supply card provided.
PT and OT evaluations noted - SNF level of care recommended. CM discussed it with pt and her SO and they expressed their agreement. A lsit of SNFs provided to the pt. [facility] preferred. [facility] as a back up plan. A referral to above SNFs made.
Pt's SO stated he will stay home for 2 weeks and will be able to spend time with the pt and after 2 weeks he will star working again and he works in [employer].
D/C plan: [facility] number one choice. [facility] alternative.
CM will follow with discharge plan updates as hospitalization progresses
--- NOTE | 2023-06-12 11:07 | W.PN.ID1 ---
Date of Service
Date of Service: June 12, 2023
Today's Communication
DC abx and observe.
Assessment / Plan
# s/p Severe sepsis/shock, weaning off pressor
# Severe constipation/stercoral colitis - resolving
# PAVEL improving
# Recent status post robotic suture rectopexy, sacrocolpopexy, posterior repair and cystoscopy with left double-J stent, stone manipulation 05/17/23
- blood cx's neg to date.
- Ucx neg.
-CXR neg
- DC ceftriaxone 1g IV q24h (d5 abx) and observe.
#Additional Past Medical History:
COPD
Diabetes mellitus type 2
Hypertension
GERD
anxiety/depression
PAD
Chronic pain opioid dependence
ADD
Lumbar laminectomy
Pelvic organs/rectal prolapse status post robotic suture rectopexy, sacrocolpopexy, posterior repair and cystoscopy with left double-J stent, stone manipulation 05/17/23
Chief Complaint
-: Clinical Sepsis
Subjective / Review of Systems
Sitting up in chair. Tolerating diet.
Vital Signs / Physical Exam
Vital Signs
Vital Signs
Temp Pulse Resp BP Pulse Ox
99.2 F 107 25 141/56 98
06/12/23 07:05 06/12/23 08:30 06/12/23 08:30 06/12/23 08:00 06/12/23 08:30
Physical Exam
Constitutional: No Acute Distress and Comfortable
Cardiovascular: Other (tachycardic)
Pulmonary: Clear
Gastrointestinal: Soft, Non Tender and Non Distended
Genito-Urinary: Chao and Clear Urine
Extremities: Negative Edema
Neurological: AO x 3
Objective Data
Lab Data
Lab Results
06/12/23 03:05
06/12/23 03:05
PT 17.8 Sec (11.4-14.6) H 06/09/23 15:59
INR 1.48 06/09/23 15:59
APTT 43.9 Sec (23.4-35.0) H 06/09/23 15:59
Estimated Creat Clear 18 ml/min 06/12/23 03:05
Lactic Acid 1.2 mmol/L (0.7-2.0) 06/10/23 04:25
Total Bilirubin 0.5 mg/dl (0.2-1.3) 06/11/23 02:53
AST 97 U/L (14-36) H 06/11/23 02:53
ALT 32 U/L (0-35) 06/11/23 02:53
Alkaline Phosphatase 380 U/L (38-126) H 06/11/23 02:53
Most recent labs reviewed.
Micro Results:
06/09/23 10:35 Blood Culture - Preliminary
Blood/Venous No Growth in 72 hours- Final report to follow
06/09/23 11:48 Blood Culture - Preliminary
Blood/Venous No Growth in 48 hours- Final report to follow
06/09/23 14:41 Urine Culture - Final
Urine NO GROWTH
06/08/23 CT a/P: Large amount of stool throughout the colon, with increased amount of stool since examination of June 06, 2023. There is suggestion of colonic wall thickening, particularly involving the right colon, transverse colon, and splenic
flexure. Findings would be suggestive of stercoral colitis. No evidence for free intraperitoneal air. Distention of the stomach with fluid. Left ureteral stent is present
[2023-06-12] MEDS: NOVOLOG FLEXPEN-LOW RESISTANCE 1 UNITS SC (11:35)
--- NOTE | 2023-06-12 11:43 | PTCARENOTE ---
Addendum entered by Loretta Brandon RN 06/12/23 16:18:
Fecal bag applied to contain incontinence of liquid stool.
Original Note:
Pt assessed.No change in assessment noted.Pt assisted oob to chair with 2 person minimal assist.Pt c/o whole body pain,especially low back.Medicated with Dilaudid as requested.Pt's at bedside speaking to Dr Angel.Plan of care discussed.
[2023-06-12 11:46] LABS: Glucose - Point of Care 178 mg/dl (70-99)
--- NOTE | 2023-06-12 15:12 | W.PN.HOSP.TC ---
Today's Communication/Plan
-
start Eliquis 2.5 bid
transfer to tele
Assessment / Plan
Assessment / Plan
Septic shock likely secondary to stercoral colitis/abdominal source
resolved
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
Lactic acidosis
-s/p NGT removal.
-Having loose bowel movements.
-Lactic acidosis resolved.
6.9-->1.2
-PICC line ordered
-CT abd/pelvis with stomach distention. s/p NGT placement
-Started on Levophed and vasopressin. Off pressors as of 06/09.
-Antibiotics broadened to Vanco and meropenem per ID. Pro-Dylan significantly elevated 44. Creatinine elevated noted.
-Antibiotic further narrowed down to ceftriaxone. Vanco and meropenem discontinued per ID.
Abx now stopped
-Started on clear liquid and advanced to Regular diet per surgery.
-Appreciate ID, tool tender, urology and colorectal surgery recs
Acute Kidney Injury likely multifactorial pre-renal volume depletion while on ACEI, recent bactrim usage, ATN?
-Placed Barr from strict Is&Os, nephrology wishes to continue barr for now
-Continue IVFS
-Trend Lactic Acid
-monitor urinary output
-Will defer further IVF to nephro.
-No hydro seen on CT scan
-Creatinine improved and with increasing urinary output
-Nephro consulted, input appreciated
New onset of Paroxysmal Afib with RVR on 06/09
currently in NSR with [facility] PAC's
-started on Amiodarone IV drip, now transitioned to 400 mg po bid
-Elevated [id number] Score
-ECHO in am
-Cards eval
discussed with Dr. Henley, would like to start on Eliquis 2.5 bid
Hyperkalemia
K peaked at 6.6, now 3.7
Severe Metabolic acidosis
-Resolved.
Pelvic Floor Prolapse s/p Robotic Rectopexy / Sacrocolpopexy on May 16
-Care as per Colorectal
Diabetes Mellitus, Type II
-HgbA1c 6.6 in April 2023
-Monitor sugars and continue coverage insulin
Essential Hypertension
-Hold meds as BP running on the low side
Anxiety / Depression
-Continue Ativan prn
GERD
-Continue Protonix IV
Chronic Pain with Opioid Dependence
-Continue Dilaudid prn until able to resume oral meds and tolerating appropriate diet
-monitor closely.may require IV standing pain meds. Risk of opioid withdrawal
-Recommended to patient and spouse to start aggressive bowel regimen at home.
ADHD-hold off on restarting Adderall in the setting of new onset of A-fib
Severe anxiety-restart Xanax
Tobacco abuse
-Continue with nicotine patch
Peripheral Arterial Disease
-Stable
Hypokalemia-replete/monitor
DVT proph: SC Heparin
Code Status: Full Code
d/w with spouse at bedside in details 06/11
will transfer OOICU
complex visit
Anticipated Discharge: > 48 hours
Subjective/Interval History
-
Date of Service: June 12, 2023
passing large amount of stool today
Objective Data
-
Labs:
Laboratory Results
06/12/23
03:05
WBC 11.1 H
Hgb 8.8 L
Hct 27.3 L
Plt Count 158
Sodium 137
Potassium 3.7
Chloride 110 H
Carbon Dioxide 24
BUN 58 H
Creatinine 1.9 H
Glucose 134 H
Calcium 8.0 L
Vital Signs:
Vital Signs
Temp Pulse Resp BP Pulse Ox
98.7 F 97 21 133/66 98
06/12/23 11:27 06/12/23 11:30 06/12/23 11:30 06/12/23 10:00 06/12/23 08:30
I&O
06/11/23 06/12/23 06/13/23
06:59 06:59 06:59
Intake Total 3147.0 / 3263.7 3077.1 / 3177.1 780 / 780
Output Total 1625 / 1675 775 / 775 150 / 150
Balance 1522.0 / 1588.7 2302.1 / 2402.1 630 / 630
Review of Systems
-
History Source: Patient and Family ( at bedside)
Constitutional: Denies Fever
EENT: Reports No Symptoms Reported
Respiratory: Reports No Symptoms
Cardiac: Reports No Symptoms
Abdomen/GI: Reports Abdominal Pain (improved)
Genitourinary: Reports Other (barr in place, as per nephrology)
Physical Exam
-
General: Well Developed, Well Nourished, No Apparent Distress and Appears Chronically Ill
HEENT: Normocephalic, Atraumatic and Moist Mucous Membranes
Respiratory: Clear to Auscultation; Negative Wheezes, Rales or Rhonchi
Cardiac: Regular Rhythm (with freq extra systole) and S1/S2
GI: Soft, Nontender, Nondistended and Normal Bowel Sounds
Musculoskeletal: No Clubbing, No Cyanosis and No Edema
Neuro: Awake, Alert and Oriented
--- NOTE | 2023-06-12 16:18 | PTCARENOTE ---
Pt assessed.No change in assessment noted.Pt tolerated 5 hours oob to chair.Pt for tele transfer as per MD order.Pt worked with PT/OT and assisted back to bed.Pt's son Grabiel/contact called the ICU for update.Plan of care discussed.
--- NOTE | 2023-06-12 16:52 | PN.CDI ---
CDI
- -
CDI:
Physician Documentation Request
Admit Date: 06/08/23 15:37
Dear Doctor
Please review the following and provide your response in the progress notes.
Clinical Indicators:
Pt admitted with Sepsis 2/2 stercoral colitis / ATN/ Septic shock/Hypovolemic shock
Patient care note 06/09 @ 0220,' while in the room with the patient she was attempting to pull her NG tube out while in bilateral wrist restraints. mittens applied. titrating levo, vaso added earlier in the shift. '
Patient care note 06/10 @ 0406,' ... confused briefly...'
Progress note 06/09,'...-removed NGT with plan to reinsert. Restraints added. Spouse understands need for restraints. ...'
Based on the above, could you clarify in the Progress Notes and Discharge Summary which, if any of the following, is the most likely etiology of the confusion/altered mental status.
Metabolic Encephalopathy
Acute Confusion only
Other
Use of terms such as suspected, likely, concern for, or probable (associated with a specific diagnosis that is being evaluated, monitored, or treated as if it exists) are acceptable and can be coded in the inpatient setting, when documented at the
time of discharge.
Thank you,
Umm Hand RN
CDI Specialist
[place] [facility]
Please use your independent medical judgment in providing your response.
[2023-06-12 17:04] LABS: Glucose - Point of Care 148 mg/dl (70-99)
--- NOTE | 2023-06-12 18:38 | PTCARENOTE ---
Report given to 2 South RN.
[2023-06-12] MEDS: XANAX 0.125 MG PO (18:53)
--- NOTE | 2023-06-12 18:55 | PTCARENOTE ---
Pt requested and received Xanax for anxiety.
[2023-06-12 21:39] LABS: Glucose - Point of Care 160 mg/dl (70-99)
[2023-06-12] MEDS: ELIQUIS 2.5 MG PO (22:35)
[2023-06-12] MEDS: XANAX 0.25 MG PO (22:35)
[2023-06-12] MEDS: LANTUS 0.0500000000000000028 UNITS SC (23:12)
--- NOTE | 2023-06-13 00:53 | TRANSFER ---
Received pt in bed from ICU at 1922 dx stercoral colitis/PAVEL. Pt drowsy but responds to verbal. IFC draining светлана urine, stat lock in place. Rectal incontinence mgmt bag w good seal, liquid stool noted. VSS, pt oriented to room and call vick.
Assessment ongoing.
[2023-06-13 03:11] VITALS: BP 138/75
[2023-06-13 05:23] LABS: % Basophils 0.5 % (0-2); % Eosinophils 0.5 % (0-6); % Immature Granulocytes 0.8 % (0-0.5); % Lymphocytes 9.7 % (20.5-51.1); % Monocytes 6.3 % (1.7-9.3); % Neutrophils 82.2 % (42.2-75.2); Absolute Basophils 0.1 10^3/uL (0-0.2); Absolute Eosinophils 0.1 10^3/uL (0-0.7); Absolute Immature Granulocytes 0.1 10^3/uL (0-0.05); Absolute Lymphocytes 1.4 10^3/uL (1.2-3.4); Absolute Monocytes 0.9 10^3/uL (0.1-0.6); Absolute Neutrophils 11.6 10^3/uL (1.4-6.5); Hematocrit 30.2 % (37.0-47.0); Hemoglobin 9.5 g/dL (12.0-16.0); Mean Corp Hgb Conc. 31.5 g/dL (33.0-37.0); Mean Corpuscular Hgb 25.7 pg (27.0-31.0); Mean Corpuscular Volume 81.6 fL (81.0-99.0); Mean Platelet Volume 11.9 fL (7.4-10.4); Nucleated Red Blood Cells % 0.1 %; Platelet Count 112 10^3/uL (130-400); White Blood Cell Count 14.2 10^3/uL (4.8-10.8)
[2023-06-13] MEDS: DILAUDID 1 MG IV ×4 (05:26→20:15)
[2023-06-13] MEDS: STERILE WATER FOR INJECTION IV ×2 (05:34→18:20)
[2023-06-13 05:48] LABS: Glucose 130 mg/dl (70-99)
[2023-06-13 05:49] LABS: ALT (SGPT) 16 U/L (0-35); AST (SGOT) 47 U/L (14-36); Albumin 2.3 g/dl (3.5-5.0); Alkaline Phosphatase 268 U/L (38-126); Blood Urea Nitrogen 52 mg/dl (7-17); Calcium 8.1 mg/dl (8.4-10.2); Carbon Dioxide 20 mmol/L (22-30); Chloride 108 mmol/L (98-107); Estimated Creatinine Clearance 23 ml/min; Potassium 3.8 mmol/L (3.5-5.1); Sodium 130 mmol/L (135-145); Total Bilirubin 0.5 mg/dl (0.2-1.3); Total Protein 4.4 g/dl (6.3-8.2); eGFR 35.23
[2023-06-13 05:52] VITALS: BMI 20.1
--- NOTE | 2023-06-13 06:11 | PTCARENOTE ---
Changed fecal management system (external) d/t leakage.
[2023-06-13 07:35] VITALS: BP 151/74
[2023-06-13 08:41] LABS: Glucose - Point of Care > 600 mg/dl (70-99)
[2023-06-13] MEDS: PACERONE 400 MG PO ×2 (08:55→20:11)
[2023-06-13] MEDS: ELIQUIS 2.5 MG PO ×2 (08:56→20:11)
[2023-06-13] MEDS: COLACE PO ×2 (08:57→20:37)
[2023-06-13] MEDS: NICODERM TRANSDERMAL 14 MG TRANSDERM (08:57)
[2023-06-13] MEDS: PROTONIX 40 MG PO (08:57)
--- NOTE | 2023-06-13 09:19 | W.PN.GYN ---
Today's Communication / Plan
-
continue care per primary team
Physician Note
-
Assessment and Plan:
78 year old woman admitted for sepsis secondary to stercoral colitis and s/p rectopexy, sacrocolpopexy and left ureteral stent placement on 05/17/2023. Patient is currently being managed in the MICU.
Genitourinary System
-Perineal exam: NO evidence of perineal or wound infection
-Urine culture: no growh
-left ureteral stent in place: no evidence of hydronephrosis on CT scan, stent in correct location
-No surgical intervention recommended at this time
-Continue care per primary team
-Will continue to follow
Subjective:
patient reports no acute pain, tolerating diet
Objective:
Intake and Output
06/11/23 06/12/23 06/13/23 06/14/23
06:59 06:59 06:59 06:59
Intake Total 3147.0 / 3263.7 3077.1 / 3177.1 2380 / 2380
Output Total 1625 / 1675 775 / 775 575 / 575
Balance 1522.0 / 1588.7 2302.1 / 2402.1 1805 / 1805
Intake:
Oral fluids 170 / 170 460 / 460 2180 / 2180
IV fluids (Total) 2897.0 / 3013.7 2617.1 / 2717.1 200 / 200
Amio 350.0 / 366.7 217.1 / 217.1
Nss 1,000 ml @ 100 mls/hr IV . 2400 / 2500 2400 / 2500 200 / 200
Q10H EHSAN Rx#:[id number]
Vasopressin 147 / 147
IV piggybacks 50 / 50
Amount instilled into GI Tube ( 30 / 30
Total)
[place] Sump 30 / 30
Output:
Liquid stool amount 200 / 200
Rectum 200 / 200
Gastrointestinal tube output ( 75 / 75
Total)
[place] Sump /
Urine, Chao 1550 / 1600 575 / 575 575 / 575
Other:
Number of unmeasured liquid
stools
Rectum 2 2
Vital Signs
Temp Pulse Resp BP Pulse Ox
97.7 F 96 24 151/74 97
06/13/23 07:35 06/13/23 07:35 06/13/23 07:35 06/13/23 07:35 06/13/23 07:35
Lab Results
06/13/23 04:50
Exam:
: perineal incision well healed
--- NOTE | 2023-06-13 09:20 | W.PN.CRS1 ---
Addendum entered and electronically signed by [place] Nova PA-C 06/13/23 13:59:
I updated the SO, Grabiel Raul, via phone.
Original Note:
Today's Communication / Plan
-
abdominal xrays
c.diff
Assessment/Plan
-
78yo female with a recent robotic suture rectopexy, sacroculpopexy, posterior repair and cystoscopy with left double-J stent on 05/17/2023, presented to the ER with diffuse abdominal pain and lack of BM for 3 days. Patient found with stercoral colitis
on CT and with leukocytosis, lactic acidosis, PAVEL, hyperkalemia and hyponatremia. UA +, but culture negative; now off levo and UOP/Cr improving
Plan:
1. Given increased distention, xray abdomen this morning.
2. C.diff ordered due to loose stools.
3. Off IV antibiotics since yesterday per ID. WBC up to 14.2. today.
4. On colace BID and Miralax PRN (patient refused this morning). Educated patient on need to take Miralax.
5. OOB with PT.
6. Per Dr. Bojorquez, no evidence of perineal wound infection.
7. Okay for DVT prophylaxis from our standpoint.
8. Dispo: skilled rehab.
Subjective Data
Subjective Data
Date of Service: June 13, 2023
Patient states she feels more bloated today. She has the hiccups. She still has liquid diarrhea. She denies nausea or vomiting. She has some left sided abdominal pain.
Objective Data
-
Vital Signs
Temp Pulse Resp BP Pulse Ox
97.7 F 96 24 151/74 97
06/13/23 07:35 06/13/23 07:35 06/13/23 07:35 06/13/23 07:35 06/13/23 07:35
Intake & Output
06/12/23 06/13/23 06/14/23
06:59 06:59 06:59
Intake Total 3077.1 / 3177.1 2380 / 2380
Output Total 775 / 775 575 / 575
Balance 2302.1 / 2402.1 1805 / 1805
Intake:
Oral fluids 460 / 460 2180 / 2180
IV fluids (Total) 2617.1 / 2717.1 200 / 200
Amio 217.1 / 217.1
Nss 1,000 ml @ 100 mls/hr IV . 2400 / 2500 200 / 200
Q10H EHSAN Rx#:[id number]
Output:
Liquid stool amount 200 / 200
Rectum 200 / 200
Urine, Chao 575 / 575 575 / 575
Other:
Number of unmeasured liquid
stools
Rectum 2
Lab Results
06/13/23 04:50
Physical Exam
-
General: No Acute Distress and AOx3
Abdomen: Soft, Distended (moderate) and Non Tender
Skin: Warm and Dry
[2023-06-13 09:21] LABS: Glucose 125 mg/dl (70-99)
[2023-06-13] MEDS: NOVOLOG FLEXPEN-LOW RESISTANCE SC ×2 (09:25→11:39)
[2023-06-13] MEDS: LOPRESSOR 12.5 MG PO ×2 (10:24→20:11)
[2023-06-13] MEDS: XANAX 0.125 MG PO (10:24)
--- NOTE | 2023-06-13 10:30 | W.PN.HOSP.TC ---
Today's Communication/Plan
-
prn Xanax added
reviewed with Dr. Strange, he will order follow up X-Ray
Assessment / Plan
Assessment / Plan
Septic shock likely secondary to stercoral colitis/abdominal source
resolved
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
s/p robotic rectopexy, sacrocolpopexy, posterior colporrhaphy, perineoplasty and cystoscopy with left ureteral stent for presumed kidney stone 05/17/2023
-s/p NGT removal.
-Having loose bowel movements.
06/12 stool just tested, C.Diff-Neg
-Lactic acidosis resolved.
6.9-->1.2
-PICC line ordered
WBC 8.8-->11.1-->14.2
-Started on Levophed and vasopressin. Off pressors as of 06/09.
-Antibiotics broadened to Vanco and meropenem per ID. Pro-Dylan significantly elevated 44. Creatinine elevated noted.
-Antibiotic further narrowed down to ceftriaxone. Vanco and meropenem discontinued per ID.
Abx now stopped
-Started on clear liquid and advanced to Regular diet per surgery.
-Appreciate ID, glaciologist, urology and colorectal surgery recs
Pt transferred from ICU last evening, now on 2S
Acute Kidney Injury likely multifactorial pre-renal volume depletion while on ACEI, recent bactrim usage, ATN?
-Placed Barr from strict Is&Os, nephrology wishes to continue barr for now
-Continue IVFS
-Trend Lactic Acid
-monitor urinary output
-Will defer further IVF to nephro.
-No hydro seen on CT scan
-Slowly improving Creatinine and with increasing urinary output
BUN/Creat 65/2.1-->58/1.9-->52/1.5
-Nephro consulted, input appreciated
New onset of Paroxysmal Afib with RVR on 06/09
currently in NSR with [facility] PAC's
-started on Amiodarone IV drip, now transitioned to 400 mg po bid
-Elevated ASV6OO8 Score
-ECHO in am
-Cards eval
discussed with Dr. Henley, cardio would like pt to start on Eliquis 2.5 bid, ordered
Hyperkalemia
K peaked at 6.6, now 3.7-->3.8
Severe Metabolic acidosis
-Resolved.
Pelvic Floor Prolapse s/p Robotic Rectopexy / Sacrocolpopexy on May 16
-Care as per Colorectal
Diabetes Mellitus, Type II
-HgbA1c 6.6 in April 2023
-Monitor sugars and continue coverage insulin
Essential Hypertension
-Holding meds as BP running on the low side, currently starting to rise as condition improves, now 138-163/62-75
Anxiety / Depression
-Will write for Ativan prn and continue standing dose at night
GERD
-Continue Protonix IV
Chronic Pain with Opioid Dependence
-Continue Dilaudid prn until able to resume oral meds and tolerating appropriate diet
-monitor closely.may require IV standing pain meds. Risk of opioid withdrawal
-Recommended to patient and spouse to start aggressive bowel regimen at home.
ADHD-hold off on restarting Adderall in the setting of new onset of A-fib
Severe anxiety-restart Xanax
Tobacco abuse
-Continue with nicotine patch
Peripheral Arterial Disease
-Stable
Hypokalemia-replete/monitor
DVT proph: SC Heparin
Code Status: Full Code
d/w with spouse at bedside in details 06/11
complex visit
Anticipated Discharge: > 48 hours
Subjective/Interval History
-
Date of Service: June 13, 2023
Apprehensive, multiple concerns. Abdominal pain slightly worse today
Objective Data
-
Labs:
Laboratory Results
06/13/23 06/13/23
04:50 09:01
WBC 14.2 H
Hgb 9.5 L
Hct 30.2 L
Plt Count 112 L D
Sodium 130 L
Potassium 3.8
Chloride 108 H
Carbon Dioxide 20 L
BUN 52 H
Creatinine 1.5 H
Glucose 130 H 125 H
Calcium 8.1 L
Total Bilirubin 0.5
AST 47 H
ALT 16
Alkaline Phosphatase 268 H
Vital Signs:
Vital Signs
Temp Pulse Resp BP Pulse Ox
97.7 F 145 24 151/74 97
06/13/23 07:35 06/13/23 10:24 06/13/23 07:35 06/13/23 07:35 06/13/23 07:35
I&O
06/12/23 06/13/23 06/14/23
06:59 06:59 06:59
Intake Total 3077.1 / 3177.1 2380 / 2380
Output Total 775 / 775 575 / 575
Balance 2302.1 / 2402.1 1805 / 1805
Review of Systems
-
History Source: Patient and Coordinated Provider
Constitutional: Denies Fever
EENT: Reports No Symptoms Reported
Respiratory: Reports No Symptoms
Cardiac: Reports No Symptoms
Abdomen/GI: Reports Abdominal Pain (improved) and Diarrhea
Genitourinary: Reports Other (barr in place, as per nephrology)
Physical Exam
-
General: Well Developed, Well Nourished, No Apparent Distress and Appears Chronically Ill
HEENT: Normocephalic, Atraumatic and Moist Mucous Membranes
Respiratory: Clear to Auscultation; Negative Wheezes, Rales or Rhonchi
Cardiac: Regular Rhythm (with freq extra systole), S1/S2 and Tachycardic (borderline)
GI: Soft, Normal Bowel Sounds, Tender (mildly tender) and Distended (minimal)
Musculoskeletal: No Clubbing, No Cyanosis and No Edema
Neuro: Awake, Alert and Oriented
[2023-06-13 11:20] LABS: Glucose - Point of Care 145 mg/dl (70-99)
--- NOTE | 2023-06-13 11:23 | W.PN.CD ---
Today's Communication / Plan
-
-Continue amiodarone 400 mg PO BID for 2 weeks, then 200 mg daily.
-Will add metoprolol tartrate 12.5 mg BID for now and increase as blood pressure will allow.
-Echocardiogram is ordered for today.
Impression / Plan
-
78-year-old woman with hypertension, COPD, diabetes mellitus, peripheral artery disease, asthma, with recent pelvic floor surgery for obstructive left ureteral stone and robotic s/p robotic suture rectopexy, sacrocolpopexy, posterior repair,
perineoplasty, cystoscopy with double J-left ureteral stenting on 05/17/[address] Guardado (double-J stent by Dr. Medina) who has developed sepsis. And is noted to have atrial fibrillation with rapid ventricle response while recovering from her
sepsis.
Paroxysmal atrial fibrillation
-Patient with RVR to 150s this a.m.
-Continue amiodarone 400 mg PO BID for 2 weeks, then 200 mg daily.
-C2V is a 6(age,gender,htn, pad, DM); continue Eliquis 2.5 mg twice a day due to her renal function and weight.
-Will add metoprolol tartrate 12.5 mg BID for now and increase as blood pressure will allow.
-Echocardiogram is ordered for today.
Septic shock:
-Improving; management as per primary team.
HTN: chronic, typically amlopdipine-benzopril; may not be able to resume as patient is now on metoprolol.
PAD:
-chronic, ?no statin, revisit as an outpatient
DM:
-Management as per primary team.
Physical Exam
Vital Signs/Labs
Vital Signs
Temp Pulse Resp BP Pulse Ox
97.7 F 145 24 151/74 97
06/13/23 07:35 06/13/23 10:24 06/13/23 07:35 06/13/23 07:35 06/13/23 07:35
06/12/23 06/13/23 06/14/23
06:59 06:59 06:59
Actual Weight 48.1 kg 48.308 kg
06/13/23 04:50
06/13/23 09:01
PT 17.8 Sec (11.4-14.6) H 06/09/23 15:59
INR 1.48 06/09/23 15:59
APTT 43.9 Sec (23.4-35.0) H 06/09/23 15:59
Magnesium 2.0 mg/dl (1.6-2.3) 06/12/23 03:05
Physical Exam
Constitutional: No acute distress and Comfortable
EENT: Anicteric
Cardiovascular: Rhythm & rate is regular, Pedal edema is absent, Systolic murmur present (2/6) and S1S2 is normal
Respiratory: Respiratory effort normal and Lungs clear to auscul.
GI: Soft
Neuro/Psych: AO x 3
Other: Skin (Warm, dry, intact)
Data Reviewed
-
Date of Service: June 13, 2023
EKG: Tracing Personally Visualized and interpreted (Telemetry: A-fib with RVR)
Medical Tests (PFT, Pathology etc): Discussed with Nurse
Labs: Labs Reviewed by me
[2023-06-13 11:30] VITALS: BP 122/76
--- NOTE | 2023-06-13 11:52 | PTCARENOTE ---
Patient HR in the 150's per tele. Sinus tach. Patient states she feels anxious. Dr. Pastrana and Dr. Angel made aware. Xanax 0.125 mg PO ordered and given. Lopressor 12.5 mg PO ordered and given. Patient now afib in the 100-120's. Patient remains
on tele. Will continue to monitor.
--- NOTE | 2023-06-13 13:52 | PTCARENOTE ---
Assisted patient to chair after much encouragement. Abdomen is significantly distended though patient denies nausea. No vomiting. Oxygen removed as patient was 97-98% on 2L. O2 on RA 93-95%. Family is concerned about patients condition. [place]
Avtar VOGEL made aware and stated she will call the later and that Dr. Strange is aware. No treatment changes at this time. Around 1330, informed staff that his was hyperventilating and he placed the nasal cannula on his .
Upon assessment, patient stated she was SOB. Patient stated that she was feeling better after the nasal cannula was in. Unknown to the or patient, the oxygen was off at that point. O2 sat at that time was 95% on RA. Patient informed that,
although she was feeling better, the oxygen was not on and she was doing fine on RA. Patient continues to sit in the chair and has been instructed to take slow deep breaths when she has that feeling again. Patient encouraged to stay up in the chair.
Ambulated patient in the room a short distance with assist x 2 and rolling walker with much encouragement. Will continue to monitor.
--- NOTE | 2023-06-13 14:40 | W.PN.NEPH.PH ---
Today's Communication / Plan
-
gentle iVF -isotonic
follow hyponatremia
Assessment/Plan
-
Assessment:
Hyperkalemia
Acute kidney injury
Hypotension
Sepsis
Recent urogynecologic surgery
Left ureteral stent
Metabolic alkalosis
Diabetes mellitus type 2
Stercoral colitis
Chronic pain
Plan:
PAVEL-cr improving to 1.5, barely non oliguric
may consider d/c barr if cr cont to improve in am
pt is on clear liquid dirt and poor intake -will start gentle IVF
Hyponatremia-check U osmo, U na, serum U acid
BP stable low dose BB resumed per cards
abd is more distended today-surg follows
abx per primary
afib per cards, echo pending, on Amio
d/w nursing
-
-
Date of Service: June 13, 2023
CC / HPI / ROS
-
Chief Complaint:
PAVEL
History of Present Illness:
BP stable
PAVEL/Cr down to 1.5
K now low 3.8
LFTs improving
on abx for sepsis
Review of Systems:
non oliguric with barr and urine is dark
no fever,
loose BMs per nursing in rectal pouch
Labs
-
Labs:
WBC 14.2 10^3/uL (4.8-10.8) H 06/13/23 04:50
RBC 3.70 10^6/uL (4.20-5.40) L 06/13/23 04:50
Hgb 9.5 g/dL (12.0-16.0) L 06/13/23 04:50
Hct 30.2 % (37.0-47.0) L 06/13/23 04:50
Plt Count 112 10^3/uL (130-400) L D 06/13/23 04:50
Sodium 130 mmol/L (135-145) L 06/13/23 04:50
Potassium 3.8 mmol/L (3.5-5.1) 06/13/23 04:50
Chloride 108 mmol/L (98-107) H 06/13/23 04:50
Carbon Dioxide 20 mmol/L (22-30) L 06/13/23 04:50
BUN 52 mg/dl (7-17) H 06/13/23 04:50
Creatinine 1.5 mg/dL (0.6-1.0) H 06/13/23 04:50
eGFR 35.23 06/13/23 04:50
Glucose 125 mg/dl (70-99) H 06/13/23 09:01
Calcium 8.1 mg/dl (8.4-10.2) L 06/13/23 04:50
Phosphorus 3.1 mg/dl (2.5-4.5) 06/12/23 03:05
Albumin 2.3 g/dl (3.5-5.0) L 06/13/23 04:50
Physical Exam
-
Vital Signs:
Vital Signs
Temp Pulse Resp BP Pulse Ox
98.3 F 122 21 122/76 95
06/13/23 13:58 06/13/23 11:30 06/13/23 11:30 06/13/23 11:30 06/13/23 13:58
Cardiovascular:: Regular rate and rhythm
Respiratory:: Bilateral: CTA (anteriorly)
Lung Excursion:: Normal
Abdomen:: Distended and Nontender
Extremity Edema:: None: Bilateral:
Barr Catheter: Yes
--- NOTE | 2023-06-13 14:49 | W.PN.ID1 ---
Date of Service
Date of Service: June 13, 2023
Today's Communication
Start po Vancomycin.
Assessment / Plan
# Probable C. diff diarrhea (off bowel regimen)
# Leukocytosis trending up
- recent antibiotics
- C. diff antigen positive, toxin negative
-AXR non-specific bowel pattern
- Treat empirically with Vancomycin 125 mg po q6h x 10 days.
-Follow wbc.
-Follow stool output and clinically.
- Continue enhanced precaution.
# s/p shock
# s/p recent severe constipation/stercoral colitis - still with residual abdominal pain
# PAVEL improving
# Recent status post robotic suture rectopexy, sacrocolpopexy, posterior repair and cystoscopy with left double-J stent, stone manipulation 05/16
- blood cx's neg to date.
- Ucx neg.
-CXR neg
- s/p 5days abx, dc'd 06/12/23.
#Additional Past Medical History:
COPD
Diabetes mellitus type 2
Hypertension
GERD
anxiety/depression
PAD
Chronic pain opioid dependence
ADD
Lumbar laminectomy
Pelvic organs/rectal prolapse status post robotic suture rectopexy, sacrocolpopexy, posterior repair and cystoscopy with left double-J stent, stone manipulation 05/17/23
Chief Complaint
-: Clinical Sepsis
Subjective / Review of Systems
Still with abdominal discomfort, but not as severe as before.
Appetite OK.
Per nurse, bowel regimen held, pt still with diarrhea.
Vital Signs / Physical Exam
Vital Signs
Vital Signs
Temp Pulse Resp BP Pulse Ox
98.3 F 122 21 122/76 95
06/13/23 13:58 06/13/23 11:30 06/13/23 11:30 06/13/23 11:30 06/13/23 13:58
Physical Exam
Constitutional: Acutely Ill
Cardiovascular: S1/S2 and Other (tachycardic)
Pulmonary: Clear
Gastrointestinal: Soft, Tender (mild diffuse), Distended (mild to moderate distendion) and Other (FMS: green-tinged brown liquid stool)
Genito-Urinary: Chao and Clear Urine (dark)
Extremities: Negative Edema
Neurological: Other (drowsy)
Objective Data
Lab Data
Lab Results
06/13/23 04:50
06/13/23 09:01
PT 17.8 Sec (11.4-14.6) H 06/09/23 15:59
INR 1.48 06/09/23 15:59
APTT 43.9 Sec (23.4-35.0) H 06/09/23 15:59
Estimated Creat Clear 23 ml/min 06/13/23 04:50
Lactic Acid 1.2 mmol/L (0.7-2.0) 06/10/23 04:25
Total Bilirubin 0.5 mg/dl (0.2-1.3) 06/13/23 04:50
AST 47 U/L (14-36) H 06/13/23 04:50
ALT 16 U/L (0-35) 06/13/23 04:50
Alkaline Phosphatase 268 U/L (38-126) H 06/13/23 04:50
Most recent labs reviewed.
Micro Results:
06/09/23 11:48 Blood Culture - Preliminary
Blood/Venous No Growth in 4 days- Final report to follow
06/09/23 10:35 Blood Culture - Preliminary
Blood/Venous No Growth in 4 days- Final report to follow
06/13/23 08:50 C. difficile GDH Antigen & Toxins - Final
Feces/Stool C. difficile antigen positive, toxin negative.
Clostridium difficile present, but toxin not detected.
Patient may be a carrier, colonized with nontoxinogenic
strain or the level of toxin in sample is below detection
limits. This information should be used in conjunction with
the patient's clinical history.
06/09/23 14:41 Urine Culture - Final
Urine NO GROWTH
AXR: Grossly nonspecific bowel gas pattern, markedly limited on single supine view only.
06/08/23 CT a/P: Large amount of stool throughout the colon, with increased amount of stool since examination of June 06, 2023. There is suggestion of colonic wall thickening, particularly involving the right colon, transverse colon, and splenic
flexure. Findings would be suggestive of stercoral colitis. No evidence for free intraperitoneal air. Distention of the stomach with fluid. Left ureteral stent is present
Care Review
Plan reviewed with: Other (Information Systems Consultant Shanel Gutierrez)
--- NOTE | 2023-06-13 14:51 | CM ---
Reviewed the chart notes. Diet is now clear liquid. PT PT recommendation is SNF. Referrals previously sent. Medicare is primary insurance. No precert required. [facility] willing to accept. [facility] based on bed availability at time of discharge may
have a bed to offer. CM continues to be available to patient/family and is monitoring medical plan for needs at discharge.
Plan: Discharge to SNF/rehab prior to transitioning home. No precert required.
[2023-06-13] MEDS: SODIUM BICARBONATE 1075 MEQ IV (15:18)
[2023-06-13 15:30] VITALS: BP 124/68
[2023-06-13 16:05] LABS: Uric Acid 7.8 mg/dl (2.5-6.2)
[2023-06-13 16:07] LABS: Osmolality Urine 499 mOsm/kg (300-900)
[2023-06-13 16:13] LABS: Urine Sodium < 5 mmol/L (30-90)
--- NOTE | 2023-06-13 16:44 | PTCARENOTE ---
Patient transferred to Room 332 due to enhanced contact precautions. Report given to Angeli Spain, Significant other made aware.
[2023-06-13 17:40] LABS: Glucose - Point of Care 181 mg/dl (70-99)
[2023-06-13] MEDS: FIRVANQ 125 MG PO (18:24)
[2023-06-13] MEDS: NOVOLOG FLEXPEN-LOW RESISTANCE 1 UNITS SC (18:24)
[2023-06-13 19:10] VITALS: BP 131/72
[2023-06-13 21:35] LABS: Glucose - Point of Care 168 mg/dl (70-99)
[2023-06-13] MEDS: XANAX 0.25 MG PO (22:15)
[2023-06-13] MEDS: LANTUS 0.0500000000000000028 UNITS SC (22:15)
[2023-06-13 23:35] VITALS: BP 132/67
[2023-06-14] MEDS: DILAUDID 1 MG IV ×7 (01:00→19:54)
[2023-06-14] MEDS: FIRVANQ 125 MG PO ×4 (01:06→18:02)
[2023-06-14 03:42] VITALS: BP 158/72
[2023-06-14 04:42] LABS: % Basophils 0.4 % (0-2); % Eosinophils 0.1 % (0-6); % Lymphocytes 7.2 % (20.5-51.1); % Monocytes 4.8 % (1.7-9.3); % Neutrophils 86.5 % (42.2-75.2); Absolute Basophils 0.1 10^3/uL (0-0.2); Absolute Immature Granulocytes 0.2 10^3/uL (0-0.05); Absolute Lymphocytes 1.8 10^3/uL (1.2-3.4); Absolute Monocytes 1.2 10^3/uL (0.1-0.6); Absolute Neutrophils 20.9 10^3/uL (1.4-6.5); Hematocrit 28.8 % (37.0-47.0); Hemoglobin 9.3 g/dL (12.0-16.0); Mean Corp Hgb Conc. 32.3 g/dL (33.0-37.0); Mean Corpuscular Hgb 25.6 pg (27.0-31.0); Mean Corpuscular Volume 79.3 fL (81.0-99.0); Mean Platelet Volume 11.5 fL (7.4-10.4); Nucleated Red Blood Cells % 0.1 %; Platelet Count 165 10^3/uL (130-400); Red Blood Cell Count 3.63 10^6/uL (4.20-5.40); Red Cell Dist. Width 15.7 % (11.5-14.5); White Blood Cell Count 24.2 10^3/uL (4.8-10.8)
[2023-06-14 05:10] LABS: Blood Urea Nitrogen 53 mg/dl (7-17); Calcium 8.2 mg/dl (8.4-10.2); Carbon Dioxide 23 mmol/L (22-30); Chloride 106 mmol/L (98-107); Glucose 129 mg/dl (70-99); Potassium 3.7 mmol/L (3.5-5.1); Sodium 131 mmol/L (135-145)
[2023-06-14 05:20] LABS: Estimated Creatinine Clearance 25 ml/min; eGFR 38.27
[2023-06-14 06:00] VITALS: BMI 19.9
[2023-06-14] MEDS: STERILE WATER FOR INJECTION IV (06:25)
[2023-06-14 07:00] VITALS: BP 146/67
[2023-06-14] MEDS: PACERONE 400 MG PO ×2 (07:45→19:52)
[2023-06-14] MEDS: COLACE PO (07:47)
[2023-06-14] MEDS: PROTONIX 40 MG PO (07:47)
[2023-06-14] MEDS: LOPRESSOR 12.5 MG PO ×2 (07:48→19:52)
[2023-06-14] MEDS: NICODERM TRANSDERMAL 14 MG TRANSDERM (07:49)
[2023-06-14] MEDS: NOVOLOG FLEXPEN-LOW RESISTANCE 1 UNITS SC (07:58)
[2023-06-14 08:09] LABS: Glucose - Point of Care 164 mg/dl (70-99)
--- NOTE | 2023-06-14 09:01 | W.PN.CRS1 ---
Today's Communication / Plan
-
Make NPO with IVF
Hold bowel regiment and Eliquis
Will order CTAP with p.o., no IV
Please remove rectal tube
Assessment/Plan
-
78yo female with a recent robotic suture rectopexy, sacroculpopexy, posterior repair and cystoscopy with left double-J stent on 05/17/2023, presented to the ER with diffuse abdominal pain and lack of BM for 3 days. Patient found with stercoral colitis
on CT and with leukocytosis, lactic acidosis, PAVEL, hyperkalemia and hyponatremia. UA +, but culture negative; now off levo and UOP/Cr improving
AF, HR 90s, normotensive
WBC 24.2 from 14.2, Hb 9.3, Cr 1.4 from 1.5
- Will order CTAP with PO contrast, hold on IV due to severe PAVEL
� Make NPO
� Continue pain control, avoid narcotics if possible
� Continue IV antibiotics; appreciate ID
-cdiff Ag positive, toxin negative; on PO vanc
�UA positive, urine culture; urosepsis less likely; appreciate urology
�Follow-up blood culture
�Hold bowel regimen; please remove rectal tube
�Hold Eliquis
� Continue Chao per primary, strict I/os; appreciate nephro
� Okay for OOB, encourage I-S
� Appreciate hospitalist
Subjective Data
Subjective Data
Date of Service: June 14, 2023
Overnight, more distended.
Complaining of back pain, still having some abdominal pain but mild.
Denies nausea/vomiting.
+ Rectal tube (not putting much out overnight) + Hcao
Objective Data
-
Vital Signs
Temp Pulse Resp BP Pulse Ox
98.0 F 90 16 146/67 96
06/14/23 07:00 06/14/23 07:00 06/14/23 07:00 06/14/23 07:48 06/14/23 07:00
Intake & Output
06/13/23 06/14/23 06/15/23
06:59 06:59 06:59
Intake Total 2380 / 2380 410 / 410 600 / 600
Output Total 575 / 575 540 / 540 300 / 300
Balance 1805 / 1805 -130 / -130 300 / 300
Intake:
Oral fluids 2180 / 2180 360 / 360
IV fluids (Total) 200 / 200 50 / 50 600 / 600
Nss 1,000 ml @ 100 mls/hr IV . 200 / 200
Q10H [facility] Rx#:[id number]
Output:
Liquid stool amount 310 / 310
Rectum 310 / 310
Urine, Chao 575 / 575 230 / 230 300 / 300
Lab Results
06/14/23 04:33
06/14/23 04:33
Physical Exam
-
General: No Acute Distress and AOx3
Abdomen: Soft, Distended (Moderately to severely distended, tympanic), Tender (Minimal to mild diffuse tenderness), No Guarding and No Rebound
Skin: Warm and Dry
--- NOTE | 2023-06-14 09:16 | W.PN.CD ---
Today's Communication / Plan
-
-
Cardiac plans:
amiodarone 400 mg PO BID through 06/22/2023
then Amio 200 mg daily on 06/23/2023
continue low dose metoprolol PO
In office consider stopping Amio in 3-6 months�
continue Eliquis 2.[address] Flores in our office 2 months
Please call with questions
Impression / Plan
-
78-year-old woman with hypertension, COPD, diabetes mellitus, peripheral artery disease, asthma, with recent pelvic floor surgery for obstructive left ureteral stone and robotic s/p robotic suture rectopexy, sacrocolpopexy, posterior repair,
perineoplasty, cystoscopy with double J-left ureteral stenting on 05/17/[address] Guardado (double-J stent by Dr. Medina) who has developed sepsis. And is noted to have atrial fibrillation with rapid ventricle response while recovering from her
sepsis.
Paroxysmal atrial fibrillation
- Rate 120's 06/13/2023 then broke to NSR with PACs and short runs of AT
- Continue amiodarone 400 mg PO BID through 06/22/2023, then 200 mg daily on 06/23/2023
- Continue low dose metoprolol PO
- In office consider stopping Amio in 3-6 months
- [id number](age, gender, htn, pad, DM) => Eliquis 2.5 mg twice a day due to her renal function and weight.
Concern for C Diff or other abdominal process
HTN
PAD
DM
Subjective: No CP, dyspnea, or palps
Echo 06/12/2023: LVEF 70-75%, Mild/mod MR, Mild MS,Mild/mod , Mod TR. PASP 58 mmHg RA 3 mmHg.
Physical Exam
Vital Signs/Labs
Vital Signs
Temp Pulse Resp BP Pulse Ox
98.0 F 90 16 146/67 96
06/14/23 07:00 06/14/23 07:00 06/14/23 07:00 06/14/23 07:48 06/14/23 07:00
06/13/23 06/14/23 06/15/23
06:59 06:59 06:59
Actual Weight 48.308 kg 47.809 kg
06/14/23 04:33
06/14/23 04:33
PT 17.8 Sec (11.4-14.6) H 06/09/23 15:59
INR 1.48 06/09/23 15:59
APTT 43.9 Sec (23.4-35.0) H 06/09/23 15:59
Magnesium 2.0 mg/dl (1.6-2.3) 06/12/23 03:05
Physical Exam
Constitutional: No acute distress
EENT: Anicteric
Cardiovascular: Rhythm & rate is regular and Pedal edema is absent
Respiratory: Respiratory effort normal
GI: Soft
Neuro/Psych: Alert
Data Reviewed
-
Date of Service: June 14, 2023
--- NOTE | 2023-06-14 09:19 | W.PN.UPDATE ---
Update Note
Progress Note Update
I left a voicemail on her significant other's answering machine updating him that we are performing a CT A/P on the patient.
--- NOTE | 2023-06-14 10:13 | W.PN.HOSP.TC ---
Today's Communication/Plan
-
CT scan of abd
Reviewed situation with both in and out of room
reviewed with Dr. Lockhart
Assessment / Plan
Assessment / Plan
Septic shock likely secondary to stercoral colitis/abdominal source
resolved
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
s/p robotic rectopexy, sacrocolpopexy, posterior colporrhaphy, perineoplasty and cystoscopy with left ureteral stent for presumed kidney stone 05/17/2023
-s/p NGT removal.
-Having loose bowel movements.
06/12 stool just tested, C.Diff-Antigen pos, Toxin neg
-Lactic acidosis resolved.
6.9-->1.2
-PICC line ordered
WBC 8.8-->11.1-->14.2-->24.2
Call placed and discussed with Dr. Lockhart. CT scan with oral contrast has been ordered. ID wishes to treat empirically with oral Vanco in pt on recent abx
-Started on Levophed and vasopressin. Off pressors as of 06/09.
-Antibiotics broadened to Vanco and meropenem per ID. Pro-Dylan significantly elevated 44. Creatinine elevated noted.
-Antibiotic further narrowed down to ceftriaxone. Vanco and meropenem discontinued per ID.
Abx now stopped
-Started on clear liquid and advanced to Regular diet per surgery.
-Appreciate ID, safety scientist, urology and colorectal surgery recs
Pt transferred from ICU 06/11, now on 3W
Acute Kidney Injury likely multifactorial pre-renal volume depletion while on ACEI, recent bactrim usage, ATN?
-Placed Barr from strict Is&Os, nephrology wishes to continue barr for now
-Continue IVFS
-Trend Lactic Acid
-monitor urinary output
-With pt now NPO, will continue IVF, defer type of IVF to nephro.
-No hydro seen on CT scan
-Slowly improving Creatinine and with increasing urinary output
BUN/Creat 65/2.1-->58/1.9-->52/1.5-->53/1.4
-Nephro consulted, input appreciated
New onset of Paroxysmal Afib with RVR on 06/09
currently in NSR with freq PAC's
-started on Amiodarone IV drip, now transitioned to 400 mg po bid through 06/21, then start 200 mg bid, as per cardio
pt just made NPO pending CT scan, pending results, may need to transition Amio back to IV
-Elevated [id number] Score
-ECHO in am
-Cards eval
discussed with Dr. Henley, cardio would like pt to start on Eliquis 2.5 bid, ordered, but now on hold pending work up of GI process
Hyperkalemia
K peaked at 6.6, now 3.7-->3.8-->3.7
Severe Metabolic acidosis
-Resolved.
Pelvic Floor Prolapse s/p Robotic Rectopexy / Sacrocolpopexy on May 16
-Care as per Colorectal
Diabetes Mellitus, Type II
-HgbA1c 6.6 in April 2023
-Monitor sugars and continue coverage insulin
Essential Hypertension
-Holding meds as BP running on the low side, currently starting to rise as condition improves, now 138-163/62-75
Anxiety / Depression
-Will write for Ativan prn and continue standing dose at night
GERD
-Continue Protonix IV
Chronic Pain with Opioid Dependence
-Continue Dilaudid prn until able to resume oral meds and tolerating appropriate diet
-monitor closely.may require IV standing pain meds. Risk of opioid withdrawal
-Recommended to patient and spouse to start aggressive bowel regimen at home.
ADHD-hold off on restarting Adderall in the setting of new onset of A-fib
Severe anxiety-restart Xanax
Tobacco abuse
-Continue with nicotine patch
Peripheral Arterial Disease
-Stable
Hypokalemia-replete/monitor
DVT proph: SC Heparin
Code Status: Full Code
d/w with spouse at bedside in details 06/13. Had appropriate many concerns. >15 minutes spent with reviewing situation
complex visit
time 55 minutes
Anticipated Discharge: > 48 hours
Subjective/Interval History
-
Date of Service: June 14, 2023
Still with abdominal pain and distention
Objective Data
-
Labs:
Laboratory Results
06/14/23
04:33
WBC 24.2 H
Hgb 9.3 L
Hct 28.8 L
Plt Count 165 D
Sodium 131 L
Potassium 3.7
Chloride 106
Carbon Dioxide 23
BUN 53 H
Creatinine 1.4 H
Glucose 129 H
Calcium 8.2 L
Vital Signs:
Vital Signs
Temp Pulse Resp BP Pulse Ox
98.0 F 90 16 146/67 96
06/14/23 07:00 06/14/23 07:00 06/14/23 07:00 06/14/23 07:48 06/14/23 07:00
I&O
06/13/23 06/14/23 06/15/23
06:59 06:59 06:59
Intake Total 2380 / 2380 410 / 410 600 / 600
Output Total 575 / 575 540 / 540 300 / 300
Balance 1805 / 1805 -130 / -130 300 / 300
Review of Systems
-
History Source: Patient and Coordinated Provider
Constitutional: Denies Fever
EENT: Reports No Symptoms Reported
Respiratory: Reports No Symptoms
Cardiac: Reports No Symptoms
Abdomen/GI: Reports Abdominal Pain and Diarrhea (passage of stool has slowed, rectal tube in place)
Genitourinary: Reports Other (barr in place, as per nephrology)
Physical Exam
-
General: Well Developed, Well Nourished and No Apparent Distress
HEENT: Normocephalic, Atraumatic and Moist Mucous Membranes
Respiratory: Clear to Auscultation; Negative Wheezes, Rales or Rhonchi
Cardiac: Regular Rhythm and S1/S2
GI: Tender and Distended; Negative Normal Bowel Sounds (hypoactive BS)
Musculoskeletal: No Clubbing, No Cyanosis and No Edema
Neuro: Awake, Alert and Oriented
--- NOTE | 2023-06-14 10:55 | W.PN.NEPH.PH ---
Today's Communication / Plan
-
Isotonic saline
Assessment/Plan
-
Assessment:
Hyperkalemia
Acute kidney injury
Hypotension
Sepsis
Recent urogynecologic surgery
Left ureteral stent
Metabolic alkalosis
Diabetes mellitus type 2
Stercoral colitis
Chronic pain
Plan:
PAVEL-cr improving to 1.4, barely non oliguric ~500
serum sodium up to 131
may consider d/c barr if cr cont to improve in am
Change IV fluids to normal saline
Hyponatremia-check U osmo, U na, serum U acid : Urine osmolality of 499 urine sodium less than 5
BP stable low dose BB resumed per cards
abd is more distended today-surg follows
abx per primary
afib per cards
Cardiac echo reviewed hyperdynamic left ventricular systolic function moderate tricuspid regurg , elevated pulmonary pressures
d/w nursing
-
-
Date of Service: June 14, 2023
CC / HPI / ROS
-
Chief Complaint:
PAVEL
History of Present Illness:
BP stable
PAVEL/Cr down to 1.4
K now low 3.7
LFTs improving
on abx for sepsis
Review of Systems:
non oliguric with barr and urine is dark
no fever,
loose BMs per nursing in rectal pouch
Labs
-
Labs:
WBC 24.2 10^3/uL (4.8-10.8) H 06/14/23 04:33
RBC 3.63 10^6/uL (4.20-5.40) L 06/14/23 04:33
Hgb 9.3 g/dL (12.0-16.0) L 06/14/23 04:33
Hct 28.8 % (37.0-47.0) L 06/14/23 04:33
Plt Count 165 10^3/uL (130-400) D 06/14/23 04:33
Sodium 131 mmol/L (135-145) L 06/14/23 04:33
Potassium 3.7 mmol/L (3.5-5.1) 06/14/23 04:33
Chloride 106 mmol/L (98-107) 06/14/23 04:33
Carbon Dioxide 23 mmol/L (22-30) 06/14/23 04:33
BUN 53 mg/dl (7-17) H 06/14/23 04:33
Creatinine 1.4 mg/dL (0.6-1.0) H 06/14/23 04:33
eGFR 38.27 06/14/23 04:33
Glucose 129 mg/dl (70-99) H 06/14/23 04:33
Calcium 8.2 mg/dl (8.4-10.2) L 06/14/23 04:33
Phosphorus 3.1 mg/dl (2.5-4.5) 06/12/23 03:05
Albumin 2.3 g/dl (3.5-5.0) L 06/13/23 04:50
Physical Exam
-
Vital Signs:
Vital Signs
Temp Pulse Resp BP Pulse Ox
98.0 F 90 16 146/67 96
06/14/23 07:00 06/14/23 07:00 06/14/23 07:00 06/14/23 07:48 06/14/23 07:00
Respiratory:: Bilateral: CTA
Lung Excursion:: Normal
Abdomen:: Nontender and Soft
Bowel Sounds:: Normal
Extremity Edema:: None: Bilateral:
Barr Catheter: Yes
[2023-06-14 11:54] VITALS: BP 124/71
[2023-06-14] MEDS: NSS 1000 IV (12:19)
[2023-06-14] MEDS: OMNIPAQUE 50 ML PO (12:24)
[2023-06-14 12:41] LABS: Glucose - Point of Care 144 mg/dl (70-99)
[2023-06-14] MEDS: NOVOLOG FLEXPEN-LOW RESISTANCE SC ×2 (12:51→17:42)
--- NOTE | 2023-06-14 14:06 | W.PN.ID1 ---
Addendum entered and electronically signed by Zoraida Pete MD 06/14/23 15:51:
CT reviewed - suggests ileus, also note possible cirrhotic morphology of the liver moderate ascites
- recommend paracentesis for cell count and culture
- aerobic and anaerobic
- consulted IR
- continue oral vanc, added ceftrixone, continue IV metronidazole (note penicillin allergy)
Original Note:
Date of Service
Date of Service: June 14, 2023
Today's Communication
await formal read of CT abd
add IV metronidazole for now
Assessment / Plan
# Leukocytosis - progressing
# Probable C. diff diarrhea (off bowel regimen)
- agree with urgent CT abd
- await formal radiology read; my read: small bilateral pleural effusions, ileus?, Im unclear on pigtail positioning
- recent antibiotics noted
- C. diff antigen positive, toxin negative
- continue Treat empirically with Vancomycin 125 mg po q6h x 10 days.
- add metronidazole for now
-Follow wbc.
-Follow stool output and clinically.
- Continue enhanced precautions.
# s/p shock
# s/p recent severe constipation/stercoral colitis - still with residual abdominal pain
# PAVEL improving
# Recent status post robotic suture rectopexy, sacrocolpopexy, posterior repair and cystoscopy with left double-J stent, stone manipulation 05/16
- blood cx's neg to date.
- Ucx neg.
-CXR neg
- s/p 5days abx, dc'd 06/12/23.
#Additional Past Medical History:
COPD
Diabetes mellitus type 2
Hypertension
GERD
anxiety/depression
PAD
Chronic pain opioid dependence
ADD
Lumbar laminectomy
Pelvic organs/rectal prolapse status post robotic suture rectopexy, sacrocolpopexy, posterior repair and cystoscopy with left double-J stent, stone manipulation 05/17/23
Chief Complaint
-: Leukocytosis, Clinical Sepsis and C-diff
Subjective / Review of Systems
afebrile
bp stable
further progression of leukocytosis
thrombocytopenia resovled
progression of L shift
cr stable
elevated procalcitonin on 06/09 not reliable with cr of 2.9
06/08 urine culture no growth
abd quite distended, reporting onging abdominal pain and back pain she relates to scoliosis
Vital Signs / Physical Exam
Vital Signs
Vital Signs
Temp Pulse Resp BP Pulse Ox
97.7 F 85 18 124/71 97
06/14/23 11:54 06/14/23 11:54 06/14/23 11:54 06/14/23 11:54 06/14/23 11:54
Physical Exam
Constitutional: No Acute Distress and Chronically Ill
Cardiovascular: Regular Rate and S1/S2; Negative Murmur or Rub
Pulmonary: Clear and Symmetric; Negative Wheezes or Rales
Gastrointestinal: Soft, Tender, Distended, No Rebound and No Guarding
Skin: Warm and Dry; Negative Rash or Jaundice
Neurological: Awake
Objective Data
Lab Data
Lab Results
06/14/23 04:33
06/14/23 04:33
PT 17.8 Sec (11.4-14.6) H 06/09/23 15:59
INR 1.48 06/09/23 15:59
APTT 43.9 Sec (23.4-35.0) H 06/09/23 15:59
Estimated Creat Clear 25 ml/min 06/14/23 04:33
Lactic Acid 1.2 mmol/L (0.7-2.0) 06/10/23 04:25
Total Bilirubin 0.5 mg/dl (0.2-1.3) 06/13/23 04:50
AST 47 U/L (14-36) H 06/13/23 04:50
ALT 16 U/L (0-35) 06/13/23 04:50
Alkaline Phosphatase 268 U/L (38-126) H 06/13/23 04:50
Most recent labs reviewed.
Micro Results:
06/09/23 11:48 Blood Culture - Final
Blood/Venous No Growth - Final Report
06/09/23 10:35 Blood Culture - Final
Blood/Venous No Growth - Final Report
06/13/23 08:50 C. difficile GDH Antigen & Toxins - Final
Feces/Stool C. difficile antigen positive, toxin negative.
Clostridium difficile present, but toxin not detected.
Patient may be a carrier, colonized with nontoxinogenic
strain or the level of toxin in sample is below detection
limits. This information should be used in conjunction with
the patient's clinical history.
06/09/23 14:41 Urine Culture - Final
Urine NO GROWTH
AXR: Grossly nonspecific bowel gas pattern, markedly limited on single supine view only.
06/08/23 CT a/P: Large amount of stool throughout the colon, with increased amount of stool since examination of June 06, 2023. There is suggestion of colonic wall thickening, particularly involving the right colon, transverse colon, and splenic
flexure. Findings would be suggestive of stercoral colitis. No evidence for free intraperitoneal air. Distention of the stomach with fluid. Left ureteral stent is present
[2023-06-14 15:00] VITALS: BP 145/70
[2023-06-14] MEDS: FLAGYL 500 MG 100 IV (15:01)
[2023-06-14] MEDS: STERILE WATER FOR INJECTION 20 ML IV (16:44)
[2023-06-14] MEDS: ROCEPHIN 2000 MG IV (16:45)
[2023-06-14 17:38] LABS: Glucose - Point of Care 132 mg/dl (70-99)
[2023-06-14] MEDS: XANAX 0.125 MG PO (18:02)
[2023-06-14 19:35] VITALS: BP 143/72
[2023-06-14 21:30] LABS: Glucose - Point of Care 135 mg/dl (70-99)
[2023-06-14] MEDS: LANTUS 0.0500000000000000028 UNITS SC (21:34)
[2023-06-14] MEDS: XANAX 0.25 MG PO (21:34)
[2023-06-14 23:39] VITALS: BP 157/70
[2023-06-15] MEDS: FLAGYL 500 MG 100 IV ×3 (00:46→15:38)
[2023-06-15] MEDS: FIRVANQ 125 MG PO ×4 (00:46→17:03)
[2023-06-15] MEDS: NSS 1000 IV ×2 (00:49→07:27)
[2023-06-15] MEDS: DILAUDID 1 MG IV ×7 (00:50→21:26)
[2023-06-15 05:02] LABS: Blood Urea Nitrogen 54 mg/dl (7-17); Carbon Dioxide 18 mmol/L (22-30); Chloride 108 mmol/L (98-107); Estimated Creatinine Clearance 25 ml/min; Glucose 107 mg/dl (70-99); Potassium 3.6 mmol/L (3.5-5.1); Sodium 133 mmol/L (135-145); eGFR 38.27
[2023-06-15 05:15] LABS: % Basophils 0.6 % (0-2); % Eosinophils 0.1 % (0-6); % Immature Granulocytes 1.1 % (0-0.5); % Lymphocytes 5.4 % (20.5-51.1); % Monocytes 3.6 % (1.7-9.3); % Neutrophils 89.2 % (42.2-75.2); Absolute Basophils 0.2 10^3/uL (0-0.2); Absolute Immature Granulocytes 0.3 10^3/uL (0-0.05); Absolute Lymphocytes 1.6 10^3/uL (1.2-3.4); Absolute Neutrophils 25.5 10^3/uL (1.4-6.5); Hematocrit 25.7 % (37.0-47.0); Hemoglobin 8.6 g/dL (12.0-16.0); Mean Corp Hgb Conc. 33.5 g/dL (33.0-37.0); Mean Corpuscular Hgb 25.9 pg (27.0-31.0); Mean Corpuscular Volume 77.4 fL (81.0-99.0); Nucleated Red Blood Cells % 0 %; Platelet Count 246 10^3/uL (130-400); Red Blood Cell Count 3.32 10^6/uL (4.20-5.40); Red Cell Dist. Width 15.8 % (11.5-14.5); White Blood Cell Count 28.5 10^3/uL (4.8-10.8)
[2023-06-15 05:43] LABS: Glucose - Point of Care 95 mg/dl (70-99)
[2023-06-15 06:00] VITALS: BMI 20.9
[2023-06-15] MEDS: NOVOLOG FLEXPEN-LOW RESISTANCE SC (06:22)
[2023-06-15 07:00] VITALS: BP 160/76
[2023-06-15] MEDS: NICODERM TRANSDERMAL 14 MG TRANSDERM (07:27)
[2023-06-15] MEDS: PACERONE 400 MG PO ×2 (07:28→21:26)
[2023-06-15] MEDS: PROTONIX 40 MG PO (07:30)
[2023-06-15] MEDS: LOPRESSOR 12.5 MG PO ×2 (07:30→21:26)
--- NOTE | 2023-06-15 10:21 | W.PN.NEPH.PH ---
Today's Communication / Plan
-
d5NS while npo
Assessment/Plan
-
Assessment:
Hyperkalemia
Acute kidney injury
Hypotension
Sepsis
Recent urogynecologic surgery
Left ureteral stent
Metabolic alkalosis
Diabetes mellitus type 2
Stercoral colitis
Chronic pain
Ileus
Plan:
PAVEL-cr unchanged at 1.4, barely non oliguric ~550, weights rising
serum sodium up to 133
may consider d/c barr if cr cont to improve in am
change IVFs to D5NS as patient npo
Hyponatremia-check U osmo, U na, serum U acid : Urine osmolality of 499 urine sodium less than 5
BP stable low dose BB resumed per cards
remains NPO for possible Ileus
abx per primary
afib per cards
Cardiac echo reviewed hyperdynamic left ventricular systolic function moderate tricuspid regurg , elevated pulmonary pressures
d/w nursing
-
-
Date of Service: June 15, 2023
CC / HPI / ROS
-
Chief Complaint:
PAVEL
History of Present Illness:
BP stable
PAVEL/Cr down to 1.4
K now low 3.6
LFTs improving
on abx for sepsis
Review of Systems:
non oliguric with barr and urine is dark
weights up
no fever,
loose BMs per nursing in rectal pouch
Labs
-
Labs:
WBC 28.5 10^3/uL (4.8-10.8) H 06/15/23 04:21
RBC 3.32 10^6/uL (4.20-5.40) L 06/15/23 04:21
Hgb 8.6 g/dL (12.0-16.0) L 06/15/23 04:21
Hct 25.7 % (37.0-47.0) L 06/15/23 04:21
Plt Count 246 10^3/uL (130-400) D 06/15/23 04:21
Sodium 133 mmol/L (135-145) L 06/15/23 04:21
Potassium 3.6 mmol/L (3.5-5.1) 06/15/23 04:21
Chloride 108 mmol/L (98-107) H 06/15/23 04:21
Carbon Dioxide 18 mmol/L (22-30) L 06/15/23 04:21
BUN 54 mg/dl (7-17) H 06/15/23 04:21
Creatinine 1.4 mg/dL (0.6-1.0) H 06/15/23 04:21
eGFR 38.27 06/15/23 04:21
Glucose 107 mg/dl (70-99) H 06/15/23 04:21
Calcium 8.0 mg/dl (8.4-10.2) L 06/15/23 04:21
Phosphorus 3.1 mg/dl (2.5-4.5) 06/12/23 03:05
Albumin 2.3 g/dl (3.5-5.0) L 06/13/23 04:50
Physical Exam
-
Vital Signs:
Vital Signs
Temp Pulse Resp BP Pulse Ox
97.5 F 85 16 128/72 97
06/15/23 07:00 06/15/23 07:00 06/15/23 07:00 06/15/23 07:30 06/15/23 07:00
Cardiovascular:: Regular rate and rhythm
Respiratory:: Bilateral: Coarse
Lung Excursion:: Normal
Abdomen:: Distended and Nontender
Bowel Sounds:: Decreased
Extremity Edema:: None: Bilateral:
Barr Catheter: Yes
--- NOTE | 2023-06-15 10:39 | W.PN.CRS1 ---
Today's Communication / Plan
-
abdominal xrays
IR for fluid aspiration
Assessment/Plan
-
78yo female with a recent robotic suture rectopexy, sacroculpopexy, posterior repair and cystoscopy with left double-J stent on 05/17/2023, presented to the ER with diffuse abdominal pain and lack of BM for 3 days. Patient found with stercoral colitis
on CT and with leukocytosis, lactic acidosis, PAVEL, hyperkalemia and hyponatremia. UA +, but culture negative; now off levo and UOP/Cr improving
Plan:
1. Given increased distention, will repeat xray abdomen this morning (given contrast yesterday, will evaluate if still present).
2. C.diff treatment per ID.
3. Given fluid in the pelvic cavity, IR consulted for cultures and cell count.
4. CT results again discussed with patient and son.
5. OOB with PT.
6. Eliquis currently on hold.
7. Okay for DVT prophylaxis from our standpoint.
8. Dispo: skilled rehab.
Subjective Data
Subjective Data
Date of Service: June 15, 2023
Patient states she feels bloated but is slightly improved from yesterday. She has diffuse abdominal pain throughout, mild. She has flatus. She is hungry. She denies nausea or vomiting. She has liquid bowel movements.
Objective Data
-
Vital Signs
Temp Pulse Resp BP Pulse Ox
97.5 F 85 16 128/72 97
06/15/23 07:00 06/15/23 07:00 06/15/23 07:00 06/15/23 07:30 06/15/23 07:00
Intake & Output
06/14/23 06/15/23 06/16/23
06:59 06:59 06:59
Intake Total 410 / 410 1800 / 1800
Output Total 540 / 540 850 / 850
Balance -130 / -130 950 / 950
Intake:
Oral fluids 360 / 360
IV fluids (Total) 50 / 50 1700 / 1700
IV piggybacks 100 / 100
Output:
Liquid stool amount 310 / 310
Rectum 310 / 310
Urine, Chao 230 / 230 850 / 850
Lab Results
06/15/23 04:21
06/15/23 04:21
Physical Exam
-
General: No Acute Distress and AOx3
Abdomen: Soft, Distended (slightly improved) and Tender (mild throughout)
Skin: Warm and Dry
[2023-06-15] MEDS: D5/0.9% with KCL 20 MEQ 1000 IV (12:04)
[2023-06-15 12:20] LABS: Glucose - Point of Care 310 mg/dl (70-99)
[2023-06-15] MEDS: NOVOLOG FLEXPEN-LOW RESISTANCE 4 UNITS SC (12:38)
--- NOTE | 2023-06-15 12:43 | W.PN.HOSP.TC ---
Today's Communication/Plan
-
concern for rising WBC, will need to discuss further with CRS
Assessment / Plan
Assessment / Plan
Septic shock likely secondary to stercoral colitis/abdominal source
resolved
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
s/p robotic rectopexy, sacrocolpopexy, posterior colporrhaphy, perineoplasty and cystoscopy with left ureteral stent for presumed kidney stone 05/17/2023
-s/p NGT removal.
-Having loose bowel movements.
06/12 stool tested, C.Diff-Antigen pos, Toxin neg
-Lactic acidosis resolved.
6.9-->1.2
-PICC line ordered
WBC 8.8-->11.1-->14.2-->24.2-->28.5
Call placed and discussed with Dr. Lockhart 06/13, just placed call today, left message, await return call. CT scan: Small bilateral pleural effusions, left larger than right. Both new.
Mild left lower lobe consolidation. New.
Findings suggesting severe volume overload or third spacing. New.
Mild abdominopelvic ascites. New.
Findings suggesting cirrhosis.
Moderate colonic distention. Stable. Previous fecal material has passed. This probably due to colonic ileus.
Nonobstructing left renal stones. Decreased in size
Left double-J stent. Stable.
Barr catheter. New.
ID wishes to treat empirically with oral Vanco in pt on recent abx
-Had been started on Levophed and vasopressin. Off pressors as of 06/09.
-Antibiotics broadened to Vanco and meropenem per ID. Pro-Dylan significantly elevated 44. Creatinine elevated noted.
-Antibiotic further narrowed down to ceftriaxone. Vanco and meropenem discontinued per ID.
Abx now stopped
-Started on clear liquid and advanced to Regular diet, now NPO
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
Pt transferred from ICU 06/11, now on 3W
Acute Kidney Injury likely multifactorial pre-renal volume depletion while on ACEI, recent bactrim usage, ATN?
-Placed Barr from strict Is&Os, nephrology wishes to continue barr for now
-Continue IVFS
-Trend Lactic Acid
-monitor urinary output
-With pt now NPO, will continue IVF, defer type of IVF to nephro.
-No hydro seen on CT scan
-Slowly improving Creatinine and with increasing urinary output
BUN/Creat 65/2.1-->58/1.9-->52/1.5-->53/1.4
-Nephro consulted, input appreciated
New onset of Paroxysmal Afib with RVR on 06/09
[facility]
-started on Amiodarone IV drip, now transitioned to 400 mg po bid through 06/21, then start 200 mg bid, as per cardio
pt just made NPO pending CT scan, pending results, may need to transition Amio back to IV
-Elevated [id number] Score
-ECHO in am
-Cards eval
discussed with Dr. Henley, cardio would like pt to start on Eliquis 2.5 bid, ordered, but now on hold pending work up of GI process
Hyperkalemia
K peaked at 6.6, now 3.7-->3.8-->3.7
Severe Metabolic acidosis
-Resolved.
Pelvic Floor Prolapse s/p Robotic Rectopexy / Sacrocolpopexy on May 16
-Care as per Colorectal
Diabetes Mellitus, Type II
-HgbA1c 6.6 in April 2023
-Monitor sugars and continue coverage insulin
Essential Hypertension
-Holding meds as BP running on the low side, currently starting to rise as condition improves, now 138-163/62-75
Anxiety / Depression
-Will write for Ativan prn and continue standing dose at night
GERD
-Continue Protonix IV
Chronic Pain with Opioid Dependence
-Continue Dilaudid prn until able to resume oral meds and tolerating appropriate diet
-monitor closely.may require IV standing pain meds. Risk of opioid withdrawal
-Recommended to patient and spouse to start aggressive bowel regimen at home.
ADHD-hold off on restarting Adderall in the setting of new onset of A-fib
Severe anxiety-restart Xanax
Tobacco abuse
-Continue with nicotine patch
Peripheral Arterial Disease
-Stable
Hypokalemia-replete/monitor
DVT proph: SC Heparin
Code Status: Full Code
d/w with spouse at bedside in details 06/14. Had appropriate many concerns. >15 minutes spent with reviewing situation
complex visit
time 55 minutes
Anticipated Discharge: > 48 hours
Subjective/Interval History
-
Date of Service: June 15, 2023
Abd remains distended, tender, possibly slightly less past 24 hrs
Objective Data
-
Labs:
Laboratory Results
06/15/23
04:21
WBC 28.5 H
Hgb 8.6 L
Hct 25.7 L
Plt Count 246 D
Sodium 133 L
Potassium 3.6
Chloride 108 H
Carbon Dioxide 18 L
BUN 54 H
Creatinine 1.4 H
Glucose 107 H
Calcium 8.0 L
Vital Signs:
Vital Signs
Temp Pulse Resp BP Pulse Ox
97.5 F 85 16 128/72 97
06/15/23 07:00 06/15/23 07:00 06/15/23 07:00 06/15/23 07:30 06/15/23 07:00
I&O
06/14/23 06/15/23 06/16/23
06:59 06:59 06:59
Intake Total 410 / 410 1800 / 1800
Output Total 540 / 540 850 / 850
Balance -130 / -130 950 / 950
Review of Systems
-
History Source: Patient, Family (reviewed with ) and Coordinated Provider
Constitutional: Denies Fever
EENT: Reports No Symptoms Reported
Respiratory: Reports No Symptoms
Cardiac: Reports No Symptoms
Abdomen/GI: Reports Abdominal Pain, Diarrhea (multiple episodes), Pain and Bloated
Physical Exam
-
General: Well Developed, No Apparent Distress and Appears Chronically Ill
HEENT: Normocephalic, Atraumatic and Moist Mucous Membranes
Respiratory: Clear to Auscultation; Negative Wheezes, Rales or Rhonchi
Cardiac: Regular Rhythm and S1/S2
GI: Tender and Distended; Negative Normal Bowel Sounds (more active today, but still diminished)
Musculoskeletal: No Clubbing, No Cyanosis and No Edema
--- NOTE | 2023-06-15 14:44 | EDCM ---
demand planning manager following for d/c planning
Pt for snf when medically ready
Accepted at [facility] and [facility] pend bed availability - no auth required
CM available for d/c needs
Plan - anticipate SNF at d/c - TBD pend bed availability on day of d/c
[2023-06-15 15:00] VITALS: BP 139/67
[2023-06-15] MEDS: STERILE WATER FOR INJECTION 20 ML IV (15:39)
[2023-06-15] MEDS: ROCEPHIN 2000 MG IV (15:39)
--- NOTE | 2023-06-15 16:33 | W.PN.ID1 ---
Date of Service
Date of Service: June 15, 2023
Today's Communication
continue current antibiotics at this time (just adjusted)
follow cbc
Assessment / Plan
# Leukocytosis - progressing
# Probable C. diff diarrhea (off bowel regimen)
- notifed by IR that ascites are not approachable
- C. diff antigen positive, toxin negative
- continue Treat empirically with Vancomycin 125 mg po q6h x 10 days.
- continue ceftriaxone/metronidazole for now - if not seeing further improvement may adjust; note that less than 12 hours from last change to AM cbc
-Follow wbc.
-Follow stool output and clinically.
- Continue enhanced precautions.
# s/p shock
# s/p recent severe constipation/stercoral colitis - still with residual abdominal pain
# PAVEL improving
# Recent status post robotic suture rectopexy, sacrocolpopexy, posterior repair and cystoscopy with left double-J stent, stone manipulation 05/16
- blood cx's neg to date.
- Ucx neg.
-CXR neg
#Additional Past Medical History:
COPD
Diabetes mellitus type 2
Hypertension
GERD
anxiety/depression
PAD
Chronic pain opioid dependence
ADD
Lumbar laminectomy
Pelvic organs/rectal prolapse status post robotic suture rectopexy, sacrocolpopexy, posterior repair and cystoscopy with left double-J stent, stone manipulation 05/17/23
Chief Complaint
-: Leukocytosis, C-diff and Other (ileus)
Subjective / Review of Systems
afebrile
bp stable
progression of leukoctysis
passing flatus
progression of leukocytosis
cr stable
tiger text from IR no approachable route to the ascites
abd much less distended
still complaining of pain 'from my scoliosis' abdominal pain resolved
3 small mucoid stools per RN
active bowel sounds
reports she is hungry
Vital Signs / Physical Exam
Vital Signs
Vital Signs
Temp Pulse Resp BP Pulse Ox
97.5 F 79 18 139/67 94
06/15/23 07:00 06/15/23 15:00 06/15/23 15:00 06/15/23 15:00 06/15/23 15:00
Physical Exam
Constitutional: No Acute Distress
Cardiovascular: Regular Rate and S1/S2; Negative Murmur or Rub
Pulmonary: Clear and Symmetric; Negative Wheezes or Rales
Gastrointestinal: Soft, Distended (minimally - much improved) and Normal Bowel Sounds
Skin: Warm and Dry; Negative Rash or Jaundice
Objective Data
Lab Data
Lab Results
06/15/23 04:21
06/15/23 04:21
PT 17.8 Sec (11.4-14.6) H 06/09/23 15:59
INR 1.48 06/09/23 15:59
APTT 43.9 Sec (23.4-35.0) H 06/09/23 15:59
Estimated Creat Clear 25 ml/min 06/15/23 04:21
Lactic Acid 1.2 mmol/L (0.7-2.0) 06/10/23 04:25
Total Bilirubin 0.5 mg/dl (0.2-1.3) 06/13/23 04:50
AST 47 U/L (14-36) H 06/13/23 04:50
ALT 16 U/L (0-35) 06/13/23 04:50
Alkaline Phosphatase 268 U/L (38-126) H 06/13/23 04:50
Most recent labs reviewed.
Micro Results:
06/09/23 11:48 Blood Culture - Final
Blood/Venous No Growth - Final Report
06/09/23 10:35 Blood Culture - Final
Blood/Venous No Growth - Final Report
06/13/23 08:50 C. difficile GDH Antigen & Toxins - Final
Feces/Stool C. difficile antigen positive, toxin negative.
Clostridium difficile present, but toxin not detected.
Patient may be a carrier, colonized with nontoxinogenic
strain or the level of toxin in sample is below detection
limits. This information should be used in conjunction with
the patient's clinical history.
06/09/23 14:41 Urine Culture - Final
Urine NO GROWTH
AXR: Grossly nonspecific bowel gas pattern, markedly limited on single supine view only.
06/08/23 CT a/P: Large amount of stool throughout the colon, with increased amount of stool since examination of June 06, 2023. There is suggestion of colonic wall thickening, particularly involving the right colon, transverse colon, and splenic
flexure. Findings would be suggestive of stercoral colitis. No evidence for free intraperitoneal air. Distention of the stomach with fluid. Left ureteral stent is present
[2023-06-15] MEDS: XANAX 0.125 MG PO (16:43)
[2023-06-15 17:53] LABS: Glucose - Point of Care 189 mg/dl (70-99)
[2023-06-15] MEDS: NOVOLOG FLEXPEN-LOW RESISTANCE 1 UNITS SC (17:53)
[2023-06-15 20:18] VITALS: BP 151/72
[2023-06-15 21:33] LABS: Glucose - Point of Care 164 mg/dl (70-99)
[2023-06-15] MEDS: XANAX 0.25 MG PO (22:47)
[2023-06-15] MEDS: LANTUS 0.0500000000000000028 UNITS SC (22:48)
[2023-06-15 23:00] VITALS: BP 128/60
[2023-06-16] VITALS (8 sets, daily range): BP systolic 132–170; BP diastolic 55–99; PULSE 72; O2SAT 96; BMI 21.3
[2023-06-16 00:15] LABS: Glucose - Point of Care 106 mg/dl (70-99)
[2023-06-16] MEDS: NOVOLOG FLEXPEN-LOW RESISTANCE SC ×5 (00:28→18:32)
[2023-06-16] MEDS: FLAGYL 500 MG 100 IV ×3 (00:29→17:20)
[2023-06-16] MEDS: FIRVANQ 125 MG PO ×3 (00:29→21:20)
[2023-06-16] MEDS: D5/0.9% with KCL 20 MEQ 1000 IV ×2 (00:31→10:55)
[2023-06-16] MEDS: DILAUDID 1 MG IV ×7 (00:32→21:46)
[2023-06-16 05:54] LABS: Glucose - Point of Care 143 mg/dl (70-99)
[2023-06-16 08:18] LABS: % Basophils 0.2 % (0-2); % Immature Granulocytes 0.8 % (0-0.5); % Lymphocytes 4.6 % (20.5-51.1); % Monocytes 3.5 % (1.7-9.3); % Neutrophils 90.9 % (42.2-75.2); Absolute Immature Granulocytes 0.2 10^3/uL (0-0.05); Absolute Lymphocytes 1.1 10^3/uL (1.2-3.4); Absolute Monocytes 0.9 10^3/uL (0.1-0.6); Absolute Neutrophils 22.1 10^3/uL (1.4-6.5); Hematocrit 24.8 % (37.0-47.0); Mean Corp Hgb Conc. 32.3 g/dL (33.0-37.0); Mean Corpuscular Hgb 25.8 pg (27.0-31.0); Mean Platelet Volume 10.9 fL (7.4-10.4); Nucleated Red Blood Cells % 0 %; Platelet Count 285 10^3/uL (130-400); Red Cell Dist. Width 16.2 % (11.5-14.5); White Blood Cell Count 24.3 10^3/uL (4.8-10.8)
--- NOTE | 2023-06-16 08:19 | VATNOTE ---
Labs drawn per protocol. PICC dressing noted to be bloody, as well as forearm distal to insertion site with +2-3 swelling with no swelling noted on left arm. PCN made aware, will discuss need for u/s with PMD.
[2023-06-16 08:59] LABS: Blood Urea Nitrogen 44 mg/dl (7-17); Calcium 7.6 mg/dl (8.4-10.2); Carbon Dioxide 21 mmol/L (22-30); Chloride 112 mmol/L (98-107); Estimated Creatinine Clearance 29 ml/min; Glucose 144 mg/dl (70-99); Potassium 3.7 mmol/L (3.5-5.1); Sodium 135 mmol/L (135-145); eGFR 46.05
[2023-06-16] MEDS: PACERONE 400 MG PO ×2 (09:06→21:23)
[2023-06-16] MEDS: PROTONIX 40 MG PO (09:06)
[2023-06-16] MEDS: [UNRECOGNIZED DRUG - OTHER] 0.100000000000000006 MG TRANSDERM (09:06)
--- NOTE | 2023-06-16 10:24 | W.PN.CRS1 ---
Today's Communication / Plan
-
abdominal xrays
IR for transgluteal aspiration
TPN
Assessment/Plan
-
78yo female with a recent robotic suture rectopexy, sacroculpopexy, posterior repair and cystoscopy with left double-J stent on 05/17/2023, presented to the ER with diffuse abdominal pain and lack of BM for 3 days. Patient found with stercoral colitis
on CT and with leukocytosis, lactic acidosis, PAVEL, hyperkalemia and hyponatremia. UA +, but culture negative; now off levo and UOP/Cr improving
Plan:
1. Will repeat xray abdomen this morning to compare from yesterday's xray.
2. C.diff treatment per ID.
3. IR unable to perform paracentesis yesterday. Dr. Lockhart spoke to Dr. Hernandez, will attempt transgluteal aspiration today.
4. Given NPO status, will start TPN. Appreciate recs from nutrition.
5. OOB with PT.
6. Eliquis currently on hold.
7. Okay for DVT prophylaxis from our standpoint.
8. Dispo: skilled rehab.
Subjective Data
Subjective Data
Date of Service: June 16, 2023
Patient states she has middle and right back pain. She has flatus. She had three small bowel movements overnight.
Objective Data
-
Vital Signs
Temp Pulse Resp BP Pulse Ox
98.2 F 87 17 170/78 94
06/16/23 03:00 06/16/23 09:06 06/16/23 07:00 06/16/23 09:06 06/16/23 07:00
Intake & Output
06/15/23 06/16/23 06/17/23
06:59 06:59 06:59
Intake Total 1800 / 1800 980 / 980
Output Total 850 / 850 200 / 200 800 / 800
Balance 950 / 950 -200 / -200 180 / 180
Intake:
IV fluids (Total) 1700 / 1700 880 / 880
IV piggybacks 100 / 100 100 / 100
Output:
Urine, Chao 850 / 850 200 / 200 800 / 800
Other:
Number of unmeasured liquid
stools
Rectum 3
Lab Results
06/16/23 07:54
06/16/23 07:54
Physical Exam
-
General: No Acute Distress and AOx3
Abdomen: Soft, Distended (less distended from yesterday) and Tender (mild diffuse throughout)
Skin: Warm and Dry
[2023-06-16] MEDS: LOPRESSOR 12.5 MG PO ×2 (10:48→21:42)
[2023-06-16] MEDS: NICODERM TRANSDERMAL 14 MG TRANSDERM (10:49)
[2023-06-16 11:32] LABS: ALT (SGPT) < 10 U/L (0-35); AST (SGOT) 40 U/L (14-36); Albumin 1.9 g/dl (3.5-5.0); Alkaline Phosphatase 165 U/L (38-126); Magnesium 1.6 mg/dl (1.6-2.3); Phosphorus 3.5 mg/dl (2.5-4.5); Total Bilirubin 0.3 mg/dl (0.2-1.3); Triglycerides 89 mg/dl (10-149)
[2023-06-16] MEDS: FIRVANQ PO ×2 (12:00→13:39)
[2023-06-16 12:37] LABS: Glucose - Point of Care 316 mg/dl (70-99)
--- NOTE | 2023-06-16 12:46 | W.PN.NEPH.PH ---
Today's Communication / Plan
-
TPN per surg
off IVF when starts TPN
Assessment/Plan
-
Assessment:
Hyperkalemia
Acute kidney injury
Hypotension
Sepsis
Recent urogynecologic surgery
Left ureteral stent
Metabolic alkalosis
Diabetes mellitus type 2
Stercoral colitis
Chronic pain
Ileus
Plan:
PAVEL-crbetter at 1.2, non oliguric ~1000, weights rising
serum sodium up to 135
may consider d/c barr if cr cont to improve in am
d/c IVF when she starts TPN(ordered by surg)
BP stable low dose BB resumed per cards
remains NPO for possible Ileus
abx per ID
afib per cards
Cardiac echo reviewed hyperdynamic left ventricular systolic function moderate tricuspid regurg , elevated pulmonary pressures
d/w nursing
-
-
Date of Service: June 16, 2023
CC / HPI / ROS
-
Chief Complaint:
PAVEL
History of Present Illness:
BP stable
PAVEL/Cr down to 1.2
K better at 3.7
LFTs improving
on abx for sepsis
hb low at 8
Review of Systems:
non oliguric with barr
weights up
no fever,
feels tired
Labs
-
Labs:
WBC 24.3 10^3/uL (4.8-10.8) H 06/16/23 07:54
RBC 3.10 10^6/uL (4.20-5.40) L 06/16/23 07:54
Hgb 8.0 g/dL (12.0-16.0) L 06/16/23 07:54
Hct 24.8 % (37.0-47.0) L 06/16/23 07:54
Plt Count 285 10^3/uL (130-400) 06/16/23 07:54
Sodium Cancelled 06/16/23 10:42
Potassium Cancelled 06/16/23 10:42
Chloride Cancelled 06/16/23 10:42
Carbon Dioxide Cancelled 06/16/23 10:42
BUN Cancelled 06/16/23 10:42
Creatinine Cancelled 06/16/23 10:42
eGFR Cancelled 06/16/23 10:42
Glucose Cancelled 06/16/23 10:42
Calcium Cancelled 06/16/23 10:42
Phosphorus Cancelled 06/16/23 10:42
Albumin Cancelled 06/16/23 10:42
Physical Exam
-
Vital Signs:
Vital Signs
Temp Pulse Resp BP Pulse Ox
98.2 F 87 17 170/78 94
06/16/23 03:00 06/16/23 10:48 06/16/23 07:00 06/16/23 10:48 06/16/23 07:00
Cardiovascular:: Regular rate and rhythm
Respiratory:: Bilateral: CTA
Lung Excursion:: Normal
Abdomen:: Nontender and Soft
Extremity Edema:: None: Bilateral: (trace)
Barr Catheter: Yes
--- NOTE | 2023-06-16 13:33 | W.PN.ID1 ---
Date of Service
Date of Service: June 16, 2023
Today's Communication
sbp confirmed
continue current antibiotics, dose of oral vanc adjusted
Assessment / Plan
# Leukocytosis - progressing
# Probable C. diff diarrhea (off bowel regimen)
- paracentesis consistent with SBP
- follow cultures
- C. diff antigen positive, toxin negative - oral vanc dose decreased to q12hr
- continue ceftriaxone/metronidazole for now - if not seeing further improvement may adjust; note that less than 12 hours from last change to AM cbc
-Follow wbc.
-Follow stool output and clinically.
- Continue enhanced precautions.
# s/p shock
# s/p recent severe constipation/stercoral colitis - still with residual abdominal pain
# PAVEL improving
# Recent status post robotic suture rectopexy, sacrocolpopexy, posterior repair and cystoscopy with left double-J stent, stone manipulation 05/16
- blood cx's neg to date.
- Ucx neg.
-CXR neg
#Additional Past Medical History:
COPD
Diabetes mellitus type 2
Hypertension
GERD
anxiety/depression
PAD
Chronic pain opioid dependence
ADD
Lumbar laminectomy
Pelvic organs/rectal prolapse status post robotic suture rectopexy, sacrocolpopexy, posterior repair and cystoscopy with left double-J stent, stone manipulation 05/17/23
Chief Complaint
-: Leukocytosis, C-diff and Other (ileus)
Subjective / Review of Systems
afebrile
bp stable
wbc count now improving
cr improved somewhat
note plans for para have been reassessed
starting tpn
back pain still significant
Vital Signs / Physical Exam
Vital Signs
Vital Signs
Temp Pulse Resp BP Pulse Ox
98.4 F 87 17 139/99 94
06/16/23 11:00 06/16/23 11:00 06/16/23 11:00 06/16/23 11:00 06/16/23 11:00
Physical Exam
Constitutional: No Acute Distress
Cardiovascular: Regular Rate and S1/S2; Negative Murmur or Rub
Pulmonary: Clear and Symmetric; Negative Wheezes or Rales
Gastrointestinal: Soft, Non Tender, Distended and Normal Bowel Sounds
Skin: Warm and Dry; Negative Rash or Jaundice
Objective Data
Lab Data
Lab Results
06/16/23 07:54
06/16/23 10:42
PT 17.8 Sec (11.4-14.6) H 06/09/23 15:59
INR 1.48 06/09/23 15:59
APTT 43.9 Sec (23.4-35.0) H 06/09/23 15:59
Estimated Creat Clear Cancelled 06/16/23 10:42
Lactic Acid 1.2 mmol/L (0.7-2.0) 06/10/23 04:25
Total Bilirubin Cancelled 06/16/23 10:42
AST Cancelled 06/16/23 10:42
ALT Cancelled 06/16/23 10:42
Alkaline Phosphatase Cancelled 06/16/23 10:42
Most recent labs reviewed.
Micro Results:
06/09/23 11:48 Blood Culture - Final
Blood/Venous No Growth - Final Report
06/09/23 10:35 Blood Culture - Final
Blood/Venous No Growth - Final Report
06/13/23 08:50 C. difficile GDH Antigen & Toxins - Final
Feces/Stool C. difficile antigen positive, toxin negative.
Clostridium difficile present, but toxin not detected.
Patient may be a carrier, colonized with nontoxinogenic
strain or the level of toxin in sample is below detection
limits. This information should be used in conjunction with
the patient's clinical history.
04/26/24 14:41 Urine Culture - Final
Urine NO GROWTH
AXR: Grossly nonspecific bowel gas pattern, markedly limited on single supine view only.
06/08/23 CT a/P: Large amount of stool throughout the colon, with increased amount of stool since examination of June 06, 2023. There is suggestion of colonic wall thickening, particularly involving the right colon, transverse colon, and splenic
flexure. Findings would be suggestive of stercoral colitis. No evidence for free intraperitoneal air. Distention of the stomach with fluid. Left ureteral stent is present
--- NOTE | 2023-06-16 14:32 | W.PN.HOSP.TC ---
Today's Communication/Plan
-
TPN to start
Assessment / Plan
Assessment / Plan
Septic shock likely secondary to stercoral colitis/abdominal source
resolved
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
s/p robotic rectopexy, sacrocolpopexy, posterior colporrhaphy, perineoplasty and cystoscopy with left ureteral stent for presumed kidney stone 05/17/2023
-s/p NGT removal.
-Having loose bowel movements.
06/12 stool tested, C.Diff-Antigen pos, Toxin neg
-Lactic acidosis resolved.
6.9-->1.2
-PICC line ordered
WBC 8.8-->11.1-->14.2-->24.2-->28.5-->24.3
Call placed and discussed with Dr. Lockhart 06/15 CT scan: Small bilateral pleural effusions, left larger than right. Both new.
Mild left lower lobe consolidation. New.
Findings suggesting severe volume overload or third spacing. New.
Mild abdominopelvic ascites. New.
Findings suggesting cirrhosis.
Moderate colonic distention. Stable. Previous fecal material has passed. This probably due to colonic ileus.
Nonobstructing left renal stones. Decreased in size
Left double-J stent. Stable.
Barr catheter. New.
ID wishes to treat empirically with oral Vanco in pt on recent abx
Ceftriaxone resumed
-Had been started on Levophed and vasopressin. Off pressors as of 06/09.
-Antibiotics broadened to Vanco and meropenem per ID. Pro-Dylan significantly elevated 44. Creatinine elevated noted.
-Antibiotic further narrowed down to ceftriaxone. Vanco and meropenem discontinued per ID.
-Started on clear liquid and advanced to Regular diet, now NPO
-Appreciate ID, machine grainer, urology and colorectal surgery recs
Pt transferred from ICU 06/11, now on 3W
Acute Kidney Injury likely multifactorial pre-renal volume depletion while on ACEI, recent bactrim usage, ATN?
-Placed Barr from strict Is&Os, nephrology wishes to continue barr for now
-Continue IVFS
-Trend Lactic Acid
-monitor urinary output
-With pt now NPO, will continue IVF, with plan to start TPN tonight
-No hydro seen on CT scan
-Slowly improving Creatinine and with increasing urinary output
BUN/Creat 65/2.1-->58/1.9-->52/1.5-->53/1.4-->44/1.2
-Nephro consulted, input appreciated
New onset of Paroxysmal Afib with RVR on 06/09
currently in NSR with [facility] PAC's
-started on Amiodarone IV drip, now transitioned to 400 mg po bid through 06/21, then start 200 mg bid, as per cardio
pt just made NPO pending CT scan, pending results, may need to transition Amio back to IV
-Elevated [id number] Score
-ECHO:Hyperdynamic left ventricular systolic function. Estimated LVEF 70-75%.
Mild/moderate mitral regurgitation. Mild mitral stenosis.
Mild/moderate aortic stenosis. Trace aortic regurgitation.
Normal right ventricular systolic function.
Moderate tricuspid regurgitation. Severely elevated PASP. Estimated pulmonary
artery pressure of 58 mmHg assuming a right atrial pressure of 3 mmHg.
-Cards eval
discussed with Dr. Henley, cardio wanted pt to start on Eliquis 2.5 bid, ordered, but now on hold pending work up of GI process
Hyperkalemia
K peaked at 6.6, now 3.7-->3.8-->3.7-->3.7
Severe Metabolic acidosis
-Resolved.
Pelvic Floor Prolapse s/p Robotic Rectopexy / Sacrocolpopexy on May 16
-Care as per Colorectal
Diabetes Mellitus, Type II
-HgbA1c 6.6 in April 2023
-Monitor sugars and continue coverage insulin
Essential Hypertension
-Holding meds as BP running on the low side, currently starting to rise as condition improves, now 138-163/62-75
Anxiety / Depression
-Will write for Ativan prn and continue standing dose at night
GERD
-Continue Protonix IV
Chronic Pain with Opioid Dependence
-Continue Dilaudid prn until able to resume oral meds and tolerating appropriate diet
-monitor closely.may require IV standing pain meds. Risk of opioid withdrawal
-Recommended to patient and spouse to start aggressive bowel regimen at home.
ADHD-hold off on restarting Adderall in the setting of new onset of A-fib
Severe anxiety-restart Xanax
Tobacco abuse
-Continue with nicotine patch
Peripheral Arterial Disease
-Stable
Hypokalemia-replete/monitor
DVT proph: SC Heparin
Code Status: Full Code
d/w with spouse at bedside in details 06/14. Had appropriate many concerns. >15 minutes spent with reviewing situation
complex visit
time 55 minutes
Anticipated Discharge: > 48 hours
Subjective/Interval History
-
Date of Service: June 16, 2023
Remains weak, still with significant pain
Objective Data
-
Labs:
Laboratory Results
06/16/23 06/16/23
07:54 10:42
WBC 24.3 H
Hgb 8.0 L
Hct 24.8 L
Plt Count 285
Sodium 135 Cancelled
Potassium 3.7 Cancelled
Chloride 112 H Cancelled
Carbon Dioxide 21 L Cancelled
BUN 44 H Cancelled
Creatinine 1.2 H Cancelled
Glucose 144 H Cancelled
Calcium 7.6 L Cancelled
Total Bilirubin 0.3 Cancelled
AST 40 H Cancelled
ALT < 10 Cancelled
Alkaline Phosphatase 165 H Cancelled
Vital Signs:
Vital Signs
Temp Pulse Resp BP Pulse Ox
98.4 F 87 17 139/99 94
06/16/23 11:00 06/16/23 11:00 06/16/23 11:00 06/16/23 11:00 06/16/23 11:00
I&O
06/15/23 06/16/23 06/17/23
06:59 06:59 06:59
Intake Total 1800 / 1800 980 / 980
Output Total 850 / 850 200 / 200 800 / 800
Balance 950 / 950 -200 / -200 180 / 180
Review of Systems
-
History Source: Patient, Physician ([facility] physicians) and Coordinated Provider
Constitutional: Denies Fever
EENT: Reports No Symptoms Reported
Respiratory: Reports No Symptoms
Cardiac: Reports No Symptoms
Abdomen/GI: Reports Abdominal Pain, Diarrhea (multiple episodes), Pain and Bloated
Physical Exam
-
General: Well Developed, No Apparent Distress and Appears Chronically Ill
HEENT: Normocephalic, Atraumatic and Moist Mucous Membranes
Respiratory: Clear to Auscultation; Negative Wheezes, Rales or Rhonchi
Cardiac: Regular Rhythm and S1/S2
GI: Tender and Distended; Negative Normal Bowel Sounds ( still diminished with rushes)
Musculoskeletal: No Clubbing, No Cyanosis and No Edema
[2023-06-16 15:11] LABS: Body Fluid WBC 2061 /CUMM
[2023-06-16 15:12] LABS: Body Fluid Mononuclear 14.7 %; Body Fluid Polymorphonuclear 85.3 %
[2023-06-16 15:13] LABS: Body Fluid Second Tech EYM
[2023-06-16] MEDS: ROCEPHIN 2000 MG IV (17:19)
[2023-06-16] MEDS: STERILE WATER FOR INJECTION 20 ML IV (17:19)
[2023-06-16 18:23] LABS: Glucose - Point of Care 150 mg/dl (70-99)
[2023-06-16] MEDS: Parenteral Nutrition, Central 850 IV (21:19)
[2023-06-16] MEDS: XANAX 0.25 MG PO (21:46)
[2023-06-16 22:25] LABS: Glucose - Point of Care 145 mg/dl (70-99)
[2023-06-16] MEDS: LANTUS 0.0500000000000000028 UNITS SC (22:29)
[2023-06-17] MEDS: NOVOLOG FLEXPEN-LOW RESISTANCE SC (00:31)
[2023-06-17] MEDS: FLAGYL 500 MG 100 IV ×2 (00:35→08:53)
[2023-06-17] MEDS: DILAUDID 1 MG IV ×9 (00:37→22:46)
[2023-06-17 00:44] LABS: Glucose - Point of Care 80 mg/dl (70-99)
[2023-06-17 03:00] VITALS: BP 146/59
[2023-06-17 06:28] LABS: Glucose - Point of Care 191 mg/dl (70-99)
[2023-06-17] MEDS: NOVOLOG FLEXPEN-LOW RESISTANCE 1 UNITS SC ×2 (06:32→12:15)
[2023-06-17 07:00] VITALS: BP 149/60
[2023-06-17 07:46] LABS: % Basophils 0.2 % (0-2); % Eosinophils 0.1 % (0-6); % Lymphocytes 4.6 % (20.5-51.1); % Monocytes 4.3 % (1.7-9.3); % Neutrophils 89.8 % (42.2-75.2); Absolute Immature Granulocytes 0.2 10^3/uL (0-0.05); Absolute Lymphocytes 0.9 10^3/uL (1.2-3.4); Absolute Monocytes 0.9 10^3/uL (0.1-0.6); Hematocrit 24.1 % (37.0-47.0); Hemoglobin 7.8 g/dL (12.0-16.0); Mean Corp Hgb Conc. 32.4 g/dL (33.0-37.0); Mean Corpuscular Hgb 25.8 pg (27.0-31.0); Mean Corpuscular Volume 79.8 fL (81.0-99.0); Mean Platelet Volume 10.7 fL (7.4-10.4); Nucleated Red Blood Cells % 0 %; Platelet Count 249 10^3/uL (130-400); Red Blood Cell Count 3.02 10^6/uL (4.20-5.40); Red Cell Dist. Width 16.5 % (11.5-14.5); White Blood Cell Count 20.1 10^3/uL (4.8-10.8)
[2023-06-17 08:16] LABS: Blood Urea Nitrogen 36 mg/dl (7-17); Calcium 7.8 mg/dl (8.4-10.2); Carbon Dioxide 20 mmol/L (22-30); Chloride 115 mmol/L (98-107); Estimated Creatinine Clearance 34 ml/min; Glucose 186 mg/dl (70-99); Magnesium 1.7 mg/dl (1.6-2.3); Phosphorus 3.3 mg/dl (2.5-4.5); Potassium 3.8 mmol/L (3.5-5.1); Sodium 137 mmol/L (135-145); eGFR 57.31
[2023-06-17 08:37] LABS: Glucose - Point of Care 193 mg/dl (70-99)
--- NOTE | 2023-06-17 08:45 | CM ---
Reviewed chart, patient continues to be in need of SNF at discharge, per PT and OT.
Plan: Case management will continue to follow and assist with discharge planning. SNF when stable.
[2023-06-17] MEDS: NICODERM TRANSDERMAL 14 MG TRANSDERM (08:53)
[2023-06-17] MEDS: FIRVANQ 125 MG PO ×2 (08:53→19:39)
[2023-06-17] MEDS: PROTONIX 40 MG PO (08:53)
[2023-06-17] MEDS: LOPRESSOR 12.5 MG PO ×2 (08:54→19:44)
[2023-06-17] MEDS: PACERONE 400 MG PO ×2 (08:55→19:44)
[2023-06-17 11:00] VITALS: BP 133/58
[2023-06-17 12:13] LABS: Glucose - Point of Care 170 mg/dl (70-99)
--- NOTE | 2023-06-17 12:17 | W.PN.NEPH.PH ---
Today's Communication / Plan
-
monitor labs on TPN
Assessment/Plan
-
Assessment:
Hyperkalemia
Acute kidney injury
Hypotension
Sepsis
Recent urogynecologic surgery
Left ureteral stent
Metabolic alkalosis
Diabetes mellitus type 2
Stercoral colitis
Chronic pain
Ileus
Plan:
PAVEL-cr better at 1., non oliguric
serum sodium up to 137
TPN managed by surg
BP stable low dose BB resumed per cards
remains NPO for possible Ileus
abx per ID
afib per cards
Cardiac echo reviewed hyperdynamic left ventricular systolic function moderate tricuspid regurg , elevated pulmonary pressures
will s/o, call with ?s
-
-
Date of Service: June 17, 2023
CC / HPI / ROS
-
Chief Complaint:
PAVEL
History of Present Illness:
BP stable
PAVEL/Cr down to 1.
K better at 3.7
LFTs improving
on abx for sepsis
hb low at 7.8
Review of Systems:
non oliguric with barr
no fever,
feels wel, no n/v
has BMs
Labs
-
Labs:
WBC 20.1 10^3/uL (4.8-10.8) H 06/17/23 07:38
RBC 3.02 10^6/uL (4.20-5.40) L 06/17/23 07:38
Hgb 7.8 g/dL (12.0-16.0) L 06/17/23 07:38
Hct 24.1 % (37.0-47.0) L 06/17/23 07:38
Plt Count 249 10^3/uL (130-400) 06/17/23 07:38
Sodium 137 mmol/L (135-145) 06/17/23 07:38
Potassium 3.8 mmol/L (3.5-5.1) 06/17/23 07:38
Chloride 115 mmol/L (98-107) H 06/17/23 07:38
Carbon Dioxide 20 mmol/L (22-30) L 06/17/23 07:38
BUN 36 mg/dl (7-17) H 06/17/23 07:38
Creatinine 1.0 mg/dL (0.6-1.0) 06/17/23 07:38
eGFR 57.31 06/17/23 07:38
Glucose 186 mg/dl (70-99) H 06/17/23 07:38
Calcium 7.8 mg/dl (8.4-10.2) L 06/17/23 07:38
Phosphorus 3.3 mg/dl (2.5-4.5) 06/17/23 07:38
Albumin Cancelled 06/16/23 10:42
Physical Exam
-
Vital Signs:
Vital Signs
Temp Pulse Resp BP Pulse Ox
98.2 F 72 17 133/58 95
06/17/23 11:00 06/17/23 11:00 06/17/23 11:00 06/17/23 11:00 06/17/23 11:00
Cardiovascular:: Regular rate and rhythm
Respiratory:: Bilateral: CTA
Lung Excursion:: Normal
Abdomen:: Distended, Nontender and Soft
Extremity Edema:: None: Bilateral:
Barr Catheter: Yes
[2023-06-17] MEDS: XANAX 0.125 MG PO (13:18)
--- NOTE | 2023-06-17 14:24 | W.PN.HOSP.TC ---
Addendum entered and electronically signed by Rudolph Angel MD 06/17/23 14:30:
discussed potential need for transfusion with Hgb now 7.8 with son, Celestino. Will recheck tomorrow and order T&S
Original Note:
Today's Communication/Plan
-
continue TPN
Assessment / Plan
Assessment / Plan
Septic shock likely secondary to stercoral colitis/abdominal source
resolved
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
s/p robotic rectopexy, sacrocolpopexy, posterior colporrhaphy, perineoplasty and cystoscopy with left ureteral stent for presumed kidney stone 05/17/2023
-s/p NGT removal.
-Having loose bowel movements.
06/12 stool tested, C.Diff-Antigen pos, Toxin neg
-Lactic acidosis resolved.
6.9-->1.2
-PICC line ordered
WBC 8.8-->11.1-->14.2-->24.2-->28.5-->24.3-->20.1
Call placed and discussed with Dr. Lockhart 06/15 CT scan: Small bilateral pleural effusions, left larger than right. Both new.
Mild left lower lobe consolidation. New.
Findings suggesting severe volume overload or third spacing. New.
Mild abdominopelvic ascites. New.
Findings suggesting cirrhosis.
Moderate colonic distention. Stable. Previous fecal material has passed. This probably due to colonic ileus.
Nonobstructing left renal stones. Decreased in size
Left double-J stent. Stable.
Barr catheter. New.
ID wishes to treat empirically with oral Vanco in pt on recent abx
Ceftriaxone resumed
-Had been started on Levophed and vasopressin. Off pressors as of 06/09.
-Antibiotics broadened to Vanco and meropenem per ID. Pro-Dylan significantly elevated 44. Creatinine elevated noted.
-Antibiotic further narrowed down to ceftriaxone. Vanco and meropenem discontinued per ID.
-Started on clear liquid and advanced to Regular diet, now NPO
-Appreciate ID, drafter automotive design, urology and colorectal surgery recs
Pt transferred from ICU 06/11, now on 3W
Acute Kidney Injury likely multifactorial pre-renal volume depletion while on ACEI, recent bactrim usage, ATN?
-Placed Barr from strict Is&Os, nephrology wishes to continue barr for now
-Continue IVFS
-Trend Lactic Acid
-monitor urinary output
-With pt now NPO, will continue IVF, with plan to start TPN tonight
-No hydro seen on CT scan
-Slowly improving Creatinine and with increasing urinary output
BUN/Creat 65/2.1-->58/1.9-->52/1.5-->53/1.4-->44/1.2
-Nephro consulted, input appreciated
New onset of Paroxysmal Afib with RVR on 06/09
currently in NSR with [facility] PAC's
-started on Amiodarone IV drip, now transitioned to 400 mg po bid through 06/21, then start 200 mg bid, as per cardio
pt just made NPO pending CT scan, pending results, may need to transition Amio back to IV
-Elevated [id number] Score
-ECHO:Hyperdynamic left ventricular systolic function. Estimated LVEF 70-75%.
Mild/moderate mitral regurgitation. Mild mitral stenosis.
Mild/moderate aortic stenosis. Trace aortic regurgitation.
Normal right ventricular systolic function.
Moderate tricuspid regurgitation. Severely elevated PASP. Estimated pulmonary
artery pressure of 58 mmHg assuming a right atrial pressure of 3 mmHg.
-Cards eval
discussed with Dr. Henley, cardio wanted pt to start on Eliquis 2.5 bid, ordered, but now on hold pending work up of GI process
Hyperkalemia
K peaked at 6.6, now 3.7-->3.8-->3.7-->3.7
Severe Metabolic acidosis
-Resolved.
Pelvic Floor Prolapse s/p Robotic Rectopexy / Sacrocolpopexy on May 16
-Care as per Colorectal
Diabetes Mellitus, Type II
-HgbA1c 6.6 in April 2023
-Monitor sugars and continue coverage insulin
Essential Hypertension
-Holding meds as BP running on the low side, currently starting to rise as condition improves, now 138-163/62-75
Anxiety / Depression
-Will write for Ativan prn and continue standing dose at night
GERD
-Continue Protonix IV
Chronic Pain with Opioid Dependence
-Continue Dilaudid prn until able to resume oral meds and tolerating appropriate diet
-monitor closely.may require IV standing pain meds. Risk of opioid withdrawal
-Recommended to patient and spouse to start aggressive bowel regimen at home.
ADHD-hold off on restarting Adderall in the setting of new onset of A-fib
Severe anxiety-restart Xanax
Tobacco abuse
-Continue with nicotine patch
Peripheral Arterial Disease
-Stable
Hypokalemia-replete/monitor
DVT proph: SC Heparin
Code Status: Full Code
reviewed extensively with son Celestino, many questions and concerns
Anticipated Discharge: > 48 hours
Subjective/Interval History
-
Date of Service: June 17, 2023
Appears in less distress, but states she is having pain
Objective Data
-
Labs:
Laboratory Results
06/17/23
07:38
WBC 20.1 H
Hgb 7.8 L
Hct 24.1 L
Plt Count 249
Sodium 137
Potassium 3.8
Chloride 115 H
Carbon Dioxide 20 L
BUN 36 H
Creatinine 1.0
Glucose 186 H
Calcium 7.8 L
Vital Signs:
Vital Signs
Temp Pulse Resp BP Pulse Ox
98.2 F 72 17 133/58 95
06/17/23 11:00 06/17/23 11:00 06/17/23 11:00 06/17/23 11:00 06/17/23 11:00
I&O
06/16/23 06/17/23 06/18/23
06:59 06:59 06:59
Intake Total 980 / 980 450 / 450
Output Total 200 / 200 1200 / 1200
Balance -200 / -200 -220 / -220 450 / 450
Review of Systems
-
History Source: Patient, Family (reviewed extensively with sonCelestino), Physician ([facility] physicians) and Coordinated Provider
Constitutional: Denies Fever
EENT: Reports No Symptoms Reported
Respiratory: Reports No Symptoms
Cardiac: Reports No Symptoms
Abdomen/GI: Reports Abdominal Pain, Diarrhea (multiple episodes), Pain and Bloated
Physical Exam
-
General: Well Developed, No Apparent Distress and Appears Chronically Ill
HEENT: Normocephalic, Atraumatic and Moist Mucous Membranes
Respiratory: Clear to Auscultation; Negative Wheezes, Rales or Rhonchi
Cardiac: Regular Rhythm and S1/S2
GI: Tender and Distended (somewhat less distended currently); Negative Normal Bowel Sounds ( still diminished with rushes)
Musculoskeletal: No Clubbing, No Cyanosis and No Edema
--- NOTE | 2023-06-17 14:25 | W.PN.CRS1 ---
Today's Communication / Plan
-
Clears.
Assessment/Plan
-
Patient with probable C diff diarrhea and SBP (per ID).
1. WBC improving. Down to 20. Antibiotics per ID.
2. clears ok.
3. continue TPN.
Subjective Data
Subjective Data
Date of Service: June 17, 2023
Still some back discomfort.
Flatus.
Objective Data
-
Vital Signs
Temp Pulse Resp BP Pulse Ox
98.2 F 72 17 133/58 95
06/17/23 11:00 06/17/23 11:00 06/17/23 11:00 06/17/23 11:00 06/17/23 11:00
Intake & Output
06/16/23 06/17/23 06/18/23
06:59 06:59 06:59
Intake Total 980 / 980 450 / 450
Output Total 200 / 200 1200 / 1200
Balance -200 / -200 -220 / -220 450 / 450
Intake:
IV fluids (Total) 880 / 880
IV piggybacks 100 / 100 100 / 100
TPN/PPN 350 / 350
Output:
Urine, Chao 200 / 200 1200 / 1200
Other:
Number of unmeasured liquid
stools
Rectum 3 1
Lab Results
06/17/23 07:38
06/17/23 07:38
Physical Exam
-
General: No Acute Distress
Chest: Clear
Cardiovascular: Regular Rate & Rhythm
Abdomen: Distended (mild to moderate) and Non Tender
Extremities: No Edema and No Calf Tenderness
[2023-06-17 15:00] VITALS: BP 170/65
[2023-06-17] MEDS: ROCEPHIN 2000 MG IV (16:15)
[2023-06-17] MEDS: STERILE WATER FOR INJECTION 20 ML IV (16:15)
--- NOTE | 2023-06-17 16:21 | W.PN.ID1 ---
Date of Service
Date of Service: June 17, 2023
Today's Communication
- oral vanc BID
- continue ceftriaxone; stop metrondiazole
Assessment / Plan
# Leukocytosis - progressing
# SBP
# Colonization with C. diff
- paracentesis consistent with SBP based on neutrophil count
- cultures no growth
- oral vanc BID
- continue ceftriaxone; stop metrondiazole
-Follow wbc.
-Follow stool output and clinically.
- Continue enhanced precautions.
# s/p shock
# s/p recent severe constipation/stercoral colitis - still with residual abdominal pain
# PAVEL improving
# Recent status post robotic suture rectopexy, sacrocolpopexy, posterior repair and cystoscopy with left double-J stent, stone manipulation 05/16
- blood cx's neg to date.
- Ucx neg.
-CXR neg
#Additional Past Medical History:
COPD
Diabetes mellitus type 2
Hypertension
GERD
anxiety/depression
PAD
Chronic pain opioid dependence
ADD
Lumbar laminectomy
Pelvic organs/rectal prolapse status post robotic suture rectopexy, sacrocolpopexy, posterior repair and cystoscopy with left double-J stent, stone manipulation 05/17/23
Chief Complaint
-: Leukocytosis, C-diff and Other (ileus)
Subjective / Review of Systems
afebrile
bp stable
leukocytosis improved
cr stable
body fluid culture no growth
Vital Signs / Physical Exam
Vital Signs
Vital Signs
Temp Pulse Resp BP Pulse Ox
97.9 F 85 18 170/65 94
06/17/23 15:00 06/17/23 15:00 06/17/23 15:00 06/17/23 15:00 06/17/23 15:00
Physical Exam
Constitutional: No Acute Distress
Cardiovascular: Regular Rate and S1/S2; Negative Murmur or Rub
Pulmonary: Clear and Symmetric; Negative Wheezes or Rales
Gastrointestinal: Soft, Non Tender, Non Distended and Normal Bowel Sounds
Skin: Warm and Dry; Negative Rash or Jaundice
Objective Data
Lab Data
Lab Results
06/17/23 07:38
06/17/23 07:38
PT 17.8 Sec (11.4-14.6) H 06/09/23 15:59
INR 1.48 06/09/23 15:59
APTT 43.9 Sec (23.4-35.0) H 06/09/23 15:59
Estimated Creat Clear 34 ml/min 06/17/23 07:38
Lactic Acid 1.2 mmol/L (0.7-2.0) 06/10/23 04:25
Total Bilirubin Cancelled 06/16/23 10:42
AST Cancelled 06/16/23 10:42
ALT Cancelled 06/16/23 10:42
Alkaline Phosphatase Cancelled 06/16/23 10:42
Most recent labs reviewed.
Micro Results:
06/16/23 14:46 Anaerobic Culture - Preliminary
Abdomen Culture pending. Anaerobic cultures are examined after 3
days incubation. Additional information to follow.
06/16/23 14:46 Wound Culture - Preliminary
Abdomen No growth
Gram Stain - Preliminary
06/09/23 11:48 Blood Culture - Final
Blood/Venous No Growth - Final Report
06/09/23 10:35 Blood Culture - Final
Blood/Venous No Growth - Final Report
06/13/23 08:50 C. difficile GDH Antigen & Toxins - Final
Feces/Stool C. difficile antigen positive, toxin negative.
Clostridium difficile present, but toxin not detected.
Patient may be a carrier, colonized with nontoxinogenic
strain or the level of toxin in sample is below detection
limits. This information should be used in conjunction with
the patient's clinical history.
06/09/23 14:41 Urine Culture - Final
Urine NO GROWTH
AXR: Grossly nonspecific bowel gas pattern, markedly limited on single supine view only.
06/08/23 CT a/P: Large amount of stool throughout the colon, with increased amount of stool since examination of June 06, 2023. There is suggestion of colonic wall thickening, particularly involving the right colon, transverse colon, and splenic
flexure. Findings would be suggestive of stercoral colitis. No evidence for free intraperitoneal air. Distention of the stomach with fluid. Left ureteral stent is present
[2023-06-17] MEDS: NOVOLOG FLEXPEN-LOW RESISTANCE 3 UNITS SC (16:37)
[2023-06-17 16:46] LABS: Glucose - Point of Care 293 mg/dl (70-99)
[2023-06-17] MEDS: FLAGYL 500 MG IV (17:28)
[2023-06-17 19:00] VITALS: BP 160/67
[2023-06-17 21:38] LABS: Glucose - Point of Care 229 mg/dl (70-99)
[2023-06-17] MEDS: XANAX 0.25 MG PO (21:39)
[2023-06-17] MEDS: LANTUS 0.0500000000000000028 UNITS SC (21:39)
[2023-06-17 23:00] VITALS: BP 167/72
[2023-06-17] MEDS: Parenteral Nutrition, Central 850 IV (23:30)
[2023-06-18] VITALS (9 sets, daily range): BP systolic 136–177; BP diastolic 58–80; BMI 21.9
[2023-06-18] MEDS: DILAUDID 1 MG IV ×9 (03:02→22:11)
[2023-06-18 05:19] LABS: % Basophils 0.1 % (0-2); % Eosinophils 0.2 % (0-6); % Immature Granulocytes 0.8 % (0-0.5); % Lymphocytes 5.6 % (20.5-51.1); % Monocytes 4.5 % (1.7-9.3); % Neutrophils 88.8 % (42.2-75.2); Absolute Immature Granulocytes 0.2 10^3/uL (0-0.05); Absolute Lymphocytes 1.1 10^3/uL (1.2-3.4); Absolute Monocytes 0.9 10^3/uL (0.1-0.6); Hematocrit 23.4 % (37.0-47.0); Hemoglobin 7.6 g/dL (12.0-16.0); Mean Corp Hgb Conc. 32.5 g/dL (33.0-37.0); Mean Corpuscular Hgb 25.9 pg (27.0-31.0); Mean Corpuscular Volume 79.9 fL (81.0-99.0); Mean Platelet Volume 11.4 fL (7.4-10.4); Nucleated Red Blood Cells % 0 %; Platelet Count 229 10^3/uL (130-400); Red Blood Cell Count 2.93 10^6/uL (4.20-5.40); White Blood Cell Count 19.1 10^3/uL (4.8-10.8)
[2023-06-18 05:46] LABS: Blood Urea Nitrogen 32 mg/dl (7-17); Calcium 7.9 mg/dl (8.4-10.2); Carbon Dioxide 20 mmol/L (22-30); Chloride 115 mmol/L (98-107); Estimated Creatinine Clearance 38 ml/min; Glucose 202 mg/dl (70-99); Magnesium 1.7 mg/dl (1.6-2.3); Phosphorus 2.9 mg/dl (2.5-4.5); Potassium 3.7 mmol/L (3.5-5.1); Sodium 139 mmol/L (135-145); eGFR > 60.00
[2023-06-18 08:39] LABS: Glucose - Point of Care 240 mg/dl (70-99)
[2023-06-18] MEDS: PROTONIX 40 MG PO (08:58)
[2023-06-18] MEDS: NICODERM TRANSDERMAL 14 MG TRANSDERM (08:58)
[2023-06-18] MEDS: PACERONE 400 MG PO ×2 (08:58→20:01)
[2023-06-18] MEDS: LOPRESSOR 12.5 MG PO ×2 (08:58→20:01)
[2023-06-18] MEDS: FIRVANQ 125 MG PO ×2 (09:24→20:01)
[2023-06-18] MEDS: NOVOLOG FLEXPEN-LOW RESISTANCE 2 UNITS SC ×2 (09:26→13:14)
--- NOTE | 2023-06-18 12:07 | W.PN.CRS1 ---
Today's Communication / Plan
-
TPN
FLD
Assessment/Plan
-
78yo female with a recent robotic suture rectopexy, sacrocolpopexy, posterior repair and cystoscopy with left double-J stent on 05/17/2023, presented to the ER with diffuse abdominal pain and lack of BM for 3 days. Patient found with stercoral colitis
on CT and with leukocytosis, lactic acidosis, PAVEL, hyperkalemia and hyponatremia. UA +, but culture negative.
Worsening distention on 06/13, CT showing small bilateral pleural effusions with mild LLL consolidation, mild abdominopelvic ascites, possible cirrhosis, moderate colonic distention�stable s/p IR paracentesis. Fluids with ++WBC, cx thus far neg
Patient with probable C diff diarrhea and SBP, ID following.
WBC slowly improving
AFVSS
Tolerating Clears
--Advance to FLD
--TPN renewed for today, if able to advance to solids tomorrow will discontinue after this next bag
Subjective Data
Subjective Data
Date of Service: June 18, 2023
Patient seen and examined at bedside with Dr. Strange. Denies n/v. Tolerating liquids. Passing flatus/stools. Patient's son Grabiel at bedside, questions addressed
Objective Data
-
Vital Signs
Temp Pulse Resp BP Pulse Ox
98.2 F 75 19 152/65 94
06/18/23 11:00 06/18/23 11:00 06/18/23 11:00 06/18/23 11:00 06/18/23 11:00
Intake & Output
06/17/23 06/18/23 06/19/23
06:59 06:59 06:59
Intake Total 980 / 980 2250 / 2250 480 / 480
Output Total 1200 / 1200 600 / 600 650 / 650
Balance -220 / -220 1650 / 1650 -170 / -170
Intake:
Oral fluids 1800 / 1800 480 / 480
IV fluids (Total) 880 / 880
IV piggybacks 100 / 100 100 / 100
TPN/PPN 350 / 350
Output:
Urine, Chao 1200 / 1200 600 / 600 650 / 650
Other:
Number of unmeasured liquid
stools
Rectum 1 3
Lab Results
06/18/23 05:03
06/18/23 05:03
Physical Exam
-
General: No Acute Distress
Chest: Clear
Cardiovascular: Regular Rate & Rhythm
Abdomen: Distended (mild to moderate) and Non Tender
Extremities: No Edema and No Calf Tenderness
Skin: Warm
[2023-06-18 12:09] LABS: Glucose - Point of Care 241 mg/dl (70-99)
--- NOTE | 2023-06-18 14:08 | W.PN.ID1 ---
Date of Service
Date of Service: June 18, 2023
Today's Communication
continue ceftriaxone
Assessment / Plan
# Leukocytosis - progressing
# SBP
# Colonization with C. diff
- paracentesis consistent with SBP based on neutrophil count
- cultures no growth
- oral vanc BID
- continue ceftriaxone
-Follow wbc.
-Follow stool output and clinically.
- Continue enhanced precautions.
# s/p shock
# s/p recent severe constipation/stercoral colitis - still with residual abdominal pain
# PAVEL improving
# Recent status post robotic suture rectopexy, sacrocolpopexy, posterior repair and cystoscopy with left double-J stent, stone manipulation 05/16
- blood cx's neg to date.
- Ucx neg.
-CXR neg
#Additional Past Medical History:
COPD
Diabetes mellitus type 2
Hypertension
GERD
anxiety/depression
PAD
Chronic pain opioid dependence
ADD
Lumbar laminectomy
Pelvic organs/rectal prolapse status post robotic suture rectopexy, sacrocolpopexy, posterior repair and cystoscopy with left double-J stent, stone manipulation 05/17/23
Chief Complaint
-: Leukocytosis, C-diff and Other (ileus)
Subjective / Review of Systems
afebrile
bp stable
overall improved leukocytosis
cr stable
body fluid culture remains neg
Vital Signs / Physical Exam
Vital Signs
Vital Signs
Temp Pulse Resp BP Pulse Ox
98.2 F 75 19 152/65 94
06/18/23 11:00 06/18/23 11:00 06/18/23 11:00 06/18/23 11:00 06/18/23 11:00
Physical Exam
Constitutional: No Acute Distress
Cardiovascular: Regular Rate
Pulmonary: Symmetric and Non Labored
Gastrointestinal: Distended
Neurological: Awake
Objective Data
Lab Data
Lab Results
06/18/23 05:03
06/18/23 05:03
PT 17.8 Sec (11.4-14.6) H 06/09/23 15:59
INR 1.48 06/09/23 15:59
APTT 43.9 Sec (23.4-35.0) H 06/09/23 15:59
Estimated Creat Clear 38 ml/min 06/18/23 05:03
Lactic Acid 1.2 mmol/L (0.7-2.0) 06/10/23 04:25
Total Bilirubin Cancelled 06/16/23 10:42
AST Cancelled 06/16/23 10:42
ALT Cancelled 06/16/23 10:42
Alkaline Phosphatase Cancelled 06/16/23 10:42
Most recent labs reviewed.
Micro Results:
06/16/23 14:46 Wound Culture - Preliminary
Abdomen No growth
Gram Stain - Preliminary
06/16/23 14:46 Anaerobic Culture - Preliminary
Abdomen Culture pending. Anaerobic cultures are examined after 3
days incubation. Additional information to follow.
06/09/23 11:48 Blood Culture - Final
Blood/Venous No Growth - Final Report
06/09/23 10:35 Blood Culture - Final
Blood/Venous No Growth - Final Report
06/13/23 08:50 C. difficile GDH Antigen & Toxins - Final
Feces/Stool C. difficile antigen positive, toxin negative.
Clostridium difficile present, but toxin not detected.
Patient may be a carrier, colonized with nontoxinogenic
strain or the level of toxin in sample is below detection
limits. This information should be used in conjunction with
the patient's clinical history.
06/09/23 14:41 Urine Culture - Final
Urine NO GROWTH
AXR: Grossly nonspecific bowel gas pattern, markedly limited on single supine view only.
06/08/23 CT a/P: Large amount of stool throughout the colon, with increased amount of stool since examination of June 06, 2023. There is suggestion of colonic wall thickening, particularly involving the right colon, transverse colon, and splenic
flexure. Findings would be suggestive of stercoral colitis. No evidence for free intraperitoneal air. Distention of the stomach with fluid. Left ureteral stent is present
[2023-06-18] MEDS: ROCEPHIN 2000 MG IV (15:30)
[2023-06-18] MEDS: STERILE WATER FOR INJECTION 20 ML IV (15:30)
--- NOTE | 2023-06-18 15:43 | W.PN.HOSP.TC ---
Today's Communication/Plan
-
transfuse 1 unit now
follow labs
diet advanced as per CRS
continue TPN
Assessment / Plan
Assessment / Plan
Septic shock likely secondary to stercoral colitis/abdominal source
resolved
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
s/p robotic rectopexy, sacrocolpopexy, posterior colporrhaphy, perineoplasty and cystoscopy with left ureteral stent for presumed kidney stone 05/17/2023
-s/p NGT removal.
-Having loose bowel movements.
06/12 stool tested, C.Diff-Antigen pos, Toxin neg
-Lactic acidosis resolved.
6.9-->1.2
-PICC line ordered
WBC 8.8-->11.1-->14.2-->24.2-->28.5-->24.3-->20.1-->19.1
Call placed and discussed with Dr. Lockhart 06/15 CT scan: Small bilateral pleural effusions, left larger than right. Both new.
Mild left lower lobe consolidation. New.
Findings suggesting severe volume overload or third spacing. New.
Mild abdominopelvic ascites. New.
Findings suggesting cirrhosis.
Moderate colonic distention. Stable. Previous fecal material has passed. This probably due to colonic ileus.
Nonobstructing left renal stones. Decreased in size
Left double-J stent. Stable.
Barr catheter. New.
ID wishes to treat empirically with oral Vanco in pt on recent abx
Ceftriaxone resumed
-Had been started on Levophed and vasopressin. Off pressors as of 06/09.
-Antibiotics broadened to Vanco and meropenem per ID. Pro-Dylan significantly elevated 44. Creatinine elevated noted.
-Antibiotic further narrowed down to ceftriaxone. Vanco and meropenem discontinued per ID.
-Started on clear liquid and advanced to Regular diet, now NPO
-Appreciate ID, towel folder, urology and colorectal surgery recs
Pt transferred from ICU 06/11, now on 3W
Acute Kidney Injury likely multifactorial pre-renal volume depletion while on ACEI, recent bactrim usage, ATN?
-Placed Barr from strict Is&Os, nephrology wishes to continue barr for now
-Continue IVFS
-Trend Lactic Acid
-monitor urinary output
-With pt now NPO, will continue IVF, with plan to start TPN tonight
-No hydro seen on CT scan
-Slowly improving Creatinine and with increasing urinary output
BUN/Creat 65/2.1-->58/1.9-->52/1.5-->53/1.4-->44/1.2-->32/0.9
-Nephro consulted, input appreciated
New onset of Paroxysmal Afib with RVR on 06/09
currently in NSR with freq PAC's
-started on Amiodarone IV drip, now transitioned to 400 mg po bid through 06/21, then start 200 mg daily, as per cardio
pt just made NPO pending CT scan, pending results, may need to transition Amio back to IV
-Elevated [id number] Score
-ECHO:Hyperdynamic left ventricular systolic function. Estimated LVEF 70-75%.
Mild/moderate mitral regurgitation. Mild mitral stenosis.
Mild/moderate aortic stenosis. Trace aortic regurgitation.
Normal right ventricular systolic function.
Moderate tricuspid regurgitation. Severely elevated PASP. Estimated pulmonary
artery pressure of 58 mmHg assuming a right atrial pressure of 3 mmHg.
-Cards eval
discussed with Dr. Henley, cardio wanted pt to start on Eliquis 2.5 bid, ordered, but now on hold pending work up of GI process
Hyperkalemia
K peaked at 6.6, now 3.7-->3.8-->3.7-->3.7
Anemia
hgb 7.6
will transfuse 1 unit now, discussed with son and he is aware
Severe Metabolic acidosis
-Resolved.
Pelvic Floor Prolapse s/p Robotic Rectopexy / Sacrocolpopexy on May 16
-Care as per Colorectal
Diabetes Mellitus, Type II
-HgbA1c 6.6 in April 2023
-Monitor sugars and continue coverage insulin
Essential Hypertension
-Holding meds as BP running on the low side, currently starting to rise as condition improves, now 138-163/62-75
Anxiety / Depression
-Will write for Ativan prn and continue standing dose at night
GERD
-Continue Protonix IV
Chronic Pain with Opioid Dependence
-Continue Dilaudid prn until able to resume oral meds and tolerating appropriate diet
-monitor closely.may require IV standing pain meds. Risk of opioid withdrawal
-Recommended to patient and spouse to start aggressive bowel regimen at home.
ADHD-hold off on restarting Adderall in the setting of new onset of A-fib
Severe anxiety-restart Xanax
Tobacco abuse
-Continue with nicotine patch
Peripheral Arterial Disease
-Stable
Hypokalemia-replete/monitor
DVT proph: SC Heparin
Code Status: Full Code
reviewed extensively with mario Tirado, many questions and concerns 06/17
Anticipated Discharge: > 48 hours
Subjective/Interval History
-
Date of Service: June 18, 2023
Abdomen feels a little less distended
Objective Data
-
Labs:
Laboratory Results
06/18/23
05:03
WBC 19.1 H
Hgb 7.6 L
Hct 23.4 L
Plt Count 229
Sodium 139
Potassium 3.7
Chloride 115 H
Carbon Dioxide 20 L
BUN 32 H
Creatinine 0.9
Glucose 202 H
Calcium 7.9 L
Vital Signs:
Vital Signs
Temp Pulse Resp BP Pulse Ox
98.2 F 75 19 152/65 94
06/18/23 11:00 06/18/23 11:00 06/18/23 11:00 06/18/23 11:00 06/18/23 11:00
I&O
06/17/23 06/18/23 06/19/23
06:59 06:59 06:59
Intake Total 980 / 980 2250 / 2250 480 / 480
Output Total 1200 / 1200 600 / 600 650 / 650
Balance -220 / -220 1650 / 1650 -170 / -170
Review of Systems
-
History Source: Patient, Family (reviewed extensively with son, Celestino 5/5), Physician ([facility] physicians) and Coordinated Provider
Constitutional: Denies Fever
EENT: Reports No Symptoms Reported
Respiratory: Reports No Symptoms
Cardiac: Reports No Symptoms
Abdomen/GI: Reports Abdominal Pain, Diarrhea (multiple episodes), Pain and Bloated
Physical Exam
-
General: Well Developed, No Apparent Distress and Appears Chronically Ill
HEENT: Normocephalic, Atraumatic and Moist Mucous Membranes
Respiratory: Clear to Auscultation; Negative Wheezes, Rales or Rhonchi
Cardiac: Regular Rhythm and S1/S2
GI: Tender and Distended (somewhat less distended currently); Negative Normal Bowel Sounds ( still diminished with rushes)
Musculoskeletal: No Clubbing, No Cyanosis and No Edema
[2023-06-18 16:32] LABS: Glucose - Point of Care 314 mg/dl (70-99)
[2023-06-18] MEDS: NOVOLOG FLEXPEN-LOW RESISTANCE 4 UNITS SC (17:52)
[2023-06-18 21:48] LABS: Glucose - Point of Care 210 mg/dl (70-99)
[2023-06-18] MEDS: LANTUS 0.0500000000000000028 UNITS SC (22:09)
[2023-06-18] MEDS: XANAX 0.25 MG PO (22:11)
[2023-06-18] MEDS: Parenteral Nutrition, Central 850 IV (22:14)
[2023-06-19] VITALS (7 sets, daily range): BP systolic 152–171; BP diastolic 71–77; PULSE 77; O2SAT 92; BMI 23.0
[2023-06-19] MEDS: DILAUDID 1 MG IV ×8 (01:17→23:36)
[2023-06-19 04:43] LABS: % Basophils 0.3 % (0-2); % Eosinophils 0.5 % (0-6); % Immature Granulocytes 0.7 % (0-0.5); % Lymphocytes 5.7 % (20.5-51.1); % Monocytes 5.8 % (1.7-9.3); Absolute Basophils 0.1 10^3/uL (0-0.2); Absolute Eosinophils 0.1 10^3/uL (0-0.7); Absolute Immature Granulocytes 0.1 10^3/uL (0-0.05); Absolute Monocytes 1.1 10^3/uL (0.1-0.6); Hematocrit 30.4 % (37.0-47.0); Mean Corp Hgb Conc. 32.2 g/dL (33.0-37.0); Mean Corpuscular Hgb 26.5 pg (27.0-31.0); Mean Corpuscular Volume 82.2 fL (81.0-99.0); Mean Platelet Volume 11.3 fL (7.4-10.4); Nucleated Red Blood Cells % 0 %; Platelet Count 206 10^3/uL (130-400); Red Cell Dist. Width 17.3 % (11.5-14.5); White Blood Cell Count 18.4 10^3/uL (4.8-10.8)
[2023-06-19 04:48] LABS: Hemoglobin 9.8 g/dL (12.0-16.0)
[2023-06-19 05:07] LABS: ALT (SGPT) < 10 U/L (0-35); AST (SGOT) 34 U/L (14-36); Albumin 1.8 g/dl (3.5-5.0); Alkaline Phosphatase 120 U/L (38-126); Blood Urea Nitrogen 29 mg/dl (7-17); Calcium 8.1 mg/dl (8.4-10.2); Carbon Dioxide 22 mmol/L (22-30); Chloride 114 mmol/L (98-107); Estimated Creatinine Clearance 43 ml/min; Glucose 203 mg/dl (70-99); Magnesium 1.7 mg/dl (1.6-2.3); Phosphorus 3.2 mg/dl (2.5-4.5); Potassium 4.2 mmol/L (3.5-5.1); Sodium 141 mmol/L (135-145); Total Bilirubin 0.3 mg/dl (0.2-1.3); Total Protein 4.2 g/dl (6.3-8.2); Triglycerides 77 mg/dl (10-149); eGFR > 60.00
--- NOTE | 2023-06-19 06:03 | PTCARENOTE ---
During AM care, noted pt's right arm edematous distal to PICC and cool to touch. TPN currently infusing, VAT team notified
[2023-06-19 07:58] LABS: Glucose - Point of Care 213 mg/dl (70-99)
[2023-06-19] MEDS: LOPRESSOR 12.5 MG PO ×2 (08:11→20:05)
[2023-06-19] MEDS: NICODERM TRANSDERMAL 14 MG TRANSDERM (08:11)
[2023-06-19] MEDS: PROTONIX 40 MG PO (08:11)
[2023-06-19] MEDS: PACERONE 400 MG PO ×2 (08:11→20:04)
[2023-06-19] MEDS: FIRVANQ 125 MG PO ×2 (08:12→20:04)
[2023-06-19] MEDS: NOVOLOG FLEXPEN-LOW RESISTANCE 2 UNITS SC (08:21)
--- NOTE | 2023-06-19 10:45 | W.PN.CRS1 ---
Today's Communication / Plan
-
regular diet with TPN
colonoscopy tomorrow
NPO at midnight
Assessment/Plan
-
78yo female with a recent robotic suture rectopexy, sacrocolpopexy, posterior repair and cystoscopy with left double-J stent on 05/17/2023, presented to the ER with diffuse abdominal pain and lack of BM for 3 days. Patient found with stercoral colitis
on CT and with leukocytosis, lactic acidosis, PAVEL, hyperkalemia and hyponatremia. UA +, but culture negative.
Worsening distention on 06/13, CT showing small bilateral pleural effusions with mild LLL consolidation, mild abdominopelvic ascites, possible cirrhosis, moderate colonic distention�stable s/p IR paracentesis. Fluids with ++WBC, cx thus far neg
Patient with probable C diff diarrhea and SBP, ID following.
WBC slowly improving - 18.4
AFVSS
Plan:
1. Advance diet to regular. Continue TPN through today.
2. C.diff treatment per ID.
3. Plan for colonoscopy tomorrow with Dr. Guardado. Discussed with significant other. NPO at midnight. 2 enemas in the AM (6:00am and 8:00am). On the schedule for 9am in GI lab.
4. Abdominal cultures pending.
5. OOB with PT.
6. Eliquis currently on hold.
7. Okay for DVT prophylaxis from our standpoint.
8. Dispo: skilled rehab.
Subjective Data
Subjective Data
Date of Service: June 19, 2023
Patient states she has back pain (chronic). She denies abdominal pain. She is hungry. She denies nausea or vomiting. She is having bowel movements.
Objective Data
-
Vital Signs
Temp Pulse Resp BP Pulse Ox
98.2 F 82 17 163/75 95
06/19/23 07:00 06/19/23 07:00 06/19/23 07:00 06/19/23 07:00 06/19/23 07:00
Intake & Output
06/18/23 06/19/23 06/20/23
06:59 06:59 06:59
Intake Total 2250 / 2250 2740 / 2740
Output Total 600 / 600 1750 / 1750
Balance 1650 / 1650 990 / 990
Intake:
Oral fluids 1800 / 1800 207 / 2069
IV piggybacks 100 / 100
TPN/PPN 350 / 350 420 / 420
Blood Product Amount Infused ( 250 / 250
mL)
Packed Rbc Leukoreduced Unit 250 / 250
[id number]
Output:
Liquid stool amount 250 / 250
Rectum 250 / 250
Urine, Chao 600 / 600 1500 / 1500
Other:
Number of unmeasured liquid
stools
Rectum 1 3
Lab Results
06/19/23 04:35
06/19/23 04:35
Physical Exam
-
General: No Acute Distress and AOx3
Abdomen: Soft, Distended (mild to moderate) and Non Tender
Skin: Warm and Dry
[2023-06-19 11:34] LABS: Glucose - Point of Care 178 mg/dl (70-99)
--- NOTE | 2023-06-19 12:15 | W.PN.HOSP.TC ---
Today's Communication/Plan
-
Increase Lantus
Restart Norvasc
Plan for tentative flex sig/colonoscopy tomorrow
Await colorectal recs
Case management for rehab
Assessment / Plan
Assessment / Plan
Septic shock likely secondary to stercoral colitis/abdominal [id number]
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
s/p robotic rectopexy, sacrocolpopexy, posterior colporrhaphy, perineoplasty and cystoscopy with left ureteral stent for presumed kidney stone 05/17/2023
-s/p NGT removal.
-Having loose bowel movements.
-06/12 stool tested, C.Diff-Antigen pos, Toxin neg. Colonization. Po vanc BID.
-Lactic acidosis resolved.
-PICC line ordered
-ID wishes to treat empirically with oral Vanco in pt on recent abx. Ceftriaxone resumed
-Had been started on Levophed and vasopressin. Off pressors as of 06/09.
-Antibiotics broadened to Vanco and meropenem per ID. Pro-Dylan significantly elevated 44. Creatinine elevated noted.
-Antibiotic further narrowed down to ceftriaxone. Vanco and meropenem discontinued per ID.
-Started on clear liquid and advanced to Regular diet. With plan for TPN tonight and plan for Flex/sig tomm if patietn agrees.
SBP
-cultures no growth
-IV rocephin
Acute Kidney Injury likely multifactorial pre-renal volume depletion while on ACEI, recent bactrim usage, ATN?
-Placed Barr from strict Is&Os, nephrology wishes to continue barr for now
-Trend Lactic Acid
-monitor urinary output
-No hydro seen on CT scan
-Cr stable. Hold ACEI.
-Nephro consulted, input appreciated
New onset of Paroxysmal Afib with RVR on 06/09
[facility]
-started on Amiodarone IV drip, now transitioned to 400 mg po bid through 06/21, then start 200 mg daily, as per cardio
-Elevated [id number] Score
-Cards eval
-Eliquis on hold for Flex/sig or colonoscopy tomm.
Hyperkalemia
-K peaked at 6.6, now 3.7-->3.8-->3.7-->3.7
Anemia
-s/p 1u PRBC.
Severe Metabolic acidosis
-Resolved.
Pelvic Floor Prolapse s/p Robotic Rectopexy / Sacrocolpopexy on May 16
-Care as per Colorectal
Diabetes Mellitus, Type II
-HgbA1c 6.6 in April 2023
-Monitor sugars and continue coverage insulin. Increase Lantus dose on TPN with elevated blood glucose
Essential Hypertension
-Patient blood pressure has been persistently elevated. Start Norvasc 10 mg.
Anxiety / Depression
-Will write for Ativan prn and continue standing dose at night
GERD
-Continue Protonix IV
Chronic Pain with Opioid Dependence
-Continue Dilaudid prn until able to resume oral meds and tolerating appropriate diet
-monitor closely.may require IV standing pain meds. Risk of opioid withdrawal
-Recommended to patient and spouse to start aggressive bowel regimen at home.
ADHD-hold off on restarting Adderall in the setting of new onset of A-fib
Severe anxiety-restart Xanax
Tobacco abuse
-Continue with nicotine patch
Peripheral Arterial Disease
-Stable
Hypokalemia-replete/monitor
DVT proph: scds
Code Status: Full Code
reviewed extensively with spouse at bedside in details and daughter over the phone.
Anticipated Discharge: > 48 hours
Subjective/Interval History
-
Date of Service: June 19, 2023
States of back pain and abdomen pain
tolerating liquids
Objective Data
-
Labs:
Laboratory Results
06/19/23
04:35
WBC 18.4 H
Hgb 9.8 L D
Hct 30.4 L
Plt Count 206
Sodium 141
Potassium 4.2
Chloride 114 H
Carbon Dioxide 22
BUN 29 H
Creatinine 0.8
Glucose 203 H
Calcium 8.1 L
Total Bilirubin 0.3
AST 34
ALT < 10
Alkaline Phosphatase 120
Vital Signs:
Vital Signs
Temp Pulse Resp BP Pulse Ox
98.0 F 71 16 171/71 96
06/19/23 10:45 06/19/23 10:45 06/19/23 10:45 06/19/23 10:45 06/19/23 10:45
I&O
06/18/23 06/19/23 06/20/23
06:59 06:59 06:59
Intake Total 2250 / 2250 2740 / 2740
Output Total 600 / 600 1750 / 1750
Balance 1650 / 1650 990 / 990
Data Reviewed
-
Total Time Spent with Patient (in minutes): 62
[2023-06-19] MEDS: ROXICODONE 20 MG PO ×2 (13:34→20:04)
[2023-06-19] MEDS: NORVASC 10 MG PO (13:35)
[2023-06-19] MEDS: NOVOLOG FLEXPEN-LOW RESISTANCE 1 UNITS SC (13:40)
--- NOTE | 2023-06-19 14:54 | CM ---
Case management following for d/c planning
Spoke with pt and her at bedside
Pt would like to go home with services - declining SNF
Pts reports he will be home with pt when d/c'ed and has family support
Pt lives in a [facility] with set-up
Offered choices for VN - preferred [facility]
Referral sent in [facility] for home services - RN/PT/OT
Plan - home with [facility] when medically stable
--- NOTE | 2023-06-19 15:34 | W.PN.ID1 ---
Date of Service
Date of Service: June 19, 2023
Today's Communication
Continue ceftriaxone and po vancomycin for now.
Assessment / Plan
# Leukocytosis - improving
# SBP
# Colonization with C. diff
# Ileus vs [place]
CT: liver cirrhosis with mild ascites
- paracentesis consistent with SBP based on neutrophil count
cultures no growth
- Continue empiric ceftriaxone for now (d4)
- Continue oral vanc BID
-Follow wbc.
-Follow stool output and clinically.
- Continue enhanced precautions.
- For flex sig tomorrow as per colorectal.
# s/p shock
# s/p recent severe constipation/stercoral colitis - still with residual abdominal pain
# Recent status post robotic suture rectopexy, sacrocolpopexy, posterior repair and cystoscopy with left double-J stent, stone manipulation 05/16
#Additional Past Medical History:
COPD
Diabetes mellitus type 2
Hypertension
GERD
anxiety/depression
PAD
Chronic pain opioid dependence
ADD
Lumbar laminectomy
Pelvic organs/rectal prolapse status post robotic suture rectopexy, sacrocolpopexy, posterior repair and cystoscopy with left double-J stent, stone manipulation 05/17/23
Chief Complaint
-: Leukocytosis and Other (ileus)
Subjective / Review of Systems
Abdominal pain better. No cough.
Vital Signs / Physical Exam
Vital Signs
Vital Signs
Temp Pulse Resp BP Pulse Ox
98.0 F 71 16 171/71 96
06/19/23 10:45 06/19/23 10:45 06/19/23 10:45 06/19/23 10:45 06/19/23 10:45
Physical Exam
Constitutional: No Acute Distress
Cardiovascular: Regular Rate and S1/S2
Pulmonary: Other (decreased BS bilaterally)
Gastrointestinal: Soft, Tender (minimal tendererness), Distended and Other (FMS: brown semiliquid stool)
Extremities: Edema
Neurological: AO x 3
Objective Data
Lab Data
Lab Results
06/19/23 04:35
06/19/23 04:35
PT 17.8 Sec (11.4-14.6) H 06/09/23 15:59
INR 1.48 06/09/23 15:59
APTT 43.9 Sec (23.4-35.0) H 06/09/23 15:59
Estimated Creat Clear 43 ml/min 06/19/23 04:35
Lactic Acid 1.2 mmol/L (0.7-2.0) 06/10/23 04:25
Total Bilirubin 0.3 mg/dl (0.2-1.3) 06/19/23 04:35
AST 34 U/L (14-36) 06/19/23 04:35
ALT < 10 U/L (0-35) 06/19/23 04:35
Alkaline Phosphatase 120 U/L (38-126) 06/19/23 04:35
Most recent labs reviewed.
Micro Results:
06/16/23 14:46 Anaerobic Culture - Preliminary
Abdomen Culture pending. Anaerobic cultures are examined after 3
days incubation. Additional information to follow.
06/16/23 14:46 Wound Culture - Preliminary
Abdomen No growth
Gram Stain - Preliminary
06/09/23 11:48 Blood Culture - Final
Blood/Venous No Growth - Final Report
06/09/23 10:35 Blood Culture - Final
Blood/Venous No Growth - Final Report
06/13/23 08:50 C. difficile GDH Antigen & Toxins - Final
Feces/Stool C. difficile antigen positive, toxin negative.
Clostridium difficile present, but toxin not detected.
Patient may be a carrier, colonized with nontoxinogenic
strain or the level of toxin in sample is below detection
limits. This information should be used in conjunction with
the patient's clinical history.
06/09/23 14:41 Urine Culture - Final
Urine NO GROWTH
06/14/2023: CT a/p: Findings suggesting severe volume overload or third spacing. New. Mild abdominopelvic ascites. New.
Findings suggesting cirrhosis. Moderate colonic distention. Stable. Previous fecal material has passed. This probably due to colonic ileus. Nonobstructing left renal stones. Decreased in size. Left double-J stent. Stable.
06/13/23 AXR: Grossly nonspecific bowel gas pattern, markedly limited on single supine view only.
06/08/23 CT a/P: Large amount of stool throughout the colon, with increased amount of stool since examination of June 06, 2023. There is suggestion of colonic wall thickening, particularly involving the right colon, transverse colon, and splenic
flexure. Findings would be suggestive of stercoral colitis. No evidence for free intraperitoneal air. Distention of the stomach with fluid. Left ureteral stent is present
[2023-06-19 16:42] LABS: Glucose - Point of Care 141 mg/dl (70-99)
[2023-06-19] MEDS: NOVOLOG FLEXPEN-LOW RESISTANCE SC (17:07)
[2023-06-19] MEDS: STERILE WATER FOR INJECTION 20 ML IV (17:49)
[2023-06-19] MEDS: ROCEPHIN 2000 MG IV (17:49)
[2023-06-19] MEDS: XANAX 0.125 MG PO (17:56)
[2023-06-19] MEDS: TYLENOL PO (20:04)
[2023-06-19 21:46] LABS: Glucose - Point of Care 150 mg/dl (70-99)
[2023-06-19] MEDS: XANAX 0.25 MG PO (22:35)
[2023-06-19] MEDS: LANTUS 0.119999999999999996 UNITS SC (22:35)
[2023-06-19] MEDS: Parenteral Nutrition, Central 850 IV (23:08)
[2023-06-20] MEDS: DILAUDID 1 MG IV ×2 (03:40→08:37)
[2023-06-20 03:52] VITALS: BP 164/77; BMI 23.4
[2023-06-20 06:07] LABS: % Basophils 0.5 % (0-2); % Eosinophils 0.5 % (0-6); % Immature Granulocytes 0.4 % (0-0.5); % Lymphocytes 7.2 % (20.5-51.1); % Monocytes 6.5 % (1.7-9.3); % Neutrophils 84.9 % (42.2-75.2); Absolute Basophils 0.1 10^3/uL (0-0.2); Absolute Eosinophils 0.1 10^3/uL (0-0.7); Absolute Immature Granulocytes 0.1 10^3/uL (0-0.05); Absolute Lymphocytes 0.9 10^3/uL (1.2-3.4); Absolute Monocytes 0.8 10^3/uL (0.1-0.6); Absolute Neutrophils 10.9 10^3/uL (1.4-6.5); Hematocrit 31.4 % (37.0-47.0); Mean Corp Hgb Conc. 31.8 g/dL (33.0-37.0); Mean Corpuscular Hgb 26.2 pg (27.0-31.0); Mean Corpuscular Volume 82.2 fL (81.0-99.0); Mean Platelet Volume 11.5 fL (7.4-10.4); Nucleated Red Blood Cells % 0 %; Platelet Count 237 10^3/uL (130-400); Red Blood Cell Count 3.82 10^6/uL (4.20-5.40); Red Cell Dist. Width 17.8 % (11.5-14.5); White Blood Cell Count 12.8 10^3/uL (4.8-10.8)
[2023-06-20 07:00] VITALS: BP 167/68
[2023-06-20 07:56] LABS: Glucose - Point of Care 194 mg/dl (70-99)
[2023-06-20] MEDS: LOPRESSOR 12.5 MG PO ×2 (09:00→19:50)
[2023-06-20] MEDS: PROTONIX 40 MG PO (09:00)
[2023-06-20] MEDS: ROXICODONE 20 MG PO ×2 (09:00→19:38)
[2023-06-20] MEDS: NORVASC 10 MG PO (09:01)
[2023-06-20] MEDS: NICODERM TRANSDERMAL 14 MG TRANSDERM (09:01)
[2023-06-20] MEDS: FIRVANQ 125 MG PO ×2 (09:01→19:38)
[2023-06-20] MEDS: PACERONE 400 MG PO ×2 (09:01→19:50)
[2023-06-20] MEDS: NOVOLOG FLEXPEN-LOW RESISTANCE 1 UNITS SC (09:43)
--- NOTE | 2023-06-20 09:52 | W.PN.CRS1 ---
Today's Communication / Plan
-
Patient refusing flex sig today; restart diet, continue TPN
Continue antibiotics, leukocytosis improving
Assessment/Plan
-
78yo female with a recent robotic suture rectopexy, sacroculpopexy, posterior repair and cystoscopy with left double-J stent on 05/17/2023, presented to the ER with diffuse abdominal pain and lack of BM for 3 days. Patient found with stercoral colitis
on CT and with leukocytosis, lactic acidosis, PAVEL, hyperkalemia and hyponatremia. UA +, but culture negative; now off levo and UOP/Cr improving; worsening distention on 06/13, CT showing small bilateral pleural effusions with mild LLL consolidation,
mild abdominopelvic ascites, possible cirrhosis, moderate colonic distention�stable; underwent IR-guided aspiration of ascites on 06/15
AF, HR 90s, normotensive
WBC 12.8 from 18.4, no BMP today, but Cr yesterday 0.8
�Abdominal distention
�Uncertain etiology of the colonic distention; based on CT, does not appear to be an obstruction
- Plan was flex sig to evaluate for obstruction, but patient refusing; having flatus/BMs (albeit small amount)
�Most likely ileus due to secondary issues
�Possible, but less likely, Farber's; avoid narcotics and replete electrolytes
� Continue IV antibiotics; appreciate ID
�UA positive, urine culture negative; urosepsis less likely; appreciate urology- signed off
�06/08 BCx ngtd, UCx neg; 06/15 ascites culture ngtd
�06/12 C. difficile Ag positive, toxin negative; on prophylactic p.o. Vanco
�Continue reg diet with TPN
�Continue pain control, avoid narcotics if possible
�Hold bowel regimen
�On Eliquis for DVT ppx
�Strict I/os; appreciate nephro
� Okay for OOB, encourage IS
� Appreciate hospitalist
Subjective Data
Subjective Data
Date of Service: June 20, 2023
No overnight events. Patient refusing flexible sigmoidoscopy this a.m. and actively drinking tea in front of me.
Abdominal pain slightly improved, complaining of back pain.
Denies nausea/vomiting. Tolerated diet yesterday.
+flatus +BMs (per the spouse, not passing much)
Pt is not OOB yet
Objective Data
-
Vital Signs
Temp Pulse Resp BP Pulse Ox
99.2 F 85 17 167/68 95
06/20/23 07:00 06/20/23 07:00 06/20/23 07:00 06/20/23 07:00 06/20/23 07:00
Intake & Output
06/19/23 06/20/23 06/21/23
06:59 06:59 06:59
Intake Total 2740 / 2740 540 / 540
Output Total 1750 / 1750 700 / 700
Balance 990 / 990 -160 / -160
Intake:
Oral fluids 2070 / 2070 540 / 540
TPN/PPN 420 / 420
Blood Product Amount Infused ( 250 / 250
mL)
Packed Rbc Leukoreduced Unit 250 / 250
[id number]
Output:
Liquid stool amount 250 / 250 250 / 250
Rectum 250 / 250 250 / 250
Urine, Chao 1500 / 1500 450 / 450
Other:
Number of unmeasured liquid
stools
Rectum 3
Lab Results
06/20/23 05:47
06/19/23 04:35
Physical Exam
-
General: No Acute Distress and AOx3
HEENT: Grossly Normal
Abdomen: Soft, Distended (Mildly to moderately distended and tympanic to percussion), Non Tender, No Guarding and No Rebound
[2023-06-20 11:01] VITALS: BP 162/68
[2023-06-20 11:29] LABS: Glucose - Point of Care 558 mg/dl (70-99)
--- NOTE | 2023-06-20 11:54 | W.PN.ID1 ---
Date of Service
Date of Service: June 20, 2023
Today's Communication
Continue empiric ceftriaxone for now (d5). At time of dc, transition to cefuroxime 500mg po bid through 06/24.
Continue oral vanc BID through 06/29.
Assessment / Plan
# Leukocytosis - improving
# SBP
# Colonization with C. diff
# Ileus vs [place] - pt refused felx sig
CT: liver cirrhosis with mild ascites
- paracentesis consistent with SBP based on neutrophil count
cultures no growth
- Continue empiric ceftriaxone for now (d5). At time of dc, transition to cefuroxime 500mg po bid through 06/24.
- Continue oral vanc BID through 06/29.
-Follow wbc.
-Follow stool output and clinically.
- Continue enhanced precautions.
# s/p shock
# s/p recent severe constipation/stercoral colitis - still with residual abdominal pain
# Recent status post robotic suture rectopexy, sacrocolpopexy, posterior repair and cystoscopy with left double-J stent, stone manipulation 05/16
#Additional Past Medical History:
COPD
Diabetes mellitus type 2
Hypertension
GERD
anxiety/depression
PAD
Chronic pain opioid dependence
ADD
Lumbar laminectomy
Pelvic organs/rectal prolapse status post robotic suture rectopexy, sacrocolpopexy, posterior repair and cystoscopy with left double-J stent, stone manipulation 05/17/23
Chief Complaint
-: Leukocytosis and Other (ileus)
Subjective / Review of Systems
wants to go home
Vital Signs / Physical Exam
Vital Signs
Vital Signs
Temp Pulse Resp BP Pulse Ox
98.8 F 77 17 162/68 95
06/20/23 11:01 06/20/23 11:01 06/20/23 11:01 06/20/23 11:01 06/20/23 11:01
Physical Exam
Constitutional: No Acute Distress and Comfortable
Cardiovascular: Regular Rate and S1/S2
Pulmonary: Other (decreased BS)
Gastrointestinal: Soft, Non Tender, Distended (mild to mod) and Other (FMS, minimal stool.)
Neurological: AO x 3
Objective Data
Lab Data
Lab Results
06/20/23 05:47
06/19/23 04:35
PT 17.8 Sec (11.4-14.6) H 06/09/23 15:59
INR 1.48 06/09/23 15:59
APTT 43.9 Sec (23.4-35.0) H 06/09/23 15:59
Estimated Creat Clear 43 ml/min 06/19/23 04:35
Lactic Acid 1.2 mmol/L (0.7-2.0) 06/10/23 04:25
Total Bilirubin 0.3 mg/dl (0.2-1.3) 06/19/23 04:35
AST 34 U/L (14-36) 06/19/23 04:35
ALT < 10 U/L (0-35) 06/19/23 04:35
Alkaline Phosphatase 120 U/L (38-126) 06/19/23 04:35
Most recent labs reviewed.
Micro Results:
06/16/23 14:46 Anaerobic Culture - Preliminary
Abdomen Culture pending. Anaerobic cultures are examined after 3
days incubation. Additional information to follow.
06/16/23 14:46 Wound Culture - Preliminary
Abdomen No growth
Gram Stain - Preliminary
06/09/23 11:48 Blood Culture - Final
Blood/Venous No Growth - Final Report
06/09/23 10:35 Blood Culture - Final
Blood/Venous No Growth - Final Report
06/13/23 08:50 C. difficile GDH Antigen & Toxins - Final
Feces/Stool C. difficile antigen positive, toxin negative.
Clostridium difficile present, but toxin not detected.
Patient may be a carrier, colonized with nontoxinogenic
strain or the level of toxin in sample is below detection
limits. This information should be used in conjunction with
the patient's clinical history.
06/09/23 14:41 Urine Culture - Final
Urine NO GROWTH
06/14/2023: CT a/p: Findings suggesting severe volume overload or third spacing. New. Mild abdominopelvic ascites. New.
Findings suggesting cirrhosis. Moderate colonic distention. Stable. Previous fecal material has passed. This probably due to colonic ileus. Nonobstructing left renal stones. Decreased in size. Left double-J stent. Stable.
06/13/23 AXR: Grossly nonspecific bowel gas pattern, markedly limited on single supine view only.
06/08/23 CT a/P: Large amount of stool throughout the colon, with increased amount of stool since examination of June 06, 2023. There is suggestion of colonic wall thickening, particularly involving the right colon, transverse colon, and splenic
flexure. Findings would be suggestive of stercoral colitis. No evidence for free intraperitoneal air. Distention of the stomach with fluid. Left ureteral stent is present
--- NOTE | 2023-06-20 12:39 | W.PN.HOSP.TC ---
Today's Communication/Plan
-
Improvement in WBC
Decrease Dilaudid dose
Adjust Xanax to daily as outpatient records
Out of bed was highly encouraged
Refusing therapy
repeat glucose bmp pending
Assessment / Plan
Assessment / Plan
Septic shock likely secondary to stercoral colitis/abdominal [id number]
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
s/p robotic rectopexy, sacrocolpopexy, posterior colporrhaphy, perineoplasty and cystoscopy with left ureteral stent for presumed kidney stone 05/17/2023
-s/p NGT removal.
-Having loose bowel movements.
-06/12 stool tested, C.Diff-Antigen pos, Toxin neg. Colonization. Po vanc BID.
-Lactic acidosis resolved.
-PICC line ordered
-ID wishes to treat empirically with oral Vanco in pt on recent abx. Ceftriaxone resumed
-Had been started on Levophed and vasopressin. Off pressors as of 06/09.
-Antibiotics broadened to Vanco and meropenem per ID. Pro-Dylan significantly elevated 44. Creatinine elevated noted.
-Antibiotic further narrowed down to ceftriaxone. Vanco and meropenem discontinued per ID.
-Started on clear liquid and advanced to Regular diet. Patient refusing flex sig.
SBP
-cultures no growth
-IV rocephin
Acute Kidney Injury likely multifactorial pre-renal volume depletion while on ACEI, recent bactrim usage, ATN?
-Placed Barr from strict Is&Os, nephrology wishes to continue barr for now
-Trend Lactic Acid
-monitor urinary output
-No hydro seen on CT scan
-Cr stable. Hold ACEI.
-Nephro consulted, input appreciated
New onset of Paroxysmal Afib with RVR on 06/09
currently in NSR with [facility] PAC's
-started on Amiodarone IV drip, now transitioned to 400 mg po bid through 06/21, then start 200 mg daily, as per cardio
-Elevated [id number] Score
-Cards eval
-Eliquis restarted after discussion with colorectal surgery as no plan for procedure
Hyperkalemia
-K peaked at 6.6, now 3.7-->3.8-->3.7-->3.7
Anemia
-s/p 1u PRBC.
Severe Metabolic acidosis
-Resolved.
Pelvic Floor Prolapse s/p Robotic Rectopexy / Sacrocolpopexy on May 16
-Care as per Colorectal
Diabetes Mellitus, Type II
-HgbA1c 6.6 in April 2023
-Monitor sugars and continue coverage insulin. Increase Lantus dose on TPN with elevated blood glucose
-repeat glucose on bmp pending.
Essential Hypertension
-Patient blood pressure has been persistently elevated. Start Norvasc 10 mg.
Anxiety / Depression
-Xanax at bedtime and as needed
GERD
-Continue Protonix IV
Chronic Pain with Opioid Dependence
-Decrease dose of Dilaudid with plan to hopefully discontinue IV narcotics in next 24 hours
-Recommended to patient and spouse to start aggressive bowel regimen at home.
ADHD-hold off on restarting Adderall in the setting of new onset of A-fib
Severe anxiety-restart Xanax
Tobacco abuse
-Continue with nicotine patch
Peripheral Arterial Disease
-Stable
Hypokalemia-replete/monitor
DVT proph: scds
Code Status: Full Code
Reviewed extensively with spouse at bedside and also once again over the phone later in the day
Anticipated Discharge: > 48 hours
Subjective/Interval History
-
Date of Service: June 20, 2023
eating breakfast
refused Flex sig
Objective Data
-
Labs:
Laboratory Results
06/20/23 06/20/23
05:47 12:24
WBC 12.8 H
Hgb 10.0 L
Hct 31.4 L
Plt Count 237
Glucose Pending
Vital Signs:
Vital Signs
Temp Pulse Resp BP Pulse Ox
98.8 F 77 17 162/68 95
06/20/23 11:01 06/20/23 11:01 06/20/23 11:01 06/20/23 11:01 06/20/23 11:01
I&O
06/19/23 06/20/23 06/21/23
06:59 06:59 06:59
Intake Total 2740 / 2740 540 / 540
Output Total 1750 / 1750 700 / 700
Balance 990 / 990 -160 / -160
Physical Exam
-
General: Well Developed, No Apparent Distress and Appears Chronically Ill
HEENT: Normocephalic, Atraumatic and Moist Mucous Membranes
Respiratory: Clear to Auscultation; Negative Wheezes, Rales or Rhonchi
Cardiac: Regular Rhythm and S1/S2
GI: Nontender and Distended (somewhat less distended currently); Negative Normal Bowel Sounds ( still diminished with rushes)
Musculoskeletal: No Clubbing, No Cyanosis and No Edema
Neuro: Awake
Data Reviewed
-
Total Time Spent with Patient (in minutes): 55
[2023-06-20 13:23] LABS: Glucose 220 mg/dl (70-99)
[2023-06-20] MEDS: NOVOLOG FLEXPEN-LOW RESISTANCE 2 UNITS SC (13:47)
--- NOTE | 2023-06-20 13:51 | VNURNOTE ---
Met with patient and sig other Grabiel at bedside. Answered questions Grabiel had about [facility] and palliative services. He was also interested in more info on [facility]. He feels the patient would benefit from SNF, he is still talking to her and
patient's daughter about it. This nurse notified Telecom Assistant Edwige.
[2023-06-20 14:07] LABS: Glycohemoglobin (HgbA1c) 6.1 % (4.0-5.6)
[2023-06-20] MEDS: XANAX 0.125 MG PO (14:07)
[2023-06-20 15:00] VITALS: BP 156/55
[2023-06-20] MEDS: ANTIFUNGAL CLEAR 1 APPLIC TOPICAL ×2 (16:00→19:41)
[2023-06-20] MEDS: STERILE WATER FOR INJECTION 20 ML IV (16:01)
[2023-06-20] MEDS: ROCEPHIN 2000 MG IV (16:01)
[2023-06-20 16:35] LABS: Glucose - Point of Care 261 mg/dl (70-99)
[2023-06-20] MEDS: DILAUDID 0.25 MG IV (17:36)
[2023-06-20] MEDS: NOVOLOG FLEXPEN-LOW RESISTANCE 3 UNITS SC (18:11)
[2023-06-20 19:25] VITALS: BP 155/75
[2023-06-20] MEDS: ELIQUIS 2.5 MG PO (19:38)
[2023-06-20 21:41] LABS: Glucose - Point of Care 209 mg/dl (70-99)
[2023-06-20] MEDS: XANAX 0.25 MG PO (22:27)
[2023-06-20] MEDS: LANTUS 0.149999999999999994 UNITS SC (22:28)
[2023-06-20] MEDS: Parenteral Nutrition, Central 850 IV (22:28)
[2023-06-20 23:40] VITALS: BP 133/61
[2023-06-21] MEDS: DILAUDID 0.25 MG IV ×3 (02:59→17:47)
[2023-06-21 03:11] VITALS: BP 151/66
[2023-06-21 05:01] LABS: Hematocrit 28.2 % (37.0-47.0); Hemoglobin 9.1 g/dL (12.0-16.0); Mean Corp Hgb Conc. 32.3 g/dL (33.0-37.0); Mean Corpuscular Hgb 26.1 pg (27.0-31.0); Mean Platelet Volume 11.5 fL (7.4-10.4); Nucleated Red Blood Cells % 0 %; Platelet Count 246 10^3/uL (130-400); Red Blood Cell Count 3.48 10^6/uL (4.20-5.40); Red Cell Dist. Width 17.8 % (11.5-14.5); White Blood Cell Count 10.8 10^3/uL (4.8-10.8)
[2023-06-21 07:00] VITALS: BP 154/69
[2023-06-21 08:16] LABS: Absolute Neutrophils -Man Diff 8.2 10^3/uL (1.4-6.5); Anisocytosis 1+; Band Neutrophils 17 % (0-3); Hypochromasia 2+; Lymphocytes 14 % (20-51); Monocytes 10 % (2-9); Normal RBC Morphology No; Ovalocytes Slight; Platelets Checked Yes; Polychromasia Slight; Segmented Neutrophils 59 % (42-75); Target Cells Slight; Total Cells Counted 100
[2023-06-21 08:38] LABS: Glucose - Point of Care 198 mg/dl (70-99)
[2023-06-21] MEDS: NOVOLOG FLEXPEN-LOW RESISTANCE 1 UNITS SC ×3 (08:49→17:47)
[2023-06-21] MEDS: ROXICODONE 20 MG PO ×2 (08:51→20:09)
[2023-06-21] MEDS: NORVASC 10 MG PO (08:51)
[2023-06-21] MEDS: FIRVANQ 125 MG PO ×2 (08:51→20:09)
[2023-06-21] MEDS: PACERONE 400 MG PO ×2 (08:51→20:09)
[2023-06-21] MEDS: LOPRESSOR 12.5 MG PO ×2 (08:52→20:09)
[2023-06-21] MEDS: PROTONIX 40 MG PO (08:52)
[2023-06-21] MEDS: NICODERM TRANSDERMAL 14 MG TRANSDERM (08:52)
[2023-06-21] MEDS: ELIQUIS 2.5 MG PO ×2 (08:53→20:09)
[2023-06-21] MEDS: ANTIFUNGAL CLEAR 1 APPLIC TOPICAL ×2 (08:53→20:14)
--- NOTE | 2023-06-21 08:54 | W.PN.CRS1 ---
Today's Communication / Plan
-
TPN with regular diet
d/c rectal tube
okay to d/c barr from our perspective
Assessment/Plan
-
78yo female with a recent robotic suture rectopexy, sacroculpopexy, posterior repair and cystoscopy with left double-J stent on 05/17/2023, presented to the ER with diffuse abdominal pain and lack of BM for 3 days. Patient found with stercoral colitis
on CT and with leukocytosis, lactic acidosis, PAVEL, hyperkalemia and hyponatremia. UA +, but culture negative; now off levo and UOP/Cr improving; worsening distention on 06/13, CT showing small bilateral pleural effusions with mild LLL consolidation,
mild abdominopelvic ascites, possible cirrhosis, moderate colonic distention�stable; underwent IR-guided aspiration of ascites on 06/15
1. Continue reg diet with TPN
2. Continue pain control, avoid narcotics if possible
3. On Eliquis for DVT ppx
4. Appreciate nephro
5. Okay for OOB, encourage IS. PT ordered. Patient has been refusing per notes.
6. Appreciate hospitalist
7. D/C rectal tube
8. OKay to d/c the barr from our perspective.
9. Discussion with SO at bedside regarding care. He wants to take her home. We encouraged her to stay at least another day.
Subjective Data
Subjective Data
Date of Service: June 21, 2023
Patient states she has back pain and wants her pain medication.
Objective Data
-
Vital Signs
Temp Pulse Resp BP Pulse Ox
97.7 F 83 18 154/69 93
06/21/23 07:00 06/21/23 07:00 06/21/23 07:00 06/21/23 07:00 06/21/23 07:00
Intake & Output
06/20/23 06/21/23 06/22/23
06:59 06:59 06:59
Intake Total 540 / 540 420 / 420
Output Total 700 / 700 605 / 1405 800 / 800
Balance -160 / -160 -605 / -985 -380 / -380
Intake:
Oral fluids 540 / 540
TPN/PPN 420 / 420
Output:
Liquid stool amount 250 / 250 255 / 255
Rectum 250 / 250 255 / 255
Urine, Barr 450 / 450 350 / 350
Urine, Voided 800 / 800
Lab Results
06/21/23 04:39
06/20/23 12:53
Physical Exam
-
General: No Acute Distress and AOx3
Abdomen: Soft, Distended (unchanged, moderate) and Non Tender
Skin: Warm and Dry
--- NOTE | 2023-06-21 10:55 | VNURNOTE ---
Home health liaison met with patient and significant other Grabiel to discuss [facility] services, visit scheduling/frequency, homebound status and pet policy. Patient understands home visits will be about 1-2 times a week to assess and teach medical
management. Patient aware a visiting nurse will contact them for start of care within 1-2 days after discharge from . Brochure given with contact information. [facility] Referral completed in care port
[2023-06-21 11:00] VITALS: BP 125/55
--- NOTE | 2023-06-21 11:33 | W.PN.HOSP.TC ---
Today's Communication/Plan
-
DC barr/tov
iv abx
OOB
Assessment / Plan
Assessment / Plan
Septic shock likely secondary to stercoral colitis/abdominal [id number]
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
s/p robotic rectopexy, sacrocolpopexy, posterior colporrhaphy, perineoplasty and cystoscopy with left ureteral stent for presumed kidney stone 05/17/2023
-s/p NGT removal.
-06/12 stool tested, C.Diff-Antigen pos, Toxin neg. Colonization. Po vanc BID.
-Lactic acidosis resolved.
-PICC line ordered
-ID wishes to treat empirically with oral Vanco in pt on recent abx. Ceftriaxone resumed
-Had been started on Levophed and vasopressin. Off pressors as of 06/09.
-Antibiotics broadened to Vanco and meropenem per ID. Pro-Dylan significantly elevated 44. Creatinine elevated noted.
-Antibiotic further narrowed down to ceftriaxone. Vanco and meropenem discontinued per ID.
-Started on clear liquid and advanced to Regular diet. Patient refusing flex sig.
-Plan to continue TPN. DC rectal bag. TOV-DC barr today. wbc normalized.
SBP
-cultures no growth
-IV rocephin
Acute Kidney Injury likely multifactorial pre-renal volume depletion while on ACEI, recent bactrim usage, ATN?
-Placed Barr from strict Is&Os, DC barr today .
-Trend Lactic Acid
-monitor urinary output
-No hydro seen on CT scan
-Cr stable.
-Nephro consulted, input appreciated
New onset of Paroxysmal Afib with RVR on 06/09
[facility]
-started on Amiodarone IV drip, now transitioned to 400 mg po bid through 06/21, then start 200 mg daily, as per cardio
-Elevated [id number] Score
-Cards eval
-Eliquis restarted after discussion with colorectal surgery as no plan for procedure
Hyperkalemia
-resolved.
Anemia
-s/p 1u PRBC.
Severe Metabolic acidosis
-Resolved.
Pelvic Floor Prolapse s/p Robotic Rectopexy / Sacrocolpopexy on May 16
-Care as per Colorectal
Diabetes Mellitus, Type II
-HgbA1c 6.1 on 06/20/23
-Monitor sugars and continue coverage insulin. Increase Lantus dose on TPN with elevated blood glucose
Essential Hypertension
-Cont norvasc and bb.
Anxiety / Depression
-Xanax at bedtime and as needed home regimen
GERD
-Continue Protonix IV
Chronic Pain with Opioid Dependence
-Decrease dose of Dilaudid with plan to hopefully discontinue IV narcotics soon.
-Counseled extensively to patient and spouse to wean off opiates as outpatient due to significant adverse events including this hospitalization. Pt continues to demand more pain meds.
-Recommended to patient and spouse to start aggressive bowel regimen at home.
ADHD-hold off on restarting Adderall in the setting of new onset of A-fib
Tobacco abuse
-Continue with nicotine patch
Peripheral Arterial Disease
-Stable
Hypokalemia-replete/monitor
DVT proph: Eliquis
Code Status: Full Code
PT/OT-SNF. Pt and spouse refusing it. d/w importance but patient continues to refuse it.
Reviewed extensively with spouse at bedside
Anticipated Discharge: 24 - 48 hours
Subjective/Interval History
-
Date of Service: June 21, 2023
keep asking for more pain meds
understands need to get OOB
continues to refuse SNF
tolerating diet
Continues to refuse PT/OT
Objective Data
-
Labs:
Laboratory Results
06/21/23
04:39
WBC 10.8
Hgb 9.1 L
Hct 28.2 L
Plt Count 246
Vital Signs:
Vital Signs
Temp Pulse Resp BP Pulse Ox
97.7 F 83 18 154/69 93
06/21/23 07:00 06/21/23 08:51 06/21/23 07:00 06/21/23 08:51 06/21/23 07:00
I&O
06/20/23 06/21/23 06/22/23
06:59 06:59 06:59
Intake Total 540 / 540 420 / 420
Output Total 700 / 700 605 / 1405 800 / 800
Balance -160 / -160 -605 / -985 -380 / -380
Physical Exam
-
General: Well Developed, No Apparent Distress and Appears Chronically Ill
HEENT: Normocephalic, Atraumatic and Moist Mucous Membranes
Respiratory: Clear to Auscultation; Negative Wheezes, Rales or Rhonchi
Cardiac: Regular Rhythm and S1/S2
GI: Nontender, Normal Bowel Sounds, Distended (somewhat less distended currently) and Other (rectal bag )
Genito-urinary: Barr
Musculoskeletal: No Clubbing, No Cyanosis and No Edema
Neuro: Awake
Data Reviewed
-
Total Time Spent with Patient (in minutes): 55
[2023-06-21 11:55] LABS: Glucose - Point of Care 184 mg/dl (70-99)
[2023-06-21] MEDS: XANAX 0.125 MG PO (13:49)
--- NOTE | 2023-06-21 14:25 | WOUNDNOTE ---
[facility] RN note: Patient admitted with septic shock, colitis
See H&P for complete history.
PMH: Prolapsed rectum and uterus, opioid dependence, dysuria, C-diff
Wound Location and type/assessment: Patient with C-diff diarrhea, incontinent of large amount of liquid stool. A fecal pouch had been been in place. Patient has MASD and fungal appearing skin of groin, buttocks and rectum.
Appetite: Poor
Pressure redistribution devices in place: Static air overlay, heels off-loaded on pillows.
Plan: Spoke to [place] [facility] about liquid stool management. Per [place] rectal tube not indicated at this time and patient cannot be given anti-diarrheal due to C-diff. Plan for skin is frequent continence care and Extra Strength Desitin over
anti-fungal ointment. Hospitalist made aware of skin breakdown and plan for care.
Updated care plan and will follow as needed.
--- NOTE | 2023-06-21 14:30 | PTCARENOTE ---
Removed pt's barr and rectal pouch w/o difficulty, per colorectal sx. barr drained 200cc clear светлана urine. Pt due to void. Encouraged fluid intake. Will continue to assess.
--- NOTE | 2023-06-21 14:46 | CM ---
Case management following for d/c planning
Spoke with Grabiel - pts SO
Would like to bring pt home with HH when stable for d/c
pt/so met with [facility] liaison
CM will continue to follow for d/c needs
Plan - home with [facility] when medically stable
[2023-06-21 15:00] VITALS: BP 137/68
--- NOTE | 2023-06-21 15:32 | W.PN.ID1 ---
Date of Service
Date of Service: June 21, 2023
Today's Communication
- Transition ceftriaxone to cefuroxime 500mg po bid through 06/24.
- Continue oral vanc 125mg BID through 06/29.
Assessment / Plan
# Leukocytosis - resolved
# SBP
# Colonization with C. diff
# Ileus vs [place] - pt refused flex sig
CT: liver cirrhosis with mild ascites
- paracentesis consistent with SBP based on neutrophil count
cultures no growth
- Transition ceftriaxone to cefuroxime 500mg po bid through 06/24.
- Continue oral vanc 125mg BID through 06/29.
# s/p shock
# s/p recent severe constipation/stercoral colitis - still with residual abdominal pain
# Recent status post robotic suture rectopexy, sacrocolpopexy, posterior repair and cystoscopy with left double-J stent, stone manipulation 05/16
#Additional Past Medical History:
COPD
Diabetes mellitus type 2
Hypertension
GERD
anxiety/depression
PAD
Chronic pain opioid dependence
ADD
Lumbar laminectomy
Pelvic organs/rectal prolapse status post robotic suture rectopexy, sacrocolpopexy, posterior repair and cystoscopy with left double-J stent, stone manipulation 05/17/23
Chief Complaint
-: Other (ileus)
Subjective / Review of Systems
Wants to go home soon.
Vital Signs / Physical Exam
Vital Signs
Vital Signs
Temp Pulse Resp BP Pulse Ox
99.0 F 70 18 125/55 94
06/21/23 11:00 06/21/23 11:00 06/21/23 11:00 06/21/23 11:00 06/21/23 11:00
Physical Exam
Constitutional: No Acute Distress
Gastrointestinal: Soft and Non Tender
Extremities: Edema
Neurological: AO x 3
Objective Data
Lab Data
Lab Results
06/21/23 04:39
06/20/23 12:53
PT 17.8 Sec (11.4-14.6) H 06/09/23 15:59
INR 1.48 06/09/23 15:59
APTT 43.9 Sec (23.4-35.0) H 06/09/23 15:59
Estimated Creat Clear 43 ml/min 06/19/23 04:35
Lactic Acid 1.2 mmol/L (0.7-2.0) 06/10/23 04:25
Total Bilirubin 0.3 mg/dl (0.2-1.3) 06/19/23 04:35
AST 34 U/L (14-36) 06/19/23 04:35
ALT < 10 U/L (0-35) 06/19/23 04:35
Alkaline Phosphatase 120 U/L (38-126) 06/19/23 04:35
Most recent labs reviewed.
Micro Results:
06/16/23 14:46 Wound Culture - Final
Abdomen No growth
Gram Stain - Final
06/16/23 14:46 Anaerobic Culture - Final
Abdomen NO ANAEROBES ISOLATED
06/09/23 11:48 Blood Culture - Final
Blood/Venous No Growth - Final Report
06/09/23 10:35 Blood Culture - Final
Blood/Venous No Growth - Final Report
06/13/23 08:50 C. difficile GDH Antigen & Toxins - Final
Feces/Stool C. difficile antigen positive, toxin negative.
Clostridium difficile present, but toxin not detected.
Patient may be a carrier, colonized with nontoxinogenic
strain or the level of toxin in sample is below detection
limits. This information should be used in conjunction with
the patient's clinical history.
06/09/23 14:41 Urine Culture - Final
Urine NO GROWTH
06/14/2023: CT a/p: Findings suggesting severe volume overload or third spacing. New. Mild abdominopelvic ascites. New.
Findings suggesting cirrhosis. Moderate colonic distention. Stable. Previous fecal material has passed. This probably due to colonic ileus. Nonobstructing left renal stones. Decreased in size. Left double-J stent. Stable.
06/13/23 AXR: Grossly nonspecific bowel gas pattern, markedly limited on single supine view only.
06/08/23 CT a/P: Large amount of stool throughout the colon, with increased amount of stool since examination of June 06, 2023. There is suggestion of colonic wall thickening, particularly involving the right colon, transverse colon, and splenic
flexure. Findings would be suggestive of stercoral colitis. No evidence for free intraperitoneal air. Distention of the stomach with fluid. Left ureteral stent is present
--- NOTE | 2023-06-21 16:30 | PTCARENOTE ---
Pt voided and was incontinent of moderate amount of urine and has been having non stop watery stool since removal of tube. MD aware. Rosalinda area and coccyx excoriated. WC consulted and seen with orders placed.
[2023-06-21 17:22] LABS: Glucose - Point of Care 179 mg/dl (70-99)
[2023-06-21] MEDS: ROCEPHIN 2000 MG IV (17:47)
[2023-06-21] MEDS: STERILE WATER FOR INJECTION 20 ML IV (17:47)
[2023-06-21 19:52] VITALS: BP 137/59
[2023-06-21] MEDS: DESITIN MAXIMUM STRENGTH PASTE 1 APPLIC TOPICAL (20:14)
[2023-06-21] MEDS: XANAX 0.25 MG PO (21:09)
[2023-06-21] MEDS: LANTUS 0.149999999999999994 UNITS SC (21:09)
[2023-06-21] MEDS: Parenteral Nutrition, Central 850 IV (21:11)
[2023-06-21 21:17] LABS: Glucose - Point of Care 172 mg/dl (70-99)
[2023-06-21 23:09] VITALS: BP 111/55
[2023-06-22] MEDS: DILAUDID 0.25 MG IV ×5 (01:56→18:45)
[2023-06-22 03:17] VITALS: BP 130/55
[2023-06-22 06:00] VITALS: BMI 22.4
[2023-06-22 07:48] VITALS: BP 139/58
[2023-06-22 07:54] LABS: Glucose - Point of Care 161 mg/dl (70-99)
[2023-06-22] MEDS: ROXICODONE 20 MG PO ×2 (08:47→19:38)
[2023-06-22] MEDS: NOVOLOG FLEXPEN-LOW RESISTANCE 1 UNITS SC ×3 (08:48→18:21)
[2023-06-22] MEDS: CEFTIN 500 MG PO ×2 (08:49→19:38)
[2023-06-22] MEDS: NORVASC 10 MG PO (08:49)
[2023-06-22] MEDS: FIRVANQ 125 MG PO ×2 (08:49→19:38)
[2023-06-22] MEDS: ELIQUIS 2.5 MG PO (08:49)
[2023-06-22] MEDS: PROTONIX 40 MG PO (08:49)
[2023-06-22] MEDS: PACERONE 400 MG PO ×2 (08:50→19:38)
[2023-06-22] MEDS: NICODERM TRANSDERMAL 14 MG TRANSDERM (08:50)
[2023-06-22] MEDS: LOPRESSOR 12.5 MG PO ×2 (08:50→19:38)
[2023-06-22] MEDS: ANTIFUNGAL CLEAR 1 APPLIC TOPICAL ×2 (08:57→19:40)
[2023-06-22 09:05] LABS: Hematocrit 26.4 % (37.0-47.0); Hemoglobin 8.7 g/dL (12.0-16.0); Mean Corpuscular Hgb 26.6 pg (27.0-31.0); Mean Corpuscular Volume 80.7 fL (81.0-99.0); Mean Platelet Volume 11.2 fL (7.4-10.4); Platelet Count 260 10^3/uL (130-400); Red Blood Cell Count 3.27 10^6/uL (4.20-5.40); Red Cell Dist. Width 17.7 % (11.5-14.5); White Blood Cell Count 9.9 10^3/uL (4.8-10.8)
[2023-06-22 09:22] LABS: Blood Urea Nitrogen 32 mg/dl (7-17); Carbon Dioxide 24 mmol/L (22-30); Chloride 111 mmol/L (98-107); Estimated Creatinine Clearance 43 ml/min; Glucose 153 mg/dl (70-99); Potassium 4.3 mmol/L (3.5-5.1); Sodium 138 mmol/L (135-145); eGFR > 60.00
--- NOTE | 2023-06-22 09:28 | W.PN.CRS1 ---
Today's Communication / Plan
-
continue TPN and regular diet
calorie count
Assessment/Plan
-
78yo female with a recent robotic suture rectopexy, sacroculpopexy, posterior repair and cystoscopy with left double-J stent on 05/17/2023, presented to the ER with diffuse abdominal pain and lack of BM for 3 days. Patient found with stercoral colitis
on CT and with leukocytosis, lactic acidosis, PAVEL, hyperkalemia and hyponatremia. UA +, but culture negative; now off levo and UOP/Cr improving; worsening distention on 06/13, CT showing small bilateral pleural effusions with mild LLL consolidation,
mild abdominopelvic ascites, possible cirrhosis, moderate colonic distention�stable; underwent IR-guided aspiration of ascites on 06/15
1. Continue reg diet with TPN. Calorie count initiated yesterday.
2. Continue pain control, avoid narcotics if possible
3. On Eliquis for DVT ppx.
4. Appreciate ID.
5. Okay for OOB, encourage IS. PT ordered.
6. Appreciate hospitalist.
7. Wound RN for perianal wound care.
Subjective Data
Subjective Data
Date of Service: June 22, 2023
Patient states she wants to go home. She states her pain is controlled. She is still a little distended. She denies nausea or vomiting. She has bowel movements.
Objective Data
-
Vital Signs
Temp Pulse Resp BP Pulse Ox
99.0 F 82 16 139/58 92
06/22/23 07:48 06/22/23 07:48 06/22/23 07:48 06/22/23 07:48 06/22/23 07:48
Intake & Output
06/21/23 06/22/23 06/23/23
06:59 06:59 06:59
Intake Total 1140 / 1140
Output Total 605 / 1405 800 / 800
Balance -605 / -985 340 / 340
Intake:
Oral fluids 720 / 720
TPN/PPN 420 / 420
Output:
Liquid stool amount 255 / 255
Rectum 255 / 255
Urine, Chao 350 / 350
Urine, Voided 800 / 800
Other:
How many times incontinent 3
MODERATE amount urine
How many times incontinent 3
SATURATED amount urine
Number of unmeasured liquid
stools
Rectum 3
Lab Results
06/22/23 08:42
06/22/23 08:42
Physical Exam
-
General: No Acute Distress and AOx3
Abdomen: Soft, Distended (mild to moderate) and Non Tender
Skin: Warm and Dry
--- NOTE | 2023-06-22 10:13 | W.PN.ID1 ---
Date of Service
Date of Service: June 22, 2023
Today's Communication
- Continue cefuroxime 500mg po bid through 06/24.
- Continue oral vanc 125mg BID through 06/29.
Assessment / Plan
# Leukocytosis - resolved
# SBP
# Colonization with C. diff
# Ileus vs [place] - pt refused flex sig
CT: liver cirrhosis with mild ascites
- paracentesis consistent with SBP based on neutrophil count
cultures no growth
- Continue cefuroxime 500mg po bid through 06/24.
- Continue oral vanc 125mg BID through 06/29.
# s/p shock
# s/p recent severe constipation/stercoral colitis - still with residual abdominal pain
# Recent status post robotic suture rectopexy, sacrocolpopexy, posterior repair and cystoscopy with left double-J stent, stone manipulation 05/16
#Additional Past Medical History:
COPD
Diabetes mellitus type 2
Hypertension
GERD
anxiety/depression
PAD
Chronic pain opioid dependence
ADD
Lumbar laminectomy
Pelvic organs/rectal prolapse status post robotic suture rectopexy, sacrocolpopexy, posterior repair and cystoscopy with left double-J stent, stone manipulation 05/17/23
Chief Complaint
-: Other (ileus)
Subjective / Review of Systems
+ liquid to loose BM today.
Vital Signs / Physical Exam
Vital Signs
Vital Signs
Temp Pulse Resp BP Pulse Ox
99.0 F 82 16 139/58 92
06/22/23 07:48 06/22/23 07:48 06/22/23 07:48 06/22/23 07:48 06/22/23 07:48
Physical Exam
Constitutional: Comfortable
Gastrointestinal: Soft, Non Tender and Distended (mild)
Neurological: AO x 3
Objective Data
Lab Data
Lab Results
06/22/23 08:42
06/22/23 08:42
PT 17.8 Sec (11.4-14.6) H 06/09/23 15:59
INR 1.48 06/09/23 15:59
APTT 43.9 Sec (23.4-35.0) H 06/09/23 15:59
Estimated Creat Clear 43 ml/min 06/22/23 08:42
Lactic Acid 1.2 mmol/L (0.7-2.0) 06/10/23 04:25
Total Bilirubin 0.3 mg/dl (0.2-1.3) 06/19/23 04:35
AST 34 U/L (14-36) 06/19/23 04:35
ALT < 10 U/L (0-35) 06/19/23 04:35
Alkaline Phosphatase 120 U/L (38-126) 06/19/23 04:35
Most recent labs reviewed.
Micro Results:
06/16/23 14:46 Wound Culture - Final
Abdomen No growth
Gram Stain - Final
06/16/23 14:46 Anaerobic Culture - Final
Abdomen NO ANAEROBES ISOLATED
06/09/23 11:48 Blood Culture - Final
Blood/Venous No Growth - Final Report
06/09/23 10:35 Blood Culture - Final
Blood/Venous No Growth - Final Report
06/13/23 08:50 C. difficile GDH Antigen & Toxins - Final
Feces/Stool C. difficile antigen positive, toxin negative.
Clostridium difficile present, but toxin not detected.
Patient may be a carrier, colonized with nontoxinogenic
strain or the level of toxin in sample is below detection
limits. This information should be used in conjunction with
the patient's clinical history.
06/09/23 14:41 Urine Culture - Final
Urine NO GROWTH
06/14/2023: CT a/p: Findings suggesting severe volume overload or third spacing. New. Mild abdominopelvic ascites. New.
Findings suggesting cirrhosis. Moderate colonic distention. Stable. Previous fecal material has passed. This probably due to colonic ileus. Nonobstructing left renal stones. Decreased in size. Left double-J stent. Stable.
06/13/23 AXR: Grossly nonspecific bowel gas pattern, markedly limited on single supine view only.
06/08/23 CT a/P: Large amount of stool throughout the colon, with increased amount of stool since examination of June 06, 2023. There is suggestion of colonic wall thickening, particularly involving the right colon, transverse colon, and splenic
flexure. Findings would be suggestive of stercoral colitis. No evidence for free intraperitoneal air. Distention of the stomach with fluid. Left ureteral stent is present
--- NOTE | 2023-06-22 10:30 | W.PN.HOSP.TC ---
Today's Communication/Plan
-
Continue with calorie count
Out of bed as tolerated
Hopefully can reduce her opioid consumption
Colorectal recs
Continue with antibiotic
Assessment / Plan
Assessment / Plan
Septic shock likely secondary to stercoral colitis/abdominal [id number]
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
s/p robotic rectopexy, sacrocolpopexy, posterior colporrhaphy, perineoplasty and cystoscopy with left ureteral stent for presumed kidney stone 05/17/2023
-s/p NGT removal.
-06/12 stool tested, C.Diff-Antigen pos, Toxin neg. Colonization. Po vanc BID.
-Lactic acidosis resolved.
-ID wishes to treat empirically with oral Vanco in pt on recent abx.
-Had been started on Levophed and vasopressin. Off pressors as of 06/09.
-Antibiotics broadened to Vanco and meropenem per ID. Pro-Dylan significantly elevated 44.
-Antibiotic further narrowed down to ceftriaxone. Vanco and meropenem discontinued per ID. Now on po abx Ceftin
-Started on clear liquid and advanced to Regular diet.
-Wbc normalized.
-Rectal bag and Chao catheter DC'd on 06/20. Passing urine.
-Started on caloric count.
SBP
-cultures no growth
-IV rocephin stopped and switched to Ceftin till 06/24
Suspected ileus
-Remains on TPN and regular diet. Calorie count ongoing.
-Having small bowel movements. Patient refused flex sig.
-Colorectal surgery following
Acute Kidney Injury likely multifactorial pre-renal volume depletion while on ACEI, recent bactrim usage, ATN?
-Placed Chao from strict Is&Os, Chao removed on 06/20 and voiding.
-monitor urinary output
-No hydro seen on CT scan
-Cr stable.
-Nephro signed off.
New onset of Paroxysmal Afib with RVR on 06/09
currently in NSR with freq PAC's
-started on Amiodarone IV drip, now transitioned to 400 mg po bid through 06/21 completed. Plan to start 200 mg daily, as per cardio
-Elevated [id number] Score
-Cards eval
-Eliquis restarted after discussion with colorectal surgery as no plan for procedure
Hyperkalemia
-resolved.
Anemia
-s/p 1u PRBC.
Severe Metabolic acidosis
-Resolved.
Pelvic Floor Prolapse s/p Robotic Rectopexy / Sacrocolpopexy on May 16
-Care as per Colorectal
Diabetes Mellitus, Type II
-HgbA1c 6.1 on 06/20/23
-Monitor sugars and continue coverage insulin. Increase Lantus dose on TPN with elevated blood glucose
Essential Hypertension
-Cont norvasc and bb.
Anxiety / Depression
-Xanax at bedtime and as needed home regimen
GERD
-Continue Protonix IV
Chronic Pain with Opioid Dependence
-Decrease dose of Dilaudid with plan to hopefully discontinue IV narcotics soon.
-Counseled extensively to patient and spouse to wean off opiates as outpatient due to significant adverse events including this hospitalization. Pt continues to demand more pain meds.
-Recommended to patient and spouse to start aggressive bowel regimen at home.
ADHD-hold off on restarting Adderall in the setting of new onset of A-fib
Tobacco abuse
-Continue with nicotine patch
Peripheral Arterial Disease
-Stable
Hypokalemia-replete/monitor
DVT proph: Eliquis
Code Status: Full Code
PT/OT-SNF. Pt and spouse refusing it. d/w importance but patient continues to refuse it.
Reviewed extensively with spouse at bedside on 06/20.
Anticipated Discharge: > 48 hours
Subjective/Interval History
-
Date of Service: June 22, 2023
States feeling better once the rectal tube and Chao catheter removed
Ate some breakfast
Denies abdominal pain
Objective Data
-
Labs:
Laboratory Results
06/22/23
08:42
WBC 9.9
Hgb 8.7 L
Hct 26.4 L
Plt Count 260
Sodium 138
Potassium 4.3
Chloride 111 H
Carbon Dioxide 24
BUN 32 H
Creatinine 0.8
Glucose 153 H
Calcium 8.0 L
Vital Signs:
Vital Signs
Temp Pulse Resp BP Pulse Ox
99.0 F 82 16 139/58 92
06/22/23 07:48 06/22/23 07:48 06/22/23 07:48 06/22/23 07:48 06/22/23 07:48
I&O
06/21/23 06/22/23 06/23/23
06:59 06:59 06:59
Intake Total 1140 / 1140
Output Total 605 / 1405 800 / 800
Balance -605 / -985 340 / 340
Physical Exam
-
General: Well Developed, No Apparent Distress and Appears Chronically Ill
HEENT: Normocephalic, Atraumatic and Moist Mucous Membranes
Respiratory: Clear to Auscultation; Negative Wheezes, Rales or Rhonchi
Cardiac: Regular Rhythm and S1/S2
GI: Soft, Nontender, Normal Bowel Sounds, Distended and Other (rectal bag )
Genito-urinary: Chao
Musculoskeletal: No Clubbing, No Cyanosis and No Edema
Neuro: Awake
Data Reviewed
-
Total Time Spent with Patient (in minutes): 55
[2023-06-22 11:31] VITALS: BP 127/74
[2023-06-22 11:40] LABS: Glucose - Point of Care 176 mg/dl (70-99)
[2023-06-22] MEDS: DESITIN MAXIMUM STRENGTH PASTE 1 APPLIC TOPICAL ×2 (12:57→19:41)
[2023-06-22] MEDS: XANAX 0.125 MG PO (13:04)
[2023-06-22 14:54] VITALS: BP 149/64
[2023-06-22 15:45] LABS: Absolute Neutrophils -Man Diff 7.9 10^3/uL (1.4-6.5); Band Neutrophils 29 % (0-3); Lymphocytes 11 % (20-51); Monocytes 9 % (2-9); Normal RBC Morphology Yes; Platelets Checked Yes; Segmented Neutrophils 51 % (42-75)
[2023-06-22 15:46] LABS: Total Cells Counted 100
--- NOTE | 2023-06-22 16:14 | CM ---
risk manager following for d/c planning
Met with pts SO Grabiel - pt would like to go home - he would like to honor her wishes
pts daughter will be in area from out of town this weekend - they will try to make decision home vs SNF per Grabiel
Offered support. Discussed yard hand services - he felt that would be beneficial. Sent TT to [place] [facility] requesting consult
CM will continue to follow for d/c needs
Plan - home with [facility] vs snf when medically stable
[2023-06-22 16:48] LABS: Glucose - Point of Care 167 mg/dl (70-99)
--- NOTE | 2023-06-22 16:50 | PTCARENOTE ---
Pt received in bed @ 0700. Constant 10/ pain. Requesting 'pain medicine' throughout the day. PRN Dilaudid 0.25mg IV Q4H administered as able. Non-pharmacological attempts offered but pt refusing. Repositioning attempted but pt states she is unable
to tolerate due to pain in lower back. Pt with constant loose brown bowel movements. Buttock excoriated. Wiping causing more pain. Cream applied. PRN Xanax provided to pt per request. TPN infusing through (R) DL PICC. Pt ate 50% of breakfast. Still
'picking at' lunch.
[2023-06-22] MEDS: ELIQUIS 5 MG PO (19:38)
[2023-06-22 19:50] VITALS: BP 116/57
[2023-06-22] MEDS: XANAX 0.25 MG PO (21:31)
[2023-06-22] MEDS: LANTUS 0.149999999999999994 UNITS SC (21:32)
[2023-06-22] MEDS: Parenteral Nutrition, Central 850 IV (21:33)
[2023-06-22 21:36] LABS: Glucose - Point of Care 212 mg/dl (70-99)
[2023-06-22 23:55] VITALS: BP 131/56
[2023-06-23] VITALS (7 sets, daily range): BP systolic 122–154; BP diastolic 50–68; BMI 22.6
[2023-06-23] MEDS: DILAUDID 0.25 MG IV ×5 (01:37→23:39)
[2023-06-23 06:26] LABS: Hematocrit 25.7 % (37.0-47.0); Hemoglobin 8.5 g/dL (12.0-16.0); Mean Corp Hgb Conc. 33.1 g/dL (33.0-37.0); Mean Corpuscular Hgb 26.8 pg (27.0-31.0); Mean Corpuscular Volume 81.1 fL (81.0-99.0); Mean Platelet Volume 11.6 fL (7.4-10.4); Platelet Count 270 10^3/uL (130-400); Red Blood Cell Count 3.17 10^6/uL (4.20-5.40); Red Cell Dist. Width 17.7 % (11.5-14.5); White Blood Cell Count 8.5 10^3/uL (4.8-10.8)
[2023-06-23 06:49] LABS: Blood Urea Nitrogen 33 mg/dl (7-17); Calcium 7.8 mg/dl (8.4-10.2); Carbon Dioxide 27 mmol/L (22-30); Chloride 110 mmol/L (98-107); Estimated Creatinine Clearance 43 ml/min; Glucose 173 mg/dl (70-99); Potassium 4.3 mmol/L (3.5-5.1); Sodium 136 mmol/L (135-145); eGFR > 60.00
[2023-06-23 07:38] LABS: Glucose - Point of Care 195 mg/dl (70-99)
[2023-06-23] MEDS: NICODERM TRANSDERMAL 14 MG TRANSDERM (07:54)
[2023-06-23] MEDS: PROTONIX 40 MG PO (07:55)
[2023-06-23] MEDS: CEFTIN 500 MG PO ×2 (07:55→20:18)
[2023-06-23] MEDS: ELIQUIS 5 MG PO ×2 (07:56→20:18)
[2023-06-23] MEDS: LOPRESSOR 12.5 MG PO ×2 (07:56→20:18)
[2023-06-23] MEDS: NORVASC 10 MG PO (07:56)
[2023-06-23] MEDS: PACERONE 200 MG PO (07:56)
[2023-06-23] MEDS: ROXICODONE 20 MG PO ×2 (07:58→20:18)
[2023-06-23] MEDS: [UNRECOGNIZED DRUG - OTHER] 0.100000000000000006 MG TRANSDERM (07:58)
[2023-06-23] MEDS: NOVOLOG FLEXPEN-LOW RESISTANCE 1 UNITS SC ×2 (07:59→17:47)
[2023-06-23] MEDS: FIRVANQ 125 MG PO ×2 (07:59→20:19)
[2023-06-23] MEDS: ANTIFUNGAL CLEAR 1 APPLIC TOPICAL ×2 (08:11→20:20)
[2023-06-23] MEDS: DESITIN MAXIMUM STRENGTH PASTE 1 APPLIC TOPICAL ×2 (08:11→20:20)
--- NOTE | 2023-06-23 09:47 | W.PN.CRS1 ---
Today's Communication / Plan
-
stop tpn
recommend PMR consult
Assessment/Plan
-
78yo female with a recent robotic suture rectopexy, sacroculpopexy, posterior repair and cystoscopy with left double-J stent on 05/17/2023, presented to the ER with diffuse abdominal pain and lack of BM for 3 days. Patient found with stercoral colitis
on CT and with leukocytosis, lactic acidosis, PAVEL, hyperkalemia and hyponatremia. UA +, but culture negative; now off levo and UOP/Cr improving; worsening distention on 06/13, CT showing small bilateral pleural effusions with mild LLL consolidation,
mild abdominopelvic ascites, possible cirrhosis, moderate colonic distention�stable; underwent IR-guided aspiration of ascites on 06/15
1. Continue reg diet with Ensure supplements. She is eating over 50% of her meals. Will allow last TPN bag to run out and will not resume.
2. Continue pain control, avoid narcotics if possible
3. On Eliquis for DVT ppx.
4. Appreciate ID.
5. Okay for OOB, encourage IS. PT ordered.
6. Appreciate hospitalist.
7. Wound RN for perianal wound care.
8. Dispo: [facility] vs [facility].
9. Spoke with hospitalist regarding PMR consult and they will reach out to them.
Subjective Data
Subjective Data
Date of Service: June 23, 2023
Patient states she still has back pain. She is coughing and had some trouble swallowing her pills. She denies nausea or vomiting. She is having bowel movements.
Objective Data
-
Vital Signs
Temp Pulse Resp BP Pulse Ox
98.8 F 76 15 147/65 93
06/23/23 07:32 06/23/23 07:32 06/23/23 07:32 06/23/23 07:32 06/23/23 08:00
Intake & Output
06/22/23 06/23/23 06/24/23
06:59 06:59 06:59
Intake Total 1140 / 1140 600 / 600
Output Total 800 / 800
Balance 340 / 340 600 / 600
Intake:
Oral fluids 720 / 720 600 / 600
TPN/PPN 420 / 420
Output:
Urine, Voided 800 / 800
Other:
How many times incontinent 3
MODERATE amount urine
How many times incontinent 3 3
SATURATED amount urine
Number of unmeasured liquid
stools
Rectum 3
Lab Results
06/23/23 06:19
06/23/23 06:18
Physical Exam
-
General: No Acute Distress and AOx3
Abdomen: Soft, Distended (mild, improving) and Non Tender
Skin: Warm and Dry
[2023-06-23 10:49] LABS: Absolute Neutrophils -Man Diff 7.3 10^3/uL (1.4-6.5); Band Neutrophils 15 % (0-3); Lymphocytes 6 % (20-51); Metamyelocytes 1 % (-); Monocytes 7 % (2-9); Platelets Checked Yes; Segmented Neutrophils 71 % (42-75)
[2023-06-23 10:50] LABS: Anisocytosis 1+; Hypochromasia 2+; Normal RBC Morphology No; Ovalocytes 1+; Polychromasia 1+; Total Cells Counted 100
--- NOTE | 2023-06-23 10:56 | W.PN.HOSP.TC ---
Today's Communication/Plan
-
Monitor po intake
speech eval
PM&R eval
OOB/PT
Po abx
Assessment / Plan
Assessment / Plan
Septic shock likely secondary to stercoral colitis/abdominal [id number]
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
s/p robotic rectopexy, sacrocolpopexy, posterior colporrhaphy, perineoplasty and cystoscopy with left ureteral stent for presumed kidney stone 05/17/2023
-s/p NGT removal.
-06/12 stool tested, C.Diff-Antigen pos, Toxin neg. Colonization. Po vanc BID.
-Lactic acidosis resolved.
-ID wishes to treat empirically with oral Vanco in pt on recent abx.
-Had been started on Levophed and vasopressin. Off pressors as of 06/09.
-Antibiotics broadened to Vanco and meropenem per ID. Pro-Dylan significantly elevated 44.
-Antibiotic further narrowed down to ceftriaxone. Vanco and meropenem discontinued per ID. Now on po abx Ceftin
-Started on clear liquid and advanced to Regular diet.
-Wbc normalized.
-Rectal bag and Chao catheter DC'd on 06/20. Passing urine.
-Started on caloric count.
SBP
-cultures no growth. WBC normalized but with bandemia. Trend for now. Improving.
-IV rocephin stopped and switched to Ceftin till 06/24
Suspected ileus
-Remains on TPN and regular diet. Calorie count ongoing.
-Having small bowel movements. Patient refused flex sig.
-Plan to stop TPN-However would like to do Speech eval prior to completeting stopping TPN
-Colorectal surgery following
Acute Kidney Injury likely multifactorial pre-renal volume depletion while on ACEI, recent bactrim usage, ATN?
-Placed Chao from strict Is&Os, Chao removed on 06/20 and voiding.
-monitor urinary output
-No hydro seen on CT scan
-Cr stable.
-Nephro signed off.
New onset of Paroxysmal Afib with RVR on 06/09
currently in NSR with [facility] PAC's
-started on Amiodarone IV drip, now transitioned to 400 mg po bid through 06/21 completed. Plan to start 200 mg daily, as per cardio
-Elevated [id number] Score
-Cards eval
-Eliquis restarted after discussion with colorectal surgery as no plan for procedure
Severe deconditioning due to prolonged hopsital/medical illness/sciolosis/non compliance with PT at times
-PM&R eval
Hyperkalemia
-resolved.
Anemia
-s/p 1u PRBC.
Severe Metabolic acidosis
-Resolved.
Pelvic Floor Prolapse s/p Robotic Rectopexy / Sacrocolpopexy on May 16
-Care as per Colorectal
Diabetes Mellitus, Type II
-HgbA1c 6.1 on 06/20/23
-Monitor sugars and continue coverage insulin. Increase Lantus dose on TPN with elevated blood glucose. Sugars stabilized.
Essential Hypertension
-Cont norvasc and bb. If needed can restart ACEI but at lower dose. BP stable otherwise.
Anxiety / Depression
-Xanax at bedtime and as needed home regimen
GERD
-Continue Protonix IV
Chronic Pain with Opioid Dependence
-Decrease dose of Dilaudid with plan to hopefully discontinue IV narcotics soon.
-Counseled extensively to patient and spouse to wean off opiates as outpatient due to significant adverse events including this hospitalization. Pt continues to demand more pain meds.
-Recommended to patient and spouse to start aggressive bowel regimen at home.
ADHD-hold off on restarting Adderall in the setting of new onset of A-fib
Tobacco abuse
-Continue with nicotine patch
Peripheral Arterial Disease
-Stable
Hypokalemia-replete/monitor
DVT proph: Eliquis
Code Status: Full Code
PT/OT-Will ask PM&R for danita russell.
Reviewed extensively with spouse at bedside on 06/22
Anticipated Discharge: > 48 hours
Subjective/Interval History
-
Date of Service: June 23, 2023
having bowel movements
improvement in abd distention
Objective Data
-
Labs:
Laboratory Results
06/23/23 06/23/23
06:18 06:19
WBC 8.5
Hgb 8.5 L
Hct 25.7 L
Plt Count 270
Sodium 136
Potassium 4.3
Chloride 110 H
Carbon Dioxide 27
BUN 33 H
Creatinine 0.8
Glucose 173 H
Calcium 7.8 L
Vital Signs:
Vital Signs
Temp Pulse Resp BP Pulse Ox
98.8 F 76 15 147/65 93
06/23/23 07:32 06/23/23 07:32 06/23/23 07:32 06/23/23 07:32 06/23/23 08:00
I&O
06/22/23 06/23/23 06/24/23
06:59 06:59 06:59
Intake Total 1140 / 1140 600 / 600
Output Total 800 / 800
Balance 340 / 340 600 / 600
Physical Exam
-
General: No Apparent Distress and Appears Chronically Ill
HEENT: Normocephalic, Atraumatic and Moist Mucous Membranes
Respiratory: Clear to Auscultation (anteriorly ); Negative Wheezes, Rales or Rhonchi
Cardiac: Regular Rhythm and S1/S2
GI: Soft, Nontender, Normal Bowel Sounds and Distended (improved )
Musculoskeletal: No Clubbing, No Cyanosis and No Edema
Neuro: Awake, AO x 3 and No Motor Deficits
Psych: Calm
Data Reviewed
-
Total Time Spent with Patient (in minutes): 58
[2023-06-23 11:36] LABS: Glucose - Point of Care 200 mg/dl (70-99)
--- NOTE | 2023-06-23 11:53 | PTOTSP ---
ST Acute Care Evaluation
Pt currently presents with moderate oral dysphagia characterized by intolerance of wearing dentures due to poor-fit and gum sensitivity, inability to masticate soft or hard solids without dentures, and oral sensitivity with intermittent bleeding, as
well as mild pharyngoesophageal dysphagia as evidenced by occasional, weak, wet, congested cough following ingestion of liquids, which could be related to esophageal dysfunction given that these events occasionally happened after belching events.
Recommendations:
- Downgrade PO diet to PUREED SOLIDS and continue with THIN LIQUIDS - single sips.
- Meds crushed in YOGURT (this is the item of least dislike for her to take meds).
- STRICT aspiration precautions: HOB MUST be upright for ALL PO intake (at least 60 degrees) as well as for at least 60 minutes after PO intake, small bites/sips, alternate bites/sips, check for oral clearance, & oral care QID as tolerated.
- INSURANCE CLAIMS ASSISTANT will continue to follow closely to ensure tolerance of PO and to re-assess whether or not pt is in need of additional objective testing (e.g. VFSS).
--- NOTE | 2023-06-23 12:00 | W.PN.ID1 ---
Date of Service
Date of Service: June 23, 2023
Today's Communication
Continue cefuroxime 500mg po bid through 06/24.
Continue oral vanc 125mg BID through 06/29.
ID will sign off.
Assessment / Plan
# Leukocytosis - resolved
# SBP
# Colonization with C. diff
# Ileus vs Lizbeth - pt refused flex sig
CT: liver cirrhosis with mild ascites
- paracentesis consistent with SBP based on neutrophil count
cultures no growth
- Continue cefuroxime 500mg po bid through 06/24.
- Continue oral vanc 125mg BID through 06/29.
-ID will sign off.
# s/p shock
# s/p recent severe constipation/stercoral colitis - still with residual abdominal pain
# Recent status post robotic suture rectopexy, sacrocolpopexy, posterior repair and cystoscopy with left double-J stent, stone manipulation 05/16
#Additional Past Medical History:
COPD
Diabetes mellitus type 2
Hypertension
GERD
anxiety/depression
PAD
Chronic pain opioid dependence
ADD
Lumbar laminectomy
Pelvic organs/rectal prolapse status post robotic suture rectopexy, sacrocolpopexy, posterior repair and cystoscopy with left double-J stent, stone manipulation 05/17/23
Chief Complaint
-: Other (ileus)
Subjective / Review of Systems
+ BM.
Vital Signs / Physical Exam
Vital Signs
Vital Signs
Temp Pulse Resp BP Pulse Ox
98.8 F 76 15 147/65 93
06/23/23 07:32 06/23/23 07:32 06/23/23 07:32 06/23/23 07:32 06/23/23 08:00
Physical Exam
Pulmonary: Other (decreased BS bilaterally)
Gastrointestinal: Soft, Non Tender and Distended (mild)
Genito-Urinary: Negative Chao
Neurological: AO x 3
Objective Data
Lab Data
Lab Results
06/23/23 06:19
06/23/23 06:18
PT 17.8 Sec (11.4-14.6) H 06/09/23 15:59
INR 1.48 06/09/23 15:59
APTT 43.9 Sec (23.4-35.0) H 06/09/23 15:59
Estimated Creat Clear 43 ml/min 06/23/23 06:18
Lactic Acid 1.2 mmol/L (0.7-2.0) 06/10/23 04:25
Total Bilirubin 0.3 mg/dl (0.2-1.3) 06/19/23 04:35
AST 34 U/L (14-36) 06/19/23 04:35
ALT < 10 U/L (0-35) 06/19/23 04:35
Alkaline Phosphatase 120 U/L (38-126) 06/19/23 04:35
Most recent labs reviewed.
Micro Results:
06/16/23 14:46 Wound Culture - Final
Abdomen No growth
Gram Stain - Final
06/16/23 14:46 Anaerobic Culture - Final
Abdomen NO ANAEROBES ISOLATED
06/09/23 11:48 Blood Culture - Final
Blood/Venous No Growth - Final Report
06/09/23 10:35 Blood Culture - Final
Blood/Venous No Growth - Final Report
06/13/23 08:50 C. difficile GDH Antigen & Toxins - Final
Feces/Stool C. difficile antigen positive, toxin negative.
Clostridium difficile present, but toxin not detected.
Patient may be a carrier, colonized with nontoxinogenic
strain or the level of toxin in sample is below detection
limits. This information should be used in conjunction with
the patient's clinical history.
06/09/23 14:41 Urine Culture - Final
Urine NO GROWTH
06/14/2023: CT a/p: Findings suggesting severe volume overload or third spacing. New. Mild abdominopelvic ascites. New.
Findings suggesting cirrhosis. Moderate colonic distention. Stable. Previous fecal material has passed. This probably due to colonic ileus. Nonobstructing left renal stones. Decreased in size. Left double-J stent. Stable.
06/13/23 AXR: Grossly nonspecific bowel gas pattern, markedly limited on single supine view only.
06/08/23 CT a/P: Large amount of stool throughout the colon, with increased amount of stool since examination of June 06, 2023. There is suggestion of colonic wall thickening, particularly involving the right colon, transverse colon, and splenic
flexure. Findings would be suggestive of stercoral colitis. No evidence for free intraperitoneal air. Distention of the stomach with fluid. Left ureteral stent is present
[2023-06-23] MEDS: NOVOLOG FLEXPEN-LOW RESISTANCE 2 UNITS SC (12:21)
--- NOTE | 2023-06-23 13:58 | CHAP ---
Emotional and spiritual support provided for Jojo and her . Assistant Account Executive request relayed at their request: Fr. Lares anticipates coming this afternoon about 3pm. Will follow.
--- NOTE | 2023-06-23 14:18 | CON.MD ---
Consultation - Medical
-
Referring Provider: Dr. Rivera Hogue
Chief Complaint: Debility
History of Present Illness: 78-year-old female with PMH (as below) presented to [facility] on 06/08/2023 with abdominal pain and vomiting. Has been having difficulties with bowels since her left uretral stone stent procedure 05/17/23. Found
to have concern for severe sepsis with stercoral colitis, acute kidney injury with hyperkalemia and severe metabolic acidosis. Noted with atrial fibrillation started on amiodarone with Eliquis. CT during the hospital stay with ileus and possible
cirrhotic morphology of the liver with moderate ascites. Paracentesis with spontaneous bacterial peritonitis. Started on TPN. Developed anemia requiring transfusion. TPN stopped on 06/22 with patient eating 50% of meals. Patient has not been
able to participate in therapy secondary to pain and refused therapy in the past 2 days. Patient with moderate oral dysphagia by speech on 06/22 with intolerance of wearing dentures due to poor fit and gum sensitivity, downgraded to pur�ed solid and
thin liquid diet as a result.
Notes having pain with prolapsed uterus and scoliosis. When asked about about the uterus she said that it was fixed. Chronic scoliosis pain.
Past Medical History: hypertension, gastroesophageal reflux disease, tobacco use disorder, chronic obstructive pulmonary disease, chronic pain syndrome, rectal prolapse/rectocele, vaginal prolapse, urolithiasis, anxiety, depression, PAD, scoliosis,
type 2 diabetes, ADD
Procedure History: Robotic Rectopexy / Sacrocolpopexy, Posterior colporrhaphy with perineoplasty, hysterectomy, lumbar laminectomy
Family History: CAD (Mother), Diabetes (Mother), Hypertension (Mother) and Other (Mother & paternal grandmother: CHF)
Social History:
Functional Level Premorbidly: Independent with all activities
Functional Level Currently:�� None recent with refusal
Tobacco: Smoking (Currently smokes 1 cigarette a day, with a history of 0.5 PPD x 60 years)
Alcohol: Denies
Drug use: Denies
Lives with: Son Grabiel
24-hour assistance available: No
Number of floors: 2
# steps to enter: 3
# steps to second floor: Full flight
Potential First floor set up: No
Driving: No
Occupation: retired
Allergies:
Allergy/AdvReac Type Severity Reaction Status Date / Time
aspirin Allergy Gastiris Verified 06/08/23 17:58
ibuprofen Allergy Gastritis Verified 06/08/23 17:58
latex Allergy Itching Verified 05/17/23 06:29
NSAIDS (Non-Steroidal Allergy Gastritis Verified 06/08/23 17:58
Anti-Inflamma
Penicillins Allergy Unknown Verified 06/14/23 15:50
(age 11)
Review of Systems:
Constitutional: (x) abNormal _ fatigue
Eye: (x) Normal _
Ear/Nose/Throat: (x) Normal _
Respiratory: (x) Normal _
Cardiovascular: (x) Normal _
Gastrointestinal: (x) Normal _
Genitourinary: (x) Normal _
Musculoskeletal: (x) abNormal _scoliosis pain
Integumentary: (x) Normal _
Neurologic: (x) Normal _
Psychiatric: (x) Normal _
Endocrine: (x) Normal _
Hematologic/Lymphatic: (x) Normal _
Allergic/Immunologic: (x) Normal _
Medications:
Active Current Visit Medication List
Category Date Time Status
Acetaminophen [Tylenol] Med 06/11/23 10:59 Active
650 mg PO Q6HPRN PRN
Alprazolam [Xanax] Med 06/20/23 12:50 Active
0.125 mg PO DAILYPRN PRN
Alprazolam [Xanax] Med 06/11/23 22:00 Active
0.25 mg PO HS
Amiodarone [Pacerone] Med 06/23/23 08:00 Active
200 mg PO DAILY
Amlodipine [Norvasc] Med 06/19/23 13:00 Active
10 mg PO DAILY
Apixaban [Eliquis] Med 06/22/23 20:00 Active
5 mg PO BID
Cefuroxime Axetil [Ceftin] Med 06/22/23 08:00 Active
500 mg PO BID
Dextrose 50%-Water [Dextrose 50% Syringe] Med 06/08/23 18:10 Active
12.5 grams IV [id number] PRN
Estradiol Transdermal [Climara,Estraderm 0.1 mg] Med 06/16/23 08:00 Active
0.1 mg TRANSDERM FR
Flush (0.9% Sodium Chloride) [Flush (Nss)] Med 06/08/23 18:00 Active
See Dose Instructions IV PER PROTOCOL
Glucagon [GlucaGen] Med 06/08/23 18:10 Active
1 mg IM PRN PRN
HYDROmorphone [Dilaudid] Med 06/20/23 13:06 Active
0.25 mg IV Q4HPRN PRN
Insulin Aspart Corrective Low [Novolog Flexpen-Low Med 06/18/23 07:30 Active
Resistance]
See Protocol SC AC
Insulin Glargine Lantus [Lantus] 15 units Med 06/20/23 22:00 Active
Subcutaneous Insulin Syringe [Syringe-Insulin] 0 unit
SC HS
Loratadine [Claritin] Med 06/12/23 15:39 Active
10 mg PO DAILYPRN PRN
Metoprolol [Lopressor] Med 06/13/23 20:00 Active
12.5 mg PO BID
Miconazole Nitrate [Antifungal Clear] Med 06/20/23 13:50 Active
See Dose Instructions TOPICAL BID
Nicotine [Nicoderm Transdermal] Med 06/09/23 08:00 Active
14 mg TRANSDERM DAILY
Ondansetron Injectable [Zofran] Med 06/08/23 19:52 Active
4 mg IV Q6HPRN PRN
Oxycodone [Roxicodone] Med 06/19/23 13:30 Active
20 mg PO BID
Pantoprazole [Protonix] Med 06/12/23 08:00 Active
40 mg PO DAILY
Vancomycin HCl [Firvanq] Med 06/16/23 20:00 Active
125 mg PO Q12
Zinc Oxide 40% [Desitin Maximum Strength Paste] Med 06/21/23 20:00 Active
See Dose Instructions TOPICAL BID
Zinc Oxide 40% [Desitin Maximum Strength Paste] Med 06/21/23 14:24 Active
See Dose Instructions TOPICAL PRN PRN
Vitals:
Temp Pulse Resp BP Pulse Ox
98.9 F 85 17 154/68 91
06/23/23 19:35 06/23/23 19:35 06/23/23 19:35 06/23/23 19:35 06/23/23 19:35
Height 5 ft 1 in
Actual Weight 54.233 kg
Body Mass Index (BMI) 22.6
Physical Exam:
General Appearance/Observation: Well-developed, well-nourished individual in no apparent distress.
Mood/Affect: Appropriate
Integumentary/Operative Site: IV, has some bruising over arms
Eyes: Conjunctiva/Lids: normal ��� Pupils: pupils equal round and reactive to light and Accommodation
Ears/Nose/Throat: oral mucosa moist,� throat clear.������������ Lips/Teeth/Gums: normal
Cardiovascular: Heart: regular, no murmur
Pulses: dorsalis pedis 2+ bilaterally
Respiratory: Respiratory Effort/Chest Expansion: normal ������ Auscultation: Clear to auscultation bilaterally
Gastrointestinal: abdomen not tender, no distension, normal abdominal bowel sounds
Genitourinary: No Chao
Extremities: Edema: None Cyanosis: None Trophic changes: None
Neurology Exam:
Orientation: Alert, Oriented to self, Time, Place
Memory: Intact
Comprehension: Intact
Two step command: Intact
Cranial Nerves:
�� CNII: Pupillary light reflex: Intact���
�� CN VII: Facial movement: Symmetric
�� CN VIII: Hearing: Normal
�� CN IX/X: Speech & swallow: Normal, Position of Uvula: Midline
�� CN XII: Tongue protrusion: Midline
Sensory:
�� Light touch: Intact in bilateral upper and lower extremities
Reflexes:
�� Biceps: 2+ bilaterally
�� Brachioradialis: 2+ bilaterally
�� Triceps: 2+ bilaterally
�� Patellar: 2+ bilaterally
�� Achilles: 2+ bilaterally
�� Babinski: Down going bilaterally
�� Clonus: None
�� Abhishek: Negative bilaterally
Musculoskeletal:Motor: (Manual muscle scale 0-5) Limited effort 3/5 hip flexion/shoulder movement bilaterally. 4/5 otherwise.
Tone: Normal in all extremities
Range of Motion: Passively within normal limits in all extremities
Lab Results
Laboratory Data
06/23/23 06:19
06/23/23 06:18
PT 17.8 Sec (11.4-14.6) H 06/09/23 15:59
INR 1.48 06/09/23 15:59
APTT 43.9 Sec (23.4-35.0) H 06/09/23 15:59
Total Bilirubin 0.3 mg/dl (0.2-1.3) 06/19/23 04:35
Direct Bilirubin 0.5 mg/dl (0.0-0.4) H 06/11/23 02:53
AST 34 U/L (14-36) 06/19/23 04:35
ALT < 10 U/L (0-35) 06/19/23 04:35
Alkaline Phosphatase 120 U/L (38-126) 06/19/23 04:35
Total Protein 4.2 g/dl (6.3-8.2) L 06/19/23 04:35
Albumin 1.8 g/dl (3.5-5.0) L 06/19/23 04:35
�
Diagnostic Results: as per HPI
Assessment
78-year-old F PMH (hypertension, gastroesophageal reflux disease, tobacco use disorder, chronic obstructive pulmonary disease, chronic pain syndrome, rectal prolapse/rectocele, vaginal prolapse, urolithiasis, anxiety, depression, PAD, scoliosis,
type 2 diabetes, ADD) with 06/08/2023 concern for severe sepsis with stercoral colitis, acute kidney injury with hyperkalemia, severe metabolic acidosis, atrial fibrillation, spontaneous bacterial peritonitis, anemia requiring transfusion with ADL
and ambulatory dysfunction.
Plan
PM&R PT/OT to increase independence with ADLs, improve balance, coordination, endurance, strength, mobility, community reintegration, decreased burden of care on others and family education.
Debility: PT/OT. Discussed need to participate in therapy in order to get home.
Spontaneous bacterial peritonitis: per ID
HTN: continue medications, monitor closely
Atrial fibrillation:� Continue anticoagulation and rate control medications.��������������������������������� ���������
Anemia: Likely multifactorial.� Continue to monitor.
Psych: Psychology consult.� Monitor mood, medications as needed.
Skin: monitor for pressure sores/rashes/lesions.
Pain: Chronic pain from scoliosis. Would try to limit escalation of pain medications. Reviewed need to do more exercise to help with back strength.
GERD: Pantoprazole
DVT Prophylaxis: mechanical and Apixaban.
Pulmonary: Incentive spirometry
Safety: Continue to reinforce assistance with all transfers.
Code Status:� Full code
Dispo (date/plan/equipment needs): Home with family care.
Discharge Destination: SNF, will not toerate acute rehab.
Functional and Medical Goals: Modified Independent with ADL�s, ambulation, transfers
Summary of recommendations:
Discharge Destination: SNF
Debility: PT/OT. Discussed need to participate in therapy in order to get home.
Spontaneous bacterial peritonitis: per ID
HTN: continue medications, monitor closely
Atrial fibrillation:� Continue anticoagulation and rate control medications.��������������������������������� ���������
Anemia: Likely multifactorial.� Continue to monitor.
Psych: Psychology consult.� Monitor mood, medications as needed.
Thank you for allowing me to care for your patient. Please contact me with any questions or concerns.
--- NOTE | 2023-06-23 15:16 | CM ---
Case management following for d/c planning
Chart reviewed. Spoke with pts DAISY [place]
Speech eval and PM&R eval today. Pt continues to have pain managed by IV pain meds
Per [facility] would [facility] the best option for pt when d/c'ed. Will send updates in [facility]
CM will continue to follow for d/c planning
Plan - SNF([facility]) when medically ready
[2023-06-23 16:59] LABS: Glucose - Point of Care 180 mg/dl (70-99)
[2023-06-23 21:46] LABS: Glucose - Point of Care 194 mg/dl (70-99)
[2023-06-23] MEDS: XANAX 0.25 MG PO (23:38)
[2023-06-23] MEDS: LANTUS 0.149999999999999994 UNITS SC (23:39)
[2023-06-24] MEDS: DILAUDID 0.25 MG IV ×4 (03:31→20:33)
[2023-06-24 03:50] VITALS: BP 160/67
--- NOTE | 2023-06-24 04:43 | VATNOTE ---
RUE CONTINUES TO APPEAR MORE SWOLLEN THAN LUE FROM ELBOW TO FINGERTIPS. SPOKE WITH PCN TO HAVE PROVIDER CONSIDER REPEAT US TO R/O THROMBUS. PCN TO REPOSITION PT AND ELEVATE RUE. VAT TO FOLLOW.
[2023-06-24 04:46] LABS: Hemoglobin 8.9 g/dL (12.0-16.0); Mean Corpuscular Hgb 26.6 pg (27.0-31.0); Mean Corpuscular Volume 80.6 fL (81.0-99.0); Mean Platelet Volume 11.4 fL (7.4-10.4); Nucleated Red Blood Cells % 0 %; Platelet Count 284 10^3/uL (130-400); Red Blood Cell Count 3.35 10^6/uL (4.20-5.40); Red Cell Dist. Width 17.4 % (11.5-14.5); White Blood Cell Count 8.8 10^3/uL (4.8-10.8)
[2023-06-24 05:30] LABS: Blood Urea Nitrogen 34 mg/dl (7-17); Calcium 8.1 mg/dl (8.4-10.2); Carbon Dioxide 27 mmol/L (22-30); Chloride 108 mmol/L (98-107); Estimated Creatinine Clearance 43 ml/min; Glucose 61 mg/dl (70-99); Potassium 4.6 mmol/L (3.5-5.1); Sodium 138 mmol/L (135-145); eGFR > 60.00
[2023-06-24 06:00] VITALS: BMI 22.4
[2023-06-24 07:00] VITALS: BP 176/74
[2023-06-24] MEDS: NORVASC 10 MG PO (08:19)
[2023-06-24] MEDS: LOPRESSOR 12.5 MG PO ×2 (08:19→19:15)
[2023-06-24] MEDS: ELIQUIS 5 MG PO ×2 (08:19→19:15)
[2023-06-24] MEDS: PROTONIX 40 MG PO (08:19)
[2023-06-24] MEDS: CEFTIN 500 MG PO ×2 (08:19→19:15)
[2023-06-24] MEDS: ROXICODONE 20 MG PO ×2 (08:20→19:15)
[2023-06-24] MEDS: PACERONE 200 MG PO (08:20)
[2023-06-24] MEDS: NICODERM TRANSDERMAL 14 MG TRANSDERM (08:21)
[2023-06-24 08:22] LABS: Glucose - Point of Care 53 mg/dl (70-99)
[2023-06-24] MEDS: ANTIFUNGAL CLEAR 1 APPLIC TOPICAL ×2 (08:24→19:15)
[2023-06-24] MEDS: NOVOLOG FLEXPEN-LOW RESISTANCE SC ×3 (08:24→16:35)
[2023-06-24] MEDS: FIRVANQ 125 MG PO ×2 (08:24→19:15)
[2023-06-24] MEDS: DESITIN MAXIMUM STRENGTH PASTE 1 APPLIC TOPICAL ×2 (08:25→19:16)
[2023-06-24 08:49] LABS: Glucose - Point of Care 75 mg/dl (70-99)
[2023-06-24 09:28] LABS: Lymphocytes 12 % (20-51); Monocytes 6 % (2-9); Segmented Neutrophils 61 % (42-75)
[2023-06-24 09:29] LABS: Absolute Neutrophils -Man Diff 7.2 10^3/uL (1.4-6.5); Band Neutrophils 21 % (0-3); Normal RBC Morphology Yes; Platelets Checked Yes; Total Cells Counted 100
--- NOTE | 2023-06-24 10:57 | W.PN.HOSP.TC ---
Today's Communication/Plan
-
Check CXR
Speech eval
RUE US
restart home BP meds
Assessment / Plan
Assessment / Plan
Septic shock likely secondary to stercoral colitis/abdominal [id number]
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
s/p robotic rectopexy, sacrocolpopexy, posterior colporrhaphy, perineoplasty and cystoscopy with left ureteral stent for presumed kidney stone 05/17/2023
-s/p NGT removal.
-06/12 stool tested, C.Diff-Antigen pos, Toxin neg. Colonization. Po vanc BID.
-Lactic acidosis resolved.
-ID wishes to treat empirically with oral Vanco in pt on recent abx.
-Had been started on Levophed and vasopressin. Off pressors as of 06/09.
-Antibiotics broadened to Vanco and meropenem per ID. Pro-Dylan significantly elevated 44.
-Antibiotic further narrowed down to ceftriaxone. Vanco and meropenem discontinued per ID. Now on po abx Ceftin
-Started on clear liquid and advanced to Regular diet.
-Wbc normalized.
-Rectal bag and Chao catheter DC'd on 06/20. Passing urine.
-Started on caloric count.
SBP
-cultures no growth. WBC normalized but with bandemia. Trend for now. Improving.
-IV rocephin stopped and switched to Ceftin till 06/24
Suspected ileus
-Remains on TPN and regular diet. Calorie count ongoing.
-Having small bowel movements. Patient refused flex sig.
-TPN stopped.
-Colorectal surgery following
Acute hypoxic respiratory insufficiency
-Based on oxygen overnight. Unclear how much patient desaturated to
-Start patient incentive spirometer. Check a chest x-ray
Dysphagia
-puree diet tolerating diet so far better as without dentures
RUE swelling
-Check US RUE
Acute Kidney Injury likely multifactorial pre-renal volume depletion while on ACEI, recent bactrim usage, ATN?
-Placed Chao from strict Is&Os, Chao removed on 06/20 and voiding.
-monitor urinary output
-No hydro seen on CT scan
-Cr stable.
-Nephro signed off.
New onset of Paroxysmal Afib with RVR on 06/09
currently in NSR with freq PAC's
-started on Amiodarone IV drip, now transitioned to 400 mg po bid through 06/21 completed. Plan to start 200 mg daily, as per cardio
-Elevated [id number] Score
-Cards eval
-Eliquis restarted after discussion with colorectal surgery as no plan for procedure
Severe deconditioning due to prolonged hopsital/medical illness/sciolosis/non compliance with PT at times
-PM&R eval
Hyperkalemia
-resolved.
Anemia
-s/p 1u PRBC.
Severe Metabolic acidosis
-Resolved.
Pelvic Floor Prolapse s/p Robotic Rectopexy / Sacrocolpopexy on May 16
-Care as per Colorectal
Diabetes Mellitus, Type II
-HgbA1c 6.1 on 06/20/23
-Monitor sugars and continue coverage insulin. Increase Lantus dose on TPN with elevated blood glucose. Sugars stabilized.
Essential Hypertension
-Cont norvasc and bb restart ACEI
Anxiety / Depression
-Xanax at bedtime and as needed home regimen
GERD
-Continue Protonix IV
Chronic Pain with Opioid Dependence
-Decrease dose of Dilaudid with plan to hopefully discontinue IV narcotics soon.
-Counseled extensively to patient and spouse to wean off opiates as outpatient due to significant adverse events including this hospitalization. Pt continues to demand more pain meds.
-Recommended to patient and spouse to start aggressive bowel regimen at home.
ADHD-hold off on restarting Adderall in the setting of new onset of A-fib
Tobacco abuse
-Continue with nicotine patch
Peripheral Arterial Disease
-Stable
Hypokalemia-replete/monitor
DVT proph: Eliquis
Code Status: Full Code
PT/OT-Not a candidate for Acute rehab. SNF
Reviewed extensively with spouse at bedside on 06/22
Anticipated Discharge: > 48 hours
Subjective/Interval History
-
Date of Service: June 24, 2023
states improvement in abd discomfort
intermittent coughing
States of RUE swelling
Objective Data
-
Labs:
Laboratory Results
06/24/23
04:37
WBC 8.8
Hgb 8.9 L
Hct 27.0 L
Plt Count 284
Sodium 138
Potassium 4.6
Chloride 108 H
Carbon Dioxide 27
BUN 34 H
Creatinine 0.8
Glucose 61 L
Calcium 8.1 L
Vital Signs:
Vital Signs
Temp Pulse Resp BP Pulse Ox
97.5 F 95 17 176/74 94
06/24/23 07:00 06/24/23 07:00 06/24/23 07:00 06/24/23 07:00 06/24/23 07:00
I&O
06/23/23 06/24/23 06/25/23
06:59 06:59 06:59
Intake Total 600 / 600 600 / 600
Balance 600 / 600 600 / 600
Physical Exam
-
General: No Apparent Distress and Appears Chronically Ill
HEENT: Normocephalic, Atraumatic, Moist Mucous Membranes and Oxygen
Respiratory: Clear to Auscultation (anteriorly ); Negative Wheezes, Rales or Rhonchi
Cardiac: Regular Rhythm and S1/S2
GI: Soft, Nontender, Normal Bowel Sounds and Distended (improved )
Musculoskeletal: No Clubbing, No Cyanosis and Edema, Right Upper Extrem
Neuro: Awake, AO x 3 and No Motor Deficits
Psych: Calm
Data Reviewed
-
Total Time Spent with Patient (in minutes): 55
[2023-06-24 11:00] VITALS: BP 136/63
[2023-06-24 12:24] LABS: Glucose - Point of Care 61 mg/dl (70-99)
[2023-06-24 12:52] LABS: Glucose - Point of Care 81 mg/dl (70-99)
[2023-06-24] MEDS: XANAX 0.125 MG PO (13:31)
[2023-06-24] MEDS: TYLENOL 650 MG PO (14:30)
[2023-06-24 15:00] VITALS: BP 126/60
--- NOTE | 2023-06-24 16:20 | CHAP ---
Ms. Olivares had requested a wheel setter visit. She already had a visitor present, and at that moment, it seemed quite an effort for her to speak. Emotional and spiritual support provided. We offered [employer] prayers together and asked
God's blessings for Ms. Olivares, her family and the med staff.
[2023-06-24 16:34] LABS: Glucose - Point of Care 66 mg/dl (70-99)
[2023-06-24 17:00] LABS: Glucose - Point of Care 79 mg/dl (70-99)
[2023-06-24 19:23] VITALS: BP 136/51
[2023-06-24 21:46] LABS: Glucose - Point of Care 67 mg/dl (70-99)
[2023-06-24] MEDS: XANAX 0.25 MG PO (21:51)
[2023-06-24 22:28] LABS: Glucose - Point of Care 79 mg/dl (70-99)
[2023-06-24 23:30] VITALS: BP 125/61
[2023-06-24 23:48] LABS: Glucose - Point of Care 76 mg/dl (70-99)
--- NOTE | 2023-06-24 23:52 | PTCARENOTE ---
Patient with 10/10 back pain, refusing repositioning/kpad, Tylenol and lidocaine patch. Provider notified.
[2023-06-25] MEDS: DILAUDID 0.25 MG IV ×5 (00:03→18:41)
[2023-06-25 02:26] LABS: Glucose - Point of Care 102 mg/dl (70-99)
[2023-06-25 04:09] VITALS: BMI 23.2
--- NOTE | 2023-06-25 05:35 | PTCARENOTE ---
Patient refused turn, refused to be repositioned. Patient denies having bowel movement ur urinating in brief. Importance of skin care reviewed with patient, patient agrees but refuses to be turned at this time.
[2023-06-25 06:52] LABS: Hematocrit 26.4 % (37.0-47.0); Hemoglobin 8.7 g/dL (12.0-16.0); Mean Corpuscular Hgb 26.6 pg (27.0-31.0); Mean Corpuscular Volume 80.7 fL (81.0-99.0); Mean Platelet Volume 11.4 fL (7.4-10.4); Nucleated Red Blood Cells % 0 %; Platelet Count 304 10^3/uL (130-400); Red Blood Cell Count 3.27 10^6/uL (4.20-5.40); Red Cell Dist. Width 17.4 % (11.5-14.5); White Blood Cell Count 11.3 10^3/uL (4.8-10.8)
[2023-06-25 07:00] VITALS: BP 143/61
[2023-06-25 07:25] LABS: Blood Urea Nitrogen 35 mg/dl (7-17); Calcium 7.9 mg/dl (8.4-10.2); Carbon Dioxide 25 mmol/L (22-30); Chloride 106 mmol/L (98-107); Estimated Creatinine Clearance 34 ml/min; Glucose 72 mg/dl (70-99); Potassium 4.9 mmol/L (3.5-5.1); Sodium 134 mmol/L (135-145); eGFR 57.31
[2023-06-25] MEDS: ROXICODONE 20 MG PO ×2 (07:57→20:07)
[2023-06-25] MEDS: PACERONE 200 MG PO (07:57)
[2023-06-25] MEDS: PROTONIX 40 MG PO (07:57)
[2023-06-25] MEDS: ELIQUIS 5 MG PO ×2 (07:58→20:07)
[2023-06-25] MEDS: FIRVANQ 125 MG PO ×2 (07:58→20:07)
[2023-06-25] MEDS: NICODERM TRANSDERMAL TRANSDERM ×2 (07:58→08:11)
[2023-06-25] MEDS: CEFTIN 500 MG PO ×2 (07:58→20:07)
[2023-06-25 08:00] VITALS: BP 110/49
[2023-06-25] MEDS: DESITIN MAXIMUM STRENGTH PASTE 1 APPLIC TOPICAL ×2 (08:01→21:41)
[2023-06-25] MEDS: ANTIFUNGAL CLEAR 1 APPLIC TOPICAL ×2 (08:01→21:41)
[2023-06-25 08:10] LABS: Glucose - Point of Care 71 mg/dl (70-99)
[2023-06-25] MEDS: NOVOLOG FLEXPEN-LOW RESISTANCE SC ×3 (08:11→17:51)
[2023-06-25 08:23] LABS: Absolute Neutrophils -Man Diff 10.7 10^3/uL (1.4-6.5); Band Neutrophils 26 % (0-3); Lymphocytes 5 % (20-51); Segmented Neutrophils 69 % (42-75)
[2023-06-25 08:24] LABS: Hypochromasia 1+; Microcytosis 1+; Normal RBC Morphology No; Platelets Checked Yes; Polychromasia 1+
[2023-06-25] MEDS: NORVASC 10 MG PO (10:19)
[2023-06-25] MEDS: LOPRESSOR 12.5 MG PO ×2 (10:19→21:44)
--- NOTE | 2023-06-25 10:46 | W.PN.HOSP.TC ---
Addendum entered and electronically signed by Rivera Hogue MD 06/25/23 12:43:
update daughter over the phone in details.
Original Note:
Today's Communication/Plan
-
Continue with p.o. antibiotics
Check ultrasound of the chest
IV Lasix x 1 monitor response
Assessment / Plan
Assessment / Plan
Septic shock likely secondary to stercoral colitis/abdominal [id number]
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
s/p robotic rectopexy, sacrocolpopexy, posterior colporrhaphy, perineoplasty and cystoscopy with left ureteral stent for presumed kidney stone 05/17/2023
-s/p NGT removal.
-06/12 stool tested, C.Diff-Antigen pos, Toxin neg. Colonization. Po vanc BID.
-Lactic acidosis resolved.
-ID wishes to treat empirically with oral Vanco in pt on recent abx.
-Had been started on Levophed and vasopressin. Off pressors as of 06/09.
-Antibiotics broadened to Vanco and meropenem per ID. Pro-Dylan significantly elevated 44.
-Antibiotic further narrowed down to ceftriaxone. Vanco and meropenem discontinued per ID. Now on po abx Ceftin
-Started on clear liquid and advanced to Regular diet.
-mild bump in wbc. Bandemia remains. afebrile.
-Rectal bag and Chao catheter DC'd on 06/20. Passing urine.
-Started on caloric count.
SBP
-cultures no growth. WBC normalized but with bandemia. Trend for now. Improving.
-IV rocephin stopped and switched to Ceftin till 06/24
Suspected ileus
-Remains on TPN and regular diet. Calorie count ongoing.
-Having small bowel movements. Patient refused flex sig.
-TPN stopped.
-Colorectal surgery following
Acute hypoxic respiratory insufficiency likely secondary pleural effusions
Anasarca
-Chest x-ray with pleural effusion. Ultrasound chest pending
-Will give dose of IV Lasix and monitor response
-If the pleural effusion will require thoracentesis
Dysphagia
-puree diet tolerating diet so far better as without dentures
RUE swelling
-US RUE negative. PICC line discontinued.
Acute Kidney Injury likely multifactorial pre-renal volume depletion while on ACEI, recent bactrim usage, ATN?
-Placed Chao from strict Is&Os, Chao removed on 06/20 and voiding.
-monitor urinary output
-No hydro seen on CT scan
-Cr stable.
-Nephro signed off.
New onset of Paroxysmal Afib with RVR on 06/09
[facility]
-started on Amiodarone IV drip, now transitioned to 400 mg po bid through 06/21 completed. Plan to start 200 mg daily, as per cardio
-Elevated [id number] Score
-Cards eval
-Eliquis restarted after discussion with colorectal surgery as no plan for procedure
Severe deconditioning due to prolonged hopsital/medical illness/sciolosis/non compliance with PT at times
-PM&R eval
Hyperkalemia
-resolved.
Anemia
-s/p 1u PRBC.
Severe Metabolic acidosis
-Resolved.
Pelvic Floor Prolapse s/p Robotic Rectopexy / Sacrocolpopexy on May 16
-Care as per Colorectal
Diabetes Mellitus, Type II
-HgbA1c 6.1 on 06/20/23
-Monitor sugars and continue coverage insulin. Increase Lantus dose on TPN with elevated blood glucose. Sugars stabilized.
Essential Hypertension
-Cont norvasc and bb restart ACEI
Anxiety / Depression
-Xanax at bedtime and as needed home regimen
GERD
-Continue Protonix IV
Chronic Pain with Opioid Dependence
-Decrease dose of Dilaudid with plan to hopefully discontinue IV narcotics soon.
-Counseled extensively to patient and spouse to wean off opiates as outpatient due to significant adverse events including this hospitalization. Pt continues to demand more pain meds.
-Recommended to patient and spouse to start aggressive bowel regimen at home.
ADHD-hold off on restarting Adderall in the setting of new onset of A-fib
Tobacco abuse
-Continue with nicotine patch
Peripheral Arterial Disease
-Stable
Hypokalemia-replete/monitor
DVT proph: Eliquis
Code Status: Full Code
PT/OT-Not a candidate for Acute rehab. SNF once ready.
Reviewed extensively with spouse at bedside on daily basis throughout the week.
Anticipated Discharge: > 48 hours
Subjective/Interval History
-
Date of Service: June 25, 2023
Tolerating diet to some extent
Coughing episodes
States remains in pain and wants more pain medication
Explained of abdominal distention and to avoid and considering decreasing further pain meds
Objective Data
-
Labs:
Laboratory Results
06/25/23
06:03
WBC 11.3 H
Hgb 8.7 L
Hct 26.4 L
Plt Count 304
Sodium 134 L
Potassium 4.9
Chloride 106
Carbon Dioxide 25
BUN 35 H
Creatinine 1.0
Glucose 72
Calcium 7.9 L
Vital Signs:
Vital Signs
Temp Pulse Resp BP Pulse Ox
98.6 F 87 18 143/61 93
06/25/23 07:00 06/25/23 07:00 06/25/23 07:00 06/25/23 07:00 06/25/23 07:00
I&O
06/24/23 06/25/23 06/26/23
06:59 06:59 06:59
Intake Total 600 / 600 720 / 720
Balance 600 / 600 720 / 720
Physical Exam
-
General: No Apparent Distress and Appears Chronically Ill
HEENT: Normocephalic, Atraumatic, Moist Mucous Membranes and Oxygen
Respiratory: Clear to Auscultation (anteriorly ); Negative Wheezes, Rales or Rhonchi
Cardiac: Regular Rhythm and S1/S2
GI: Soft, Nontender, Normal Bowel Sounds and Distended (improved )
Musculoskeletal: No Clubbing, No Cyanosis, Edema, Right Upper Extrem, Edema, Right Lower Extrem and Edema, Left Lower Extrem
Neuro: Awake, AO x 3 and No Motor Deficits
Psych: Calm
Data Reviewed
-
Total Time Spent with Patient (in minutes): 55
[2023-06-25] MEDS: MYLICON 80 MG PO (11:08)
[2023-06-25] MEDS: LASIX 20 MG IV (11:08)
[2023-06-25 11:25] LABS: Total Cells Counted 100
--- NOTE | 2023-06-25 12:27 | PTCARENOTE ---
Patient's daughter, Kendal, tearful, asking for update. Discussed plan for today, re: imaging. Kendal voicing concerns about halfway goals. Attempted to discuss goals of care, but patient not willing to talk reporting 'I didn't sleep last
night.'
[2023-06-25 14:25] LABS: Glucose - Point of Care 122 mg/dl (70-99)
[2023-06-25 15:00] VITALS: BP 110/49
[2023-06-25 15:43] LABS: Total Protein 4.4 g/dl (6.3-8.2)
[2023-06-25] MEDS: XANAX 0.125 MG PO (16:03)
[2023-06-25 16:10] LABS: LDH 213 U/L (120-246)
[2023-06-25 17:48] LABS: Glucose - Point of Care 146 mg/dl (70-99)
[2023-06-25] MEDS: XANAX 0.25 MG PO (21:40)
[2023-06-25] MEDS: MELATONIN 3 MG PO (21:40)
[2023-06-25 21:43] LABS: Glucose - Point of Care 110 mg/dl (70-99)
[2023-06-25 21:52] VITALS: BP 112/47
[2023-06-26] VITALS (10 sets, daily range): BP systolic 72–125; BP diastolic 43–52; PULSE 69–70; O2SAT 93; BMI 22.6
[2023-06-26] MEDS: DILAUDID 0.25 MG IV ×3 (05:18→16:41)
[2023-06-26 06:25] LABS: Hematocrit 25.3 % (37.0-47.0); Mean Corp Hgb Conc. 31.6 g/dL (33.0-37.0); Mean Corpuscular Volume 82.1 fL (81.0-99.0); Mean Platelet Volume 11.1 fL (7.4-10.4); Nucleated Red Blood Cells % 0 %; Platelet Count 331 10^3/uL (130-400); Red Blood Cell Count 3.08 10^6/uL (4.20-5.40); Red Cell Dist. Width 17.5 % (11.5-14.5); White Blood Cell Count 8.6 10^3/uL (4.8-10.8)
[2023-06-26 06:46] LABS: ALT (SGPT) 22 U/L (0-35); AST (SGOT) 47 U/L (14-36); Albumin 1.8 g/dl (3.5-5.0); Alkaline Phosphatase 165 U/L (38-126); Blood Urea Nitrogen 36 mg/dl (7-17); Calcium 7.9 mg/dl (8.4-10.2); Carbon Dioxide 26 mmol/L (22-30); Chloride 105 mmol/L (98-107); Estimated Creatinine Clearance 29 ml/min; Glucose 114 mg/dl (70-99); Magnesium 1.8 mg/dl (1.6-2.3); Phosphorus 5.1 mg/dl (2.5-4.5); Potassium 4.3 mmol/L (3.5-5.1); Sodium 136 mmol/L (135-145); Total Bilirubin 0.3 mg/dl (0.2-1.3); Total Protein 4.4 g/dl (6.3-8.2); eGFR 46.05
[2023-06-26 07:14] LABS: Absolute Neutrophils -Man Diff 7.4 10^3/uL (1.4-6.5); Band Neutrophils 18 % (0-3); Segmented Neutrophils 69 % (42-75)
[2023-06-26 07:15] LABS: Atypical Lymphocytes 1 %; Lymphocytes 6 % (20-51); Metamyelocytes 4 % (-); Monocytes 2 % (2-9); Normal RBC Morphology Yes; Platelets Checked Yes; Total Cells Counted 100
[2023-06-26 07:53] LABS: Glucose - Point of Care 113 mg/dl (70-99)
[2023-06-26] MEDS: NOVOLOG FLEXPEN-LOW RESISTANCE SC ×2 (08:01→16:04)
[2023-06-26] MEDS: PROTONIX 40 MG PO (08:03)
[2023-06-26] MEDS: NORVASC 10 MG PO (08:03)
[2023-06-26] MEDS: ELIQUIS 5 MG PO ×2 (08:03→21:17)
[2023-06-26] MEDS: PACERONE 200 MG PO (08:03)
[2023-06-26] MEDS: LOPRESSOR 12.5 MG PO ×2 (08:03→21:22)
[2023-06-26] MEDS: ROXICODONE 20 MG PO ×2 (08:03→21:18)
[2023-06-26] MEDS: FIRVANQ 125 MG PO ×2 (08:04→21:19)
[2023-06-26] MEDS: NICODERM TRANSDERMAL TRANSDERM (08:17)
[2023-06-26] MEDS: DESITIN MAXIMUM STRENGTH PASTE 1 APPLIC TOPICAL ×2 (08:17→21:04)
[2023-06-26] MEDS: ANTIFUNGAL CLEAR 1 APPLIC TOPICAL ×2 (08:17→21:03)
--- NOTE | 2023-06-26 10:57 | W.PN.HOSP.TC ---
Today's Communication/Plan
-
Thoracentesis
Bladder scan
Monitor renal function
Continue PT/OT
Assessment / Plan
Assessment / Plan
Gen-AAOx3, NAD
HEENT-NC, AT, anicteric, clear oral mm
Neck-supple
CV-reg, no M, +S1/S2
Lungs-clear B/L
Abd-soft, NT, ND
Ext-no edema
Musculoskeletal-no cyanosis, clubbing
Skin-warm and dry
Neuro-grossly non-focal
Psych-calm, cooperative
Septic shock - likely secondary to stercoral colitis/abdominal [id number]
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
s/p robotic rectopexy, sacrocolpopexy, posterior colporrhaphy, perineoplasty and cystoscopy with left ureteral stent for presumed kidney stone 05/17/2023
-s/p NGT removal.
-06/12 stool tested, C.Diff-Antigen pos, Toxin neg. Colonization. Po vanc BID until 06/29 per ID.
SBP
-cultures no growth. WBC normalized but with bandemia. Trend for now. Improving. Completed course of antibiotics.
Suspected ileus -Having small bowel movements. Patient refused flex sig. Tolerating pur�ed diet.
-TPN stopped.
-Colorectal surgery following
Acute hypoxic respiratory insufficiency likely secondary pleural effusions
Anasarca -received a dose of IV Lasix 06/24.
-Chest x-ray with pleural effusion. Ultrasound chest moderate bilateral effusions, thoracentesis pending.
Dysphagia
-puree diet tolerating diet so far better as without dentures
RUE swelling
-US RUE negative. PICC line discontinued.
PAVEL - likely multifactorial pre-renal volume depletion while on ACEI, recent bactrim usage, ATN? Creatinine back up to 1.2 today, BUN 36. Perhaps due to Lasix dose yesterday. Recheck labs tomorrow. Check bladder scan. Discussed with nursing.
-Placed Chao from strict Is&Os, Chao removed on 06/20 and voiding.
New onset of Paroxysmal Afib with RVR on 06/09
currently in NSR with freq PAC's
-started on Amiodarone IV drip, now transitioned to 400 mg po bid through 06/21 completed. Plan to start 200 mg daily, as per cardio
-Elevated [id number] Score
-Cards eval
-Eliquis restarted after discussion with colorectal surgery as no plan for procedure
Severe deconditioning due to prolonged hopsital/medical illness/sciolosis/non compliance with PT at times
-PM&R eval
Hyperkalemia
-resolved.
Acute on chronic anemia -s/p 1u PRBC on June 17. Hemoglobin 8.0 today, relatively stable. Monitor for now.
Severe Metabolic acidosis
-Resolved.
Pelvic Floor Prolapse s/p Robotic Rectopexy / Sacrocolpopexy on May 16
-Care as per Colorectal
DM2 without hyperglycemia -glucose 113 this morning.
-HgbA1c 6.1 on 06/20/23. Currently on aspart insulin low resistance corrective scale.
Essential Hypertension
-Cont norvasc and bb restart ACEI
Anxiety / Depression
-Xanax at bedtime and as needed home regimen
GERD
-Continue Protonix
Chronic Pain with Opioid Dependence
-Decrease dose of Dilaudid with plan to hopefully discontinue IV narcotics soon.
-Counseled extensively to patient and spouse to wean off opiates as outpatient due to significant adverse events including this hospitalization. Pt continues to demand more pain meds.
-Recommended to patient and spouse to start aggressive bowel regimen at home.
ADHD-hold off on restarting Adderall in the setting of new onset of A-fib
Tobacco abuse
-Continue with nicotine patch
Peripheral Arterial Disease
-Stable
Hypokalemia-replete/monitor
DVT proph: Eliquis
Code Status: Full Code
Dispo -anticipate SNF on discharge when medically stable. Updated patient and significant other.
Anticipated Discharge: 24 - 48 hours
Subjective/Interval History
-
Date of Service: June 26, 2023
Patient seen and examined. Complaining of fatigue.
Objective Data
-
Labs:
Laboratory Results
06/26/23
05:59
WBC 8.6
Hgb 8.0 L
Hct 25.3 L
Plt Count 331
Sodium 136
Potassium 4.3
Chloride 105
Carbon Dioxide 26
BUN 36 H
Creatinine 1.2 H
Glucose 114 H
Calcium 7.9 L
Total Bilirubin 0.3
AST 47 H
ALT 22
Alkaline Phosphatase 165 H
Vital Signs:
Vital Signs
Temp Pulse Resp BP Pulse Ox
98.3 F 78 18 125/52 92
06/26/23 07:00 06/26/23 07:00 06/26/23 07:00 06/26/23 07:00 06/26/23 07:00
I&O
06/25/23 06/26/23 06/27/23
06:59 06:59 06:59
Intake Total 720 / 720 880 / 880
Balance 720 / 720 880 / 880
Review of Systems
-
History Source: Patient
All other systems: Reviewed and negative
[2023-06-26 11:48] LABS: Glucose - Point of Care 177 mg/dl (70-99)
--- NOTE | 2023-06-26 13:51 | PTOTSP ---
ST Follow-Up
Pt continues to present with moderate oral phase dysphagia and possible mild to moderate pharyngeal dysphagia.
Recommendations:
- Continue pureed solids, thin liquids, and meds crushed in puree (yogurt/jello).
- Aspiration precautions: HOB fully upright for all PO intake; small bites/sips; slow intake; alternate bites/sips; encourage pt to expectorate secretions/phlegm when able (use suction if assistance needed).
- Video fluoroscopic swallow study for more information regarding pharyngeal phase of swallow.
- OIL TESTER will continue to follow closely.
--- NOTE | 2023-06-26 14:40 | CM ---
Case management following for d/c planning
Pt for thoracentesis today. Requiring 2L oxygen
Worked with PT/OT with much encouragement
Continued pain management
[facility] when medically ready per pt and family
CM will continue to follow for d/c planning
Plan - SNF([facility]) when medically ready
[2023-06-26 15:59] LABS: Body Fluid pH 7.41
[2023-06-26 16:14] LABS: Body Fluid Glucose 158 mg/dl; Body Fluid LDH < 90 U/L; Body Fluid Protein < 2.0 g/dl; Body Fluid Triglycerides < 30 mg/dl
[2023-06-26 16:15] LABS: Body Fluid WBC 240 /CUMM
[2023-06-26 16:16] LABS: Body Fluid Mononuclear 73.4 %; Body Fluid Polymorphonuclear 26.6 %
[2023-06-26 16:28] LABS: Glucose - Point of Care 215 mg/dl (70-99)
[2023-06-26 16:31] LABS: Body Fluid Second Tech EYM
[2023-06-26] MEDS: NOVOLOG FLEXPEN-LOW RESISTANCE 2 UNITS SC (16:38)
[2023-06-26] MEDS: MELATONIN 3 MG PO (21:18)
[2023-06-26] MEDS: XANAX 0.25 MG PO (21:19)
[2023-06-26 21:26] LABS: Glucose - Point of Care 186 mg/dl (70-99)
[2023-06-27] MEDS: DILAUDID 0.25 MG IV ×3 (01:21→15:26)
[2023-06-27] MEDS: FLUSH (NSS) 2 FLUSH IV (01:22)
[2023-06-27] MEDS: XANAX 0.125 MG PO (03:37)
[2023-06-27 06:00] VITALS: BMI 22.0
[2023-06-27 07:00] VITALS: BP 113/49
[2023-06-27 07:38] LABS: ALT (SGPT) 17 U/L (0-35); AST (SGOT) 38 U/L (14-36); Albumin 1.7 g/dl (3.5-5.0); Alkaline Phosphatase 140 U/L (38-126); Blood Urea Nitrogen 43 mg/dl (7-17); Calcium 7.9 mg/dl (8.4-10.2); Carbon Dioxide 24 mmol/L (22-30); Chloride 105 mmol/L (98-107); Estimated Creatinine Clearance 23 ml/min; Glucose 136 mg/dl (70-99); Potassium 4.4 mmol/L (3.5-5.1); Sodium 136 mmol/L (135-145); Total Bilirubin 0.2 mg/dl (0.2-1.3); Total Protein 4.3 g/dl (6.3-8.2); eGFR 35.23
[2023-06-27 07:47] LABS: Glucose - Point of Care 153 mg/dl (70-99)
[2023-06-27] MEDS: ANTIFUNGAL CLEAR 1 APPLIC TOPICAL ×2 (08:01→20:22)
[2023-06-27] MEDS: NICODERM TRANSDERMAL TRANSDERM (08:02)
[2023-06-27] MEDS: LOPRESSOR 12.5 MG PO ×2 (08:02→20:23)
[2023-06-27] MEDS: ELIQUIS 5 MG PO ×2 (08:03→22:28)
[2023-06-27] MEDS: PROTONIX 40 MG PO (08:03)
[2023-06-27] MEDS: PACERONE 200 MG PO (08:03)
[2023-06-27] MEDS: NORVASC 10 MG PO (08:04)
[2023-06-27] MEDS: ROXICODONE 20 MG PO ×3 (08:04→20:19)
[2023-06-27] MEDS: FIRVANQ 125 MG PO ×2 (08:04→20:19)
[2023-06-27] MEDS: DESITIN MAXIMUM STRENGTH PASTE 1 APPLIC TOPICAL ×2 (08:11→20:22)
--- NOTE | 2023-06-27 10:21 | W.PN.HOSP.TC ---
Today's Communication/Plan
-
Nephrology consult
Assessment / Plan
Assessment / Plan
Gen-AAOx3, NAD
HEENT-NC, AT, anicteric, clear oral mm
Neck-supple
CV-reg, no M, +S1/S2
Lungs-clear B/L
Abd-soft, NT, ND
Ext-no edema
Musculoskeletal-no cyanosis, clubbing
Skin-warm and dry
Neuro-grossly non-focal
Psych-calm, cooperative
Septic shock - likely secondary to stercoral colitis/abdominal [id number]
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
s/p robotic rectopexy, sacrocolpopexy, posterior colporrhaphy, perineoplasty and cystoscopy with left ureteral stent for presumed kidney stone 05/17/2023
-06/12 stool tested, C.Diff-Antigen pos, Toxin neg. Colonization. Po vanc BID until 06/29 per ID.
SBP
-cultures no growth. WBC normalized but with bandemia. Trend for now. Improving. Completed course of antibiotics.
Suspected ileus -Having small bowel movements. Patient refused flex sig. Tolerating pur�ed diet.
-TPN stopped.
-Colorectal surgery following
Acute hypoxic respiratory insufficiency likely secondary pleural effusions
Anasarca -received a dose of IV Lasix 06/24.
-Chest x-ray with pleural effusion. Ultrasound chest moderate bilateral effusions, thoracentesis pending.
Dysphagia
-puree diet tolerating diet so far better as without dentures
RUE swelling
-US RUE negative. PICC line discontinued.
PAVEL - likely multifactorial pre-renal volume depletion while on ACEI, recent bactrim usage, ATN? Creatinine rising, 1.5 today, nephrology reconsulted. Perhaps due to Lasix dose yesterday. No retention on bladder scan.
-Placed Chao from strict Is&Os, Chao removed on 06/20 and voiding.
New onset of Paroxysmal Afib with RVR on 06/09
currently in NSR with [facility] PAC's
-started on Amiodarone IV drip, now transitioned to 400 mg po bid through 06/21 completed. Plan to start 200 mg daily, as per cardio
-Elevated HIJ9OL2 Score
-Cards eval
-Eliquis restarted after discussion with colorectal surgery as no plan for procedure
Severe deconditioning due to prolonged hopsital/medical illness/sciolosis/non compliance with PT at times
-PM&R eval
Acute on chronic anemia -s/p 1u PRBC on June 17. Hemoglobin 8.0, relatively stable. Monitor for now.
Severe Metabolic acidosis
-Resolved.
Pelvic Floor Prolapse s/p Robotic Rectopexy / Sacrocolpopexy on May 16
-Care as per Colorectal
DM2 without hyperglycemia -glucose 113 this morning.
-HgbA1c 6.1 on 06/20/23. Currently on aspart insulin low resistance corrective scale.
Essential Hypertension
-Cont norvasc and bb restart ACEI
Anxiety / Depression
-Xanax at bedtime and as needed home regimen
GERD
-Continue Protonix
Chronic Pain with Opioid Dependence
-Decrease dose of Dilaudid with plan to hopefully discontinue IV narcotics soon.
-Counseled extensively to patient and spouse to wean off opiates as outpatient due to significant adverse events including this hospitalization. Pt continues to demand more pain meds.
-Recommended to patient and spouse to start aggressive bowel regimen at home.
ADHD-hold off on restarting Adderall in the setting of new onset of A-fib
Tobacco abuse
-Continue with nicotine patch
Peripheral Arterial Disease
-Stable
Hypokalemia-replete/monitor
DVT proph: Eliquis
Code Status: Full Code
Dispo -anticipate SNF on discharge when medically stable. Updated patient and significant other.
Anticipated Discharge: > 48 hours
Subjective/Interval History
-
Date of Service: June 27, 2023
Patient seen and examined. Complaining of pain.
Objective Data
-
Labs:
Laboratory Results
06/27/23
06:22
Sodium 136
Potassium 4.4
Chloride 105
Carbon Dioxide 24
BUN 43 H
Creatinine 1.5 H
Glucose 136 H
Calcium 7.9 L
Total Bilirubin 0.2
AST 38 H
ALT 17
Alkaline Phosphatase 140 H
Vital Signs:
Vital Signs
Temp Pulse Resp BP Pulse Ox
97.7 F 75 17 113/49 94
06/27/23 07:00 06/27/23 08:02 06/27/23 07:00 06/27/23 08:02 06/27/23 07:00
I&O
06/26/23 06/27/23 06/28/23
06:59 06:59 06:59
Intake Total 880 / 880 120 / 120
Balance 880 / 880 120 / 120
Review of Systems
-
History Source: Patient
All other systems: Reviewed and negative
[2023-06-27] MEDS: NOVOLOG FLEXPEN-LOW RESISTANCE 1 UNITS SC ×2 (11:13→15:25)
[2023-06-27 11:20] LABS: Glucose - Point of Care 181 mg/dl (70-99)
[2023-06-27 14:35] VITALS: BP 102/44
--- NOTE | 2023-06-27 15:29 | W.PN.NEPH.PH ---
Today's Communication / Plan
-
- LR
Assessment/Plan
-
Assessment:
Hyperkalemia
Acute kidney injury
Hypotension
Sepsis
Recent urogynecologic surgery
Left ureteral stent
Metabolic alkalosis
Diabetes mellitus type 2
Stercoral colitis
Chronic pain
Ileus
Plan:
Reconsulted for recurrent PAVEL. baseline Cr 1, now up to 1.5. blood pressures noted to be softer over the past few days --> ATN?. did recieve lasix yesterday.
bladder scan completed which showed on 50cc of urine post void
Plan for gentle hydration with 60cc/hr of LR
Na at 136
on pureed diet, patient endorses that she is eating well
remains NPO for possible Ileus
abx per ID
afib per cards. could consider holding BB if BPs dont improve.
Cardiac echo reviewed hyperdynamic left ventricular systolic function moderate tricuspid regurg , elevated pulmonary pressures
-
-
Date of Service: June 27, 2023
CC / HPI / ROS
-
Chief Complaint:
PAVEL
History of Present Illness:
BP stable
PAVEL/Cr up from baseline 1 to 1.5
treatment for Cdiff occuring
Review of Systems:
barr d/c on 06/20
no fever,
feels wel, no n/v
has BMs
Labs
-
Labs:
WBC 8.6 10^3/uL (4.8-10.8) 06/26/23 05:59
RBC 3.08 10^6/uL (4.20-5.40) L 06/26/23 05:59
Hgb 8.0 g/dL (12.0-16.0) L 06/26/23 05:59
Hct 25.3 % (37.0-47.0) L 06/26/23 05:59
Plt Count 331 10^3/uL (130-400) 06/26/23 05:59
Sodium 136 mmol/L (135-145) 06/27/23 06:22
Potassium 4.4 mmol/L (3.5-5.1) 06/27/23 06:22
Chloride 105 mmol/L (98-107) 06/27/23 06:22
Carbon Dioxide 24 mmol/L (22-30) 06/27/23 06:22
BUN 43 mg/dl (7-17) H 06/27/23 06:22
Creatinine 1.5 mg/dL (0.6-1.0) H 06/27/23 06:22
eGFR 35.23 06/27/23 06:22
Glucose 136 mg/dl (70-99) H 06/27/23 06:22
Calcium 7.9 mg/dl (8.4-10.2) L 06/27/23 06:22
Phosphorus 5.1 mg/dl (2.5-4.5) H 06/26/23 05:59
Albumin 1.7 g/dl (3.5-5.0) L 06/27/23 06:22
Physical Exam
-
Vital Signs:
Vital Signs
Temp Pulse Resp BP Pulse Ox
97.8 F 72 18 102/44 97
06/27/23 14:35 06/27/23 14:35 06/27/23 14:35 06/27/23 14:35 06/27/23 14:35
Cardiovascular:: Regular rate and rhythm
Respiratory:: Bilateral: Coarse
Lung Excursion:: Normal
Abdomen:: Nontender and Soft
Bowel Sounds:: Normal
Extremity Edema:: None: Bilateral:
Barr Catheter: No
[2023-06-27] MEDS: LR 1000 IV (16:16)
[2023-06-27 17:01] LABS: Glucose - Point of Care 315 mg/dl (70-99)
[2023-06-27] MEDS: NOVOLOG FLEXPEN-LOW RESISTANCE 4 UNITS SC (17:36)
[2023-06-27 20:54] LABS: Hemoglobin 8.5 g/dL (12.0-16.0)
[2023-06-27] MEDS: ELIQUIS PO (21:17)
[2023-06-27 21:30] LABS: Glucose - Point of Care 143 mg/dl (70-99)
[2023-06-27] MEDS: XANAX 0.25 MG PO (21:45)
[2023-06-27] MEDS: MELATONIN 3 MG PO (21:45)
--- NOTE | 2023-06-27 22:30 | W.PN.UPDATE ---
Update Note
Progress Note Update
RN notified [facility] [employer], patient had a heme test positive this evening. Patient stable with stable VS. Colorectal team involved in care. Will hold Eliquis and order H/H stat as noted trending low hgb.
Hemoglobin noted to be 8.5 now. 8.0 on 06/25. Will order back Eliquis. CBC due in AM.
[2023-06-27 23:12] VITALS: BP 98/49
[2023-06-28] VITALS (8 sets, daily range): BP systolic 106–151; BP diastolic 46–55; BMI 22.3
--- NOTE | 2023-06-28 05:15 | PTCARENOTE ---
Patient stool appeared to be bloody. Heme test was positive. Reported to [facility], [facility]. Repeat Hgb 8.5.
[2023-06-28] MEDS: FLUSH (NSS) 2 FLUSH IV (05:31)
[2023-06-28] MEDS: DILAUDID 0.25 MG IV (05:32)
[2023-06-28 06:40] LABS: % Basophils 0.4 % (0-2); % Eosinophils 0.9 % (0-6); % Immature Granulocytes 0.6 % (0-0.5); % Lymphocytes 11.4 % (20.5-51.1); % Monocytes 3.9 % (1.7-9.3); % Neutrophils 82.8 % (42.2-75.2); Absolute Eosinophils 0.1 10^3/uL (0-0.7); Absolute Immature Granulocytes 0.1 10^3/uL (0-0.05); Absolute Lymphocytes 1.2 10^3/uL (1.2-3.4); Absolute Monocytes 0.4 10^3/uL (0.1-0.6); Absolute Neutrophils 8.7 10^3/uL (1.4-6.5); Hematocrit 25.2 % (37.0-47.0); Hemoglobin 7.5 g/dL (12.0-16.0); Mean Corp Hgb Conc. 29.8 g/dL (33.0-37.0); Mean Corpuscular Hgb 25.3 pg (27.0-31.0); Mean Corpuscular Volume 85.1 fL (81.0-99.0); Mean Platelet Volume 11.4 fL (7.4-10.4); Nucleated Red Blood Cells % 0.2 %; Platelet Count 320 10^3/uL (130-400); Red Blood Cell Count 2.96 10^6/uL (4.20-5.40); Red Cell Dist. Width 17.4 % (11.5-14.5); White Blood Cell Count 10.5 10^3/uL (4.8-10.8)
[2023-06-28 07:01] LABS: ALT (SGPT) 15 U/L (0-35); AST (SGOT) 35 U/L (14-36); Albumin 1.6 g/dl (3.5-5.0); Alkaline Phosphatase 134 U/L (38-126); Blood Urea Nitrogen 46 mg/dl (7-17); Carbon Dioxide 24 mmol/L (22-30); Chloride 106 mmol/L (98-107); Estimated Creatinine Clearance 25 ml/min; Glucose 109 mg/dl (70-99); Potassium 4.3 mmol/L (3.5-5.1); Sodium 136 mmol/L (135-145); Total Bilirubin 0.2 mg/dl (0.2-1.3); Total Protein 4.1 g/dl (6.3-8.2); eGFR 38.27
[2023-06-28 08:32] LABS: Glucose - Point of Care 114 mg/dl (70-99)
[2023-06-28] MEDS: NOVOLOG FLEXPEN-LOW RESISTANCE SC ×3 (08:36→16:21)
[2023-06-28] MEDS: LOPRESSOR 12.5 MG PO ×2 (08:37→20:53)
[2023-06-28] MEDS: PROTONIX 40 MG PO (08:37)
[2023-06-28] MEDS: PACERONE 200 MG PO (08:41)
[2023-06-28] MEDS: ROXICODONE 20 MG PO ×4 (08:42→20:47)
[2023-06-28] MEDS: NICODERM TRANSDERMAL TRANSDERM (08:42)
[2023-06-28] MEDS: NORVASC 10 MG PO (08:43)
[2023-06-28] MEDS: ELIQUIS 5 MG PO (08:43)
[2023-06-28] MEDS: FIRVANQ 125 MG PO ×2 (08:45→20:45)
[2023-06-28] MEDS: DESITIN MAXIMUM STRENGTH PASTE 1 APPLIC TOPICAL ×2 (09:30→20:51)
[2023-06-28] MEDS: ANTIFUNGAL CLEAR 1 APPLIC TOPICAL ×2 (09:31→20:52)
[2023-06-28] MEDS: LR 1000 IV (09:32)
--- NOTE | 2023-06-28 09:38 | W.PN.CRS1 ---
Today's Communication / Plan
-
no plans for surgery
continue diet
dispo per primary team
Assessment/Plan
-
78yo female with a recent robotic suture rectopexy, sacroculpopexy, posterior repair and cystoscopy with left double-J stent on 05/17/2023, presented to the ER with diffuse abdominal pain and lack of BM for 3 days. Patient found with stercoral colitis
on CT and with leukocytosis, lactic acidosis, PAVEL, hyperkalemia and hyponatremia. UA +, but culture negative; now off levo and UOP/Cr improving; worsening distention on 06/13, CT showing small bilateral pleural effusions with mild LLL consolidation,
mild abdominopelvic ascites, possible cirrhosis, moderate colonic distention�stable; underwent IR-guided aspiration of ascites on 06/15
1. Continue pureed diet.
2. Continue pain control, avoid narcotics if possible
3. On Eliquis for DVT ppx.
4. Appreciate ID.
5. Okay for OOB, encourage IS. PT ordered.
6. Appreciate hospitalist.
7. Wound RN for perianal wound care.
8. Dispo: [facility] vs [facility].
9. No surgical intervention at this time.
10. Dispo per primary service.
Subjective Data
Subjective Data
Date of Service: June 28, 2023
Patient does not want to answer questions. She is waiting for her pain medication. Her significant other states she has been eating well and is still having loose stools.
Objective Data
-
Vital Signs
Temp Pulse Resp BP Pulse Ox
98.2 F 70 18 106/46 97
06/28/23 07:00 06/28/23 07:00 06/28/23 07:00 06/28/23 07:00 06/28/23 07:00
Intake & Output
06/27/23 06/28/23 06/29/23
06:59 06:59 06:59
Intake Total 1620 / 1620
Balance 1620 / 1620
Intake:
Oral fluids 900 / 900
IV fluids (Total) 720 / 720
Other:
How many times incontinent 1
SMALL amount urine
How many times incontinent 1
SATURATED amount urine
Lab Results
06/28/23 05:54
06/28/23 05:54
Physical Exam
-
General: No Acute Distress and AOx3
Abdomen: Soft, Non Distended and Non Tender
Skin: Warm and Dry
Incision: Clear, Dry, Intact
--- NOTE | 2023-06-28 10:00 | W.PN.NEPH.PH ---
Today's Communication / Plan
-
observe
would check PVR bladder sCAN
follow bmp
Assessment/Plan
-
Assessment:
Hyperkalemia
Acute kidney injury
Hypotension
Sepsis
Recent urogynecologic surgery
Left ureteral stent
Metabolic alkalosis
Diabetes mellitus type 2
Stercoral colitis
Chronic pain
Ileus
Plan:
Reconsulted for recurrent PAVEL. baseline Cr 1, went up to 1.5. blood pressures noted to be softer over the past few days --> ATN?. did recieve lasix yesterday.
Creatinine now down to 1.4 urine output not recorded per usual
bp remains lowside
for video swallow
bladder scan completed which showed on 50cc of urine post void but would repeat
on pureed diet, patient endorses that she is eating well
for video swallow today
abx per ID
afib per cards. could consider holding BB if BPs dont improve.
Cardiac echo reviewed hyperdynamic left ventricular systolic function moderate tricuspid regurg , elevated pulmonary pressures
-
-
Date of Service: June 28, 2023
CC / HPI / ROS
-
Chief Complaint:
PAVEL
History of Present Illness:
BP stable but lowside
PAVEL/Cr up from baseline 1 to 1.4
treatment for Cdiff occuring
Review of Systems:
barr d/c on 06/20
no fever,
has BMs
Labs
-
Labs:
WBC 10.5 10^3/uL (4.8-10.8) 06/28/23 05:54
RBC 2.96 10^6/uL (4.20-5.40) L 06/28/23 05:54
Hgb 7.5 g/dL (12.0-16.0) L 06/28/23 05:54
Hct 25.2 % (37.0-47.0) L 06/28/23 05:54
Plt Count 320 10^3/uL (130-400) 06/28/23 05:54
Sodium 136 mmol/L (135-145) 06/28/23 05:54
Potassium 4.3 mmol/L (3.5-5.1) 06/28/23 05:54
Chloride 106 mmol/L (98-107) 06/28/23 05:54
Carbon Dioxide 24 mmol/L (22-30) 06/28/23 05:54
BUN 46 mg/dl (7-17) H 06/28/23 05:54
Creatinine 1.4 mg/dL (0.6-1.0) H 06/28/23 05:54
eGFR 38.27 06/28/23 05:54
Glucose 109 mg/dl (70-99) H 06/28/23 05:54
Calcium 8.0 mg/dl (8.4-10.2) L 06/28/23 05:54
Phosphorus 5.1 mg/dl (2.5-4.5) H 06/26/23 05:59
Albumin 1.6 g/dl (3.5-5.0) L 06/28/23 05:54
Physical Exam
-
Vital Signs:
Vital Signs
Temp Pulse Resp BP Pulse Ox
98.2 F 70 18 106/46 97
06/28/23 07:00 06/28/23 07:00 06/28/23 07:00 06/28/23 07:00 06/28/23 07:00
Cardiovascular:: Regular rate and rhythm
Respiratory:: Bilateral: Coarse
Lung Excursion:: Normal
Abdomen:: Nontender and Soft
Bowel Sounds:: Decreased
Extremity Edema:: None: Bilateral:
Barr Catheter: No
--- NOTE | 2023-06-28 11:21 | W.PN.HOSP.TC ---
Addendum entered and electronically signed by Prudencio San DO 06/28/23 11:37:
Will consult GI for GI bleed.
Stop Eliquis.
Updated patient's daughter Kendal on the phone. All questions answered.
Original Note:
Today's Communication/Plan
-
Transfuse
Monitor labs
Assessment / Plan
Assessment / Plan
Gen-lethargic but arousable, NAD
HEENT-NC, AT, anicteric, clear oral mm
Neck-supple
CV-reg, no M, +S1/S2
Lungs-clear B/L
Abd-soft, NT, ND
Ext-no edema
Musculoskeletal-no cyanosis, clubbing
Skin-warm and dry
Neuro-grossly non-focal
Psych-calm, cooperative
Septic shock - likely secondary to stercoral colitis/abdominal [id number]
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
s/p robotic rectopexy, sacrocolpopexy, posterior colporrhaphy, perineoplasty and cystoscopy with left ureteral stent for presumed kidney stone 05/17/2023
-06/12 stool tested, C.Diff-Antigen pos, Toxin neg. Colonization. Po vanc BID until 06/29 per ID.
SBP
-cultures no growth. WBC normalized but with bandemia. Trend for now. Improving. Completed course of antibiotics.
Suspected ileus -Having small bowel movements. Patient refused flex sig. Tolerating pur�ed diet.
-TPN stopped.
-Colorectal surgery following
Acute hypoxic respiratory insufficiency likely secondary pleural effusions
Anasarca -received a dose of IV Lasix 06/24.
-Chest x-ray with pleural effusion. Ultrasound chest moderate bilateral effusions, thoracentesis pending.
Dysphagia
-puree diet tolerating diet so far better as without dentures. Video swallowing study completed, speech therapy recommends continuing current diet pur�ed, thin liquids, aspiration precautions.
RUE swelling
-US RUE negative. PICC line discontinued.
PAVEL - likely multifactorial pre-renal volume depletion while on ACEI, recent bactrim usage, ATN? Creatinine slightly better today, 1.4. Perhaps due to Lasix effect. No retention on bladder scan.
-Placed Chao from strict Is&Os, Chao removed on 06/20 and voiding.
New onset of Paroxysmal Afib with RVR on 06/09
currently in NSR with freq PAC's
-started on Amiodarone IV drip, now transitioned to 400 mg po bid through 06/21 completed. Plan to start 200 mg daily, as per cardio
-Elevated [id number] Score
-Cards eval
-Eliquis restarted after discussion with colorectal surgery as no plan for procedure
Severe deconditioning due to prolonged hopsital/medical illness/sciolosis/non compliance with PT at times
-PM&R eval
Acute on chronic anemia -s/p 1u PRBC on June 17. Hemoglobin down to 7.5 today. Will transfuse 1 unit of blood. Stool heme test positive. Source of GI bleed unclear but likely exacerbated by ongoing anticoagulation with Eliquis. Will discuss with
colorectal surgery.
Severe Metabolic acidosis
-Resolved.
Pelvic Floor Prolapse s/p Robotic Rectopexy / Sacrocolpopexy on May 16
-Care as per Colorectal
DM2 without hyperglycemia -glucose 113 this morning.
-HgbA1c 6.1 on 06/20/23. Currently on aspart insulin low resistance corrective scale.
Essential Hypertension
-Cont norvasc and bb restart ACEI
Anxiety / Depression
-Xanax at bedtime and as needed home regimen
GERD
-Continue Protonix
Chronic Pain with Opioid Dependence
-Decrease dose of Dilaudid with plan to hopefully discontinue IV narcotics soon.
-Counseled extensively to patient and spouse to wean off opiates as outpatient due to significant adverse events including this hospitalization. Pt continues to demand more pain meds.
-Recommended to patient and spouse to start aggressive bowel regimen at home.
ADHD-hold off on restarting Adderall in the setting of new onset of A-fib
Tobacco abuse
-Continue with nicotine patch
Peripheral Arterial Disease
-Stable
Hypokalemia-replete/monitor
DVT proph: Eliquis
Code Status: Full Code
Dispo -anticipate SNF on discharge when medically stable.
Anticipated Discharge: 24 - 48 hours
Subjective/Interval History
-
Date of Service: June 28, 2023
Patient seen and examined. Asking for pain medicine.
Objective Data
-
Labs:
Laboratory Results
06/28/23
05:54
WBC 10.5
Hgb 7.5 L
Hct 25.2 L
Plt Count 320
Sodium 136
Potassium 4.3
Chloride 106
Carbon Dioxide 24
BUN 46 H
Creatinine 1.4 H
Glucose 109 H
Calcium 8.0 L
Total Bilirubin 0.2
AST 35
ALT 15
Alkaline Phosphatase 134 H
Vital Signs:
Vital Signs
Temp Pulse Resp BP Pulse Ox
98.2 F 70 18 106/46 97
06/28/23 07:00 06/28/23 07:00 06/28/23 07:00 06/28/23 07:00 06/28/23 07:00
I&O
06/27/23 06/28/23 06/29/23
06:59 06:59 06:59
Intake Total 1620 / 1620
Balance 1620 / 1620
Review of Systems
-
History Source: Patient
All other systems: Reviewed and negative
--- NOTE | 2023-06-28 11:41 | CON.GI ---
Addendum entered and electronically signed by Uriel Marshall MD 06/28/23 17:05:
I saw and examined the patient.
The CASTING ASSOCIATE or PA's note was reviewed and I agree with the note.
Comment: I saw and examined the patient.
The CASTING ASSOCIATE or PA's note was reviewed and I agree with the note.
Comment:
Pt is a 78 y/o with chronic narcotic use and recent robotic rectopexy, sacrocolpopexy, posterior repair by Dr. Guardado and [place]. post surgery afib on eliquis, constipation with stercoral colitis. hx of anemia, heme positive stool
sleepy, no acute pain
impression:
anemia
heme pos stool
recent urogyn/colorectal surgery for prolapse
plan:
No acute bleeding and pt and family decline any endoscopic exam
follow hgb and transfuse as needed
if agreeable in future would have colorectal proceed with lower exam in light of recent surgery
PPI
will sign off call with questions
Original Note:
Consultation
-
Date/Time Consultation Requested: 06/28/23 1145
Date/Time Consultation Performed: 06/28/23 1230
Requesting Provider: Prudencio San DO
Performing Provider: KYMBERLY Tong
Reason for Consultation: GI bleed
Medical History
Chief Complaint / HPI
Chief Complaint: rectal bleeding
History of Present Illness:
Pt is a 78yo with hx asthma, chronic pain and chronic narcotic use, COPD, tobacco abuse, GERD, PAD and recent s/p robotic suture rectopexy, sacrocolpopexy, posterior repair and cystoscopy with left double-J stent on 05/17/[address] Guardado and
[place]. Post surgery she developed opioid withdrawal syndrome with tachycardia with post -op hypotension and hyponatremia. She was discharged 05/20. She now returns 06/07 with prolonged admission with initial abdominal pain and decreased oral
intakes with pain. She was noted with vomiting and constipation with CT noted stercoral colitis with underlying sepsis and ileus with culture c-diff ag + tox neg. She has been seen by cardiology with new afib with Eliquis use, renal for PAVEL,
insurance adviser for hypotension requiring pressors during admission, ID for abx management and continued follow with colorectal and urogynecology with recent surgery. She has also had speech eval with dysphagia and also required abdominal fluid drainge
for cx 06/15 thoracentesis for 550m for effusion on 06/25. Now asked to see for continued anemia. Current hbg 7.5 with 1 unit transfused on 06/17 and due for second transfusion again today. She is noted and brown heme + stool.
At this time patient with lethargy but answering questions. She admits to chronic GERD and recent loose stools. She admits vomiting with increased abdominal pain and constipation on admission but states symptoms improved. She otherwise denies
dysphagia, GERD, hematemesis, or black stools. No hx EGD and last colonoscopy 2007 for ELIZABETH with normal finding and grade 1 hemorrhoids. No recent NSAID use.
Past Medical History
Past Medical History: Asthma, COPD, GERD, NIDDM, Psychiatric (depression) and Other (rectocele, cystocele, vaginal vault prolapse, chronic back pain, scoliosis, urinary frequency, PAD, tobacco abuse)
Past Surgical History: Other (robotic suture rectopexy, sacroculpopexy, posterior repair and cystoscopy with left double-J stent on 05/17/[address] Guard[address] and Dr. Bojorquez, Hysterectomy -1984, Lumbar laminectomy -2006)
Social History
Tobacco: Smoker (last 3 weeks ago)
Alcohol: None
Drug: None
Personal: Partner
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
Employment: Retired
Family History
Family History: Other (no family hx colon ca or GI issues )
Allergies / Home Medications
Allergy/AdvReac Type Severity Reaction Status Date / Time
aspirin Allergy Gastiris Verified 06/08/23 17:58
ibuprofen Allergy Gastritis Verified 06/08/23 17:58
latex Allergy Itching Verified 05/17/23 06:29
NSAIDS (Non-Steroidal Allergy Gastritis Verified 06/08/23 17:58
Anti-Inflamma
Penicillins Allergy Unknown Verified 06/14/23 15:50
(age 11)
�Medication �Instructions �Recorded
amlodipine 10 mg-benazepril 20 mg 1 cap PO DAILY Blood Pressure 04/25/09
capsule
estradiol 0.1 mg/24 hr weekly 0.1 mg transdermal FR Hormonal 04/25/09
transdermal patch (Climara) Agent
esomeprazole magnesium 40 mg 40 mg PO DAILY Gastrointestinal 02/28/11
capsule,delayed release (Nexium) Issue
alprazolam 0.25 mg tablet (Xanax) 0.125 mg PO DAILYPRN PRN anxiety 05/11/23
alprazolam 0.25 mg tablet (Xanax) 0.25 mg PO HS Mental Health/Anxiety 05/11/23
azelastine 205.5 mcg (0.15 %) 2 spray intranasal DAILY Allergies 05/11/23
nasal spray (Astepro Allergy)
dextroamphetamine-amphetamine 30 30 mg PO DAILY Neurological 05/11/23
mg tablet (Adderall) Condition
fexofenadine 180 mg tablet 180 mg PO DAILYPRN PRN allergies 05/11/23
gabapentin 300 mg capsule 300 mg PO BID Pain 05/11/23
oxycodone 20 mg tablet 20 mg PO QID pain 05/11/23
Review of Systems
-
History Source: Patient and Family
Constitutional: Reports Weight Loss (+ wt loss with depression and worse with recent surgery but per chart weight currently 53 kg and was down to 41kg in April, prior 51 kg in 2011 )
EENT: Reports No Symptoms
Respiratory: Reports No Symptoms
Cardiac: Reports No Symptoms
Abdomen/GI: Reports Abdominal Pain (on admission), Nausea (on admission ), Diarrhea (currently with loose stools) and Constipated (on admission)
: Reports No Symptoms
Musculoskeletal: Reports Edema
Neurological: Reports Weakness
Hematologic/Lymphatic: Reports Bleeding (heme + stools)
Vital Signs
Temp Pulse Resp BP Pulse Ox
98.2 F 70 18 106/46 97
06/28/23 07:00 06/28/23 07:00 06/28/23 07:00 06/28/23 07:00 06/28/23 07:00
Physical Exam
Exam
General: Other (thin appearing with cachexia)
HEENT: Normocephalic and Anicteric
Respiratory: Clear
Cardiac: Regular Rhythm
GI: Soft, Non Tender and Distended
Rectal: Other (loose brown stool in diaper)
Musculoskeletal: No Clubbing and No Cyanosis
Skin: Warm and Dry
Neuro: Other (awakens to voice)
Psych: Calm
Results
WBC 10.5 10^3/uL (4.8-10.8) 06/28/23 05:54
Hgb 7.5 g/dL (12.0-16.0) L 06/28/23 05:54
Hct 25.2 % (37.0-47.0) L 06/28/23 05:54
MCV 85.1 fL (81.0-99.0) 06/28/23 05:54
Plt Count 320 10^3/uL (130-400) 06/28/23 05:54
Absolute Neuts (auto) 8.7 10^3/uL (1.4-6.5) H 06/28/23 05:54
PT 17.8 Sec (11.4-14.6) H 06/09/23 15:59
INR 1.48 06/09/23 15:59
APTT 43.9 Sec (23.4-35.0) H 06/09/23 15:59
Sodium 136 mmol/L (135-145) 06/28/23 05:54
Potassium 4.3 mmol/L (3.5-5.1) 06/28/23 05:54
Chloride 106 mmol/L (98-107) 06/28/23 05:54
Carbon Dioxide 24 mmol/L (22-30) 06/28/23 05:54
BUN 46 mg/dl (7-17) H 06/28/23 05:54
Creatinine 1.4 mg/dL (0.6-1.0) H 06/28/23 05:54
Calcium 8.0 mg/dl (8.4-10.2) L 06/28/23 05:54
Total Bilirubin 0.2 mg/dl (0.2-1.3) 06/28/23 05:54
AST 35 U/L (14-36) 06/28/23 05:54
ALT 15 U/L (0-35) 06/28/23 05:54
Alkaline Phosphatase 134 U/L (38-126) H 06/28/23 05:54
Lipase 74 U/L (23-300) 06/08/23 12:39
Diagnostic Image Results:
06/14/23 CT A/P oral contrast
Small bilateral pleural effusions, left larger than right. Both new.
mild left lower lobe consolidation. New.
Findings suggesting severe volume overload or third spacing. New.
Mild abdominopelvic ascites. New.
Findings suggesting cirrhosis.
Moderate colonic distention. Stable. Previous fecal material has passed. This probably due to colonic ileus.
Nonobstructing left renal stones. Decreased in size
Left double-J stent. Stable.
Chao catheter. New.
06/08/23 CT A/p without contrast
IMPRESSION: Large amount of stool throughout the colon, with increased amount of stool since examination of June 06, 2023. There is suggestion of colonic wall thickening, particularly involving the right colon, transverse colon, and splenic
flexure. Findings would be suggestive of stercoral colitis.
No evidence for free intraperitoneal air.
Distention of the stomach with fluid. Limited evaluation of small bowel loops.
Small calcification in the anterior aspect of the right upper quadrant, which is likely related to a calcified gallstone within a contracted gallbladder.
Left ureteral stent is present. Calcifications within both kidneys, likely mainly due to nephroliths, although there may also be dystrophic parenchymal calcifications.
Bony degenerative changes as described.
06/06/23 CT Abd/pel Without Iv Or Oral
1. There is a left ureteral stent in place. The distal aspect of the stent appears to be just within the left side of the urinary bladder. The proximal extent of the stent is in the extrarenal pelvis.
2. There is a nonobstructing calcification in each of the kidneys. No hydronephrosis.
3. Urinary bladder is collapsed, poorly visualized.
4. Large amount of stool in the colon consistent with constipation. Severely limited examination without oral contrast. Evaluating the small bowel is severely limited.
5. There is hypodense fluid layering in the posterior inferior aspect of the pelvis, nonspecific. Does the patient have symptoms of gastroenteritis?
6. Cholelithiasis.
7. Severe degenerative disk and joint disease in the spine.
8. Severe atherosclerotic vascular disease.
9. Severely limited exam of the solid organs due to patient position, lack of enteric and IV contrast.
10. A pelvic ultrasound could be performed to evaluate the fluid and urinary bladder if clinically indicated.
06/16/23 -abscess 10ml drainage
06/16/23 abd film
There is a large amount of gas in mildly dilated loops of colon measuring up to 7.5 cm similar to that seen on the 06/14/2023 CT examination. Differential diagnosis includes colonic ileus and Lizbeth syndrome
Prior GI Procedures:
EGD: none
Colonoscopy: 2007 for ELIZABETH with normal finding and grade 1 hemorrhoids.
Assessment / Plan
-
Pt is a 78yo with hx asthma, chronic pain and chronic narcotic use, COPD, tobacco abuse, GERD, PAD and recent s/p robotic suture rectopexy, sacrocolpopexy, posterior repair and cystoscopy with left double-J stent on 05/17/[address] Guardado and
[place]. Post surgery she developed opioid withdrawal syndrome with tachycardia with post -op hypotension and hyponatremia. She was discharged 05/20. She now returns 06/07 with prolonged admission with initial abdominal pain and decreased oral
intakes with pain. She was noted with vomiting and constipation with CT noted stercoral colitis with underlying sepsis and ileus. Stool cx c-diff ag + tox neg. She has been seen by cardiology with new afib with Eliquis use, renal for PAVEL,
insurance adviser for hypotension requiring pressors during admission, ID for abx management and continued follow with colorectal and urogynecology with recent surgery. She has also had speech eval with dysphagia and also required abdominal fluid
drainage for cx 06/15 thoracentesis for 550m for effusion on 06/25. Now asked to see for continued anemia. Current hbg 7.5 with 1 unit transfused on 06/17 and due for second transfusion 06/27 . She is noted and brown heme + stool. No NSAID use.
No hx EGD and last colonoscopy 2007 for ELIZABETH with normal finding and grade 1 hemorrhoids. No recent NSAID use.
-anemia with heme + stool
-s/p robotic suture rectopexy, sacrocolpopexy, posterior repair and cystoscopy with left double-J stent on 05/17/2023 with prolonged post op course
-concern for stercoral colitis with constipation on admission
-sepsis with hypotension on admission
-new afib with Eliquis added this admission
-pleural effusion requiring tap during admission
-dysphagia with speech following
-PAVEL
other med problems:
-DM type 2
-HTN
-GERD on chronic PPI
-chronic pain with chronic narcotic use
PLAN:
Etiology of anemia multifactorial with chronic illness, recent colitis and heme + stools
iron studies pre transfusion 06/11 iron 38, TIBC 202, sat 18, ferritin 52
discussed with patient and family at bedside options of conservative approach with trend hbg and transfuse vs aggressive approach with EGD/colon
pt did discuss GI procedure with colon rectal last week and declined. She continued to decline due to deconditioning and feels would not be able to complete prep
discussed risk of holding procedures -- missed polyps, cancers, PUD etc - pt aware and accepts risk
discussed role of Eliquis and risk and benefits of holding -- Eliquis was placed on hold today
cont PPI
trend hbg transfuse as needed
left GI contact if patient wishes to proceed with testing outpatient
family updated at bedside and in agreement with patient decision on testing
-
-
Thank you for consultation and allowing me to participate in the patient's care. Please call the contracts officer GI physician during the after hours with any questions or concerns.
--- NOTE | 2023-06-28 12:04 | PTOTSP ---
Video Swallow Examination
Summary: Patient presents with mild-moderate oral and mild pharyngeal dysphagia for consistencies assessed. No aspiration occurred. There was upper penetration of thin and mildly thick liquids with trace deep penetration of mildly thick liquids
via straw over time. Mild esophageal retention noted in proximal esophagus during trials which eventually cleared as well as signs concerning for reflux below the PES in the distal esophagus at the end of the study. Please see patient care note
for full details of penetration/aspiration and swallowing physiology.
Recommend:
1. IDDSI Level 4 Puree, IDDSI Level 0 Thin Liquids
2. Medications - crushed in puree
3. Strategies: upright as close to 90 degrees as possible, small single sips/bites, TUCK CHIN, slow rate of intake, remain upright for at least 30 minutes after PO intake
4. Oral care 3x daily
5. Dysphagia therapy for patient instruction in precautions/compensations and to trial advanced solids if/when appropriate.
[2023-06-28 13:10] LABS: Glucose - Point of Care 121 mg/dl (70-99)
--- NOTE | 2023-06-28 16:11 | CM ---
Case management following for d/c planning
Met with pt and daughter, chart reviewed
Transfusion today
Refusing PT/OT - importance of working both reenforced
Pt for SNF - prefers to go home, family aware and would like her to go to [email or web address] when d/c'ed. Daughter to meet with Roseanne at [email or web address] today
CM will cont to follow pt for d/c needs
Plan - SNF - [email or web address] when medically stable
[2023-06-28 16:20] LABS: Glucose - Point of Care 145 mg/dl (70-99)
[2023-06-28] MEDS: XANAX 0.25 MG PO (22:19)
[2023-06-28] MEDS: MELATONIN 3 MG PO (22:19)
[2023-06-28 22:28] LABS: Glucose - Point of Care 147 mg/dl (70-99)
[2023-06-29] MEDS: DILAUDID 0.25 MG IV (03:54)
[2023-06-29 06:00] VITALS: BMI 22.5
[2023-06-29 06:23] LABS: Hematocrit 28.9 % (37.0-47.0); Mean Corp Hgb Conc. 31.1 g/dL (33.0-37.0); Mean Corpuscular Volume 83.5 fL (81.0-99.0); Mean Platelet Volume 10.6 fL (7.4-10.4); Nucleated Red Blood Cells % 0.2 %; Platelet Count 328 10^3/uL (130-400); Red Blood Cell Count 3.46 10^6/uL (4.20-5.40); Red Cell Dist. Width 16.9 % (11.5-14.5)
[2023-06-29 06:41] LABS: Blood Urea Nitrogen 45 mg/dl (7-17); Calcium 7.9 mg/dl (8.4-10.2); Carbon Dioxide 26 mmol/L (22-30); Chloride 106 mmol/L (98-107); Estimated Creatinine Clearance 26 ml/min; Glucose 103 mg/dl (70-99); Potassium 4.4 mmol/L (3.5-5.1); Sodium 136 mmol/L (135-145); eGFR 41.83
[2023-06-29 07:00] VITALS: BP 119/46
[2023-06-29] MEDS: PROTONIX 40 MG PO (08:27)
[2023-06-29] MEDS: ROXICODONE 20 MG PO ×4 (08:27→19:56)
[2023-06-29] MEDS: PACERONE 200 MG PO (08:29)
[2023-06-29] MEDS: LOPRESSOR 12.5 MG PO ×2 (08:30→20:02)
[2023-06-29] MEDS: NORVASC 10 MG PO (08:30)
[2023-06-29] MEDS: NICODERM TRANSDERMAL TRANSDERM (08:32)
[2023-06-29] MEDS: DESITIN MAXIMUM STRENGTH PASTE 1 APPLIC TOPICAL ×2 (08:33→19:54)
[2023-06-29] MEDS: FIRVANQ 125 MG PO ×2 (08:33→19:56)
[2023-06-29] MEDS: ANTIFUNGAL CLEAR 1 APPLIC TOPICAL ×2 (08:33→19:54)
[2023-06-29 08:34] LABS: Glucose - Point of Care 105 mg/dl (70-99)
[2023-06-29] MEDS: NOVOLOG FLEXPEN-LOW RESISTANCE SC ×3 (08:45→16:46)
[2023-06-29 09:38] LABS: Absolute Neutrophils -Man Diff 10.2 10^3/uL (1.4-6.5); Band Neutrophils 18 % (0-3); Lymphocytes 9 % (20-51); Monocytes 6 % (2-9); Normal RBC Morphology No; Platelets Checked YES; Segmented Neutrophils 67 % (42-75)
[2023-06-29 09:39] LABS: Hypochromasia Slight; Ovalocytes FEW; Polychromasia Slight; Target Cells FEW; Total Cells Counted 100
[2023-06-29 12:12] LABS: Glucose - Point of Care 142 mg/dl (70-99)
--- NOTE | 2023-06-29 12:49 | W.PN.HOSP.TC ---
Today's Communication/Plan
-
Await goals of care decision
Check stool for C. difficile toxin
Assessment / Plan
Assessment / Plan
Gen-awake, alert, NAD
HEENT-NC, AT, anicteric, clear oral mm
Neck-supple
CV-reg, no M, +S1/S2
Lungs-clear B/L
Abd-soft, NT, ND
Ext-no edema
Musculoskeletal-no cyanosis, clubbing
Skin-warm and dry
Neuro-grossly non-focal
Psych-calm, cooperative
Acute diarrhea -will check repeat stool C. difficile toxin, if negative then will order loperamide as needed. Nursing requesting fecal management system.
Septic shock - likely secondary to stercoral colitis/abdominal source-poa. Sepsis and shock resolved.
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
s/p robotic rectopexy, sacrocolpopexy, posterior colporrhaphy, perineoplasty and cystoscopy with left ureteral stent for presumed kidney stone 05/17/2023
-06/12 stool tested, C.Diff-Antigen pos, Toxin neg. Colonization. Po vanc BID until 06/29 per ID.
SBP
-cultures no growth. WBC normalized but with bandemia. Trend for now. Improving. Completed course of antibiotics.
Suspected ileus -Having small bowel movements. Patient refused flex sig. Tolerating pur�ed diet.
-TPN stopped.
-Colorectal surgery following
Acute hypoxic respiratory insufficiency likely secondary pleural effusions
Anasarca -received a dose of IV Lasix 06/24.
-Chest x-ray with pleural effusion. Ultrasound chest moderate bilateral effusions, thoracentesis pending.
Dysphagia
-puree diet tolerating diet so far better as without dentures. Video swallowing study completed, speech therapy recommends continuing current diet pur�ed, thin liquids, aspiration precautions.
RUE swelling
-US RUE negative. PICC line discontinued.
PAVEL - likely multifactorial pre-renal volume depletion while on ACEI, recent bactrim usage, ATN? Creatinine coming down, 1.3 today. Perhaps due to Lasix effect. No retention on bladder scan.
-Placed Chao from strict Is&Os, Chao removed on 06/20 and voiding.
New onset of Paroxysmal Afib with RVR on 06/09
currently in NSR with freq PAC's
-started on Amiodarone IV drip, now transitioned to 400 mg po bid through 06/21 completed. Plan to start 200 mg daily, as per cardio
-Elevated [id number] Score. Eliquis now on hold due to acute GI bleed, acute anemia.
Severe deconditioning due to prolonged hopsital/medical illness/sciolosis/non compliance with PT at times
-PM&R eval
Acute on chronic anemia - Stool heme test positive. Source of GI bleed unclear but likely exacerbated by ongoing anticoagulation with Eliquis. Appreciate GI input, patient not interested and aggressive workup including endoscopy. Wants to treat
conservatively. Transfused a second unit of blood on June 27, hemoglobin improved from 7.5-9.0 today. Eliquis currently on hold.
Severe Metabolic acidosis
-Resolved.
Pelvic Floor Prolapse s/p Robotic Rectopexy / Sacrocolpopexy on May 16
-Care as per Colorectal
DM2 without hyperglycemia -glucose 103 this morning.
-HgbA1c 6.1 on 06/20/23. Currently on aspart insulin low resistance corrective scale.
Essential Hypertension
-Cont norvasc and bb restart ACEI
Anxiety / Depression
-Xanax at bedtime and as needed home regimen
GERD
-Continue Protonix
Chronic Pain with Opioid Dependence
-Decrease dose of Dilaudid with plan to hopefully discontinue IV narcotics soon.
-Counseled extensively to patient and spouse to wean off opiates as outpatient due to significant adverse events including this hospitalization. Pt continues to demand more pain meds.
-Recommended to patient and spouse to start aggressive bowel regimen at home.
ADHD-hold off on restarting Adderall in the setting of new onset of A-fib
Tobacco abuse
-Continue with nicotine patch
Peripheral Arterial Disease
-Stable
Hypokalemia-replete/monitor
DVT proph: Eliquis
Code Status: Full Code
Dispo -Long discussion with patient, significant other, and patient's daughter Kendal. In my opinion, Jojo's goal is pain control and comfort. She has already been in the hospital for 21 days and at this point in time she just wants to go
home. I did speak with her about possibly going to SNF for rehab with a goal of improving her strength but she is currently not interested. I explained to Jojo that if her goal is to go home and be made comfortable with better pain control,
then hospice would be most appropriate. Otherwise if I send her home directly without plans for hospice then it is guaranteed she will be rehospitalized in the future.
The ultimate decision for hospice is up to Jojo. I encouraged her to speak further with her family.
Anticipated Discharge: 24 - 48 hours
Subjective/Interval History
-
Date of Service: June 29, 2023
Patient seen and examined. Significant other at the bedside. She is constantly focused on her pain, asking for pain medication. Looks brighter today, more awake.
Objective Data
-
Labs:
Laboratory Results
06/29/23
05:48
WBC 12.0 H
Hgb 9.0 L
Hct 28.9 L
Plt Count 328
Sodium 136
Potassium 4.4
Chloride 106
Carbon Dioxide 26
BUN 45 H
Creatinine 1.3 H
Glucose 103 H
Calcium 7.9 L
Vital Signs:
Vital Signs
Temp Pulse Resp BP Pulse Ox
98.2 F 70 18 119/46 92
06/29/23 07:00 06/29/23 08:29 06/29/23 07:00 06/29/23 08:29 06/29/23 07:00
I&O
06/28/23 06/29/23 06/30/23
06:59 06:59 06:59
Intake Total 1620 / 1620 850 / 850
Balance 1620 / 1620 850 / 850
Review of Systems
-
History Source: Patient
All other systems: Reviewed and negative
--- NOTE | 2023-06-29 14:22 | W.PN.NEPH.PH ---
Today's Communication / Plan
-
observe
maintained on LR
Assessment/Plan
-
Assessment:
Hyperkalemia
Acute kidney injury
Hypotension
Sepsis
Recent urogynecologic surgery
Left ureteral stent
Metabolic alkalosis
Diabetes mellitus type 2
Stercoral colitis
Chronic pain
Ileus
Plan:
Reconsulted for recurrent PAVEL. baseline Cr 1, went up to 1.5. blood pressures noted to be softer over the past few days --> ATN?. did recieve lasix yesterday.
Creatinine now down to 1.3 urine output not recorded per usual
hemodynamically stable
s/p video swallow
bladder scan completed which showed on 50cc of urine post void but would repeat
on pureed diet, patient endorses that she is eating well
abx per ID
afib per cards. could consider holding BB if BPs dont improve.
Cardiac echo reviewed hyperdynamic left ventricular systolic function moderate tricuspid regurg , elevated pulmonary pressures
-
-
Date of Service: June 29, 2023
CC / HPI / ROS
-
Chief Complaint:
PAVEL
History of Present Illness:
BP stable
PAVEL/Cr down to 1.3
treatment for Cdiff occuring
Review of Systems:
barr d/c on 06/20
no fever,
diarrhea
Labs
-
Labs:
WBC 12.0 10^3/uL (4.8-10.8) H 06/29/23 05:48
RBC 3.46 10^6/uL (4.20-5.40) L 06/29/23 05:48
Hgb 9.0 g/dL (12.0-16.0) L 06/29/23 05:48
Hct 28.9 % (37.0-47.0) L 06/29/23 05:48
Plt Count 328 10^3/uL (130-400) 06/29/23 05:48
Sodium 136 mmol/L (135-145) 06/29/23 05:48
Potassium 4.4 mmol/L (3.5-5.1) 06/29/23 05:48
Chloride 106 mmol/L (98-107) 06/29/23 05:48
Carbon Dioxide 26 mmol/L (22-30) 06/29/23 05:48
BUN 45 mg/dl (7-17) H 06/29/23 05:48
Creatinine 1.3 mg/dL (0.6-1.0) H 06/29/23 05:48
eGFR 41.83 06/29/23 05:48
Glucose 103 mg/dl (70-99) H 06/29/23 05:48
Calcium 7.9 mg/dl (8.4-10.2) L 06/29/23 05:48
Phosphorus 5.1 mg/dl (2.5-4.5) H 06/26/23 05:59
Albumin 1.6 g/dl (3.5-5.0) L 06/28/23 05:54
Physical Exam
-
Vital Signs:
Vital Signs
Temp Pulse Resp BP Pulse Ox
98.2 F 70 18 119/46 92
06/29/23 07:00 06/29/23 08:29 06/29/23 07:00 06/29/23 08:29 06/29/23 07:00
Cardiovascular:: Regular rate and rhythm
Respiratory:: Bilateral: CTA
Lung Excursion:: Normal
Abdomen:: Nontender and Soft
Bowel Sounds:: Normal
Extremity Edema:: None: Bilateral:
Barr Catheter: No
[2023-06-29 15:00] VITALS: BP 114/41
--- NOTE | 2023-06-29 15:07 | CM ---
Plan D/C to SNF with [facility] accepting for admission; Jojo would like to return directly home.
Goals of care discussion pending. CM will follow to assist [facility] discharge plans as indicated.
--- NOTE | 2023-06-29 16:33 | HOSPNOTE ---
Daughter Chanell reached out and stated that she was in agreement to hospice for her mother. Chanell states that patients boyfriend Grabiel will be primary county surveyor and Chanell will be updating the family for the plan of hospice services. Equipment will
be delivered tomorrow as family needs time to make room for equipment. The plan will then be to discharge to home on Monday with hospice services. Attempted to updated CM and ask for referral- response still pending. Attending updated on plan.
[2023-06-29 16:37] LABS: Glucose - Point of Care 137 mg/dl (70-99)
[2023-06-29] MEDS: XANAX 0.25 MG PO (21:08)
[2023-06-29] MEDS: MELATONIN 3 MG PO (21:08)
[2023-06-29 21:59] LABS: Glucose - Point of Care 94 mg/dl (70-99)
[2023-06-29 23:20] VITALS: BP 98/48
[2023-06-30] MEDS: DILAUDID 0.25 MG IV ×3 (04:46→17:10)
[2023-06-30 06:00] VITALS: BMI 22.9
[2023-06-30 06:43] LABS: Hemoglobin 9.3 g/dL (12.0-16.0); Mean Corpuscular Hgb 26.5 pg (27.0-31.0); Mean Corpuscular Volume 85.5 fL (81.0-99.0); Mean Platelet Volume 10.3 fL (7.4-10.4); Nucleated Red Blood Cells % 0.1 %; Platelet Count 327 10^3/uL (130-400); Red Blood Cell Count 3.51 10^6/uL (4.20-5.40); Red Cell Dist. Width 17.2 % (11.5-14.5); White Blood Cell Count 14.5 10^3/uL (4.8-10.8)
[2023-06-30 07:00] VITALS: BP 114/46
[2023-06-30 07:13] LABS: Blood Urea Nitrogen 45 mg/dl (7-17); Calcium 8.1 mg/dl (8.4-10.2); Carbon Dioxide 26 mmol/L (22-30); Chloride 106 mmol/L (98-107); Estimated Creatinine Clearance 26 ml/min; Glucose 108 mg/dl (70-99); Potassium 4.6 mmol/L (3.5-5.1); Sodium 136 mmol/L (135-145); eGFR 41.83
[2023-06-30 08:03] LABS: Absolute Neutrophils -Man Diff 13.3 10^3/uL (1.4-6.5); Band Neutrophils 18 % (0-3); Lymphocytes 5 % (20-51); Monocytes 3 % (2-9); Platelets Checked Yes; Segmented Neutrophils 74 % (42-75)
[2023-06-30 08:04] LABS: Normal RBC Morphology Yes; Total Cells Counted 100
[2023-06-30 08:09] LABS: Glucose - Point of Care 101 mg/dl (70-99)
[2023-06-30] MEDS: NOVOLOG FLEXPEN-LOW RESISTANCE SC ×3 (08:26→17:08)
[2023-06-30] MEDS: ANTIFUNGAL CLEAR 1 APPLIC TOPICAL ×2 (08:27→20:30)
[2023-06-30] MEDS: DESITIN MAXIMUM STRENGTH PASTE 1 APPLIC TOPICAL ×2 (08:28→20:30)
[2023-06-30] MEDS: LOPRESSOR 12.5 MG PO ×2 (08:28→20:30)
[2023-06-30] MEDS: FIRVANQ 125 MG PO ×2 (08:28→20:30)
[2023-06-30] MEDS: NICODERM TRANSDERMAL TRANSDERM (08:29)
[2023-06-30] MEDS: PROTONIX 40 MG PO (08:29)
[2023-06-30] MEDS: NORVASC 10 MG PO (08:29)
[2023-06-30] MEDS: PACERONE 200 MG PO (08:29)
[2023-06-30] MEDS: ROXICODONE 20 MG PO ×3 (08:33→22:24)
[2023-06-30] MEDS: [UNRECOGNIZED DRUG - OTHER] 0.100000000000000006 MG TRANSDERM (08:33)
[2023-06-30 11:58] LABS: Glucose - Point of Care 57 mg/dl (70-99)
--- NOTE | 2023-06-30 12:05 | W.PN.HOSP.TC ---
Today's Communication/Plan
-
Imodium as needed
Low lactose diet
Resume Eliquis tomorrow
Discharge planning
Assessment / Plan
Assessment / Plan
Gen-awake, alert, NAD
HEENT-NC, AT, anicteric, clear oral mm
Neck-supple
CV-reg, no M, +S1/S2
Lungs-clear B/L
Abd-soft, NT, ND
Ext-no edema
Musculoskeletal-no cyanosis, clubbing
Skin-warm and dry
Neuro-grossly non-focal
Psych-calm, cooperative
Acute diarrhea -C. difficile toxin negative. As needed loperamide ordered, not administered so far. Reminded nursing to use. Has fecal management system in place.
Unclear etiology for the diarrhea. Add low lactose to diet.
Septic shock - likely secondary to stercoral colitis/abdominal source-poa. Sepsis and shock resolved.
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
s/p robotic rectopexy, sacrocolpopexy, posterior colporrhaphy, perineoplasty and cystoscopy with left ureteral stent for presumed kidney stone 05/17/2023
-06/12 stool tested, C.Diff-Antigen pos, Toxin neg. Colonization. Po vanc BID until 06/29 per ID.
SBP
-cultures no growth. WBC normalized but with bandemia. Trend for now. Improving. Completed course of antibiotics.
Suspected ileus -resolved.
Acute hypoxic respiratory insufficiency likely secondary pleural effusions
Anasarca -received a dose of IV Lasix 06/24.
-Chest x-ray with pleural effusion. Ultrasound chest moderate bilateral effusions, thoracentesis pending.
Dysphagia
-puree diet tolerating diet so far better as without dentures. Video swallowing study completed, speech therapy recommends continuing current diet pur�ed, thin liquids, aspiration precautions.
RUE swelling
-US RUE negative. PICC line discontinued.
PAVEL - likely multifactorial pre-renal volume depletion while on ACEI, recent bactrim usage, ATN? Creatinine stable at 1.3 today. Perhaps due to Lasix effect. No retention on bladder scan.
-Placed Chao from strict Is&Os, Chao removed on 06/20 and voiding.
New onset of Paroxysmal Afib with RVR on 06/09
currently in NSR with freq PAC's
-started on Amiodarone IV drip, now transitioned to 400 mg po bid through 06/21 completed. Plan to start 200 mg daily, as per cardio
-Elevated [id number] Score. Eliquis now on hold due to acute GI bleed, acute anemia. Anticipate resuming Eliquis tomorrow.
Severe deconditioning due to prolonged hopsital/medical illness/sciolosis/non compliance with PT at times
-PM&R eval
Acute on chronic anemia - Stool heme test positive. Source of GI bleed unclear but likely exacerbated by ongoing anticoagulation with Eliquis. Appreciate GI input, patient not interested and aggressive workup including endoscopy. Wants to treat
conservatively. Transfused a second unit of blood on June 27. Hemoglobin currently stable, 9.3 today. Eliquis currently on hold.
Severe Metabolic acidosis
-Resolved.
Pelvic Floor Prolapse s/p Robotic Rectopexy / Sacrocolpopexy on May 16
-Care as per Colorectal
DM2 without hyperglycemia -glucose 103 this morning.
-HgbA1c 6.1 on 06/20/23. Currently on aspart insulin low resistance corrective scale.
Essential Hypertension
-Cont norvasc and bb restart ACEI
Anxiety / Depression
-Xanax at bedtime and as needed home regimen
GERD
-Continue Protonix
Chronic Pain with Opioid Dependence
-Decrease dose of Dilaudid with plan to hopefully discontinue IV narcotics soon.
-Counseled extensively to patient and spouse to wean off opiates as outpatient due to significant adverse events including this hospitalization. Pt continues to demand more pain meds.
-Recommended to patient and spouse to start aggressive bowel regimen at home.
ADHD-hold off on restarting Adderall in the setting of new onset of A-fib
Tobacco abuse
-Continue with nicotine patch
Peripheral Arterial Disease
-Stable
Hypokalemia-replete/monitor
DVT proph: Eliquis
Code Status: Full Code
Dispo -goal of discharge home tomorrow 06/30 on home hospice.
Anticipated Discharge: Within 24 hours
Subjective/Interval History
-
Date of Service: June 30, 2023
Patient seen and examined. Asking for her pain medicine. No complaints.
Objective Data
-
Labs:
Laboratory Results
06/30/23
06:32
WBC 14.5 H
Hgb 9.3 L
Hct 30.0 L
Plt Count 327
Sodium 136
Potassium 4.6
Chloride 106
Carbon Dioxide 26
BUN 45 H
Creatinine 1.3 H
Glucose 108 H
Calcium 8.1 L
Vital Signs:
Vital Signs
Temp Pulse Resp BP Pulse Ox
97.7 F 69 17 114/46 91
06/30/23 07:00 06/30/23 07:00 06/30/23 07:00 06/30/23 07:00 06/30/23 07:00
I&O
06/29/23 06/30/23 07/01/23
06:59 06:59 06:59
Intake Total 850 / 850 990 / 990
Balance 850 / 850 990 / 990
Review of Systems
-
History Source: Patient
All other systems: Reviewed and negative
[2023-06-30 12:29] LABS: Glucose - Point of Care 97 mg/dl (70-99)
[2023-06-30] MEDS: IMODIUM 2 MG PO ×2 (12:46→17:10)
--- NOTE | 2023-06-30 13:42 | W.PN.NEPH.PH ---
Today's Communication / Plan
-
- Cr stable, continue to monitor
Assessment/Plan
-
Assessment:
Hyperkalemia
Acute kidney injury
Hypotension
Sepsis
Recent urogynecologic surgery
Left ureteral stent
Metabolic alkalosis
Diabetes mellitus type 2
Stercoral colitis
Chronic pain
Ileus
Plan:
Reconsulted for recurrent PAVEL. baseline Cr 1, went up to 1.5. blood pressures noted to be softer over the past few days --> ATN? and also received lasix while BPs were low
Creatinine now down to 1.3 urine output not recorded per usual
hemodynamically stable
s/p video swallow
continue bladder scan per protocol
on pureed diet, patient endorses that she is eating well
abx per ID
afib per cards. could consider holding BB if BPs dont improve.
Cardiac echo reviewed hyperdynamic left ventricular systolic function moderate tricuspid regurg , elevated pulmonary pressures
-
-
Date of Service: June 30, 2023
CC / HPI / ROS
-
Chief Complaint:
PAVEL
History of Present Illness:
BP stable
PAVEL/Cr down to 1.3
treatment for Cdiff occuring
Review of Systems:
barr d/c on 06/20
no fever,
diarrhea
Labs
-
Labs:
WBC 14.5 10^3/uL (4.8-10.8) H 06/30/23 06:32
RBC 3.51 10^6/uL (4.20-5.40) L 06/30/23 06:32
Hgb 9.3 g/dL (12.0-16.0) L 06/30/23 06:32
Hct 30.0 % (37.0-47.0) L 06/30/23 06:32
Plt Count 327 10^3/uL (130-400) 06/30/23 06:32
Sodium 136 mmol/L (135-145) 06/30/23 06:32
Potassium 4.6 mmol/L (3.5-5.1) 06/30/23 06:32
Chloride 106 mmol/L (98-107) 06/30/23 06:32
Carbon Dioxide 26 mmol/L (22-30) 06/30/23 06:32
BUN 45 mg/dl (7-17) H 06/30/23 06:32
Creatinine 1.3 mg/dL (0.6-1.0) H 06/30/23 06:32
eGFR 41.83 06/30/23 06:32
Glucose 108 mg/dl (70-99) H 06/30/23 06:32
Calcium 8.1 mg/dl (8.4-10.2) L 06/30/23 06:32
Phosphorus 5.1 mg/dl (2.5-4.5) H 06/26/23 05:59
Albumin 1.6 g/dl (3.5-5.0) L 06/28/23 05:54
Physical Exam
-
Vital Signs:
Vital Signs
Temp Pulse Resp BP Pulse Ox
97.7 F 69 17 114/46 91
06/30/23 07:00 06/30/23 07:00 06/30/23 07:00 06/30/23 07:00 06/30/23 07:00
Cardiovascular:: Regular rate and rhythm
Respiratory:: Bilateral: Coarse
Lung Excursion:: Normal
Abdomen:: Soft and Tender
Bowel Sounds:: Normal
Extremity Edema:: None: Bilateral:
Barr Catheter: No
[2023-06-30 15:00] VITALS: BP 111/49
[2023-06-30] MEDS: ROXICODONE PO (15:11)
--- NOTE | 2023-06-30 15:37 | CM ---
Case management following for d/c planning
Pt to d/c to home tomorrow on Hospice
Spoke with Grab[facility] and pt at bedside
DME is delivered - asking for 12PM transport
Contacted Hospice nurse to confirm
Plan - home with Hospice
[2023-06-30 16:55] LABS: Glucose - Point of Care 124 mg/dl (70-99)
[2023-06-30 21:46] LABS: Glucose - Point of Care 176 mg/dl (70-99)
[2023-06-30] MEDS: XANAX 0.25 MG PO (22:21)
[2023-06-30] MEDS: MELATONIN 3 MG PO (22:21)
[2023-06-30 23:00] VITALS: BP 118/60
[2023-07-01] MEDS: DILAUDID 0.25 MG IV ×2 (05:47→11:36)
[2023-07-01 06:00] VITALS: BMI 22.9
[2023-07-01 07:48] VITALS: BP 111/44
[2023-07-01 07:57] LABS: % Basophils 0.2 % (0-2); % Eosinophils 0.4 % (0-6); % Immature Granulocytes 1.5 % (0-0.5); % Lymphocytes 6.6 % (20.5-51.1); % Monocytes 4.2 % (1.7-9.3); % Neutrophils 87.1 % (42.2-75.2); Absolute Eosinophils 0.1 10^3/uL (0-0.7); Absolute Immature Granulocytes 0.3 10^3/uL (0-0.05); Absolute Lymphocytes 1.1 10^3/uL (1.2-3.4); Absolute Monocytes 0.7 10^3/uL (0.1-0.6); Absolute Neutrophils 14.7 10^3/uL (1.4-6.5); Hematocrit 30.6 % (37.0-47.0); Mean Corp Hgb Conc. 32.7 g/dL (33.0-37.0); Mean Corpuscular Hgb 26.2 pg (27.0-31.0); Mean Corpuscular Volume 80.3 fL (81.0-99.0); Mean Platelet Volume 10.1 fL (7.4-10.4); Nucleated Red Blood Cells % 0 %; Platelet Count 319 10^3/uL (130-400); Red Blood Cell Count 3.81 10^6/uL (4.20-5.40); Red Cell Dist. Width 17.1 % (11.5-14.5); White Blood Cell Count 16.8 10^3/uL (4.8-10.8)
[2023-07-01 08:11] LABS: Glucose - Point of Care 145 mg/dl (70-99)
[2023-07-01] MEDS: ROXICODONE 20 MG PO ×2 (08:43→13:13)
[2023-07-01] MEDS: PROTONIX 40 MG PO (08:44)
[2023-07-01] MEDS: ELIQUIS 5 MG PO (08:44)
[2023-07-01] MEDS: LOPRESSOR 12.5 MG PO (08:44)
[2023-07-01] MEDS: PACERONE 200 MG PO (08:44)
[2023-07-01] MEDS: NORVASC 10 MG PO (08:44)
[2023-07-01] MEDS: NOVOLOG FLEXPEN-LOW RESISTANCE SC ×2 (08:51→12:24)
--- NOTE | 2023-07-01 10:21 | W.PN.HOSP.TC ---
Today's Communication/Plan
-
Discharge
Assessment / Plan
Assessment / Plan
Gen-awake, alert, NAD
HEENT-NC, AT, anicteric, clear oral mm
Neck-supple
CV-reg, no M, +S1/S2
Lungs-clear B/L
Abd-soft, NT, ND
Ext-no edema
Musculoskeletal-no cyanosis, clubbing
Skin-warm and dry
Neuro-grossly non-focal
Psych-calm, cooperative
Acute diarrhea -C. difficile toxin negative. As needed loperamide ordered, not administered so far. Reminded nursing to use. Has fecal management system in place.
Unclear etiology for the diarrhea. Add low lactose to diet.
Septic shock - likely secondary to stercoral colitis/abdominal source-poa. Sepsis and shock resolved.
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
s/p robotic rectopexy, sacrocolpopexy, posterior colporrhaphy, perineoplasty and cystoscopy with left ureteral stent for presumed kidney stone 05/17/2023
-06/12 stool tested, C.Diff-Antigen pos, Toxin neg. Colonization. Po vanc BID until 06/29 per ID.
SBP
-cultures no growth. Completed course of antibiotics.
Suspected ileus -resolved.
Acute hypoxic respiratory insufficiency likely secondary pleural effusions
Anasarca -received a dose of IV Lasix 06/24.
-Chest x-ray with pleural effusion. Ultrasound chest moderate bilateral effusions, thoracentesis pending.
Dysphagia
-puree diet tolerating diet so far better as without dentures. Video swallowing study completed, speech therapy recommends continuing current diet pur�ed, thin liquids, aspiration precautions.
RUE swelling
-US RUE negative. PICC line discontinued.
PAVEL - likely multifactorial pre-renal volume depletion while on ACEI, recent bactrim usage, ATN? Creatinine stable at 1.3 today. Perhaps due to Lasix effect. No retention on bladder scan.
-Placed Chao from strict Is&Os, Chao removed on 06/20 and voiding.
Asymptomatic leukocytosis -afebrile. Unclear etiology. Given her poor overall prognosis and plans for hospice I would not pursue workup. Discussed with significant other.
New onset of Paroxysmal Afib with RVR on 06/09
currently in NSR with freq PAC's
-started on Amiodarone IV drip, now transitioned to 400 mg po bid through 06/21 completed. Plan to start 200 mg daily, as per cardio
-Elevated [id number] Score. Eliquis now on hold due to acute GI bleed, acute anemia. Anticipate resuming Eliquis tomorrow.
Severe deconditioning due to prolonged hopsital/medical illness/sciolosis/non compliance with PT at times
-PM&R eval
Acute on chronic anemia - Stool heme test positive. Source of GI bleed unclear but likely exacerbated by ongoing anticoagulation with Eliquis. Appreciate GI input, patient not interested and aggressive workup including endoscopy. Wants to treat
conservatively. Transfused a second unit of blood on June 27. Hemoglobin currently stable, 9.3 today. Eliquis currently on hold.
Severe Metabolic acidosis
-Resolved.
Pelvic Floor Prolapse s/p Robotic Rectopexy / Sacrocolpopexy on May 16
-Care as per Colorectal
DM2 without hyperglycemia -glucose 103 this morning.
-HgbA1c 6.1 on 06/20/23. Currently on aspart insulin low resistance corrective scale.
Essential Hypertension
-Cont norvasc and bb restart ACEI
Anxiety / Depression
-Xanax at bedtime and as needed home regimen
GERD
-Continue Protonix
Chronic Pain with Opioid Dependence
-Decrease dose of Dilaudid with plan to hopefully discontinue IV narcotics soon.
-Counseled extensively to patient and spouse to wean off opiates as outpatient due to significant adverse events including this hospitalization. Pt continues to demand more pain meds.
-Recommended to patient and spouse to start aggressive bowel regimen at home.
ADHD-hold off on restarting Adderall in the setting of new onset of A-fib
Tobacco abuse
-Continue with nicotine patch
Peripheral Arterial Disease
-Stable
Hypokalemia-replete/monitor
DVT proph: Eliquis
Code Status: Full Code
Dispo -medically stable for discharge home on hospice today.
35 minutes spent in discharge process.
Anticipated Discharge: Today
Subjective/Interval History
-
Date of Service: July 01, 2023
Patient seen and examined. No complaints.
Objective Data
-
Labs:
Laboratory Results
07/01/23
07:48
WBC 16.8 H
Hgb 10.0 L
Hct 30.6 L
Plt Count 319
Vital Signs:
Vital Signs
Temp Pulse Resp BP Pulse Ox
98.3 F 68 16 111/44 92
07/01/23 07:48 07/01/23 07:48 07/01/23 07:48 07/01/23 07:48 07/01/23 07:48
I&O
06/30/23 07/01/23 07/02/23
06:59 06:59 06:59
Intake Total 990 / 990 480 / 480 0 / 0
Balance 990 / 990 480 / 480 0 / 0
Review of Systems
-
History Source: Patient
All other systems: Reviewed and negative
--- NOTE | 2023-07-01 10:27 | W.DS.TRANS ---
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
-
Discharge Instructions:
Discharge Diagnosis/Procedures Peritonitis, sepsis, acute kidney injury,
chronic pain syndrome
Diet Other diet
Additional Diets Pur�ed diet, low lactose
Activity As tolerated
Driving Restrictions No driving
Bathing Restrictions None
Other Services Hospice
Instructions:
Stand-Alone Forms:
Changes to Home Medications: No
Discharge Medications:
DC Medications w/original date entered in [facility]
estradiol 0.1 mg/24 hr weekly transdermal patch (Climara) 0.1 mg transdermal FR Hormonal Agent 04/25/09
alprazolam 0.25 mg tablet (Xanax) 0.125 mg PO DAILYPRN PRN anxiety 05/11/23
alprazolam 0.25 mg tablet (Xanax) 0.25 mg PO HS Mental Health/Anxiety 05/11/23
fexofenadine 180 mg tablet 180 mg PO DAILYPRN PRN allergies 05/11/23
oxycodone 20 mg tablet 20 mg PO QID pain 05/11/23
loperamide 2 mg capsule 2 mg PO Q4HPRN PRN diarrhea #0 caps 07/01/23
Home Medication Changes
Pending Results: No
--- NOTE | 2023-07-01 11:03 | CM ---
Pt for d/c to home with hospice
Transport scheduled for 1200
Hospice aware
Pts SO Grabiel aware of time
Plan - home with Hospice
[2023-07-01 11:33] VITALS: BP 90/41
[2023-07-01] MEDS: ANTIFUNGAL CLEAR 1 APPLIC TOPICAL (11:41)
[2023-07-01] MEDS: DESITIN MAXIMUM STRENGTH PASTE 1 APPLIC TOPICAL (11:42)
[2023-07-01] MEDS: ROXICODONE PO (12:59)
--- NOTE | 2023-07-01 15:26 | PTCARENOTE ---
1245 removed fecal management system prior to discharge after discussion with hospice
== END 2023-07-01 13:29 | disposition hospice, home (50) | DRG 871 ==
LOC: 3 WEST ACU 15:37
PROVIDERS: Internal Medicine; Nurse Practitioner Family; Nurse Practitioner Gerontology; Physician Assistant; Physician Assistant Medical; Radiology Diagnostic Radiology; Specialist; ADMITTING PHYSICIAN Hospitalist; ATTENDING PHYSICIAN Hospitalist; CONSULT PHYSICIAN Internal Medicine; CONSULT PHYSICIAN Internal Medicine Cardiovascular Disease; CONSULT PHYSICIAN Internal Medicine Critical Care Medicine; CONSULT PHYSICIAN Internal Medicine Infectious Disease; CONSULT PHYSICIAN Physical Medicine & Rehabilitation; EMERGENCY PHYSICIAN Emergency Medicine; OTHER PHYSICIAN Specialist; OTHER PHYSICIAN Surgery
PROC: 0T9B70Z Drainage of Bladder with Drainage Device, Via Natural or Artificial Opening (ICD-10-PCS; 2023-06-08)
PROC: 0D9670Z Drainage of Stomach with Drainage Device, Via Natural or Artificial Opening (ICD-10-PCS; 2023-06-08)
PROC: 02HV33Z Insertion of Infusion Device into Superior Vena Cava, Percutaneous Approach (ICD-10-PCS; 2023-06-09)
PROC: 3E0436Z Introduction of Nutritional Substance into Central Vein, Percutaneous Approach (ICD-10-PCS; 2023-06-16)
PROC: 0W9J3ZX Drainage of Pelvic Cavity, Percutaneous Approach, Diagnostic (ICD-10-PCS; 2023-06-16)
PROC: 30243N1 Transfusion of Nonautologous Red Blood Cells into Central Vein, Percutaneous Approach (ICD-10-PCS; 2023-06-18)
PROC: 0W9B3ZZ Drainage of Left Pleural Cavity, Percutaneous Approach (ICD-10-PCS; 2023-06-26)
PROC: 30233N1 Transfusion of Nonautologous Red Blood Cells into Peripheral Vein, Percutaneous Approach (ICD-10-PCS; 2023-06-28)
DX: A41.9 Sepsis, unspecified organism (principal); G93.41 Metabolic encephalopathy; R65.21 Severe sepsis with septic shock; K65.2 Spontaneous bacterial peritonitis; N17.0 Acute kidney failure with tubular necrosis; F11.23 Opioid dependence with withdrawal; E87.4 Mixed disorder of acid-base balance; R64 Cachexia; E87.1 Hypo-osmolality and hyponatremia; K56.7 Ileus, unspecified; R18.8 Other ascites; J90 Pleural effusion, not elsewhere classified; K92.2 Gastrointestinal hemorrhage, unspecified; D68.32 Hemorrhagic disorder due to extrinsic circulating anticoagulants; Z68.1 Body mass index [BMI] 19.9 or less, adult; E86.0 Dehydration; E87.5 Hyperkalemia; I10 Essential (primary) hypertension; K52.89 Other specified noninfective gastroenteritis and colitis; F17.210 Nicotine dependence, cigarettes, uncomplicated; K21.9 Gastro-esophageal reflux disease without esophagitis; G89.4 Chronic pain syndrome; F32.A Depression, unspecified; F41.9 Anxiety disorder, unspecified; E11.51 Type 2 diabetes mellitus with diabetic peripheral angiopathy without gangrene; J44.89 Other specified chronic obstructive pulmonary disease; R06.89 Other abnormalities of breathing; R09.02 Hypoxemia; E11.65 Type 2 diabetes mellitus with hyperglycemia; M81.0 Age-related osteoporosis without current pathological fracture; M41.9 Scoliosis, unspecified; E87.6 Hypokalemia; M19.90 Unspecified osteoarthritis, unspecified site; I48.0 Paroxysmal atrial fibrillation; D69.6 Thrombocytopenia, unspecified; D64.9 Anemia, unspecified; I08.3 Combined rheumatic disorders of mitral, aortic and tricuspid valves; R13.11 Dysphagia, oral phase; K74.60 Unspecified cirrhosis of liver; F90.9 Attention-deficit hyperactivity disorder, unspecified type; J30.2 Other seasonal allergic rhinitis; E87.8 Other disorders of electrolyte and fluid balance, not elsewhere classified; Z91.040 Latex allergy status; Z88.0 Allergy status to penicillin; Z79.4 Long term (current) use of insulin; Z87.442 Personal history of urinary calculi; Z88.6 Allergy status to analgesic agent; Z98.890 Other specified postprocedural states; Z87.11 Personal history of peptic ulcer disease; Z82.49 Family history of ischemic heart disease and other diseases of the circulatory system; Z83.3 Family history of diabetes mellitus; Z91.199 Patient's noncompliance with other medical treatment and regimen due to unspecified reason
CPT/HCPCS: 88305; 10160; 32555; 51702; 71045; 71046; 74018; 74019; 74176; 74230; 76604; 76942; 80048; 80053; 80076; 80202; 81003; 81015; 82248; 82533; 82570; 82607; 82728; 82746; 82945; 82947; 82962; 83036; 83540; 83550; 83605; 83615; 83690; 83735; 83935; 83986; 84100; 84145; 84155; 84157; 84300; 84478; 84550; 85014; 85018; 85025; 85610; 85730; 86850; 86900; 86901; 86920; 87015; 87040; 87070; 87075; 87086; 87205; 87324; 87449; 88112; 89051; 92526; 92610; 92611; 93005; 93306; 93971; 94640; 96365; 96375; 97110; 97162; 97167; 97530; 97535; 99285; 99406; J7030; P9016; P9047